=== PATIENT | male | born 1960 | race African-American/Black ===

== ENCOUNTER 2021-07-24 21:11 | Emergency (ER) | payer OTHER, SELFPAY ==
--- NOTE | ~2021-07-24 | XR_ITS ---
EXAMINATION: XR CHEST CLINICAL INFORMATION: Shortness of breath COMPARISON: None TECHNIQUE: Frontal portable view of the chest was obtained. 2247 hours FINDINGS: No significant abnormality is noted involving the heart, lungs, mediastinum, bony thorax or soft tissues. XR/XR chest 1V IMPRESSION: Unremarkable examination.
[2021-07-24 21:15] VITALS: BP 143/86; PULSE 102; RESP 16; TEMP 36.6; O2SAT 97; BMI 29.7
--- NOTE | 2021-07-24 21:41 | ECG_ITS ---
Test Reason : DYSPNEA Blood Pressure : / mmHG Vent. Rate : 084 BPM Atrial Rate : 084 BPM P-R Int : 156 ms QRS Dur : 094 ms QT Int : 386 ms P-R-T Axes : 053 -27 011 degrees QTc Int : 456 ms Normal sinus rhythm Normal ECG No previous ECGs available Referred By: Viri Paredes Electronically Signed By:CHIQUI LAI MD
--- NOTE | 2021-07-24 21:51 | ED.SOB ---
HPI - SOB/Dyspnea General Chief Complaint: Upper Respiratory Symptoms Stated Complaint: sob Time Seen by Provider: 07/24/21 21:31 Source: patient Mode of arrival: ambulatory History of Present Illness HPI Narrative: This is a 61-year-old male visiting from [place] with presentation for increasing shortness of breath and chest tightness since Friday evening without associated new cough, swelling in bilateral lower extremities, or orthopnea. Although patient states his chest is tight he denies that there is any chest pressure but does endorse feeling as though his heart is racing. He denies any dizziness but has had a mild headache and has had both COVID-19 vaccines. Patient is a current everyday smoker but denies history of COPD but endorses history of asthma and states that his last exacerbation was approximately 2 months ago. Related Data Previous Rx's Medication Instructions Recorded prednisone 20 mg tablet 40 mg PO DAILY 4 Days #8 tab 07/24/21 Allergies Allergy/AdvReac Type Severity Reaction Status Date / Time No Known Allergies Allergy Verified 07/24/21 21:42 Review of Systems Review of Systems: Pertinent positives and negatives as stated in HPI 10 point review of systems is otherwise negative. [facility] Past Medical History Source: nursing notes reviewed Social History Social History Advance Directives: No Advance Directives Information Provided: No Physical Exam Vital Signs: Vital Signs: Last Vital Signs Temp 97.8 F 07/24/21 21:15 Pulse 80 07/24/21 23:29 Resp 14 07/24/21 23:00 BP 145/82 H 07/24/21 23:00 Pulse Ox 99 07/24/21 23:00 Body Mass Index 29.7 VITAL SIGNS: Reviewed. GENERAL: Well developed, well nourished, mild distress. HEAD: Normocephalic/atraumatic EYES: PERRLA, EOMI OROPHARYNX: no oral lesions noted, posterior pharynx clear NECK: Supple, no adenopathy LUNGS: Good inspiratory effort but noted expiratory wheezing bilaterally with some decrease in breath sounds. SpO2<97> CARDIOVASCULAR: Regular rate and rhythm without noted murmurs, no JVD or lower extremity edema. ABDOMEN: Soft, non-tender, non-distended with bowel sounds. MUSCULOSKELETAL: No tenderness, deformities, or effusions noted on gross inspection. EXTREMITIES: No cyanosis, clubbing or edema. SKIN: Inspection of the skin reveals no rashes NEUROLOGIC: Alert and oriented x 4. Course Course Course Narrative: 61-year-old male with history and clinical presentation suggestive of asthma exacerbation, but will rule out competing cardiopulmonary etiologies. Review of all investigations consistent with acute asthma exacerbation. All results and findings discussed with patient at bedside and he was otherwise discharged home in stable condition. Reevaluation(s) Reevaluation #1: On re-evaluation patient reports feeling much better and on evaluation lungs there are no longer any noted expiratory wheezes. Time: 22:56 MDM - SOB/Dyspnea Lab Data Result diagrams: 07/24/21 21:46 07/24/21 21:46 Labs: Lab Results 07/24/21 07/24/21 07/24/21 Range/Units 21:46 21:46 21:46 WBC 5.7 (4.8-10.8) X10*3/uL RBC 4.48 L (4.60-5.80) X10*6/uL Hgb 14.0 (14.0-18.0) g/dl Hct 42.0 (42.0-52.0) % MCV 93.8 (80.0-98.0) fL MCH 31.3 (27.0-33.0) pg MCHC 33.3 (31.0-36.0) g/dl RDW 13.2 (11.0-16.0) % Plt Count 200 (160-400) X10*3/uL MPV 10.6 (9.4-12.4) fL Immature Gran % (Auto) 0.5 H (0.0-0.4) % Neut % (Auto) 56.0 (45-73) % Lymph % (Auto) 29.1 (20-40) % Greene % (Auto) 10.8 (2-11) % Eos % (Auto) 3.2 (0-4) % Baso % (Auto) 0.4 (0-2) % Lymph # (Auto) 1.7 (1.2-4.9) X10*3/uL Greene # (Auto) 0.6 (0.1-1.2) X10*3/uL Eos # (Auto) 0.2 (0.0-0.4) X10*3/uL Baso # (Auto) 0.0 (0.0-0.2) X10*3/uL Abs Immat Gran (auto) 0.03 (0.00-0.03) X10*3/uL Absolute Neuts (auto) 3.18 (2.0-8.3) x10*3/uL Absolute Nucleated RBC 0.000 (0.0-0.012) X10*3/uL Nucleated RBC % (auto) 0.0 (0.0-0.2) /100WBC PT (9.9-13.0) SEC INR (0.9-1.1) VBG pH (7.32-7.43) VBG pCO2 mmHg VBG pO2 mmHg VBG HCO3 (22-26) mmol/L VBG O2 Saturation % VBG Base Excess mmol/L Sodium 140 (135-145) mmol/L Potassium 4.3 (3.3-5.1) mmol/L Chloride 100 (96-108) mmol/L Carbon Dioxide 31 H (22-29) mmol/L Anion Gap 13 (12-20) BUN 13 (9-16) mg/dL Creatinine 1.28 (0.5-1.4) mg/dL Estim Creat Clear Calc 64.3 Estimated GFR 57 Random Glucose 261 H (60-115) mg/dL Lactic Acid (0.5-2.0) mmol/L Calcium 9.7 (8.4-10.2) mg/dL Magnesium 2.0 (1.6-2.6) mg/dL Total Bilirubin 0.4 (0.0-1.0) mg/dL AST 20 (5-37) U/L ALT 17 (0-40) U/L Alkaline Phosphatase 75 (39-117) U/L Troponin I High Sens < 3.5 (<3.5-35.0) ng/L Total Protein 6.8 (6.5-8.0) g/dL Albumin 4.2 (3.5-5.0) g/dL Influenza Type A (PCR) (Negative) Influenza Type B (PCR) (Negative) RSV RNA Qual (PCR) (Negative) SARS-CoV-2 RNA (RT-PCR) (Negative) 07/24/21 07/24/21 07/24/21 Range/Units 21:46 21:46 22:22 WBC (4.8-10.8) X10*3/uL RBC (4.60-5.80) X10*6/uL Hgb (14.0-18.0) g/dl Hct (42.0-52.0) % MCV (80.0-98.0) fL MCH (27.0-33.0) pg MCHC (31.0-36.0) g/dl RDW (11.0-16.0) % Plt Count (160-400) X10*3/uL MPV (9.4-12.4) fL Immature Gran % (Auto) (0.0-0.4) % Neut % (Auto) (45-73) % Lymph % (Auto) (20-40) % Greene % (Auto) (2-11) % Eos % (Auto) (0-4) % Baso % (Auto) (0-2) % Lymph # (Auto) (1.2-4.9) X10*3/uL Greene # (Auto) (0.1-1.2) X10*3/uL Eos # (Auto) (0.0-0.4) X10*3/uL Baso # (Auto) (0.0-0.2) X10*3/uL Abs Immat Gran (auto) (0.00-0.03) X10*3/uL Absolute Neuts (auto) (2.0-8.3) x10*3/uL Absolute Nucleated RBC (0.0-0.012) X10*3/uL Nucleated RBC % (auto) (0.0-0.2) /100WBC PT 11.1 (9.9-13.0) SEC INR 1.0 (0.9-1.1) VBG pH (7.32-7.43) VBG pCO2 mmHg VBG pO2 mmHg VBG HCO3 (22-26) mmol/L VBG O2 Saturation % VBG Base Excess mmol/L Sodium (135-145) mmol/L Potassium (3.3-5.1) mmol/L Chloride (96-108) mmol/L Carbon Dioxide (22-29) mmol/L Anion Gap (12-20) BUN (9-16) mg/dL Creatinine (0.5-1.4) mg/dL Estim Creat Clear Calc Estimated GFR Random Glucose (60-115) mg/dL Lactic Acid 1.7 (0.5-2.0) mmol/L Calcium (8.4-10.2) mg/dL Magnesium (1.6-2.6) mg/dL Total Bilirubin (0.0-1.0) mg/dL AST (5-37) U/L ALT (0-40) U/L Alkaline Phosphatase (39-117) U/L Troponin I High Sens (<3.5-35.0) ng/L Total Protein (6.5-8.0) g/dL Albumin (3.5-5.0) g/dL Influenza Type A (PCR) NEGATIVE (Negative) Influenza Type B (PCR) NEGATIVE (Negative) RSV RNA Qual (PCR) NEGATIVE (Negative) SARS-CoV-2 RNA (RT-PCR) NEGATIVE (Negative) 07/24/21 Range/Units 22:27 WBC (4.8-10.8) X10*3/uL RBC (4.60-5.80) X10*6/uL Hgb (14.0-18.0) g/dl Hct (42.0-52.0) % MCV (80.0-98.0) fL MCH (27.0-33.0) pg MCHC (31.0-36.0) g/dl RDW (11.0-16.0) % Plt Count (160-400) X10*3/uL MPV (9.4-12.4) fL Immature Gran % (Auto) (0.0-0.4) % Neut % (Auto) (45-73) % Lymph % (Auto) (20-40) % Greene % (Auto) (2-11) % Eos % (Auto) (0-4) % Baso % (Auto) (0-2) % Lymph # (Auto) (1.2-4.9) X10*3/uL Greene # (Auto) (0.1-1.2) X10*3/uL Eos # (Auto) (0.0-0.4) X10*3/uL Baso # (Auto) (0.0-0.2) X10*3/uL Abs Immat Gran (auto) (0.00-0.03) X10*3/uL Absolute Neuts (auto) (2.0-8.3) x10*3/uL Absolute Nucleated RBC (0.0-0.012) X10*3/uL Nucleated RBC % (auto) (0.0-0.2) /100WBC PT (9.9-13.0) SEC INR (0.9-1.1) VBG pH 7.41 (7.32-7.43) VBG pCO2 49 mmHg VBG pO2 51 mmHg VBG HCO3 32 H (22-26) mmol/L VBG O2 Saturation 79.0 % VBG Base Excess 6.1 mmol/L Sodium (135-145) mmol/L Potassium (3.3-5.1) mmol/L Chloride (96-108) mmol/L Carbon Dioxide (22-29) mmol/L Anion Gap (12-20) BUN (9-16) mg/dL Creatinine (0.5-1.4) mg/dL Estim Creat Clear Calc Estimated GFR Random Glucose (60-115) mg/dL Lactic Acid (0.5-2.0) mmol/L Calcium (8.4-10.2) mg/dL Magnesium (1.6-2.6) mg/dL Total Bilirubin (0.0-1.0) mg/dL AST (5-37) U/L ALT (0-40) U/L Alkaline Phosphatase (39-117) U/L Troponin I High Sens (<3.5-35.0) ng/L Total Protein (6.5-8.0) g/dL Albumin (3.5-5.0) g/dL Influenza Type A (PCR) (Negative) Influenza Type B (PCR) (Negative) RSV RNA Qual (PCR) (Negative) SARS-CoV-2 RNA (RT-PCR) (Negative) ECG Data Attestation: I personally reviewed and interpreted this ECG as follows: Prior ECG tracings: not available for review Interpretation: Normal sinus rhythm, HR-84, no STEMI, HI/QRS/QTC are within normal limits. Discharge Plan Discharge Clinical Impression: Asthma exacerbation Patient Disposition: Home, Self-Care Instructions: Asthma (ED), How to Stop Smoking (ED) Additional Instructions: 1. Recommend consistently using your albuterol inhaler for the next 24 hours, every 4-6 hours. 2. Follow-up with your primary care provider in the next 2-3 days for re-evaluation. Return to the ER for worsening of symptoms. Prescriptions: New prednisone 20 mg tablet 40 mg PO DAILY 4 Days Qty: 8 RF: 0
[2021-07-24] MEDS: Albuterol Sulfate (0.083%) 2.5 MG/3 ML VIAL.NEB 10 MG INHALE (21:56)
[2021-07-24 22:03] LABS: Basophils Percent Auto 0.4 % (0-2); Eosinophils Absolute Auto 0.2 X10*3/uL (0.0-0.4); Eosinophils Percent Auto 3.2 % (0-4); Imm Gran Abs Auto 0.03 X10*3/uL (0.00-0.03); Imm Gran Pct Auto 0.5 % (0.0-0.4); Lymphocytes Absolute Auto 1.7 X10*3/uL (1.2-4.9); Lymphocytes Percent Auto 29.1 % (20-40); MANUAL DIFF FLAG NO; Mean Corpuscular HGB Conc 33.3 g/dl (31.0-36.0); Mean Corpuscular Hemoglobin 31.3 pg (27.0-33.0); Mean Corpuscular Volume 93.8 fL (80.0-98.0); Mean Platelet Volume 10.6 fL (9.4-12.4); Monocytes Absolute Auto 0.6 X10*3/uL (0.1-1.2); Monocytes Percent Auto 10.8 % (2-11); Neutrophils Absolute Auto 3.18 x10*3/uL (2.0-8.3); Platelet Count 200 X10*3/uL (160-400); Red Blood Count 4.48 X10*6/uL (4.60-5.80); Red Cell Distribution Width 13.2 % (11.0-16.0); White Blood Count 5.7 X10*3/uL (4.8-10.8)
[2021-07-24 22:08] LABS: Prothrombin Time 11.1 SEC (9.9-13.0)
[2021-07-24 22:11] VITALS: PULSE 86; O2SAT 96
[2021-07-24 22:29] LABS: Troponin-I High Sensitivity < 3.5 ng/L (<3.5-35.0)
[2021-07-24 22:32] LABS: VBG Base Excess 6.1 mmol/L; VBG HCO3 32 mmol/L (22-26); VBG pCO2 49 mmHg; VBG pH 7.41 (7.32-7.43); VBG pO2 51 mmHg
[2021-07-24 22:34] LABS: Venous Blood Gas Refer to POC result
[2021-07-24 22:36] LABS: Lactic Acid 1.7 mmol/L (0.5-2.0)
[2021-07-24 22:40] LABS: Alanine Aminotransferase 17 U/L (0-40); Albumin Level 4.2 g/dL (3.5-5.0); Alkaline Phosphatase 75 U/L (39-117); Anion Gap 13 (12-20); Aspartate Amino Transferase 20 U/L (5-37); Bilirubin Total 0.4 mg/dL (0.0-1.0); Blood Urea Nitrogen 13 mg/dL (9-16); Calcium 9.7 mg/dL (8.4-10.2); Carbon Dioxide 31 mmol/L (22-29); Chloride 100 mmol/L (96-108); Creatinine Clr Calc Pharmacy 64.3; Estimated Glomerular Filt Rate 57; Glucose Random 261 mg/dL (60-115); Influenza A PCR NEGATIVE (Negative); Influenza B PCR NEGATIVE (Negative); Potassium 4.3 mmol/L (3.3-5.1); Resp Syncy Virus RNA Qual PCR NEGATIVE (Negative); SARS COV2 PCR INHOUSE NEGATIVE (Negative); Sodium 140 mmol/L (135-145); Total Protein 6.8 g/dL (6.5-8.0)
[2021-07-24] MEDS: methylPREDNISolone Sod Succ 125 MG/2 ML VIAL IVPUSH (22:55)
[2021-07-24 23:00] VITALS: BP 145/82; PULSE 88; RESP 14; O2SAT 99
--- NOTE | 2021-07-24 23:08 | PC.NURSE ---
This nurse called RT to administer med.
[2021-07-24 23:29] VITALS: PULSE 80; O2SAT 97
[2021-07-24] MEDS: Albuterol Sulfate (0.083%) 2.5 MG/3 ML VIAL.NEB 5 MG INHALE (23:29)
[2021-07-25] MEDS: Albuterol Sulfate 90 MCG 8 GM INHALER 4 PUFF INHALE (00:32)
== END 2021-07-25 00:35 | disposition home or self-care (01) ==
LOC: HO.ED 23:34
PROVIDERS: Emergency Provider Student in an Organized Health Care Education/Training Program
DX: J45.901 Unspecified asthma with (acute) exacerbation (principal); R06.02 Shortness of breath; F17.210 Nicotine dependence, cigarettes, uncomplicated; Z71.6 Tobacco abuse counseling; Z20.822 Contact with and (suspected) exposure to COVID-19; Z79.899 Other long term (current) drug therapy
CPT/HCPCS: 0241U; 36415; 71045; 80053; 82803; 83605; 83735; 84484; 85025; 85610; 87040; 93005; 94640; 94644; 96374; 99284; 99285; J2930

== ENCOUNTER 2021-09-07 09:31 | Emergency (ER) | payer OTHER, SELFPAY ==
--- NOTE | ~2021-09-07 | XR_ITS ---
EXAMINATION: XR CHEST CLINICAL INFORMATION: Shortness of breath COMPARISON: Previous chest x-ray most recent 07/24/2021 TECHNIQUE: Frontal view of the chest was obtained. FINDINGS: The cardiac and mediastinal contours are normal. The lungs are clear. There is no pleural effusion or pneumothorax. There are surgical clips in the lower neck. Bony structures are unremarkable. XR/XR chest 1V IMPRESSION: No evidence for acute disease in the chest.
--- NOTE | 2021-09-07 09:37 | ECG_ITS ---
Test Reason : CP Blood Pressure : / mmHG Vent. Rate : 071 BPM Atrial Rate : 071 BPM P-R Int : 148 ms QRS Dur : 086 ms QT Int : 376 ms P-R-T Axes : 043 -27 005 degrees QTc Int : 408 ms Normal sinus rhythm Normal ECG When compared with ECG of 24-JUL-2021 21:51, T wave amplitude has increased in Anterior leads Referred By: Generic ED Physician Electronically Signed By:GARRICK THOMAS MD
[2021-09-07 10:08] VITALS: BP 143/84; PULSE 72; RESP 18; TEMP 36.5; O2SAT 100; BMI 29.0
[2021-09-07 10:49] LABS: COVID-19 Test Negative (Negative); IDNOW Serial# 9DD0AD1C
[2021-09-07] MEDS: predniSONE 20 MG TABLET 40 MG PO (11:35)
[2021-09-07 11:53] VITALS: PULSE 79; O2SAT 98
[2021-09-07] MEDS: Albuterol/Iprat 2.5/0.5MG 3 ML AMPUL.NEB INHALE (11:53)
--- NOTE | 2021-09-07 12:22 | ED.SOB ---
HPI - SOB/Dyspnea General Chief Complaint: Dyspnea Stated Complaint: Chest pressure/ear ache/SOB Time Seen by Provider: 09/07/21 11:23 Source: patient Mode of arrival: ambulatory History of Present Illness HPI Narrative: 61-year-old male with a past medical history of asthma, cigarette smoker presenting to the ED complaining of worsening SOB, dry cough, and wheezing x2 weeks. Reports tested negative for COVID-19 last week. It is fully vaccinated for COVID-19. Denies chest pain, fever, chills, pedal edema, recent travel, sick contacts. Admits use neb treatment this morning with mild relief MD elicited complaint: shortness of breath, cough and asthma attack Pertinent past history: asthma Related Data Previous Rx's Medication Instructions Recorded prednisone 20 mg tablet 40 mg PO DAILY 4 Days #8 tab 07/24/21 albuterol sulfate 2.5 mg/0.5 mL 5 mg INHALATION Q4H PRN #30 ea 09/07/21 solution for nebulization albuterol sulfate 90 mcg/actuation 2 puff INHALATION Q4-6H PRN #6.7 g 09/07/21 aerosol inhaler prednisone 20 mg tablet 40 mg PO DAILY 5 Days #10 tab 09/07/21 Allergies Allergy/AdvReac Type Severity Reaction Status Date / Time No Known Allergies Allergy Verified 09/07/21 10:08 Review of Systems Review of Systems: Constitutional: No Fever, No Chills ENT/Mouth: No Ear Pain, No Nasal Congestion, No Sinus Pain, No Hoarseness, No sore throat, No Rhinorrhea, No Swallowing Difficulty Cardiovascular: No Chest Pain, + SOB Respiratory: + Cough, No Sputum, + Wheezing Gastrointestinal: No Nausea, No Vomiting, No Diarrhea, No Constipation, No Abdominal pain Genitourinary:, No Dysuria, No Hematuria, No Urinary Incontinence Musculoskeletal: No joint pain, No Myalgias, No Joint Swelling Skin: No Skin Lesions, No rash Neuro: No Weakness, No Numbness, No Paresthesias Yes all other systems are reviewed and are negative [facility] Past Medical History Attestation statement: The following information was validated with the patient. Social History Social History Advance Directives: No Advance Directives Information Provided: No Physical Exam Vital Signs: Vital Signs: Last Vital Signs Temp 97.7 F 09/07/21 10:08 Pulse 79 09/07/21 11:53 Resp 18 09/07/21 10:08 BP 143/84 H 09/07/21 10:08 Pulse Ox 100 09/07/21 10:08 BMI result Body Mass Index 29.0 Const: General: cooperative, healthy appearing and no acute distress Orientation/consciousness: patient oriented x3 Limitations: no limitations HENMT: Head: Yes normal to inspection Ears: hearing grossly normal bilaterally General nose exam: Normal external nose present Face and sinus: Yes normal facial exam Eyes: General: appearance normal, both eyes and all related structures EOM: EOMs intact bilaterally Neck: Neck: Yes normal visual inspection and Yes no meningeal signs Resp: Effort & Inspection: normal respiratory effort and not tachypneic Auscultation: wheezes expiratory wheezes and upper bilaterally Cardio: Rate: regular rate Heart sounds: S1 normal heart sound present and S2 normal heart sound present Skin: Rashes: no rashes Wounds: no wounds Neuro: General: patient oriented x3 and no meningeal signs Gait exam (Neuro): Normal gait present Extrem: General: Yes normal to inspection, Yes no pedal edema and Yes no calf tenderness Course Course Course Narrative: -COVID negative XR chest 1V IMPRESSION: No evidence for acute disease in the chest. -1232--on re-evaluation after DuoNeb lungs CTA. Discussed worrisome signs and symptoms and strict return precautions and need follow-up with PCP. Patient verbalized understanding for safer discharge home this time MDM - SOB/Dyspnea MDM Narrative Medical decision making narrative: 61-year-old male with a past medical history of asthma, cigarette smoker presenting to the ED complaining of worsening SOB, dry cough, and wheezing x2 weeks. On exam vital signs stable, NAD/nontoxic, extra adamaris wheeze noted in upper lung garcia, no pedal edema, nontoxic, no respiratory distress. Concern for asthma exacerbation versus viral syndrome. Rule out pneumonia. Low concern for ACS/PE Plan: COVID-19 testing, CXR, DuoNeb, p.o. prednisone, re-evaluate Differential Diagnosis Differential diagnosis: Likely acute exacerbation of chronic obstructive airways disease, congestive heart failure, pneumonia and asthma with exacerbation Medical Records Attestation: I reviewed the patient's medical records. Lab Data Attestation: I reviewed the patient's lab results. Labs: Lab Results 09/07/21 Range/Units 10:28 COVID-19 (EDUARDO) Negative (Negative) COVID-19 Clin Com See Note Discharge Plan Discharge Clinical Impression: Asthma with exacerbation Qualifiers: Asthma severity: mild Asthma persistence: unspecified Qualified Code(s): J45.901 - Unspecified asthma with (acute) exacerbation Patient Disposition: Home, Self-Care Instructions: Asthma (ED) Additional Instructions: You tested negative for COVID-19. Her x-ray was unremarkable Make sure you are using your nebulizer machine and inhaler at home In addition take prednisone as prescribed Please follow-up with her doctor If symptoms persist or worsen, if constant worsening shortness of breath, developed chest pain, or fever please return to the ED Prescriptions: New prednisone 20 mg tablet 40 mg PO DAILY 5 Days Qty: 10 RF: 0 albuterol sulfate 90 mcg/actuation HFA aerosol inhaler 2 puff inhalation Q4-6H PRN (Reason: shortness of breath or wheezing) Qty: 6.7 RF: 0 albuterol sulfate 2.5 mg/0.5 mL solution for nebulization 5 mg inhalation Q4H PRN (Reason: shortness of breath or wheezing) Qty: 30 RF: 0 No Action prednisone 20 mg tablet 40 mg PO DAILY 4 Days Qty: 8 RF: 0 Referrals: Physician,None [Primary Care Provider] - 5 days
== END 2021-09-07 13:07 | disposition home or self-care (01) ==
PROVIDERS: Emergency Provider Emergency Medicine
DX: J45.901 Unspecified asthma with (acute) exacerbation (principal); R06.02 Shortness of breath; H92.03 Otalgia, bilateral; R05.9 Cough, unspecified; Z20.822 Contact with and (suspected) exposure to COVID-19; Z79.899 Other long term (current) drug therapy
CPT/HCPCS: 36415; 71045; 87635; 93005; 94640; 99283; 99284

== ENCOUNTER 2022-02-06 09:28 | Emergency (ER) | payer OTHER, SELFPAY ==
--- NOTE | ~2022-02-06 | XR_ITS ---
EXAMINATION: XR CHEST CLINICAL INFORMATION: Cough COMPARISON: 09/07/2021 TECHNIQUE: Frontal view of the chest was obtained. FINDINGS: Lungs are well-inflated and clear. No pleural effusion. Cardiac silhouette is normal in size. The hilar contours are normal. Pulmonary vascular pattern is normal. Surgical clips within the lower neck. The visualized bones are intact. XR/XR chest 1V IMPRESSION: No evidence of pneumonia. No acute cardiopulmonary findings compared to 09/07/2021.
[2022-02-06 09:38] VITALS: BP 133/76; PULSE 110; RESP 18; TEMP 36.8; O2SAT 96; BMI 29.0
[2022-02-06 10:06] LABS: COVID-19 Test Negative (Negative); IDNOW Serial# 16C4AD1C; Influenza A Positive (Negative); Influenza B2 Negative (Negative)
[2022-02-06 11:11] VITALS: BP 140/84; PULSE 102; RESP 18; O2SAT 96
--- NOTE | 2022-02-06 12:20 | ED.URI ---
HPI - URI/Sore Throat General Chief Complaint: Upper Respiratory Symptoms Stated Complaint: difficult breath, lung, chest pain Time Seen by Provider: 02/06/22 12:20 Source: patient Mode of arrival: ambulatory Limitations: no limitations History of Present Illness HPI Narrative: shortness of breath since this morning, coughing, myalgias and chill. MD elicited complaint: fever and cough Onset (ago): hour(s) Consistency: constant Severity: mild Exacerbating factors: exertion Associated symptoms: fever, chills, cough and shortness of breath Related Data Previous Rx's Medication Instructions Recorded prednisone 20 mg tablet 40 mg PO DAILY 4 Days #8 tab 07/24/21 albuterol sulfate 2.5 mg/0.5 mL 5 mg INHALATION Q4H PRN #30 ea 09/07/21 solution for nebulization albuterol sulfate 90 mcg/actuation 2 puff INHALATION Q4-6H PRN #6.7 g 09/07/21 aerosol inhaler prednisone 20 mg tablet 40 mg PO DAILY 5 Days #10 tab 09/07/21 albuterol sulfate 90 mcg/actuation 2 puff INHALATION QID PRN #8.5 g 02/06/22 aerosol inhaler [id number] 5 10 ml PO Q4H #120 ml 02/06/22 mg-10 mg-100 mg/5 mL oral liquid prednisone 20 mg tablet 60 mg PO DAILY #12 tab 02/06/22 Allergies Allergy/AdvReac Type Severity Reaction Status Date / Time No Known Allergies Allergy Verified 09/07/21 10:08 Review of Systems Constitutional: Constitutional: Reports no additional constitutional complaints Eyes: Eyes: Reports no additional eye complaints ENT: Denies dizziness Cardiovascular: Cardiovascular: Reports no additional cardiovascular complaints Respiratory: Respiratory: Reports as per HPI Gastrointestinal: Gastrointestinal: Reports no additional gastrointestinal complaints Musculoskeletal: Musculoskeletal: Reports no additional musculoskeletal complaints Integumentary/Breasts: Skin/Breast: Denies rash Neurologic: Reports system reviewed and no additional complaints, except as documented, Denies dizziness and Denies Sensory deficit (Neuro) Psychiatric: Psychiatric: Denies anxiety PMFSH Social History Social History Advance Directives: No Advance Directives Information Provided: No Physical Exam Vital Signs: Vital Signs: Last Vital Signs Temp 98.3 F 02/06/22 09:38 Pulse 102 H 02/06/22 12:48 Resp 18 02/06/22 12:48 BP 140/84 H 02/06/22 11:11 Pulse Ox 96 02/06/22 11:11 BMI result Body Mass Index 29.0 Neuro: Sensory Exam: No Sensory deficit (Neuro) Course Reevaluation(s) Reevaluation #1: Breathing better, no wheezing. Still coughing, will dc on robitussin, prednisone and albuterol Time: 13:30 MDM - URI/Sore Throat Lab Data Labs: Lab Results 02/06/22 02/06/22 Range/Units 09:42 09:42 COVID-19 (EDUARDO) Negative (Negative) COVID-19 Clin Com See Note Influenza Type A (LYNN) Positive A (Negative) Influenza Type B (LYNN) Negative (Negative) Influenza A & B Note See Note Imaging Data Chest x-ray: Radiologist's impression: IMPRESSION: No evidence of pneumonia. No acute cardiopulmonary findings compared to 09/07/2021. Discharge Plan Discharge Clinical Impression: Influenza A, Asthma Patient Disposition: Home, Self-Care Instructions: Asthma (ED), Influenza (ED) Prescriptions: New albuterol sulfate 90 mcg/actuation HFA aerosol inhaler 2 puff inhalation QID PRN (Reason: shortness of breath or wheezing) Qty: 8.5 0RF prednisone 20 mg tablet 60 mg PO DAILY Qty: 12 0RF [id number] 5-10-100 mg/5 mL liquid 10 ml PO Q4H Qty: 120 0RF No Action prednisone 20 mg tablet 40 mg PO DAILY 4 Days Qty: 8 0RF prednisone 20 mg tablet 40 mg PO DAILY 5 Days Qty: 10 0RF albuterol sulfate 90 mcg/actuation HFA aerosol inhaler 2 puff inhalation Q4-6H PRN (Reason: shortness of breath or wheezing) Qty: 6.7 0RF albuterol sulfate 2.5 mg/0.5 mL solution for nebulization 5 mg inhalation Q4H PRN (Reason: shortness of breath or wheezing) Qty: 30 0RF Referrals: Physician,Nonstaff [Primary Care Provider] - 1 week Stand Alone Forms: Work/School Release
[2022-02-06] MEDS: guaiFENesin 200 MG/10 ML 10 ML LIQUID PO (12:35)
[2022-02-06] MEDS: predniSONE 20 MG TABLET 60 MG PO (12:35)
[2022-02-06] MEDS: Albuterol Sulfate 90 MCG 8 GM INHALER 4 PUFF INHALE (12:41)
[2022-02-06 12:48] VITALS: PULSE 102; RESP 18; O2SAT 96
== END 2022-02-06 13:30 | disposition home or self-care (01) ==
PROVIDERS: Emergency Provider Emergency Medicine
DX: J11.1 Influenza due to unidentified influenza virus with other respiratory manifestations (principal); J45.909 Unspecified asthma, uncomplicated; Z20.822 Contact with and (suspected) exposure to COVID-19; E11.9 Type 2 diabetes mellitus without complications; F17.200 Nicotine dependence, unspecified, uncomplicated
CPT/HCPCS: 71045; 87502; 87635; 94640; 99283; 99284

== ENCOUNTER 2022-02-13 07:52 | Inpatient (IN) | payer OTHER, SELFPAY ==
[2022-02-13] VITALS (11 sets, daily range): BP systolic 111–146; BP diastolic 75–96; PULSE 72–108; RESP 14–23; TEMP 36.4–37.1; O2SAT 92–94; BMI 29.0
--- NOTE | ~2022-02-13 | XR_ITS ---
EXAMINATION: XR CHEST CLINICAL INFORMATION: Pneumonia follow-up COMPARISON: Prior chest radiograph 02/13/2022 TECHNIQUE: Frontal view of the chest was obtained. FINDINGS: The lungs are grossly clear. Heart and pulmonary vessels are normal. No congestive change. XR/XR chest 1V IMPRESSION: No active disease.
--- NOTE | ~2022-02-13 | XR_ITS ---
EXAMINATION: XR CHEST CLINICAL INFORMATION: Influenza a positive. Evaluate for pneumonia. COMPARISON: 02/19/2022 TECHNIQUE: 2 views of the chest were obtained. FINDINGS: The lungs are well expanded. There is no focal consolidation, edema, or effusion. No pneumothorax. The cardiomediastinal silhouette is within normal limits. No acute osseous abnormality. XR/XR chest 2V IMPRESSION: Clear lungs.
--- NOTE | ~2022-02-13 | XR_ITS ---
EXAMINATION: XR CHEST CLINICAL INFORMATION: Cough and difficulty breathing. COMPARISON: Chest radiograph dated from 02/06/2022. TECHNIQUE: AP view of the chest was obtained. FINDINGS: Normal appearance of the cardiomediastinal silhouette. Interstitial markings are increased when compared to 02/06/2022 with also some questionable more focal opacities in the right lower lobe. No pleural effusion or pneumothorax. No acute osseous abnormalities. The visualized upper abdomen is within normal limits. XR/XR chest 1V IMPRESSION: Increased interstitial markings and questionable more focal infiltrates in the right lower lobe. Findings raise the possibility of an atypical infectious or inflammatory process involving the small airways.
--- NOTE | 2022-02-13 08:05 | ECG_ITS ---
Test Reason : diff breathing Blood Pressure : / mmHG Vent. Rate : 104 BPM Atrial Rate : 104 BPM P-R Int : 136 ms QRS Dur : 084 ms QT Int : 344 ms P-R-T Axes : 060 020 003 degrees QTc Int : 452 ms Sinus tachycardia Nonspecific T wave abnormality Abnormal ECG When compared with ECG of 07-SEP-2021 09:57, Nonspecific T wave abnormality now evident in Lateral leads Referred By: Generic ED Physician Electronically Signed By:Mani Cole
[2022-02-13 08:35] LABS: Lactic Acid 0.9 mmol/L (0.5-2.0)
[2022-02-13 08:43] LABS: B Type Natriuretic Peptide < 10 pg/mL (<100); Troponin-I High Sensitivity < 3.5 ng/L (<3.5-35.0)
[2022-02-13 08:45] LABS: Anion Gap 17 (12-20); Blood Urea Nitrogen 9 mg/dL (9-16); Calcium 10.1 mg/dL (8.4-10.2); Carbon Dioxide 22 mmol/L (22-29); Chloride 101 mmol/L (96-108); Creatinine Clr Calc Pharmacy 72.6; Estimated Glomerular Filt Rate > 60; Glucose Random 341 mg/dL (60-115); Potassium 4.6 mmol/L (3.3-5.1); Sodium 135 mmol/L (135-145)
--- NOTE | 2022-02-13 08:53 | ED_ITS ---
HPI - SOB/Dyspnea General Chief Complaint: Dyspnea Stated Complaint: diff breathing Time Seen by Provider: 02/13/22 08:37 Source: patient Mode of arrival: ambulatory Limitations: no limitations History of Present Illness HPI Narrative: Patient presents emergency department for evaluation of shortness of breath. He reports he was having difficulty breathing in 10 days ago was diagnosed with influenza. Was given a prescription for albuterol inhaler and prednisone but noticed minimal improvement. He states that he continues to have a difficult time breathing, productive cough with green phlegm, and wheezing. He feels fever rash, has not checked a temperature. Is associated nasal congestion. Anterior chest pain experienced only when coughing. denies shaking chills, neck pain, nausea, vomiting, abdominal pain, dysuria, urinary frequency pedal edema, generalized weakness. MD elicited complaint: shortness of breath and cough Pertinent past history: asthma, diabetes and other ( Influenza) Onset (ago): week(s) Context: recent illness Timing: constant Known history of: asthma and diabetes Related Data Home Medications Medication Instructions Recorded Confirmed amlodipine 5 mg tablet 1 tab PO DAILY 02/13/22 02/13/22 levalbuterol tartrate 45 2 puff INHALATION QID PRN 02/13/22 02/13/22 mcg/actuation aerosol inhaler (Xopenex HFA) levothyroxine 150 mcg tablet 1 tab PO DAILY 02/13/22 02/13/22 (Euthyrox) lovastatin 20 mg tablet 1 tab PO DAILY 02/13/22 02/13/22 montelukast 10 mg tablet 1 tab PO DAILY 02/13/22 02/13/22 Previous Rx's Medication Instructions Recorded albuterol sulfate 2.5 mg/0.5 mL 5 mg INHALATION Q4H PRN #30 ea 09/07/21 solution for nebulization Allergies Allergy/AdvReac Type Severity Reaction Status Date / Time No Known Allergies Allergy Verified 09/07/21 10:08 Review of Systems Review of Systems: Constitutional : No Fever, No Chills ENT/Mouth : No sore throat, No Rhinorrhea, No Swallowing Difficulty Eyes: No Eye Pain, No Swelling, No Redness Cardiovascular : No Chest Pain, positive SOB, No Orthopnea, positive Edema Respiratory : No Cough, No Sputum, No Wheezing, positive dyspnea Gastrointestinal : No Nausea, No Vomiting, No Diarrhea, No abdominal Pain, No Hematochezia, No Melena Genitourinary : No Dysuria, No Urinary Frequency, No Hematuria Musculoskeletal : No joint pain, No Myalgias Skin : No Skin Lesions, No rash Neuro : No Weakness, No Numbness, No Dizziness, No Headache Psych : No Anxiety/Panic, No Depression Heme/Lymph: No Bruising, No Lymphadenopathy Endocrine : No Polyuria, No Polydipsia Yes all other systems are reviewed and are negative [facility] Past Medical History Attestation statement: The following information was validated with the patient. Source: old records reviewed Medical History Asthma Social History Social History Advance Directives: No Advance Directives Information Provided: Yes Physical Exam Vital Signs: Vital Signs: Last Vital Signs Temp 98.3 F 02/13/22 15:06 Pulse 88 02/13/22 15:55 Resp 16 02/13/22 15:55 BP 138/75 02/13/22 15:06 Pulse Ox 93 02/13/22 15:06 BMI result Body Mass Index 29.0 Vital signs have been reviewed as normal and appeared to be correct. Blood pressure normal.? Heart rate normal.? Respiration rate normal. Temperature normal.? Oxygen saturation normal. Appearance: Alert.?Oriented to person, place and time. No acute distress .?Normal affect. Eyes: Pupils equal, round and reactive to light.? ENT: Pharynx normal.?? Neck: Normal inspection.? Neck supple.?? CVS: Heart sounds normal. Normal heart rate and rhythm.? Pulses normal.?? Respiratory: No respiratory distress.? Lung sounds with expiratory wheezing throughout? Abdomen: Soft and non-tender. Normoactive bowel sounds. ? Skin: Skin warm and dry.? Normal skin color.? Extremities: No lower extremity edema.? No calf ttp? Neuro: Moves all extremities spontaneously. Sensation intact bilaterally. CN II- XII intact. No focal neuro deficits. Ambulates with normal steady gait. Course Course Course Narrative: patient is a 61-year-old male with a past medical history of asthma and recent influenza a infection. Presents to emergency department for evaluation of worsening shortness of breath and productive cough. Will obtain CBC, CMP, troponin, EKG, BNP, COVID- 19 testing, and chest x-ray. patient to receive of uteri old total 10 mg and ipratropium nebulizer, Solu-Medrol 125 mg IV Reevaluation(s) Reevaluation #1: EKG reveals sinus tachycardia nonspecific team wave abnormalities, troponin <3.5. BNP is normal. Lactic acid 0.9. blood cultures were sent. She does not meet sirs criteria, and lactic acid is normal, therefore would defer sepsis fluid bolus at this time. Chest x-ray concerning for focal infiltrate of the right lower lobe, this may be atypical/viral pneumonia given recent influenza testing however given his comorbidities will cover for superimposed bacterial pneumonia with ceftriaxone IV and doxycycline IV. At this time spoke with patient updated on review results. Noted room air O2 saturation to be 90-92%. Will obtain ambulation O2 trial to see how patient's tolerance is and disposition Time: 11:30 Reevaluation #2: Attempted ambulation to trial patient minimally tolerant, significant dyspnea with exertion, O2 saturation 88% to 90% while on room air. spoke with hospitalist team Dr. Lombardo, who accepts patient for admission to medicine service for pneumonia, Asthma exacerbation, and hypoxia. patient updated on plan of care and is agreeable. Time: 13:30 MDM - SOB/Dyspnea Medical Records Attestation: I reviewed the patient's medical records. Lab Data Attestation: I reviewed the patient's lab results. Result diagrams: 02/13/22 08:52 02/13/22 08:16 Labs: Lab Results 02/13/22 02/13/22 02/13/22 Range/Units 08:16 08:16 08:16 WBC (4.8-10.8) X10*3/uL RBC (4.60-5.80) X10*6/uL Hgb (14.0-18.0) g/dl Hct (42.0-52.0) % MCV (80.0-98.0) fL MCH (27.0-33.0) pg MCHC (31.0-36.0) g/dl RDW (11.0-16.0) % Plt Count (160-400) X10*3/uL MPV (9.4-12.4) fL Immature Gran % (Auto) (0.0-0.4) % Neut % (Auto) (45-73) % Lymph % (Auto) (20-40) % [place] % (Auto) (2-11) % Eos % (Auto) (0-4) % Baso % (Auto) (0-2) % Lymph # (Auto) (1.2-4.9) X10*3/uL [place] # (Auto) (0.1-1.2) X10*3/uL Eos # (Auto) (0.0-0.4) X10*3/uL Baso # (Auto) (0.0-0.2) X10*3/uL Abs Immat Gran (auto) (0.00-0.03) X10*3/uL Absolute Neuts (auto) (2.0-8.3) x10*3/uL Absolute Nucleated RBC (0.0-0.012) X10*3/uL Nucleated RBC % (auto) (0.0-0.2) /100WBC Sodium 135 (135-145) mmol/L Potassium 4.6 (3.3-5.1) mmol/L Chloride 101 (96-108) mmol/L Carbon Dioxide 22 (22-29) mmol/L Anion Gap 17 (12-20) BUN 9 (9-16) mg/dL Creatinine 1.12 (0.5-1.4) mg/dL Estim Creat Clear Calc 72.6 Estimated GFR > 60 Random Glucose 341 H (60-115) mg/dL Lactic Acid 0.9 (0.5-2.0) mmol/L Calcium 10.1 (8.4-10.2) mg/dL Troponin I High Sens < 3.5 (<3.5-35.0) ng/L B-Natriuretic Peptide < 10 (<100) pg/mL Influenza Type A (PCR) (Negative) Influenza Type B (PCR) (Negative) RSV RNA Qual (PCR) (Negative) SARS-CoV-2 RNA (RT-PCR) (Negative) 02/13/22 02/13/22 Range/Units 08:16 08:52 WBC 8.2 (4.8-10.8) X10*3/uL RBC 5.01 (4.60-5.80) X10*6/uL Hgb 15.5 (14.0-18.0) g/dl Hct 45.1 (42.0-52.0) % MCV 90.0 (80.0-98.0) fL MCH 30.9 (27.0-33.0) pg MCHC 34.4 (31.0-36.0) g/dl RDW 12.0 (11.0-16.0) % Plt Count 190 (160-400) X10*3/uL MPV 10.9 (9.4-12.4) fL Immature Gran % (Auto) 1.1 H (0.0-0.4) % Neut % (Auto) 70.9 (45-73) % Lymph % (Auto) 14.5 L (20-40) % [place] % (Auto) 12.7 H (2-11) % Eos % (Auto) 0.6 (0-4) % Baso % (Auto) 0.2 (0-2) % Lymph # (Auto) 1.2 (1.2-4.9) X10*3/uL [place] # (Auto) 1.0 (0.1-1.2) X10*3/uL Eos # (Auto) 0.1 (0.0-0.4) X10*3/uL Baso # (Auto) 0.0 (0.0-0.2) X10*3/uL Abs Immat Gran (auto) 0.09 H (0.00-0.03) X10*3/uL Absolute Neuts (auto) 5.8 (2.0-8.3) x10*3/uL Absolute Nucleated RBC 0.000 (0.0-0.012) X10*3/uL Nucleated RBC % (auto) 0.0 (0.0-0.2) /100WBC Sodium (135-145) mmol/L Potassium (3.3-5.1) mmol/L Chloride (96-108) mmol/L Carbon Dioxide (22-29) mmol/L Anion Gap (12-20) BUN (9-16) mg/dL Creatinine (0.5-1.4) mg/dL Estim Creat Clear Calc Estimated GFR Random Glucose (60-115) mg/dL Lactic Acid (0.5-2.0) mmol/L Calcium (8.4-10.2) mg/dL Troponin I High Sens (<3.5-35.0) ng/L B-Natriuretic Peptide (<100) pg/mL Influenza Type A (PCR) POSITIVE A (Negative) Influenza Type B (PCR) NEGATIVE (Negative) RSV RNA Qual (PCR) NEGATIVE (Negative) SARS-CoV-2 RNA (RT-PCR) NEGATIVE (Negative) Imaging Data Chest x-ray: Radiologist's impression: XR/XR chest 1V IMPRESSION: Increased interstitial markings and questionable more focal infiltrates in the right lower lobe. Findings raise the possibility of an atypical infectious or inflammatory process involving the small airways. ECG Data Attestation: I personally reviewed and interpreted this ECG as follows: ECG interpretation date: 02/13/22 Prior ECG tracings: available for review Interpretation: Rate: 104 Rhythm:? sinus tachycardia [place]:? normal Normal P waves.? Normal [place].?? Normal QRS complex.?? ST T wave :?? nonspecific T-wave changes, no ST elevation, no ST depression qTC: 452 prior studies:? August 2021 The study has been interpreted contemporaneously by me. Discharge Plan Discharge Clinical Impression: Community acquired pneumonia Patient Disposition: Admitted As Inpatient
[2022-02-13 09:00] LABS: MANUAL DIFF FLAG NO
[2022-02-13 09:04] LABS: Basophils Percent Auto 0.2 % (0-2); Eosinophils Absolute Auto 0.1 X10*3/uL (0.0-0.4); Eosinophils Percent Auto 0.6 % (0-4); Hematocrit 45.1 % (42.0-52.0); Hemoglobin 15.5 g/dl (14.0-18.0); Imm Gran Abs Auto 0.09 X10*3/uL (0.00-0.03); Imm Gran Pct Auto 1.1 % (0.0-0.4); Lymphocytes Absolute Auto 1.2 X10*3/uL (1.2-4.9); Lymphocytes Percent Auto 14.5 % (20-40); Mean Corpuscular HGB Conc 34.4 g/dl (31.0-36.0); Mean Corpuscular Hemoglobin 30.9 pg (27.0-33.0); Mean Platelet Volume 10.9 fL (9.4-12.4); Monocytes Percent Auto 12.7 % (2-11); Neutrophils Absolute Auto 5.8 x10*3/uL (2.0-8.3); Neutrophils Percent Auto 70.9 % (45-73); Platelet Count 190 X10*3/uL (160-400); Red Blood Count 5.01 X10*6/uL (4.60-5.80); White Blood Count 8.2 X10*3/uL (4.8-10.8)
[2022-02-13 09:11] LABS: Influenza A PCR POSITIVE (Negative); Influenza B PCR NEGATIVE (Negative); Resp Syncy Virus RNA Qual PCR NEGATIVE (Negative); SARS COV2 PCR INHOUSE NEGATIVE (Negative)
[2022-02-13] MEDS: Albuterol/Iprat 2.5/0.5MG 3 ML AMPUL.NEB INHALE ×3 (09:19→19:23)
[2022-02-13] MEDS: Albuterol Sulfate (0.083%) 2.5 MG/3 ML VIAL.NEB 7.5 MG INHALE (09:19)
[2022-02-13] MEDS: Doxycycline Hyclate 100 MG in 0.9 % Sodium Chloride 250 ML 166.67 MG IV ×2 (09:33→22:40)
[2022-02-13] MEDS: methylPREDNISolone Sod Succ 125 MG/2 ML VIAL IVPUSH (09:33)
--- NOTE | 2022-02-13 14:25 | PHA.MEDREC ---
Pharmacy Consult ? Medication Reconciliation Pharmacy has completed the medication reconciliation.
--- NOTE | 2022-02-13 15:15 | PM.IMHP ---
History of Present Illness Date of Service: 02/13/22 Chief Complaint: Shortness of breath, coughing a 61 years old male with PMH of HTN, asthma who presents to the hospital with worsening shortness of breath, cough. The patient reported being diagnosed with influenza A last week. Received treatment of steroids but no Tamiflu. Reports worsening wheezing, shortness of breath and coughing over the last 3 days with no reported fever, chills. Presenting to the emergency today he was found to be tachypneic. Noted to drop his oxygen saturation upon ambulation to 88%. Requiring oxygen supplement to keep his sats above 90. X-ray showed concerns over infiltrates. Will be admitted for further treatment and evaluation. Review of Systems Review of Systems: No fever, chills But reporting generalizedr weakness No chest pain, palpitation shortness of breath, coughing with increased wheezes No abdominal pain, nausea or vomiting No urinary symptoms No any rash or wounds PMFSH Medical History Asthma Social History Advance Directives: No Advance Directives Information Provided: Yes Meds Allergies Allergy/AdvReac Type Severity Reaction Status Date / Time No Known Allergies Allergy Verified 09/07/21 10:08 Active Medications: Current Medications Acetaminophen (Acetaminophen 325 Mg Tablet) 650 mg PO Q6H PRN PRN Reason: Pain, Mild (Pain Scale 1-3) Albuterol Sulfate (Albuterol Sulfate (0.083%) 2.5 Mg/3 Ml Vial.Neb) 5 mg INHALE Q4H PRN PRN Reason: shortness of breath or wheezing Albuterol/Ipratropium (Albuterol/Iprat 2.5/0.5mg 3 Ml Ampul.Neb) 3 ml INHALE RQ4H WHILE AWAKE CARLOS Amlodipine Besylate (Amlodipine Besylate 5 Mg Tablet) 5 mg PO DAILY CARLOS; Protocol Enoxaparin Sodium (Enoxaparin Sodium 40 Mg/0.4 Ml Syringe) 40 mg SUBCUT Q24H [facility] Ceftriaxone Sodium 1 gm/ (Sodium Chloride) 50 mls @ 100 mls/hr IV ONCE ONE Stop: 02/13/22 16:29 Doxycycline Hyclate 100 mg/ (Sodium Chloride) 250 mls @ 166.67 mls/hr IV Q12H [facility] Ceftriaxone Sodium 1 gm/ (Sodium Chloride) 50 mls @ 100 mls/hr IV Q24H [facility] Levothyroxine Sodium (Levothyroxine Sodium 150 Mcg Tablet) 150 mcg PO DAILY [facility] Methylprednisolone Sodium Succinate (Methylprednisolone Sod Succ 40 Mg/Ml Vial) 40 mg IVPUSH Q12H [facility] Montelukast Sodium (Montelukast Sodium 10 Mg Tablet) 10 mg PO DAILY [facility] Nicotine (Nicotine 14 Mg Patch.Td24) 14 mg TRANSDERMA DAILY [facility] Ondansetron HCl (Ondansetron Hcl 4 Mg/2 Ml Vial) 4 mg IVPUSH Q8H PRN PRN Reason: Nausea and Vomiting Pharmacy Consult (Consult Rx Perform Med Rec) 1 each MISCELLANE ONCE PRN PRN Reason: Consult order Sodium Chloride (0.9 % Sodium Chloride Flush 3 Ml Syringe) 3 ml IVFLUSH QSHIFT [facility] Home Medications Medication Instructions Recorded Confirmed Last Taken Type amlodipine 5 mg tablet 1 tab PO DAILY 02/13/22 02/13/22 02/12/22 History levalbuterol tartrate 45 2 puff INHALATION QID PRN 02/13/22 02/13/22 Unknown History mcg/actuation aerosol inhaler (Xopenex HFA) levothyroxine 150 mcg tablet 1 tab PO DAILY 02/13/22 02/13/22 02/12/22 History (Euthyrox) lovastatin 20 mg tablet 1 tab PO DAILY 02/13/22 02/13/22 Unknown History montelukast 10 mg tablet 1 tab PO DAILY 02/13/22 02/13/22 Unknown History Physical Exam Vital Signs and Narrative: Vital Signs: Last Vital Signs Temp 98.3 F 02/13/22 15:06 Pulse 98 02/13/22 15:06 Resp 23 H 02/13/22 15:06 BP 138/75 02/13/22 15:06 Pulse Ox 93 02/13/22 15:06 BMI result Body Mass Index 29.0 Const: Other: Constitutional : Alert, oriented, not in distress Neck : Normal inspection, Supple Cardiovascular : RRR, no JVP, no lower extremity edema Respiratory : fairly decreased bilateral air entry, right lower lobe fine crackles, bilateral scattered wheezes Gastrointestinal: soft, lax, Normal bowel sounds, Non tender Skin : Warm, Dry Neurological : Alert & oriented x3, No focal deficit , CN 2-12 within normal Results Labs CBC and Chem 7: 02/13/22 08:52 02/13/22 08:16 Labs: Laboratory Results - last 24 hr 02/13/22 02/13/22 02/13/22 08:16 08:16 08:16 MCV MCH MCHC RDW Plt Count MPV Immature Gran % (Auto) Neut % (Auto) Lymph % (Auto) [place] % (Auto) Eos % (Auto) Baso % (Auto) Lymph # (Auto) [place] # (Auto) Eos # (Auto) Baso # (Auto) Abs Immat Gran (auto) Absolute Neuts (auto) Absolute Nucleated RBC Nucleated RBC % (auto) Anion Gap 17 Estim Creat Clear Calc 72.6 Estimated GFR > 60 Random Glucose 341 H Lactic Acid 0.9 Calcium 10.1 Troponin I High Sens < 3.5 B-Natriuretic Peptide < 10 Influenza Type A (PCR) Influenza Type B (PCR) RSV RNA Qual (PCR) SARS-CoV-2 RNA (RT-PCR) 02/13/22 02/13/22 08:16 08:52 MCV 90.0 MCH 30.9 MCHC 34.4 RDW 12.0 Plt Count 190 MPV 10.9 Immature Gran % (Auto) 1.1 H Neut % (Auto) 70.9 Lymph % (Auto) 14.5 L [place] % (Auto) 12.7 H Eos % (Auto) 0.6 Baso % (Auto) 0.2 Lymph # (Auto) 1.2 [place] # (Auto) 1.0 Eos # (Auto) 0.1 Baso # (Auto) 0.0 Abs Immat Gran (auto) 0.09 H Absolute Neuts (auto) 5.8 Absolute Nucleated RBC 0.000 Nucleated RBC % (auto) 0.0 Anion Gap Estim Creat Clear Calc Estimated GFR Random Glucose Lactic Acid Calcium Troponin I High Sens B-Natriuretic Peptide Influenza Type A (PCR) POSITIVE A Influenza Type B (PCR) NEGATIVE RSV RNA Qual (PCR) NEGATIVE SARS-CoV-2 RNA (RT-PCR) NEGATIVE Imaging Radiologist's Impressions: Impressions Chest X-Ray 02/13/22 08:25 IMPRESSION: Increased interstitial markings and questionable more focal infiltrates in the right lower lobe. Findings raise the possibility of an atypical infectious or inflammatory process involving the small airways. Assessment and Plan (1) Influenza A: Status: Acute (2) Asthma exacerbation: Status: Acute (3) Community acquired pneumonia: Status: Acute Plan a 61 years old male with PMH of HTN, asthma who presents to the hospital with worsening shortness of breath, cough. Acute hypoxic respiratory failure 2\2 Asthma exacerbation, pneumonia As below community-acquired pneumonia Post viral pneumonia Could be related to influenza a infection, not a candidate for Tamiflu after 10 days of symptoms Not septic blood cultures Sent Continue doxycycline and ceftriaxone Asthma exacerbation start IV steroids Duo nebs around the clock Albuterol as needed continue Singulair Wean oxygen as tolerated Hypertension continue amlodipine Hypothyroidism continue levothyroxine DVT PPX Lovenox The patient will need 2 overnight hospital stay for treatment of hypoxic respiratory failure pending final blood cultures to prevent decompensation in to sepsis. Quality Stroke Does the patient have a stroke diagnosis?: No VTE Prior VTE?: No VTE Risk Level:: Medical - moderate - high VTE Device Contraindication: Treatment Not Indicated VTE Drug Contraindication: N/A - Med Ordered
[2022-02-13] MEDS: 0.9 % Sodium Chloride Flush 3 ML SYRINGE IVFLUSH (16:05)
[2022-02-13] MEDS: cefTRIAXone sodium 1 GM in 0.9 % Sodium Chloride 50 ML IV (16:05)
[2022-02-13] MEDS: Enoxaparin Sodium 40 MG/0.4 ML SYRINGE SUBCUT (16:07)
[2022-02-13] MEDS: Benzonatate 100 MG CAPSULE PO (22:44)
[2022-02-14] VITALS (8 sets, daily range): BP systolic 112–146; BP diastolic 71–90; PULSE 61–79; RESP 16–20; TEMP 36.3–36.7; O2SAT 92–97
[2022-02-14] MEDS: 0.9 % Sodium Chloride Flush 3 ML SYRINGE IVFLUSH (02:22)
[2022-02-14] MEDS: diphenhydrAMINE HCL 25 MG TABLET PO (02:22)
--- NOTE | 2022-02-14 02:22 | PC.NURSE ---
pt requesting medication to sleep, provider notified, medicated per provider order.
[2022-02-14 07:21] LABS: Hematocrit 41.7 % (42.0-52.0); Hemoglobin 14.2 g/dl (14.0-18.0); Mean Corpuscular HGB Conc 34.1 g/dl (31.0-36.0); Mean Corpuscular Hemoglobin 31.2 pg (27.0-33.0); Mean Corpuscular Volume 91.6 fL (80.0-98.0); Mean Platelet Volume 10.9 fL (9.4-12.4); Platelet Count 213 X10*3/uL (160-400); Red Blood Count 4.55 X10*6/uL (4.60-5.80); White Blood Count 7.4 X10*3/uL (4.8-10.8)
[2022-02-14 07:36] LABS: Anion Gap 13 (12-20); Blood Urea Nitrogen 20 mg/dL (9-16); Calcium 9.7 mg/dL (8.4-10.2); Carbon Dioxide 28 mmol/L (22-29); Chloride 102 mmol/L (96-108); Creatinine Clr Calc Pharmacy 66.6; Estimated Glomerular Filt Rate > 60; Glucose Random 359 mg/dL (60-115); Potassium 5.6 mmol/L (3.3-5.1); Sodium 137 mmol/L (135-145)
[2022-02-14] MEDS: Albuterol/Iprat 2.5/0.5MG 3 ML AMPUL.NEB INHALE ×4 (08:15→20:58)
--- NOTE | 2022-02-14 08:37 | MHC.CM.PN ---
Met with patient in regards to discharge planning. Patient is primarily Albanian speaking but is able to speak and understand Y[place]ut. Patient recently moved from [place] to [place] with his nephew. Ambulates independently and had no services prior to coming to the hospital. Patient currently doesn't have a PCP. He has a new patient appointment scheduled for May but doesn't know the provider's name. Patient denies having a HCP. Information provided. Patient declining to complete one at this time. Patient received 3 Moderna vaccines. No services anticipated to be necessary because patient is not home bound. Anticipate patient's nephew will transport him home when medically stable. Continue to monitor for d/c needs.
[2022-02-14 08:48] LABS: Estimated Average Glucose 295 mg/dL; Hemoglobin A1c % 11.9 %
[2022-02-14] MEDS: Levothyroxine Sodium 150 MCG TABLET PO (08:48)
[2022-02-14] MEDS: Acetaminophen 325 MG TABLET 650 MG PO (08:49)
[2022-02-14] MEDS: Nicotine 14 MG PATCH.TD24 TRANSDERMA (09:36)
[2022-02-14] MEDS: Benzonatate 100 MG CAPSULE PO ×3 (09:36→20:19)
[2022-02-14] MEDS: amLODIPine Besylate 5 MG TABLET PO (09:37)
[2022-02-14] MEDS: Doxycycline Hyclate 100 MG in 0.9 % Sodium Chloride 250 ML 166.7 MG IV (09:37)
[2022-02-14] MEDS: methylPREDNISolone Sod Succ 40 MG/ML VIAL IVPUSH ×2 (09:38→20:19)
[2022-02-14] MEDS: Montelukast Sodium 10 MG TABLET PO (09:38)
[2022-02-14] MEDS: Sodium Zirconium Cyclosilicate 10 GM POWD.PACK PO (12:06)
[2022-02-14] MEDS: Insulin Lispro 100 UNIT/ML 3 ML VIAL SUBCUT ×4 (12:07→20:20)
[2022-02-14 12:14] LABS: Glucose, Whole Blood 356 mg/dL (60-115)
--- NOTE | 2022-02-14 14:18 | P.PNIM_ITS ---
Subjective Subjective Date of Service: 02/14/22 Interval History: seen and examined this morning follow up for PNA, flu A not feeling well, reporting chills, cough productive of dark phlegm Review of Systems Review of Systems: Yes all other systems are reviewed and are negative Constitutional Constitutional: Denies chills and Denies fever(s) Cardiovascular Cardiovascular: Denies chest pain, Denies palpitations and Denies dyspnea Respiratory Respiratory: Denies cough and Denies dyspnea Gastrointestinal Gastrointestinal: Denies abdominal pain, Denies nausea and Denies vomiting Endocrine Endocrine: Denies palpitations Physical Exam Vital Signs: Vital Signs: Last Vital Signs Temp 98.0 F 02/14/22 06:00 Pulse 61 02/14/22 11:40 Resp 20 02/14/22 11:40 BP 145/90 H 02/14/22 06:00 Pulse Ox 96 02/14/22 06:00 BMI result Body Mass Index 29.0 Const: General: cooperative, comfortable, alert and awake Nutritional Appearance: average body habitus Orientation/consciousness: patient oriented x3 Eyes: Pupils: Equal, round and reactive pupils present EOM: EOMs intact bi laterally Resp: Other: b/l expiratory wheezing Effort & Inspection: normal respiratory effort and able to speak in complete sentences Cardio: Rate: regular rate Heart sounds: S1 normal heart sound present and S2 normal heart sound present GI: Inspection: No distended Palpation (GI): Soft to palpation and nontender Neuro: General: patient oriented x3 Cranial nerves: Yes Equal, round and reactive pupils present Extrem: Other: Able to move all 4 extremities spontaneously General: Yes no pedal edema Objective Data Active Medications Acetaminophen (Acetaminophen 325 Mg Tablet) 650 mg PO Q6H PRN PRN Reason: Pain, Mild (Pain Scale 1-3) Last Admin: 02/14/22 08:49 Dose: 650 mg Documented by: MILLER Albuterol Sulfate (Albuterol Sulfate (0.083%) 2.5 Mg/3 Ml Vial.Neb) 5 mg INHALE Q4H PRN PRN Reason: shortness of breath or wheezing Albuterol/Ipratropium (Albuterol/Iprat 2.5/0.5mg 3 Ml Ampul.Neb) 3 ml INHALE RQ4H WHILE AWAKE [facility] Last Admin: 02/14/22 11:37 Dose: 3 ml Documented by: HORTENCIA Amlodipine Besylate (Amlodipine Besylate 5 Mg Tablet) [address] [facility]; Protocol Last Admin: 02/14/22 09:37 Dose: 5 mg Documented by: MILLER Benzonatate (Benzonatate 100 Mg Capsule) [address] [facility] Last Admin: 02/14/22 09:36 Dose: 100 mg Documented by: MILLER Dextrose (Dextrose 50 % 25 Gm/50 Ml Syringe) 25 gm IVPUSH Q15M PRN; Protocol PRN Reason: per Hypoglycemia Standing Ord. Enoxaparin Sodium (Enoxaparin Sodium 40 Mg/0.4 Ml Syringe) [address] [facility] Last Admin: 02/13/22 16:07 Dose: 40 mg Documented by: LUISA Glucose (Glucose Gel 15 Gm Gel..Gram.) 15 gm PO Q15M PRN; Protocol PRN Reason: per Hypoglycemia Standing Ord. Ceftriaxone Sodium 1 gm/ (Sodium Chloride) 50 mls @ 100 mls/hr IV Q24H [facility] Doxycycline Hyclate 100 mg/ (Sodium Chloride) 250 mls @ 166.67 mls/hr IV Q12H [facility] Insulin Human Lispro (Insulin Lispro 100 Unit/Ml 3 Ml Vial) [address] [facility]; Protocol Last Admin: 02/14/22 12:07 Dose: 10 unit Documented by: SEYMOUR-TOÑO Levothyroxine Sodium (Levothyroxine Sodium 150 Mcg Tablet) 150 mcg PO LUCRETIA LY@0600 [facility] Last Admin: 02/14/22 08:48 Dose: 150 mcg Documented by: MILLER Methylprednisolone Sodium Succinate (Methylprednisolone Sod Succ 40 Mg/Ml Vial) [address] [facility] Last Admin: 02/14/22 09:38 Dose: 40 mg Documented by: MILLER Montelukast Sodium (Montelukast Sodium 10 Mg Tablet) [address] [facility] Last Admin: 02/14/22 09:38 Dose: 10 mg Documented by: MILLER Nicotine (Nicotine 14 Mg Patch.Td24) [address] [facility] Last Admin: 02/14/22 09:36 Dose: 14 mg Documented by: MILLER Ondansetron HCl (Ondansetron Hcl 4 Mg/2 Ml Vial) 4 mg IVPUSH Q8H PRN PRN Reason: Nausea and Vomiting Pharmacy Consult (Consult Rx Perform Med Rec) 1 each MISCELLANE ONCE PRN PRN Reason: Consult order Sodium Chloride (0.9 % Sodium Chloride Flush 3 Ml Syringe) [address] [facility] Last Admin: 02/14/22 09:10 Dose: Not Given Documented by: MILLER Non-Admin Reason: iv restarted Labs CBC & Chem 7: 02/14/22 07:10 02/14/22 07:10 Labs: Laboratory Results - last 24 hr 02/14/22 02/14/22 02/14/22 07:10 07:10 07:10 MCV 91.6 MCH 31.2 MCHC 34.1 RDW 12.0 Plt Count 213 MPV 10.9 Absolute Nucleated RBC 0.000 Nucleated RBC % (auto) 0.0 Anion Gap 13 Estim Creat Clear Calc 66.6 Estimated GFR > 60 POC Glucose Random Glucose 359 H* Estimat Average Glucose 295 Hemoglobin A1c % 11.9 Calcium 9.7 02/14/22 12:00 MCV MCH MCHC RDW Plt Count MPV Absolute Nucleated RBC Nucleated RBC % (auto) Anion Gap Estim Creat Clear Calc Estimated GFR POC Glucose 356 H* Random Glucose Estimat Average Glucose Hemoglobin A1c % Calcium Microbiology Microbiology Results: Microbiology 02/13/22 08:52 Blood Culture - Preliminary Blood - Venous No growth after 24 hours. 02/13/22 08:16 Blood Culture - Preliminary Blood - Venous No growth after 24 hours. Assessment and Plan (1) Influenza A: Status: Acute (2) Asthma exacerbation: Status: Acute (3) Community acquired pneumonia: Status: Acute Plan a 61 years old male with PMH of HTN, asthma who presents to the hospital with worsening shortness of breath, cough. Acute hypoxic respiratory failure 2\2 Asthma exacerbation, pneumonia wean oxygen as tolerated community-acquired pneumonia Post viral pneumonia Could be related to influenza a infection, not a candidate for Tamiflu after 10 days of symptoms Not evidence of sepsis Blood cultures negative to date Continue doxycycline and ceftriaxone day #2 Asthma exacerbation Continue IV steroids, breathing treatments Albuterol as needed continue Singulair Wean oxygen as tolerated hyperkalemia k 5.6 lokelma x 1 follow bmp DM with hyperglycemia pt reports diet-controlled diabetes will check Hba1c Blood sugars uncontrolled, likely secondary to steroid use as well as being on regular diet Will change to diabetic diet will add POC and sliding scale coverage Hypertension continue amlodipine Hypothyroidism continue levothyroxine Tobacco dependence Smoking cessation advised NRT DVT PPX -Lovenox attending - dr. meyer The patient will need 2 overnight hospital stay for treatment of hypoxic respiratory failure pending final blood cultures to prevent decompensation in to sepsis. Quality Stroke Does the patient have a stroke diagnosis?: No VTE Prior VTE?: No VTE Risk Level:: Medical - moderate - high VTE Device Contraindication: Treatment Not Indicated VTE Drug Contraindication: N/A - Med Ordered
[2022-02-14] MEDS: cefTRIAXone sodium 1 GM in 0.9 % Sodium Chloride 50 ML IV (14:23)
[2022-02-14] MEDS: Enoxaparin Sodium 40 MG/0.4 ML SYRINGE SUBCUT (14:23)
[2022-02-14 15:26] LABS: Glucose, Whole Blood 413 mg/dL (60-115)
[2022-02-14] MEDS: 0.9 % Sodium Chloride 500 ML IV (15:38)
[2022-02-14 20:35] LABS: Glucose, Whole Blood 279 mg/dL (60-115)
[2022-02-14] MEDS: Doxycycline Hyclate 100 MG in 0.9 % Sodium Chloride 250 ML 166.67 MG IV (23:05)
[2022-02-15] VITALS (9 sets, daily range): BP systolic 123–144; BP diastolic 69–83; PULSE 64–90; RESP 16–20; TEMP 36.2–36.7; O2SAT 92–98
[2022-02-15] MEDS: diphenhydrAMINE HCL 50 MG/ML VIAL 25 MG IVPUSH (02:09)
[2022-02-15] MEDS: Levothyroxine Sodium 150 MCG TABLET PO (05:39)
[2022-02-15 07:18] LABS: Anion Gap 12 (12-20); Blood Urea Nitrogen 20 mg/dL (9-16); Calcium 8.9 mg/dL (8.4-10.2); Carbon Dioxide 24 mmol/L (22-29); Chloride 101 mmol/L (96-108); Creatinine Clr Calc Pharmacy 85.6; Estimated Glomerular Filt Rate > 60; Glucose Random 339 mg/dL (60-115); Potassium 4.3 mmol/L (3.3-5.1); Sodium 133 mmol/L (135-145)
[2022-02-15] MEDS: Insulin Lispro 100 UNIT/ML 3 ML VIAL SUBCUT ×4 (07:35→20:28)
[2022-02-15 07:43] LABS: Glucose, Whole Blood 319 mg/dL (60-115)
[2022-02-15] MEDS: Albuterol/Iprat 2.5/0.5MG 3 ML AMPUL.NEB INHALE ×4 (08:28→19:16)
[2022-02-15] MEDS: Nicotine 14 MG PATCH.TD24 TRANSDERMA (10:41)
[2022-02-15] MEDS: Benzonatate 100 MG CAPSULE PO ×3 (10:41→20:27)
[2022-02-15] MEDS: amLODIPine Besylate 5 MG TABLET PO (10:41)
[2022-02-15] MEDS: methylPREDNISolone Sod Succ 40 MG/ML VIAL IVPUSH (10:41)
[2022-02-15] MEDS: Montelukast Sodium 10 MG TABLET PO (10:41)
[2022-02-15] MEDS: Doxycycline Hyclate 100 MG in 0.9 % Sodium Chloride 250 ML 166.67 MG IV ×2 (10:41→22:01)
[2022-02-15] MEDS: 0.9 % Sodium Chloride Flush 3 ML SYRINGE IVFLUSH ×3 (10:47→20:30)
[2022-02-15 12:31] LABS: Glucose, Whole Blood 250 mg/dL (60-115)
--- NOTE | 2022-02-15 14:00 | P.PNIM_ITS ---
Subjective Subjective Date of Service: 02/15/22 Interval History: seen and examined this morning follow up for PNA, asthma still feeling very short of breath with exertion, significant coughing no fever, chills Review of Systems Review of Systems: Yes all other systems are reviewed and are negative Constitutional Constitutional: Denies chills and Denies fever(s) Cardiovascular Cardiovascular: Denies chest pain and Reports dyspnea on exertion Respiratory Respiratory: Reports cough and Reports dyspnea on exertion Gastrointestinal Gastrointestinal: Denies abdominal pain, Denies nausea and Denies vomiting Physical Exam Vital Signs: Vital Signs: Last Vital Signs Temp 97.6 F 02/15/22 12:19 Pulse 79 02/15/22 12:19 Resp 17 02/15/22 12:19 BP 135/81 02/15/22 12:19 Pulse Ox 93 02/15/22 12:19 BMI result Body Mass Index 29.0 Const: General: cooperative, comfortable, alert and awake Nutritional Appearance: average body habitus Orientation/consciousness: patient oriented x3 Eyes: Pupils: Equal, round and reactive pupils present EOM: EOMs intact bilaterally Resp: Other: b/l expiratory wheezing Effort & Inspection: normal respiratory effort and able to speak in complete sentences Cardio: Rate: regular rate Heart sounds: S1 normal heart sound present and S2 normal heart sound present GI: Inspection: No distended Palpation (GI): Soft to palpation and nontender Neuro: General: patient oriented x3 Cranial nerves: Yes Equal, round and reactive pupils present Extrem: Other: Able to move all 4 extremities spontaneously General: Yes no pedal edema Objective Data Active Medications Acetaminophen (Acetaminophen 325 Mg Tablet) 650 mg PO Q6H PRN PRN Reason: Pain, Mild (Pain Scale 1-3) Last Admin: 02/14/22 08:49 Dose: 650 mg Documented by: MILLER Albuterol Sulfate (Albuterol Sulfate (0.083%) 2.5 Mg/3 Ml Vial.Neb) 5 mg INHALE Q4H PRN PRN Reason: shortness of breath or wheezing Albuterol/Ipratropium (Albuterol/Iprat 2.5/0.5mg 3 Ml Ampul.Neb) 3 ml INHALE RQ4H WHILE AWAKE [facility] Last Admin: 02/15/22 11:32 Dose: 3 ml Documented by: HORTENCIA Amlodipine Besylate (Amlodipine Besylate 5 Mg Tablet) 5 mg PO DAILY [facility]; Protocol Last Admin: 02/15/22 10:41 Dose: 5 mg Documented by: AUTUMN Benzonatate (Benzonatate 100 Mg Capsule) 100 mg PO TID [facility] Last Admin: 02/15/22 10:41 Dose: 100 mg Documented by: AUTUMN Dextrose (Dextrose 50 % 25 Gm/50 Ml Syringe) 25 gm IVPUSH Q15M PRN; Protocol PRN Reason: per Hypoglycemia Standing Ord. Enoxaparin Sodium (Enoxaparin Sodium 40 Mg/0.4 Ml Syringe) 40 mg SUBCUT Q24H [facility] Last Admin: 02/14/22 14:23 Dose: 40 mg Documented by: BELINDA Glucose (Glucose Gel 15 Gm Gel..Gram.) 15 gm PO Q15M PRN; Protocol PRN Reason: per Hypoglycemia Standing Ord. Ceftriaxone Sodium 1 gm/ (Sodium Chloride) 50 mls @ 100 mls/hr IV Q24H [facility] Last Infusion: 02/14/22 15:32 Dose: 0 mls/hr Documented by: BELINDA Doxycycline Hyclate 100 mg/ (Sodium Chloride) 250 mls @ 166.67 mls/hr IV Q12H [facility] Last Infusion: 02/15/22 13:25 Dose: 0 mls/hr Documented by: DAISY Insulin Human Lispro (Insulin Lispro 100 Unit/Ml 3 Ml Vial) 0 unit SUBCUT QIDACHS [facility]; Protocol Last Admin: 02/15/22 13:17 Dose: 4 unit Documented by: DAISY Levothyroxine Sodium (Levothyroxine Sodium 150 Mcg Tablet) 150 mcg PO DAILY@0600 [facility] Last Admin: 02/15/22 05:39 Dose: 150 mcg Documented by: GHASSAN Methylprednisolone Sodium Succinate (Methylprednisolone Sod Succ 40 Mg/Ml Vial) 60 mg IVPUSH Q8H [facility] Montelukast Sodium (Montelukast Sodium 10 Mg Tablet) 10 mg PO DAILY [facility] Last Admin: 02/15/22 10:41 Dose: 10 mg Documented by: AUTUMN Nicotine (Nicotine 14 Mg Patch.Td24) 14 mg TRANSDERMA DAILY [facility] Last Admin: 02/15/22 10:41 Dose: 14 mg Documented by: AUTUMN Ondansetron HCl (Ondansetron Hcl 4 Mg/2 Ml Vial) 4 mg IVPUSH Q8H PRN PRN Reason: Nausea and Vomiting Pharmacy Consult (Consult Rx Perform Med Rec) 1 each MISCELLANE ONCE PRN PRN Reason: Consult order Sodium Chloride (0.9 % Sodium Chloride Flush 3 Ml Syringe) 3 ml IVFLUSH QSHIFT [facility] Last Admin: 02/15/22 10:47 Dose: 3 ml Documented by: AUTUMN Labs CBC & Chem 7: 02/14/22 07:10 02/15/22 06:22 Labs: Laboratory Results - last 24 hr 02/14/22 02/14/22 02/15/22 15:22 20:15 06:22 Anion Gap 12 Estim Creat Clear Calc 85.6 Estimated GFR > 60 POC Glucose 413 H* 279 H Random Glucose 339 H Calcium 8.9 D 02/15/22 02/15/22 07:27 12:27 Anion Gap Estim Creat Clear Calc Estimated GFR POC Glucose 319 H 250 H Random Glucose Calcium Microbiology Microbiology Results: Microbiology 02/13/22 08:52 Blood Culture - Preliminary Blood - Venous No growth after 48 hours. 02/13/22 08:16 Blood Culture - Preliminary Blood - Venous No growth after 48 hours. Assessment and Plan (1) Community acquired pneumonia: Status: Acute (2) Asthma exacerbation: Status: Acute (3) Influenza A: Status: Acute Plan a 61 years old male with PMH of HTN, asthma who presents to the hospital with worsening shortness of breath, cough. Acute hypoxic respiratory failure 2\2 Asthma exacerbation, pneumonia no hypoxia at rest, but still with hypoxia/dyspnea with exertion wean oxygen as tolerated community-acquired pneumonia Post viral pneumonia Could be related to influenza a infection, not a candidate for Tamiflu after 10 days of symptoms No evidence of sepsis Blood cultures negative to date Continue doxycycline and ceftriaxone day #3 Asthma exacerbation. Likely some component of COPD given active smoking, but denies formal diagnosis still with wheezing will increase IV steroids continue breathing treatments continue Singulair Wean oxygen as tolerated hyperkalemia resolved with lokelma follow bmp DM with hyperglycemia pt reports diet-controlled diabetes; Hba1c was 11.9 continue diabetic diet continue POC and sliding scale coverage will start metformin, will need to be uptitrated to bid and eventually dose uptitrated will discuss with patient about starting lantus Hypertension bp controlled continue amlodipine Hypothyroidism continue levothyroxine Tobacco dependence Smoking cessation advised NRT DVT PPX -Lovenox attending - dr. meyer Requires ongoing inpatient hospitalization for treatment of hypoxic respiratory failure, IV steroids Quality Stroke Does the patient have a stroke diagnosis?: No VTE Prior VTE?: No VTE Risk Level:: Medical - moderate - high VTE Device Contraindication: Treatment Not Indicated VTE Drug Contraindication: N/A - Med Ordered
--- NOTE | 2022-02-15 15:36 | MHC.CM.PN ---
AMAR[facility] IMPORT COORDINATOR NOTE PER HOSPITALSIT NOTIFICATION PATIENT REPORTED DIET CONTROLLED DIABETES HE CAME IN WITH DIABETETIS WITH HYPERGLYCEMIA HA1C WAS 11.9 HE WILL CONTINUE DIABETIC DIET POD AND START SLIDING SCALE INSULIN COVERAGE AND START METHADONE AND WILL NEED FURTHER MONITORING AND FOLLOW UP. PATIENT HAS NO PCP , HOSPITALSIT TO WIRTE SCRIPT FOR SLIDING SCALE INSULIN [facility]ES AND THE [facility] PHQRMQCIST CAN TEACH PATIENT THIS DISCHARGE PLAN HOME NO PCP HOSPITLIST TO WRITE SLIDING SCALE SCRIP WITH RANGES AND DOSE FOR THE PHARMACIST TO TEACH PATIENT (NEEDS THIS SPECIFIC SCRIPT. PATIENT WILL NEED TO PICK PCP SOON POSSIBLE ALSO HOSPITLAIT TO REFER TO [facility]
[2022-02-15] MEDS: Enoxaparin Sodium 40 MG/0.4 ML SYRINGE SUBCUT (15:42)
[2022-02-15 15:56] LABS: Glucose, Whole Blood 335 mg/dL (60-115)
[2022-02-15] MEDS: cefTRIAXone sodium 1 GM in 0.9 % Sodium Chloride 50 ML IV (16:18)
[2022-02-15] MEDS: metFORMIN HCl ER 500 MG TAB.ER.24H PO (17:03)
[2022-02-15] MEDS: methylPREDNISolone Sod Succ 40 MG/ML VIAL 60 MG IVPUSH (17:03)
[2022-02-15 19:30] LABS: Glucose, Whole Blood 375 mg/dL (60-115)
[2022-02-15] MEDS: Insulin Glargine,Hum.rec.anlog 100 UNIT/ML 10 ML VIAL 10 UNIT SUBCUT (20:27)
[2022-02-15] MEDS: diphenhydrAMINE HCL 25 MG TABLET PO (21:59)
[2022-02-16] VITALS (9 sets, daily range): BP systolic 125–147; BP diastolic 74–86; PULSE 58–85; RESP 16–20; TEMP 36.1–36.8; O2SAT 92–98
[2022-02-16] MEDS: methylPREDNISolone Sod Succ 40 MG/ML VIAL 60 MG IVPUSH ×3 (01:42→18:34)
[2022-02-16] MEDS: Levothyroxine Sodium 150 MCG TABLET PO (05:32)
[2022-02-16 06:27] LABS: Anion Gap 12 (12-20); Blood Urea Nitrogen 19 mg/dL (9-16); Calcium 9.5 mg/dL (8.4-10.2); Carbon Dioxide 25 mmol/L (22-29); Chloride 104 mmol/L (96-108); Creatinine Clr Calc Pharmacy 81.3; Estimated Glomerular Filt Rate > 60; Glucose Random 340 mg/dL (60-115); Potassium 4.9 mmol/L (3.3-5.1); Sodium 136 mmol/L (135-145)
[2022-02-16 07:46] LABS: Glucose, Whole Blood 283 mg/dL (60-115)
[2022-02-16] MEDS: Insulin Lispro 100 UNIT/ML 3 ML VIAL SUBCUT ×4 (07:49→20:50)
[2022-02-16] MEDS: Montelukast Sodium 10 MG TABLET PO (07:49)
[2022-02-16] MEDS: Benzonatate 100 MG CAPSULE PO ×3 (07:49→20:51)
[2022-02-16] MEDS: amLODIPine Besylate 5 MG TABLET PO (07:49)
[2022-02-16] MEDS: 0.9 % Sodium Chloride Flush 3 ML SYRINGE IVFLUSH ×2 (07:50→16:16)
[2022-02-16] MEDS: Nicotine 14 MG PATCH.TD24 TRANSDERMA (07:52)
[2022-02-16] MEDS: Albuterol/Iprat 2.5/0.5MG 3 ML AMPUL.NEB INHALE ×4 (08:25→19:52)
[2022-02-16 11:18] LABS: Glucose, Whole Blood 399 mg/dL (60-115)
[2022-02-16] MEDS: Doxycycline Hyclate 100 MG in 0.9 % Sodium Chloride 250 ML 166.67 MG IV ×2 (11:46→23:31)
--- NOTE | 2022-02-16 16:00 | HO.PM.IMPN ---
Subjective Subjective Date of Service: 02/16/22 Review of Systems follow up for PNA, asthma still feeling very short of breath with exertion, significant coughing no fever, chills Physical Exam Vital Signs: Vital Signs: Last Vital Signs Temp 97 F 02/16/22 15:07 Pulse 80 02/16/22 15:07 Resp 18 02/16/22 15:26 BP 129/78 02/16/22 15:07 Pulse Ox 96 02/16/22 15:07 BMI result Body Mass Index 29.0 Appearing in no acute distress lung sounds exp wheezing heart regular rate rhythm, clear S1, S2 positive bowel sounds, abdomen is soft, nontender neuro patient is alert x3, no focal deficits Objective Data Active Medications Acetaminophen (Acetaminophen 325 Mg Tablet) 650 mg PO Q6H PRN PRN Reason: Pain, Mild (Pain Scale 1-3) Last Admin: 02/14/22 08:49 Dose: 650 mg Documented by: MILLER Albuterol Sulfate (Albuterol Sulfate (0.083%) 2.5 Mg/3 Ml Vial.Neb) 5 mg INHALE Q4H PRN PRN Reason: shortness of breath or wheezing Albuterol/Ipratropium (Albuterol/Iprat 2.5/0.5mg 3 Ml Ampul.Neb) 3 ml INHALE RQ4H WHILE AWAKE [facility] Last Admin: 02/16/22 15:26 Dose: 3 ml Documented by: PUSHPA Amlodipine Besylate (Amlodipine Besylate 5 Mg Tablet) 5 mg PO DAILY [facility]; Protocol Last Admin: 02/16/22 07:49 Dose: 5 mg Documented by: ANTONI Benzonatate (Benzonatate 100 Mg Capsule) 100 mg PO TID [facility] Last Admin: 02/16/22 07:49 Dose: 100 mg Documented by: ANTONI Dextrose (Dextrose 50 % 25 Gm/50 Ml Syringe) 25 gm IVPUSH Q15M PRN; Protocol PRN Reason: per Hypoglycemia Standing Ord. Diphenhydramine HCl (Diphenhydramine Hcl 25 Mg Tablet) 25 mg PO BEDTIME PRN PRN Reason: slepp Last Admin: 02/15/22 21:59 Dose: 25 mg Documented by: MORRINL Enoxaparin Sodium (Enoxaparin Sodium 40 Mg/0.4 Ml Syringe) 40 mg SUBCUT Q24H [facility] Last Admin: 02/15/22 15:42 Dose: 40 mg Documented by: DAISY Glucose (Glucose Gel 15 Gm Gel..Gram.) 15 gm PO Q15M PRN; Protocol PRN Reason: per Hypoglycemia Standing Ord. Ceftriaxone Sodium 1 gm/ (Sodium Chloride) 50 mls @ 100 mls/hr IV Q24H [facility] Last Infusion: 02/15/22 17:08 Dose: 0 mls/hr Documented by: DAISY Doxycycline Hyclate 100 mg/ (Sodium Chloride) 250 mls @ 166.67 mls/hr IV Q12H [facility] Last Infusion: 02/16/22 14:04 Dose: 0 mls/hr Documented by: ANTONI Insulin Glargine (Insulin Glargine,Hum.Rec.Anlog 100 Unit/Ml 10 Ml Vial) 10 unit SUBCUT BEDTIME [facility] Last Admin: 02/15/22 20:27 Dose: 10 unit Documented by: CURT Insulin Human Lispro (Insulin Lispro 100 Unit/Ml 3 Ml Vial) 0 unit SUBCUT QIDACHS [facility]; Protocol Last Admin: 02/16/22 11:45 Dose: 10 unit Documented by: ANTONI Levothyroxine Sodium (Levothyroxine Sodium 150 Mcg Tablet) 150 mcg PO DAILY@0600 [facility] Last Admin: 02/16/22 05:32 Dose: 150 mcg Documented by: CURT Metformin HCl (Metformin Hcl Er 500 Mg Tab.Er.24h) 500 mg PO DAILY@1700 [facility] Last Admin: 02/15/22 17:03 Dose: 500 mg Documented by: DAISY Methylprednisolone Sodium Succinate (Methylprednisolone Sod Succ 40 Mg/Ml Vial) 60 mg IVPUSH Q8H [facility] Last Admin: 02/16/22 08:00 Dose: 60 mg Documented by: ANTONI Montelukast Sodium (Montelukast Sodium 10 Mg Tablet) 10 mg PO DAILY [facility] Last Admin: 02/16/22 07:49 Dose: 10 mg Documented by: ANTONI Nicotine (Nicotine 14 Mg Patch.Td24) 14 mg TRANSDERMA DAILY [facility] Last Admin: 02/16/22 07:52 Dose: 14 mg Documented by: ANTONI Ondansetron HCl (Ondansetron Hcl 4 Mg/2 Ml Vial) 4 mg IVPUSH Q8H PRN PRN Reason: Nausea and Vomiting Pharmacy Consult (Consult Rx Perform Med Rec) 1 each MISCELLANE ONCE PRN PRN Reason: Consult order Sodium Chloride (0.9 % Sodium Chloride Flush 3 Ml Syringe) 3 ml IVFLUSH QSHIFT [facility] Last Admin: 02/16/22 07:50 Dose: 3 ml Documented by: ANTONI Labs CBC & Chem 7: 02/14/22 07:10 02/16/22 05:38 Labs: Laboratory Results - last 24 hr 02/15/22 02/16/22 02/16/22 19:25 05:38 07:40 Anion Gap 12 Estim Creat Clear Calc 81.3 Estimated GFR > 60 POC Glucose 375 H* 283 H Random Glucose 340 H Calcium 9.5 D 02/16/22 11:13 Anion Gap Estim Creat Clear Calc Estimated GFR POC Glucose 399 H* Random Glucose Calcium Assessment and Plan (1) Community acquired pneumonia: Status: Acute (2) Asthma exacerbation: Status: Acute (3) Influenza A: Status: Acute Plan a 61 years old male with PMH of HTN, asthma who presents to the hospital with worsening shortness of breath, cough. Acute hypoxic respiratory failure secondary to Asthma/COPD exacerbation, CAP and influenza A no hypoxia at rest, but still with hypoxia/dyspnea with exertion Post viral pneumonia not a candidate for Tamiflu after 10 days of symptoms Continue doxycycline and ceftriaxone day #3 will increase IV steroids continue breathing treatments continue Singulair Wean oxygen as tolerated hyperkalemia resolved with lokelma follow bmp DM with hyperglycemia pt reports diet-controlled diabetes; Hba1c was 11.9 continue diabetic diet continue POC and sliding scale coverage Hypertension bp controlled continue amlodipine Hypothyroidism continue levothyroxine Tobacco dependence Smoking cessation advised NRT DVT PPX -Lovenox attending - dr. meyer Requires ongoing inpatient hospitalization for treatment of hypoxic respiratory failure, IV steroids Quality Stroke Does the patient have a stroke diagnosis?: No VTE Prior VTE?: No VTE Risk Level:: Medical - moderate - high VTE Device Contraindication: Treatment Not Indicated VTE Drug Contraindication: N/A - Med Ordered
[2022-02-16 16:02] LABS: Glucose, Whole Blood 356 mg/dL (60-115)
[2022-02-16] MEDS: Enoxaparin Sodium 40 MG/0.4 ML SYRINGE SUBCUT (16:14)
[2022-02-16] MEDS: cefTRIAXone sodium 1 GM in 0.9 % Sodium Chloride 50 ML IV (16:15)
[2022-02-16] MEDS: metFORMIN HCl ER 500 MG TAB.ER.24H PO (16:15)
[2022-02-16 20:31] LABS: Glucose, Whole Blood 361 mg/dL (60-115)
[2022-02-16] MEDS: Insulin Glargine,Hum.rec.anlog 100 UNIT/ML 10 ML VIAL 10 UNIT SUBCUT (20:51)
[2022-02-16] MEDS: diphenhydrAMINE HCL 25 MG TABLET PO (20:55)
[2022-02-17] VITALS (11 sets, daily range): BP systolic 127–163; BP diastolic 63–80; PULSE 61–97; RESP 17–20; TEMP 36.1–36.9; O2SAT 95–96
[2022-02-17] MEDS: 0.9 % Sodium Chloride Flush 3 ML SYRINGE IVFLUSH ×4 (01:07→20:39)
[2022-02-17] MEDS: methylPREDNISolone Sod Succ 40 MG/ML VIAL 60 MG IVPUSH ×3 (01:54→17:10)
[2022-02-17] MEDS: Levothyroxine Sodium 150 MCG TABLET PO (05:39)
[2022-02-17 06:58] LABS: Anion Gap 12 (12-20); Blood Urea Nitrogen 17 mg/dL (9-16); Calcium 9.2 mg/dL (8.4-10.2); Carbon Dioxide 25 mmol/L (22-29); Chloride 101 mmol/L (96-108); Creatinine Clr Calc Pharmacy 91.4; Estimated Glomerular Filt Rate > 60; Glucose Random 318 mg/dL (60-115); Potassium 4.6 mmol/L (3.3-5.1); Sodium 133 mmol/L (135-145)
[2022-02-17] MEDS: Albuterol/Iprat 2.5/0.5MG 3 ML AMPUL.NEB INHALE ×4 (07:50→20:02)
[2022-02-17 07:58] LABS: Glucose, Whole Blood 257 mg/dL (60-115)
--- NOTE | 2022-02-17 08:38 | P.PNIM_ITS ---
Subjective Subjective Date of Service: 02/17/22 Review of Systems follow up for PNA, asthma Feeling better, still with cough no fever, chills Physical Exam Vital Signs: Vital Signs: Last Vital Signs Temp 96.9 F 02/17/22 07:55 Pulse 61 02/17/22 07:55 Resp 17 02/17/22 07:55 BP 135/80 02/17/22 07:55 Pulse Ox 96 02/17/22 07:55 BMI result Body Mass Index 29.0 Appearing in no acute distress lung sounds exp wheezing heart regular rate rhythm, clear S1, S2 positive bowel sounds, abdomen is soft, nontender neuro patient is alert x3, no focal deficits Objective Data Active Medications Acetaminophen (Acetaminophen 325 Mg Tablet) 650 mg PO Q6H PRN PRN Reason: Pain, Mild (Pain Scale 1-3) Last Admin: 02/14/22 08:49 Dose: 650 mg Documented by: MILLER Albuterol Sulfate (Albuterol Sulfate (0.083%) 2.5 Mg/3 Ml Vial.Neb) 5 mg INHALE Q4H PRN PRN Reason: shortness of breath or wheezing Albuterol/Ipratropium (Albuterol/Iprat 2.5/0.5mg 3 Ml Ampul.Neb) 3 ml INHALE RQ4H WHILE AWAKE [facility] Last Admin: 02/17/22 07:50 Dose: 3 ml Documented by: PUSHPA Amlodipine Besylate (Amlodipine Besylate 5 Mg Tablet) 5 mg PO DAILY [facility]; Protocol Last Admin: 02/16/22 07:49 Dose: 5 mg Documented by: ANTONI Benzonatate (Benzonatate 100 Mg Capsule) 100 mg PO TID [facility] Last Admin: 02/16/22 20:51 Dose: 100 mg Documented by: CURT Dextrose (Dextrose 50 % 25 Gm/50 Ml Syringe) 25 gm IVPUSH Q15M PRN; Protocol PRN Reason: per Hypoglycemia Standing Ord. Diphenhydramine HCl (Diphenhydramine Hcl 25 Mg Tablet) 25 mg PO BEDTIME PRN PRN Reason: slepp Last Admin: 02/16/22 20:55 Dose: 25 mg Documented by: CURT Enoxaparin Sodium (Enoxaparin Sodium 40 Mg/0.4 Ml Syringe) 40 mg SUBCUT Q24H [facility] Last Admin: 02/16/22 16:14 Dose: 40 mg Documented by: ANTONI Glucose (Glucose Gel 15 Gm Gel..Gram.) 15 gm PO Q15M PRN; Protocol PRN Reason: per Hypoglycemia Standing Ord. Ceftriaxone Sodium 1 gm/ (Sodium Chloride) 50 mls @ 100 mls/hr IV Q24H [facility] Last Infusion: 02/16/22 17:48 Dose: 0 mls/hr Documented by: ANTONI Doxycycline Hyclate 100 mg/ (Sodium Chloride) 250 mls @ 166.67 mls/hr IV Q12H [facility] Last Infusion: 02/17/22 01:08 Dose: 0 mls/hr Documented by: CURT Insulin Glargine (Insulin Glargine,Hum.Rec.Anlog 100 Unit/Ml 10 Ml Vial) 10 unit SUBCUT BEDTIME [facility] Last Admin: 02/16/22 20:51 Dose: 10 unit Documented by: CURT Insulin Human Lispro (Insulin Lispro 100 Unit/Ml 3 Ml Vial) 0 unit SUBCUT QIDACHS [facility]; Protocol Last Admin: 02/16/22 20:50 Dose: 10 unit Documented by: CURT Levothyroxine Sodium (Levothyroxine Sodium 150 Mcg Tablet) 150 mcg PO DAILY@06 00 [facility] Last Admin: 02/17/22 05:39 Dose: 150 mcg Documented by: CURT Metformin HCl (Metformin Hcl Er 500 Mg Tab.Er.24h) 500 mg PO DAILY@1700 [facility] Last Admin: 02/16/22 16:15 Dose: 500 mg Documented by: ANTONI Methylprednisolone Sodium Succinate (Methylprednisolone Sod Succ 40 Mg/Ml Vial) 60 mg IVPUSH Q8H [facility] Last Admin: 02/17/22 01:54 Dose: 60 mg Documented by: CURT Montelukast Sodium (Montelukast Sodium 10 Mg Tablet) 10 mg PO DAILY [facility] Last Admin: 02/16/22 07:49 Dose: 10 mg Documented by: ANTONI Nicotine (Nicotine 14 Mg Patch.Td24) 14 mg TRANSDERMA DAILY [facility] Last Admin: 02/16/22 07:52 Dose: 14 mg Documented by: ANTONI Ondansetron HCl (Ondansetron Hcl 4 Mg/2 Ml Vial) 4 mg IVPUSH Q8H PRN PRN Reason: Nausea and Vomiting Pharmacy Consult (Consult Rx Perform Med Rec) 1 each MISCELLANE ONCE PRN PRN Reason: Consult order Sodium Chloride (0.9 % Sodium Chloride Flush 3 Ml Syringe) 3 ml IVFLUSH QSHIFT [facility] Last Admin: 02/17/22 01:07 Dose: 3 ml Documented by: CURT Labs CBC & Chem 7: 02/14/22 07:10 02/17/22 05:43 Labs: Laboratory Results - last 24 hr 02/16/22 02/16/22 02/16/22 11:13 15:09 19:28 Anion Gap Estim Creat Clear Calc Estimated GFR POC Glucose 399 H* 356 H* 361 H* Random Glucose Calcium 02/17/22 02/17/22 05:43 07:18 Anion Gap 12 Estim Creat Clear Calc 91.4 Estimated GFR > 60 POC Glucose 257 H Random Glucose 318 H Calcium 9.2 Assessment and Plan (1) Community acquired pneumonia: Status: Acute (2) Asthma exacerbation: Status: Acute (3) Influenza A: Status: Acute Plan a 61 years old male with PMH of HTN, asthma who presents to the hospital with worsening shortness of breath, cough. Acute hypoxic respiratory failure secondary to Asthma/COPD exacerbation, CAP and influenza A no hypoxia at rest, but still with hypoxia/dyspnea with exertion Post viral pneumonia not a candidate for Tamiflu after 10 days of symptoms Continue doxycycline and ceftriaxone IV steroids, sched duonebs Wean oxygen as tolerated hyperkalemia resolved with lokelma follow bmp DM with hyperglycemia pt reports diet-controlled diabetes; Hba1c was 11.9 continue diabetic diet SS, increase lantus, mealtime insulin added Hypertension bp controlled continue amlodipine Hypothyroidism continue levothyroxine Tobacco dependence Smoking cessation advised NRT DVT PPX -Lovenox attending Dr. Alvarenga Requires ongoing inpatient hospitalization for treatment of hypoxic respiratory failure, IV steroids Quality Stroke Does the patient have a stroke diagnosis?: No VTE Prior VTE?: No VTE Risk Level:: Medical - moderate - high VTE Device Contraindication: Treatment Not Indicated VTE Drug Contraindication: N/A - Med Ordered
[2022-02-17] MEDS: Insulin Lispro 100 UNIT/ML 3 ML VIAL SUBCUT ×7 (08:54→20:38)
[2022-02-17] MEDS: Nicotine 14 MG PATCH.TD24 TRANSDERMA (08:54)
[2022-02-17] MEDS: amLODIPine Besylate 5 MG TABLET PO (08:55)
[2022-02-17] MEDS: Montelukast Sodium 10 MG TABLET PO (08:55)
[2022-02-17] MEDS: Benzonatate 100 MG CAPSULE PO ×3 (08:55→20:39)
[2022-02-17] MEDS: guaiFENesin LA 600 MG TAB.ER.12H PO ×2 (10:47→20:39)
[2022-02-17] MEDS: Doxycycline Hyclate 100 MG in 0.9 % Sodium Chloride 250 ML 166.67 MG IV (10:47)
[2022-02-17 11:26] LABS: Glucose, Whole Blood 489 mg/dL (60-115)
[2022-02-17] MEDS: cefTRIAXone sodium 1 GM in 0.9 % Sodium Chloride 50 ML IV (15:32)
[2022-02-17] MEDS: Enoxaparin Sodium 40 MG/0.4 ML SYRINGE SUBCUT (15:33)
[2022-02-17 16:31] LABS: Glucose, Whole Blood 276 mg/dL (60-115)
[2022-02-17] MEDS: metFORMIN HCl ER 500 MG TAB.ER.24H PO (17:10)
[2022-02-17 20:22] LABS: Glucose, Whole Blood 230 mg/dL (60-115)
[2022-02-17] MEDS: Insulin Glargine,Hum.rec.anlog 100 UNIT/ML 10 ML VIAL 15 UNIT SUBCUT (20:39)
[2022-02-17] MEDS: diphenhydrAMINE HCL 25 MG TABLET PO (23:02)
[2022-02-17] MEDS: Doxycycline Hyclate 100 MG in 0.9 % Sodium Chloride 250 ML 166.6 MG IV (23:02)
[2022-02-17] MEDS: Acetaminophen 325 MG TABLET 650 MG PO (23:29)
[2022-02-18] VITALS (10 sets, daily range): BP systolic 122–135; BP diastolic 71–80; PULSE 55–99; RESP 17–20; TEMP 36.1–36.4; O2SAT 95–97
[2022-02-18] MEDS: methylPREDNISolone Sod Succ 40 MG/ML VIAL 60 MG IVPUSH ×3 (01:57→17:48)
[2022-02-18] MEDS: Levothyroxine Sodium 150 MCG TABLET PO (06:10)
[2022-02-18 07:08] LABS: Glucose, Whole Blood 320 mg/dL (60-115)
[2022-02-18] MEDS: Insulin Lispro 100 UNIT/ML 3 ML VIAL SUBCUT ×8 (07:25→21:27)
[2022-02-18] MEDS: Montelukast Sodium 10 MG TABLET PO (08:04)
[2022-02-18] MEDS: Benzonatate 100 MG CAPSULE PO ×3 (08:04→21:26)
[2022-02-18] MEDS: guaiFENesin LA 600 MG TAB.ER.12H PO ×2 (08:04→21:26)
[2022-02-18] MEDS: amLODIPine Besylate 5 MG TABLET PO (08:05)
[2022-02-18] MEDS: Nicotine 14 MG PATCH.TD24 TRANSDERMA (08:05)
[2022-02-18] MEDS: 0.9 % Sodium Chloride Flush 3 ML SYRINGE IVFLUSH ×3 (08:07→21:27)
--- NOTE | 2022-02-18 09:18 | P.PNIM_ITS ---
Subjective Subjective Date of Service: 02/18/22 Review of Systems Follow up CAP and asthma Still sob and wheezing Physical Exam Vital Signs: Vital Signs: Last Vital Signs Temp 97.6 F 02/18/22 06:52 Pulse 60 02/18/22 06:52 Resp 18 02/18/22 06:52 BP 123/72 02/18/22 06:52 Pulse Ox 96 02/18/22 06:52 BMI result Body Mass Index 29.0 Appearing in no acute distress lung sounds exp wheezing heart regular rate rhythm, clear S1, S2 positive bowel sounds, abdomen is soft, nontender neuro patient is alert x3, no focal deficits Objective Data Active Medications Acetaminophen (Acetaminophen 325 Mg Tablet) 650 mg PO Q6H PRN PRN Reason: Pain, Mild (Pain Scale 1-3) Last Admin: 02/17/22 23:29 Dose: 650 mg Documented by: VALENTINE Albuterol Sulfate (Albuterol Sulfate (0.083%) 2.5 Mg/3 Ml Vial.Neb) 5 mg INHALE Q4H PRN PRN Reason: shortness of breath or wheezing Albuterol/Ipratropium (Albuterol/Iprat 2.5/0.5mg 3 Ml Ampul.Neb) 3 ml INHALE RQ4H WHILE AWAKE [facility] Last Admin: 02/18/22 07:35 Dose: Not Given Documented by: KALYN Non-Admin Reason: pt unavail Amlodipine Besylate (Amlodipine Besylate 5 Mg Tablet) 5 mg PO DAILY [facility]; Protocol Last Admin: 02/18/22 08:05 Dose: 5 mg Documented by: MANSOOR Benzonatate (Benzonatate 100 Mg Capsule) 100 mg PO TID [facility] Last Admin: 02/18/22 08:04 Dose: 100 mg Documented by: MANSOOR Dextrose (Dextrose 50 % 25 Gm/50 Ml Syringe) 25 gm IVPUSH Q15M PRN; Protocol PRN Reason: per Hypoglycemia Standing Ord. Diphenhydramine HCl (Diphenhydramine Hcl 25 Mg Tablet) 25 mg PO BEDTIME PRN PRN Reason: slepp Last Admin: 02/17/22 23:02 Dose: 25 mg Documented by: VALENTINE Enoxaparin Sodium (Enoxaparin Sodium 40 Mg/0.4 Ml Syringe) 40 mg SUBCUT Q24H [facility] Last Admin: 02/17/22 15:33 Dose: 40 mg Documented by: JADE Glucose (Glucose Gel 15 Gm Gel..Gram.) 15 gm PO Q15M PRN; Protocol PRN Reason: per Hypoglycemia Standing Ord. Guaifenesin (Guaifenesin La 600 Mg Tab.Er.12h) 600 mg PO BID [facility] Last Admin: 02/18/22 08:04 Dose: 600 mg Documented by: MANSOOR Ceftriaxone Sodium 1 gm/ (Sodium Chloride) 50 mls @ 100 mls/hr IV Q24H [facility] Last Infusion: 02/17/22 16:02 Dose: 0 mls/hr Documented by: JADE Doxycycline Hyclate 100 mg/ (Sodium Chloride) 250 mls @ 166.67 mls/hr IV Q12H [facility] Last Infusion: 02/18/22 00:41 Dose: 0 mls/hr Documented by: OLIVIER Insulin Glargine (Insulin Glargine,Hum.Rec.Anlog 100 Unit/Ml 10 Ml Vial) 15 unit SUBCUT BEDTIME [facility] Last Admin: 02/17/22 20:39 Dose: 15 unit Documented by: VALENTINE Insulin Human Lispro (Insulin Lispro 100 Unit/Ml 3 Ml Vial) 0 unit SUBCUT QIDACHS [facility]; Protocol Last Admin: 02/18/22 07:25 Dose: 8 unit Documented by: KATHARINA Insulin Human Lispro (Insulin Lispro 100 Unit/Ml 3 Ml Vial) 5 unit SUBCUT QIDACHS [facility] Last Admin: 02/18/22 07:27 Dose: 5 unit Documented by: KATHARINA Levothyroxine Sodium (Levothyroxine Sodium 150 Mcg Tablet) 150 mcg PO DAILY@0600 [facility] Last Admin: 02/18/22 06:10 Dose: 150 mcg Documented by: VALENTINE Metformin HCl (Metformin Hcl Er 500 Mg Tab.Er.24h) 500 mg PO DAILY@1700 [facility] Last Admin: 02/17/22 17:10 Dose: 500 mg Documented by: JADE Methylprednisolone Sodium Succinate (Methylprednisolone Sod Succ 40 Mg/Ml Vial) 60 mg IVPUSH Q8H [facility] Last Admin: 02/18/22 01:57 Dose: 60 mg Documented by: VALENTINE Montelukast Sodium (Montelukast Sodium 10 Mg Tablet) 10 mg PO DAILY [facility] Last Admin: 02/18/22 08:04 Dose: 10 mg Documented by: MANSOOR Nicotine (Nicotine 14 Mg Patch.Td24) 14 mg TRANSDERMA DAILY [facility] Last Admin: 02/18/22 08:05 Dose: 14 mg Documented by: MANSOOR Ondansetron HCl (Ondansetron Hcl 4 Mg/2 Ml Vial) 4 mg IVPUSH Q8H PRN PRN Reason: Nausea and Vomiting Pharmacy Consult (Consult Rx Perform Med Rec) 1 each MISCELLANE ONCE PRN PRN Reason: Consult order Sodium Chloride (0.9 % Sodium Chloride Flush 3 Ml Syringe) 3 ml IVFLUSH QSHIFT [facility] Last Admin: 02/18/22 08:07 Dose: 3 ml Documented by: MANSOOR Labs CBC & Chem 7: 02/14/22 07:10 02/17/22 05:43 Labs: Laboratory Results - last 24 hr 02/17/22 02/17/22 02/17/22 11:06 15:33 19:38 POC Glucose 489 H* 276 H 230 H 02/18/22 06:56 POC Glucose 320 H Assessment and Plan (1) Community acquired pneumonia: Status: Acute (2) Asthma exacerbation: Status: Acute (3) Influenza A: Status: Acute Plan a 61 years old male with PMH of HTN, asthma who presents to the hospital with worsening shortness of breath, cough. Acute hypoxic respiratory failure secondary to Asthma/COPD exacerbation, CAP and influenza A no hypoxia at rest, but still with hypoxia/dyspnea with exertion Post viral pneumonia not a candidate for Tamiflu after 10 days of symptoms Continue doxycycline and ceftriaxone IV steroids, sched duonebs Wean oxygen as tolerated hyperkalemia resolved with lokelma follow bmp DM with hyperglycemia pt reports diet-controlled diabetes; Hba1c was 11.9 continue diabetic diet SS, increase lantus, mealtime insulin added Hypertension bp controlled continue amlodipine Hypothyroidism continue levothyroxine Tobacco dependence Smoking cessation advised NRT DVT PPX -Lovenox attending Dr. Briones Requires ongoing inpatient hospitalization for treatment of hypoxic respiratory failure, IV steroids Quality Stroke Does the patient have a stroke diagnosis?: No VTE Prior VTE?: No VTE Risk Level:: Medical - moderate - high VTE Device Contraindication: Treatment Not Indicated VTE Drug Contraindication: N/A - Med Ordered
[2022-02-18] MEDS: Doxycycline Hyclate 100 MG in 0.9 % Sodium Chloride 250 ML 166.67 MG IV ×2 (10:02→22:48)
[2022-02-18] MEDS: Albuterol/Iprat 2.5/0.5MG 3 ML AMPUL.NEB INHALE ×3 (11:24→20:36)
[2022-02-18 11:27] LABS: Glucose, Whole Blood 347 mg/dL (60-115)
[2022-02-18] MEDS: cefTRIAXone sodium 1 GM in 0.9 % Sodium Chloride 50 ML IV (14:22)
[2022-02-18 15:53] LABS: Glucose, Whole Blood 251 mg/dL (60-115)
[2022-02-18] MEDS: metFORMIN HCl ER 500 MG TAB.ER.24H PO (16:43)
[2022-02-18] MEDS: Enoxaparin Sodium 40 MG/0.4 ML SYRINGE SUBCUT (16:43)
[2022-02-18 19:48] LABS: Glucose, Whole Blood 324 mg/dL (60-115)
[2022-02-18] MEDS: Insulin Glargine,Hum.rec.anlog 100 UNIT/ML 10 ML VIAL 15 UNIT SUBCUT (21:26)
[2022-02-18] MEDS: Acetaminophen 325 MG TABLET 650 MG PO (21:36)
[2022-02-18] MEDS: diphenhydrAMINE HCL 25 MG TABLET PO (22:49)
[2022-02-19] VITALS (10 sets, daily range): BP systolic 130–162; BP diastolic 70–88; PULSE 62–90; RESP 18–20; TEMP 36.1–37.1; O2SAT 93–97
[2022-02-19] MEDS: methylPREDNISolone Sod Succ 40 MG/ML VIAL 60 MG IVPUSH ×3 (02:13→17:40)
[2022-02-19] MEDS: Levothyroxine Sodium 150 MCG TABLET PO (05:26)
[2022-02-19] MEDS: Albuterol Sulfate (0.083%) 2.5 MG/3 ML VIAL.NEB 5 MG INHALE (05:38)
[2022-02-19 07:28] LABS: Glucose, Whole Blood 316 mg/dL (60-115)
--- NOTE | 2022-02-19 08:35 | P.PNIM_ITS ---
Subjective Subjective Date of Service: 02/19/22 Review of Systems Follow up CAP and asthma Still sob and wheezing Physical Exam Vital Signs: Vital Signs: Last Vital Signs Temp 98.3 F 02/19/22 07:02 Pulse 75 02/19/22 07:02 Resp 20 02/19/22 07:02 BP 132/78 02/19/22 07:02 Pulse Ox 97 02/19/22 07:02 BMI result Body Mass Index 29.0 Appearing in no acute distress lung sounds exp wheezing heart regular rate rhythm, clear S1, S2 positive bowel sounds, abdomen is soft, nontender neuro patient is alert x3, no focal deficits Objective Data Active Medications Acetaminophen (Acetaminophen 325 Mg Tablet) 650 mg PO Q6H PRN PRN Reason: Pain, Mild (Pain Scale 1-3) Last Admin: 02/18/22 21:36 Dose: 650 mg Documented by: REGLA Albuterol Sulfate (Albuterol Sulfate (0.083%) 2.5 Mg/3 Ml Vial.Neb) 5 mg INHALE Q4H PRN PRN Reason: shortness of breath or wheezing Last Admin: 02/19/22 05:38 Dose: 5 mg Documented by: GRETEL Albuterol/Ipratropium (Albuterol/Iprat 2.5/0.5mg 3 Ml Ampul.Neb) 3 ml INHALE RQ4H WHILE AWAKE [facility] Last Admin: 02/19/22 07:47 Dose: Not Given Documented by: KALYN Non-Admin Reason: pt had neb at 0535 Amlodipine Besylate (Amlodipine Besylate 5 Mg Tablet) 5 mg PO DAILY [facility]; Protoc ol Last Admin: 02/18/22 08:05 Dose: 5 mg Documented by: MANSOOR Benzonatate (Benzonatate 100 Mg Capsule) 100 mg PO TID [facility] Last Admin: 02/18/22 21:26 Dose: 100 mg Documented by: REGLA Dextrose (Dextrose 50 % 25 Gm/50 Ml Syringe) 25 gm IVPUSH Q15M PRN; Protocol PRN Reason: per Hypoglycemia Standing Ord. Diphenhydramine HCl (Diphenhydramine Hcl 25 Mg Tablet) 25 mg PO BEDTIME PRN PRN Reason: slepp Last Admin: 02/18/22 22:49 Dose: 25 mg Documented by: REGLA Enoxaparin Sodium (Enoxaparin Sodium 40 Mg/0.4 Ml Syringe) 40 mg SUBCUT Q24H [facility] Last Admin: 02/18/22 16:43 Dose: 40 mg Documented by: MANSOOR Glucose (Glucose Gel 15 Gm Gel..Gram.) 15 gm PO Q15M PRN; Protocol PRN Reason: per Hypoglycemia Standing Ord. Guaifenesin (Guaifenesin La 600 Mg Tab.Er.12h) 600 mg PO BID [facility] Last Admin: 02/18/22 21:26 Dose: 600 mg Documented by: REGLA Ceftriaxone Sodium 1 gm/ (Sodium Chloride) 50 mls @ 100 mls/hr IV Q24H [facility] Last Infusion: 02/18/22 14:55 Dose: 0 mls/hr Documented by: MANSOOR Doxycycline Hyclate 100 mg/ (Sodium Chloride) 250 mls @ 166.67 mls/hr IV Q12H [facility] Last Infusion: 02/19/22 00:44 Dose: 0 mls/hr Documented by: REGLA Insulin Glargine (Insulin Glargine,Hum.Rec.Anlog 100 Unit/Ml 10 Ml Vial) 15 unit SUBCUT BEDTIME [facility] Last Admin: 02/18/22 21:26 Dose: 15 unit Documented by: REGLA Insulin Human Lispro (Insulin Lispro 100 Unit/Ml 3 Ml Vial) 0 unit SUBCUT QIDACHS [facility]; Protocol Last Admin: 02/18/22 21:27 Dose: 8 unit Documented by: REGLA Insulin Human Lispro (Insulin Lispro 100 Unit/Ml 3 Ml Vial) 5 unit SUBCUT QIDACHS [facility] Last Admin: 02/18/22 21:27 Dose: 5 unit Documented by: REGLA Levothyroxine Sodium (Levothyroxine Sodium 150 Mcg Tablet) 150 mcg PO DAILY@0600 [facility] Last Admin: 02/19/22 05:26 Dose: 150 mcg Documented by: REGLA Metformin HCl (Metformin Hcl Er 500 Mg Tab.Er.24h) 500 mg PO DAILY@1700 [facility] Last Admin: 02/18/22 16:43 Dose: 500 mg Documented by: MANSOOR Methylprednisolone Sodium Succinate (Methylprednisolone Sod Succ 40 Mg/Ml Vial) 60 mg IVPUSH Q8H [facility] Last Admin: 02/19/22 02:13 Dose: 60 mg Documented by: REGLA Montelukast Sodium (Montelukast Sodium 10 Mg Tablet) 10 mg PO DAILY [facility] Last Admin: 02/18/22 08:04 Dose: 10 mg Documented by: MANSOOR Nicotine (Nicotine 14 Mg Patch.Td24) 14 mg TRANSDERMA DAILY [facility] Last Admin: 02/18/22 08:05 Dose: 14 mg Documented by: MANSOOR Ondansetron HCl (Ondansetron Hcl 4 Mg/2 Ml Vial) 4 mg IVPUSH Q8H PRN PRN Reason: Nausea and Vomiting Pharmacy Consult (Consult Rx Perform Med Rec) 1 each MISCELLANE ONCE PRN PRN Reason: Consult order Sodium Chloride (0.9 % Sodium Chloride Flush 3 Ml Syringe) 3 ml IVFLUSH QSHIFT [facility] Last Admin: 02/18/22 21:27 Dose: 3 ml Documented by: REGLA Labs CBC & Chem 7: 02/14/22 07:10 02/17/22 05:43 Labs: Laboratory Results - last 24 hr 02/18/22 02/18/22 02/18/22 11:05 15:36 19:42 POC Glucose 347 H 251 H 324 H 02/19/22 07:04 POC Glucose 316 H Microbiology Microbiology Results: Microbiology 02/13/22 08:52 Blood Culture - Final Blood - Venous No growth after 5 days. 02/13/22 08:16 Blood Culture - Final Blood - Venous No growth after 5 days. Assessment and Plan (1) Community acquired pneumonia: Status: Acute (2) Asthma exacerbation: Status: Acute (3) Influenza A: Status: Acute Plan 61 years old male with PMH of HTN, asthma who presents to the hospital with worsening shortness of breath, cough. Acute hypoxic respiratory failure secondary to Asthma/COPD exacerbation, CAP and influenza A no hypoxia at rest, but still with dyspnea with exertion Post viral pneumonia Continue doxycycline and ceftriaxone IV steroids, sched duonebs Wean oxygen as tolerated Pulm consult repeat CXR hyperkalemia resolved with lokelma follow bmp DM with hyperglycemia pt reports diet-controlled diabetes; Hba1c was 11.9 continue diabetic diet SS, increase lantus, mealtime insulin added Hypertension bp controlled continue amlodipine Hypothyroidism continue levothyroxine Tobacco dependence Smoking cessation advised NRT DVT PPX -Lovenox attending Dr. Griffith Requires ongoing inpatient hospitalization for treatment of hypoxic respiratory failure, IV steroids Quality Stroke Does the patient have a stroke diagnosis?: No VTE Prior VTE?: No VTE Risk Level:: Medical - moderate - high VTE Device Contraindication: Treatment Not Indicated VTE Drug Contraindication: N/A - Med Ordered
[2022-02-19] MEDS: amLODIPine Besylate 5 MG TABLET PO (08:48)
[2022-02-19] MEDS: Insulin Lispro 100 UNIT/ML 3 ML VIAL SUBCUT ×8 (08:48→21:12)
[2022-02-19] MEDS: Benzonatate 100 MG CAPSULE PO ×3 (08:48→21:12)
[2022-02-19] MEDS: guaiFENesin LA 600 MG TAB.ER.12H PO ×2 (08:48→21:12)
[2022-02-19] MEDS: 0.9 % Sodium Chloride Flush 3 ML SYRINGE IVFLUSH ×3 (08:49→21:12)
[2022-02-19] MEDS: Nicotine 14 MG PATCH.TD24 TRANSDERMA (08:49)
[2022-02-19] MEDS: Montelukast Sodium 10 MG TABLET PO (08:50)
[2022-02-19] MEDS: Albuterol/Iprat 2.5/0.5MG 3 ML AMPUL.NEB INHALE ×3 (10:43→20:19)
[2022-02-19 11:42] LABS: Glucose, Whole Blood 333 mg/dL (60-115)
[2022-02-19] MEDS: Doxycycline Hyclate 100 MG in 0.9 % Sodium Chloride 250 ML 166.67 MG IV ×2 (12:45→22:40)
[2022-02-19] MEDS: Enoxaparin Sodium 40 MG/0.4 ML SYRINGE SUBCUT (14:32)
[2022-02-19] MEDS: cefTRIAXone sodium 1 GM in 0.9 % Sodium Chloride 50 ML IV (14:33)
[2022-02-19 16:17] LABS: Glucose, Whole Blood 294 mg/dL (60-115)
[2022-02-19] MEDS: metFORMIN HCl ER 500 MG TAB.ER.24H PO (17:39)
[2022-02-19] MEDS: Acetaminophen 325 MG TABLET 650 MG PO (18:13)
[2022-02-19 20:06] LABS: Glucose, Whole Blood 184 mg/dL (60-115)
[2022-02-19] MEDS: Insulin Glargine,Hum.rec.anlog 100 UNIT/ML 10 ML VIAL 15 UNIT SUBCUT (21:12)
[2022-02-19] MEDS: diphenhydrAMINE HCL 25 MG TABLET PO (22:41)
[2022-02-20] VITALS (10 sets, daily range): BP systolic 126–176; BP diastolic 67–90; PULSE 69–88; RESP 18–22; TEMP 36.3–36.8; O2SAT 94–98
[2022-02-20] MEDS: methylPREDNISolone Sod Succ 40 MG/ML VIAL 60 MG IVPUSH (02:12)
[2022-02-20] MEDS: Levothyroxine Sodium 150 MCG TABLET PO (05:36)
[2022-02-20 07:46] LABS: Glucose, Whole Blood 296 mg/dL (60-115)
[2022-02-20] MEDS: Albuterol/Iprat 2.5/0.5MG 3 ML AMPUL.NEB INHALE ×4 (08:05→20:33)
[2022-02-20] MEDS: predniSONE 20 MG TABLET 40 MG PO (08:13)
[2022-02-20] MEDS: Benzonatate 100 MG CAPSULE PO ×3 (08:13→21:52)
[2022-02-20] MEDS: amLODIPine Besylate 5 MG TABLET PO (08:13)
[2022-02-20] MEDS: Montelukast Sodium 10 MG TABLET PO (08:13)
[2022-02-20] MEDS: guaiFENesin LA 600 MG TAB.ER.12H PO ×2 (08:13→21:52)
[2022-02-20] MEDS: Nicotine 14 MG PATCH.TD24 TRANSDERMA (08:14)
[2022-02-20] MEDS: 0.9 % Sodium Chloride Flush 3 ML SYRINGE IVFLUSH ×2 (08:14→18:01)
[2022-02-20] MEDS: Insulin Lispro 100 UNIT/ML 3 ML VIAL SUBCUT ×8 (08:16→21:54)
--- NOTE | 2022-02-20 09:59 | PM.CNPUL ---
History of Present Illness History of Present Illness Consult date: 02/20/22 Requesting physician: Aimee Lombardo Reason for consult: dyspnea, cough and hypoxemia Chief complaint: Dyspnea,weakness Narrative: I was us to see this patient for pulmonary consultation. 61 years old gentleman was initially seen in the emergency room on 02/06, with flu like symptoms and increased shortness of breath. He tested positive for influenza A, was treated with a short course of prednisone, and albuterol inhaler, symptomatic agents for cough. Came back to the emergency room on 02/13 because due to worsening of his shortness of breath cough and general weakness. Chest x-ray showed increased interstitial markings with a questionable infiltrate right lower lobe. Patient has been treated with the IV Solu-Medrol, Monica zayas, on IV ceftriaxone and doxycycline . He has been requiring O2 supplementation, and still continues to be somewhat short of breath and anxious. Past medical history is that of a chronic bronchial asthma, with frequent exacerbations, usually treated with steroids pulse therapy, and albuterol. Patient is not being followed by a a primary care physician over here, because he used to live in [place] from where he moved a few months ago. Has history of smoking about 1 pack of cigarettes a day and now trying to quit. Review of Systems Review of Systems: Yes all other systems are reviewed and are negative PMFSH Past Medical History Medical History (Updated 02/20/22 @ 10:06 by Olga Gilbert MD) Asthma Bronchitis Social History Social History Household Members: Family Housing: House Do you presently have visiting nurse or other home services: No Patient Tobacco Use Status: Current everyday Tobacco user service: No Current occupational status: unemployed Meds Allergies Allergy/AdvReac Type Severity Reaction Status Date / Time No Known Allergies Allergy Verified 09/07/21 10:08 Active Medications: Current Medications Acetaminophen (Acetaminophen 325 Mg Tablet) 650 mg PO Q6H PRN PRN Reason: Pain, Mild (Pain Scale 1-3) Last Admin: 02/19/22 18:13 Dose: 650 mg Documented by: Albuterol Sulfate (Albuterol Sulfate (0.083%) 2.5 Mg/3 Ml Vial.Neb) 5 mg INHALE Q4H PRN PRN Reason: shortness of breath or wheezing Last Admin: 02/19/22 05:38 Dose: 5 mg Documented by: Albuterol/Ipratropium (Albuterol/Iprat 2.5/0.5mg 3 Ml Ampul.Neb) 3 ml INHALE RQ4H WHILE AWAKE [facility] Last Admin: 02/20/22 08:05 Dose: 3 ml Documented by: Amlodipine Besylate (Amlodipine Besylate 5 Mg Tablet) 5 mg PO DAILY CARLOS; Protocol Last Admin: 02/20/22 08:13 Dose: 5 mg Documented by: Benzonatate (Benzonatate 100 Mg Capsule) 100 mg PO TID [facility] Last Admin: 02/20/22 08:13 Dose: 100 mg Documented by: Dextrose (Dextrose 50 % 25 Gm/50 Ml Syringe) 25 gm IVPUSH Q15M PRN; Protocol PRN Reason: per Hypoglycemia Standing Ord. Diphenhydramine HCl (Diphenhydramine Hcl 25 Mg Tablet) 25 mg PO BEDTIME PRN PRN Reason: slepp Last Admin: 02/19/22 22:41 Dose: 25 mg Documented by: Enoxaparin Sodium (Enoxaparin Sodium 40 Mg/0.4 Ml Syringe) 40 mg SUBCUT Q24H [facility] Last Admin: 02/19/22 14:32 Dose: 40 mg Documented by: Glucose (Glucose Gel 15 Gm Gel..Gram.) 15 gm PO Q15M PRN; Protocol PRN Reason: per Hypoglycemia Standing Ord. Guaifenesin (Guaifenesin La 600 Mg Tab.Er.12h) 600 mg PO BID [facility] Last Admin: 02/20/22 08:13 Dose: 600 mg Documented by: Ceftriaxone Sodium 1 gm/ (Sodium Chloride) 50 mls @ 100 mls/hr IV Q24H [facility] Last Infusion: 02/19/22 15:07 Dose: Infused Documented by: Doxycycline Hyclate 100 mg/ (Sodium Chloride) 250 mls @ 166.67 mls/hr IV Q12H [facility] Last Infusion: 02/20/22 00:41 Dose: Infused Documented by: Insulin Glargine (Insulin Glargine,Hum.Rec.Anlog 100 Unit/Ml 10 Ml Vial) 15 unit SUBCUT BEDTIME [facility] Last Admin: 02/19/22 21:12 Dose: 15 unit Documented by: Insulin Human Lispro (Insulin Lispro 100 Unit/Ml 3 Ml Vial) 0 unit SUBCUT QIDACHS [facility]; Protocol Last Admin: 02/20/22 08:16 Dose: 6 unit Documented by: Insulin Human Lispro (Insulin Lispro 100 Unit/Ml 3 M[facility]) [facility] Last Admin: 02/20/22 08:16 Dose: 5 unit Documented by: Levothyroxine Sodium (Levothyroxine Sodium 150 Mcg Tablet) 150 mcg PO DAILY@0600 [facility] Last Admin: 02/20/22 05:36 Dose: 150 mcg Documented by: Metformin HCl (Metformin Hcl Er 500 Mg Tab.Er.24h) 500 mg PO DAILY@1700 [facility] Last Admin: 02/19/22 17:39 Dose: 500 mg Documented by: Montelukast Sodium (Montelukast Sodium 10 Mg Tablet) 10 mg PO DAILY [facility] Last Admin: 02/20/22 08:13 Dose: 10 mg Documented by: Nicotine (Nicotine 14 Mg Patch.Td24) 14 mg TRANSDERMA DAILY [facility] Last Admin: 02/20/22 08:14 Dose: 14 mg Documented by: Ondansetron HCl (Ondansetron Hcl 4 Mg/2 Ml Vial) 4 mg IVPUSH Q8H PRN PRN Reason: Nausea and Vomiting Pharmacy Consult (Consult Rx Perform Med Rec) 1 each MISCELLANE ONCE PRN PRN Reason: Consult order Prednisone (Prednisone 20 Mg Tablet) 40 mg PO DAILY [facility] Last Admin: 02/20/22 08:13 Dose: 40 mg Documented by: Sodium Chloride (0.9 % Sodium Chloride Flush 3 Ml Syringe) 3 ml IVFLUSH QSHIFT [facility] Last Admin: 02/20/22 08:14 Dose: 3 ml Documented by: Home Medications Medication Instructions Recorded Confirmed Last Taken Type amlodipine 5 mg tablet 1 tab PO DAILY 02/13/22 02/13/22 02/12/22 History levalbuterol tartrate 45 2 puff INHALATION QID PRN 02/13/22 02/13/22 Unknown History mcg/actuation aerosol inhaler (Xopenex HFA) levothyroxine 150 mcg tablet 1 tab PO DAILY 02/13/22 02/13/22 02/12/22 History (Euthyrox) lovastatin 20 mg tablet 1 tab PO DAILY 02/13/22 02/13/22 Unknown History montelukast 10 mg tablet 1 tab PO DAILY 02/13/22 02/13/22 Unknown History Physical Exam Vital Signs: Vital Signs: Last Vital Signs Temp 98.2 F 02/20/22 07:32 Pulse 88 02/20/22 08:07 Resp 20 02/20/22 08:07 BP 129/83 02/20/22 07:32 Pulse Ox 94 02/20/22 07:32 BMI result Body Mass Index 29.0 Const: General: comfortable (But somewhat anxious), no acute distress, alert and awake Orientation/consciousness: patient oriented x3 HEENT: Head: Yes normal to inspection General nose exam: No nasal polyps present and No nasal discharge present Face and sinus: Yes sinuses nontender Mouth: oropharynx normal Throat: Yes posterior oropharynx normal Eyes: General: appearance normal, both eyes and all related structures Neck: Neck: Yes normal visual inspection, Yes no lymphadenopathy, Yes trachea midline and Yes no JVD Thyroid: Thyroid normal Chest: Chest palpation & inspection: normal inspection of the chest, normal palpation of entire chest wall and no tenderness Resp: Other: Percussion note resonant, has equal breath sounds on both sides, He has diffuse bilateral inspiratory wheezes and rhonchi. Cardio: Palpation: normal PMI Rate: regular rate Rhythm: regular rhythm Heart sounds: no gallops and no murmurs Peripheral pulses: Peripheral pulses 2+ throughout GI: Palpation (GI): Soft to palpation, nontender, No hepatosplenomegaly present and no masses Auscultation: normal bowel sounds Back/Spine/Pelvis: Thoracic/Lumbar Spine: thoracic and lumbar spine normal to inspection Skin: General skin exam: no rashes or lesions noted Neuro: General: patient oriented x3 and no focal motor deficits Cranial nerves: Yes CN's II-XII intact bilaterally Extrem: General: Yes normal to inspection, Yes no clubbing, cyanosis or edema and Yes no calf tenderness Psych: Speech and movement: Normal speech and movement present Results Laboratory Findings CBC and BMP: 02/14/22 07:10 02/17/22 05:43 Abnormal lab findings: Abnormal Labs 02/13/22 02/13/22 02/13/22 08:16 08:16 08:52 RBC Hct Immature Gran % (Auto) 1.1 H Lymph % (Auto) 14.5 L [place] % (Auto) 12.7 H Abs Immat Gran (auto) 0.09 H Sodium Potassium BUN POC Glucose Random Glucose 341 H Influenza Type A (PCR) POSITIVE A 02/14/22 02/14/22 02/14/22 07:10 07:10 12:00 RBC 4.55 L Hct 41.7 L Immature Gran % (Auto) Lymph % (Auto) [place] % (Auto) Abs Immat Gran (auto) Sodium Potassium 5.6 H D BUN 20 H D POC Glucose 356 H* Random Glucose 359 H* Influenza Type A (PCR) 02/14/22 02/14/22 02/15/22 15:22 20:15 06:22 RBC Hct Immature Gran % (Auto) Lymph % (Auto) [place] % (Auto) Abs Immat Gran (auto) Sodium 133 L Potassium BUN 20 H POC Glucose 413 H* 279 H Random Glucose 339 H Influenza Type A (PCR) 02/15/22 02/15/22 02/15/22 07:27 12:27 15:18 RBC Hct Immature Gran % (Auto) Lymph % (Auto) [place] % (Auto) Abs Immat Gran (auto) Sodium Potassium BUN POC Glucose 319 H 250 H 335 H Random Glucose Influenza Type A (PCR) 02/15/22 02/16/22 02/16/22 19:25 05:38 07:40 RBC Hct Immature Gran % (Auto) Lymph % (Auto) [place] % (Auto) Abs Immat Gran (auto) Sodium Potassium BUN 19 H POC Glucose 375 H* 283 H Random Glucose 340 H Influenza Type A (PCR) 02/16/22 02/16/22 02/16/22 11:13 15:09 19:28 RBC Hct Immature Gran % (Auto) Lymph % (Auto) [place] % (Auto) Abs Immat Gran (auto) Sodium Potassium BUN POC Glucose 399 H* 356 H* 361 H* Random Glucose Influenza Type A (PCR) 02/17/22 02/17/22 02/17/22 05:43 07:18 11:06 RBC Hct Immature Gran % (Auto) Lymph % (Auto) [place] % (Auto) Abs Immat Gran (auto) Sodium 133 L Potassium BUN 17 H POC Glucose 257 H 489 H* Random Glucose 318 H Influenza Type A (PCR) 02/17/22 02/17/22 02/18/22 15:33 19:38 06:56 RBC Hct Immature Gran % (Auto) Lymph % (Auto) [place] % (Auto) Abs Immat Gran (auto) Sodium Potassium BUN POC Glucose 276 H 230 H 320 H Random Glucose Influenza Type A (PCR) 02/18/22 02/18/22 02/18/22 11:05 15:36 19:42 RBC Hct Immature Gran % (Auto) Lymph % (Auto) [place] % (Auto) Abs Immat Gran (auto) Sodium Potassium BUN POC Glucose 347 H 251 H 324 H Random Glucose Influenza Type A (PCR) 02/19/22 02/19/22 02/19/22 07:04 11:12 14:56 RBC Hct Immature Gran % (Auto) Lymph % (Auto) [place] % (Auto) Abs Immat Gran (auto) Sodium Potassium BUN POC Glucose 316 H 333 H 294 H Random Glucose Influenza Type A (PCR) 02/19/22 02/20/22 19:28 07:38 RBC Hct Immature Gran % (Auto) Lymph % (Auto) [place] % (Auto) Abs Immat Gran (auto) Sodium Potassium BUN POC Glucose 184 H 296 H Random Glucose Influenza Type A (PCR) Microbiology: Microbiology 02/13/22 08:52 Blood - Venous Blood Culture - Final No growth after 5 days. 02/13/22 08:16 Blood - Venous Blood Culture - Final No growth after 5 days. Diagnostic Findings Chest x-ray: report reviewed and image reviewed Assessment and Plan (1) Influenza A: Status: Acute (2) Asthma exacerbation: Status: Acute (3) Community acquired pneumonia: Status: Acute (4) Bronchitis: Status: Acute Plan This 61 years old gentleman with longstanding history of bronchial asthma and also smoking, Has acute exacerbation brought on by type a influenza infection. He did have minimal right lower lobe pneumonia (CAP ) which has been treated in the repeat chest x-ray on 02/19 is clear. He does have evidence of diffuse bronchitis, and still requiring oxygen supplementation. I think when his symptoms settled down ,he would need a thorough pulmonary evaluation especially with pulmonary function test. In addition to bronchial asthma I think he has definitely developed chronic obstructive pulmonary disease. Recc. Oral prednisone 40 mg daily, and wean slowly over the next 2 weeks. Antibiotics may be changed to oral for another 5 days. Smoking cessation to be enforced, patient is tolerating nicotine patch. As outpatient he should be on long-acting bronchodilators, and inhaled steroids , along with albuterol p.r.n.. Wean off oxygen if possible before his discharge. He would need close follow-up as outpatient. Procedures Date of Service Date of Service: 02/20/22
[2022-02-20 11:37] LABS: Glucose, Whole Blood 312 mg/dL (60-115)
[2022-02-20] MEDS: methylPREDNISolone Sod Succ 40 MG/ML VIAL IVPUSH ×2 (12:14→21:52)
[2022-02-20] MEDS: Doxycycline Hyclate 100 MG in 0.9 % Sodium Chloride 250 ML 166 MG IV ×2 (12:15→22:08)
--- NOTE | 2022-02-20 13:53 | HO.PM.IMPN ---
Subjective Subjective Date of Service: 02/20/22 Interval History: Still complaining of significant shortness of breath and dyspnea on exertion Denies any fever or chills No reported other overnight events Review of Systems No fever, chills But reporting generalizedr weakness No chest pain, palpitation shortness of breath, coughing with increased wheezes No abdominal pain, nausea or vomiting No urinary symptoms No any rash or wounds Physical Exam Vital Signs: Vital Signs: Last Vital Signs Temp 98.3 F 02/20/22 11:13 Pulse 69 02/20/22 11:56 Resp 18 02/20/22 11:56 BP 139/88 02/20/22 11:13 Pulse Ox 94 02/20/22 11:13 BMI result Body Mass Index 29.0 Const: Other: Constitutional : Alert, oriented, not in distress Neck : Normal inspection, Supple Cardiovascular : RRR, no JVP, no lower extremity edema Respiratory : significantly decreased bilateral air entry, right lower lobe fine crackles, bilateral scattered wheezes Gastrointestinal: soft, lax, Normal bowel sounds, Non tender Skin : Warm, Dry Neurological : Alert & oriented x3, No focal deficit , CN 2-12 within normal Objective Data Active Medications Acetaminophen (Acetaminophen 325 Mg Tablet) 650 mg PO Q6H PRN PRN Reason: Pain, Mild (Pain Scale 1-3) Last Admin: 02/19/22 18:13 Dose: 650 mg Documented by: KO Albuterol Sulfate (Albuterol Sulfate (0.083%) 2.5 Mg/3 Ml Vial.Neb) 5 mg INHALE Q4H PRN PRN Reason: shortness of breath or wheezing Last Admin: 02/19/22 05:38 Dose: 5 mg Documented by: GRETEL Albuterol/Ipratropium (Albuterol/Iprat 2.5/0.5mg 3 Ml Ampul.Neb) 3 ml INHALE RQ4H WHILE AWAKE [facility] Last Admin: 02/20/22 11:56 Dose: 3 ml Documented by: URIEL Amlodipine Besylate (Amlodipine Besylate 5 Mg Tablet) 5 mg PO DAILY [facility]; Protocol Last Admin: 02/20/22 08:13 Dose: 5 mg Documented by: LM Benzonatate (Benzonatate 100 Mg Capsule) 100 mg PO TID [facility] Last Admin: 02/20/22 08:13 Dose: 100 mg Documented by: LM Dextrose (Dextrose 50 % 25 Gm/50 Ml Syringe) 25 gm IVPUSH Q15M PRN; Protocol PRN Reason: per Hypoglycemia Standing Ord. Diphenhydramine HCl (Diphenhydramine Hcl 25 Mg Tablet) 25 mg PO BEDTIME PRN PRN Reason: slepp Last Admin: 02/19/22 22:41 Dose: 25 mg Documented by: REGLA Enoxaparin Sodium (Enoxaparin Sodium 40 Mg/0.4 Ml Syringe) 40 mg SUBCUT Q24H [facility] Last Admin: 02/19/22 14:32 Dose: 40 mg Documented by: JADE Glucose (Glucose Gel 15 Gm Gel..Gram.) 15 gm PO Q15M PRN; Protocol PRN Reason: per Hypoglycemia Standing Ord. Guaifenesin (Guaifenesin La 600 Mg Tab.Er.12h) 600 mg PO BID [facility] Last Admin: 02/20/22 08:13 Dose: 600 mg Documented by: LM Ceftriaxone Sodium 1 gm/ (Sodium Chloride) 50 mls @ 100 mls/hr IV Q24H [facility] Last Infusion: 02/19/22 15:07 Dose: 0 mls/hr Documented by: JADE Doxycycline Hyclate 100 mg/ (Sodium Chloride) 250 mls @ 166.67 mls/hr IV Q12H [facility] Last Admin: 02/20/22 12:15 Dose: 166 mls/hr Documented by: LM Insulin Glargine (Insulin Glargine,Hum.Rec.Anlog 100 Unit/Ml 10 Ml Vial) 15 unit SUBCUT BEDTIME [facility] Last Admin: 02/19/22 21:12 Dose: 15 unit Documented by: REGLA Insulin Human Lispro (Insulin Lispro 100 Unit/Ml 3 Ml Vial) 0 unit SUBCUT QIDACHS [facility]; Protocol Last Admin: 02/20/22 12:13 Dose: 8 unit Documented by: LM Insulin Human Lispro (Insulin Lispro 100 Unit/Ml 3 Ml Vial) 5 unit SUBCUT QIDACHS [facility] Last Admin: 02/20/22 12:14 Dose: 5 unit Documented by: LM Levothyroxine Sodium (Levothyroxine Sodium 150 Mcg Tablet) 150 mcg PO DAILY@0600 [facility] Last Admin: 02/20/22 05:36 Dose: 150 mcg Documented by: REGLA Metformin HCl (Metformin Hcl Er 500 Mg Tab.Er.24h) 500 mg PO DAILY@1700 [facility] Last Admin: 02/19/22 17:39 Dose: 500 mg Documented by: KO Methylprednisolone Sodium Succinate (Methylprednisolone Sod Succ 40 Mg/Ml Vial) 40 mg IVPUSH Q8H [facility] Last Admin: 02/20/22 12:14 Dose: 40 mg Documented by: LM Montelukast Sodium (Montelukast Sodium 10 Mg Tablet) 10 mg PO DAILY [facility] Last Admin: 02/20/22 08:13 Dose: 10 mg Documented by: LM Nicotine (Nicotine 14 Mg Patch.Td24) 14 mg TRANSDERMA DAILY [facility] Last Admin: 02/20/22 08:14 Dose: 14 mg Documented by: LM Ondansetron HCl (Ondansetron Hcl 4 Mg/2 Ml Vial) 4 mg IVPUSH Q8H PRN PRN Reason: Nausea and Vomiting Pharmacy Consult (Consult Rx Perform Med Rec) 1 each MISCELLANE ONCE PRN PRN Reason: Consult order Sodium Chloride (0.9 % Sodium Chloride Flush 3 Ml Syringe) 3 ml IVFLUSH QSHIFT [facility] Last Admin: 02/20/22 08:14 Dose: 3 ml Documented by: LM Labs CBC & Chem 7: 02/14/22 07:10 02/17/22 05:43 Labs: Laboratory Results - last 24 hr 02/19/22 02/19/22 02/20/22 14:56 19:28 07:38 POC Glucose 294 H 184 H 296 H 02/20/22 11:19 POC Glucose 312 H Assessment and Plan (1) Bronchitis: Status: Acute (2) Influenza A: Status: Acute (3) Asthma exacerbation: Status: Acute (4) Acute respiratory failure with hypoxia: Status: Acute Plan 61 years old male with PMH of HTN, asthma who presents to the hospital with worsening shortness of breath, cough. Acute hypoxic respiratory failure secondary to Asthma/COPD exacerbation, CAP and influenza A no hypoxia at rest, but still with dyspnea with exertion Post viral pneumonia Continue doxycycline and ceftriaxone IV steroids, sched duonebs Wean oxygen as tolerated Pulm input appreciated, continue IV steroids and nebulizers, to follow-up for pulmonary function test should be on long-acting bronchodilators, and inhaled steroids , along with albuterol .r.n.. repeat CXR hyperkalemia resolved with lokelma follow bmp DM with hyperglycemia pt reports diet-controlled diabetes; Hba1c was 11.9 continue diabetic diet SS, increase lantus, mealtime insulin added Hypertension bp controlled continue amlodipine Hypothyroidism continue levothyroxine Tobacco dependence Smoking cessation advised NRT DVT PPX -Lovenox attending Dr. Griffith Requires ongoing inpatient hospitalization for treatment of hypoxic respiratory failure, IV steroids Quality Stroke Does the patient have a stroke diagnosis?: No VTE Prior VTE?: No VTE Risk Level:: Medical - moderate - high VTE Device Contraindication: Treatment Not Indicated VTE Drug Contraindication: N/A - Med Ordered
[2022-02-20] MEDS: cefTRIAXone sodium 1 GM in 0.9 % Sodium Chloride 50 ML IV (14:41)
[2022-02-20 15:50] LABS: Glucose, Whole Blood 360 mg/dL (60-115)
[2022-02-20] MEDS: metFORMIN HCl ER 500 MG TAB.ER.24H PO (17:59)
[2022-02-20] MEDS: Enoxaparin Sodium 40 MG/0.4 ML SYRINGE SUBCUT (17:59)
[2022-02-20 19:59] LABS: Glucose, Whole Blood 281 mg/dL (60-115)
[2022-02-20] MEDS: Insulin Glargine,Hum.rec.anlog 100 UNIT/ML 10 ML VIAL 20 UNIT SUBCUT (21:55)
[2022-02-20] MEDS: Acetaminophen 325 MG TABLET 650 MG PO (23:31)
[2022-02-20] MEDS: diphenhydrAMINE HCL 25 MG TABLET PO (23:56)
[2022-02-21] VITALS (11 sets, daily range): BP systolic 131–164; BP diastolic 81–90; PULSE 56–103; RESP 17–20; TEMP 36.4–37.1; O2SAT 94–97
[2022-02-21] MEDS: methylPREDNISolone Sod Succ 40 MG/ML VIAL IVPUSH ×3 (03:58→19:39)
[2022-02-21] MEDS: Levothyroxine Sodium 150 MCG TABLET PO (06:04)
[2022-02-21] MEDS: Albuterol/Iprat 2.5/0.5MG 3 ML AMPUL.NEB INHALE ×4 (06:36→20:08)
[2022-02-21 07:08] LABS: Anion Gap 11 (12-20); Blood Urea Nitrogen 19 mg/dL (9-16); Calcium 9.2 mg/dL (8.4-10.2); Carbon Dioxide 26 mmol/L (22-29); Chloride 99 mmol/L (96-108); Creatinine Clr Calc Pharmacy 104.3; Estimated Glomerular Filt Rate > 60; Glucose Random 191 mg/dL (60-115); Potassium 4.1 mmol/L (3.3-5.1); Sodium 132 mmol/L (135-145)
[2022-02-21 07:43] LABS: Glucose, Whole Blood 181 mg/dL (60-115)
[2022-02-21] MEDS: Benzonatate 100 MG CAPSULE PO ×3 (08:32→22:08)
[2022-02-21] MEDS: guaiFENesin LA 600 MG TAB.ER.12H PO ×2 (08:32→22:08)
[2022-02-21] MEDS: Insulin Lispro 100 UNIT/ML 3 ML VIAL SUBCUT ×8 (08:33→22:15)
[2022-02-21] MEDS: amLODIPine Besylate 5 MG TABLET PO (08:33)
[2022-02-21] MEDS: Montelukast Sodium 10 MG TABLET PO (08:33)
[2022-02-21] MEDS: Nicotine 14 MG PATCH.TD24 TRANSDERMA (08:34)
[2022-02-21] MEDS: 0.9 % Sodium Chloride Flush 3 ML SYRINGE IVFLUSH ×3 (08:34→22:16)
[2022-02-21] MEDS: Doxycycline Hyclate 100 MG in 0.9 % Sodium Chloride 250 ML 166.67 MG IV (08:36)
[2022-02-21 10:55] LABS: Glucose, Whole Blood 315 mg/dL (60-115)
--- NOTE | 2022-02-21 11:31 | HO.PM.IMPN ---
Subjective Subjective Date of Service: 02/21/22 Interval History: Still complaining of significant shortness of breath and dyspnea on exertion Denies any fever or chills No reported other overnight events Review of Systems No fever, chills But reporting generalizedr weakness No chest pain, palpitation shortness of breath, coughing with increased wheezes No abdominal pain, nausea or vomiting No urinary symptoms No any rash or wounds Physical Exam Vital Signs: Vital Signs: Last Vital Signs Temp 97.8 F 02/21/22 10:37 Pulse 63 02/21/22 11:19 Resp 18 02/21/22 11:19 BP 131/87 02/21/22 10:37 Pulse Ox 95 02/21/22 10:37 BMI result Body Mass Index 29.0 Const: Other: Constitutional : Alert, oriented, not in distress Neck : Normal inspection, Supple Cardiovascular : RRR, no JVP, no lower extremity edema Respiratory : significantly decreased bilateral air entry, right lower lobe fine crackles, bilateral scattered wheezes Gastrointestinal: soft, lax, Normal bowel sounds, Non tender Skin : Warm, Dry Neurological : Alert & oriented x3, No focal deficit , CN 2-12 within normal Objective Data Active Medications Acetaminophen (Acetaminophen 325 Mg Tablet) 650 mg PO Q6H PRN PRN Reason: Pain, Mild (Pain Scale 1-3) Last Admin: 02/20/22 23:31 Dose: 650 mg Documented by: EVERARDO Albuterol Sulfate (Albuterol Sulfate (0.083%) 2.5 Mg/3 Ml Vial.Neb) 5 mg INHALE Q4H PRN PRN Reason: shortness of breath or wheezing Last Admin: 02/19/22 05:38 Dose: 5 mg Documented by: GRETEL Albuterol/Ipratropium (Albuterol/Iprat 2.5/0.5mg 3 Ml Ampul.Neb) 3 ml INHALE RQ4H WHILE AWAKE [facility] Last Admin: 02/21/22 11:24 Dose: 3 ml Documented by: BIJAN Amlodipine Besylate (Amlodipine Besylate 5 Mg Tablet) 5 mg PO DAILY [facility]; Protocol Last Admin: 02/21/22 08:33 Dose: 5 mg Documented by: LYSBettye Benzonatate (Benzonatate 100 Mg Capsule) 100 mg PO TID [facility] Last Admin: 02/21/22 08:32 Dose: 100 mg Documented by: JADE Cefuroxime Axetil (Cefuroxime Axetil 500 Mg Tablet) 500 mg PO Q12H [facility] Last Admin: 02/21/22 08:34 Dose: 500 mg Documented by: JADE Dextrose (Dextrose 50 % 25 Gm/50 Ml Syringe) 25 gm IVPUSH Q15M PRN; Protocol PRN Reason: per Hypoglycemia Standing Ord. Diphenhydramine HCl (Diphenhydramine Hcl 25 Mg Tablet) 25 mg PO BEDTIME PRN PRN Reason: slepp Last Admin: 02/20/22 23:56 Dose: 25 mg Documented by: EVERARDO Enoxaparin Sodium (Enoxaparin Sodium 40 Mg/0.4 Ml Syringe) 40 mg SUBCUT Q24H [facility] Last Admin: 02/20/22 17:59 Dose: 40 mg Documented by: EVERARDO Glucose (Glucose Gel 15 Gm Gel..Gram.) 15 gm PO Q15M PRN; Protocol PRN Reason: per Hypoglycemia Standing Ord. Guaifenesin (Guaifenesin La 600 Mg Tab.Er.12h) 600 mg PO BID [facility] Last Admin: 02/21/22 08:32 Dose: 600 mg Documented by: JADE Doxycycline Hyclate 100 mg/ (Sodium Chloride) 250 mls @ 166.67 mls/hr IV Q12H [facility] Last Infusion: 02/21/22 10:12 Dose: 0 mls/hr Documented by: JADE Insulin Glargine (Insulin Glargine,Hum.Rec.Anlog 100 Unit/Ml 10 Ml Vial) 20 unit SUBCUT BEDTIME [facility] Last Admin: 02/20/22 21:55 Dose: 20 unit Documented by: EVERARDO Insulin Human Lispro (Insulin Lispro 100 Unit/Ml 3 Ml Vial) 0 unit SUBCUT QIDACHS [facility]; Protocol Last Admin: 02/21/22 08:33 Dose: 2 unit Documented by: JADE Insulin Human Lispro (Insulin Lispro 100 Unit/Ml 3 Ml Vial) 5 unit SUBCUT QIDACHS [facility] Last Admin: 02/21/22 08:33 Dose: 5 unit Documented by: JADE Levothyroxine Sodium (Levothyroxine Sodium 150 Mcg Tablet) 150 mcg PO DAILY@0600 [facility] Last Admin: 02/21/22 06:04 Dose: 150 mcg Documented by: EVERARDO Metformin HCl (Metformin Hcl Er 500 Mg Tab.Er.24h) 500 mg PO DAILY@1700 [facility] Last Admin: 02/20/22 17:59 Dose: 500 mg Documented by: EVERARDO Methylprednisolone Sodium Succinate (Methylprednisolone Sod Succ 40 Mg/Ml Vial) 40 mg IVPUSH Q8H [facility] Last Admin: 02/21/22 03:58 Dose: 40 mg Documented by: EVERARDO Montelukast Sodium (Montelukast Sodium 10 Mg Tablet) 10 mg PO DAILY [facility] Last Admin: 02/21/22 08:33 Dose: 10 mg Documented by: JADE Nicotine (Nicotine 14 Mg Patch.Td24) 14 mg TRANSDERMA DAILY [facility] Last Admin: 02/21/22 08:34 Dose: 14 mg Documented by: JADE Ondansetron HCl (Ondansetron Hcl 4 Mg/2 Ml Vial) 4 mg IVPUSH Q8H PRN PRN Reason: Nausea and Vomiting Pharmacy Consult (Consult Rx Perform Med Rec) 1 each MISCELLANE ONCE PRN PRN Reason: Consult order Sodium Chloride (0.9 % Sodium Chloride Flush 3 Ml Syringe) 3 ml IVFLUSH QSHIFT [facility] Last Admin: 02/21/22 08:34 Dose: 3 ml Documented by: JADE Labs CBC & Chem 7: 02/14/22 07:10 02/21/22 06:34 Labs: Laboratory Results - last 24 hr 02/20/22 02/20/22 02/20/22 11:19 15:00 19:46 Anion Gap Estim Creat Clear Calc Estimated GFR POC Glucose 312 H 360 H* 281 H Random Glucose Calcium 02/21/22 02/21/22 02/21/22 06:34 07:25 10:35 Anion Gap 11 L Estim Creat Clear Calc 104.3 Estimated GFR > 60 POC Glucose 181 H 315 H Random Glucose 191 H D Calcium 9.2 Assessment and Plan (1) Acute respiratory failure with hypoxia: Status: Acute (2) Influenza A: Status: Acute (3) Asthma exacerbation: Status: Acute (4) Community acquired pneumonia: Status: Acute Plan 61 years old male with PMH of HTN, asthma who presents to the hospital with worsening shortness of breath, cough. Acute hypoxic respiratory failure secondary to Asthma/COPD exacerbation, CAP and influenza A on oxygen supplement,still with dyspnea with exertion Post viral pneumonia Change antibiotics to oral doxycycline and Ceftin IV steroids, sched duonebs Wean oxygen as tolerated Pulm input appreciated, continue antibiotics,steroids and nebulizers, to follow-up for pulmonary function test should be on long-acting bronchodilators, and inhaled steroids , along with albuterol .r.n.. repeat CXR to do home oxygen evaluation hyperkalemia resolved with lokelma follow bmp DM with hyperglycemia pt reports diet-controlled diabetes; Hba1c was 11.9 continue diabetic diet SS, increase lantus, mealtime insulin added Hypertension bp controlled continue amlodipine Hypothyroidism continue levothyroxine Tobacco dependence Smoking cessation advised NRT DVT PPX -Lovenox attending Dr. Griffith Requires ongoing inpatient hospitalization for treatment of hypoxic respiratory failure, IV steroids and antibiotic to prevent further decompensation into hypoxic respiratory failure Quality Stroke Does the patient have a stroke diagnosis?: No VTE Prior VTE?: No VTE Risk Level:: Medical - moderate - high VTE Device Contraindication: Treatment Not Indicated VTE Drug Contraindication: N/A - Med Ordered
[2022-02-21 15:56] LABS: Glucose, Whole Blood 235 mg/dL (60-115)
[2022-02-21] MEDS: metFORMIN HCl ER 500 MG TAB.ER.24H PO (16:37)
[2022-02-21] MEDS: Enoxaparin Sodium 40 MG/0.4 ML SYRINGE SUBCUT (16:38)
[2022-02-21 20:50] LABS: Glucose, Whole Blood 323 mg/dL (60-115)
[2022-02-21] MEDS: diphenhydrAMINE HCL 25 MG TABLET PO (22:08)
[2022-02-21] MEDS: Doxycycline Hyclate 100 MG in 0.9 % Sodium Chloride 250 ML 166 MG IV (22:09)
[2022-02-21] MEDS: Magnesium Hydrox/Alum Hydrox 30 ML ORAL.SUSP 15 ML PO (22:09)
[2022-02-21] MEDS: Insulin Glargine,Hum.rec.anlog 100 UNIT/ML 10 ML VIAL 20 UNIT SUBCUT (22:10)
[2022-02-21] MEDS: Acetaminophen 325 MG TABLET 650 MG PO (22:17)
[2022-02-22] VITALS (11 sets, daily range): BP systolic 123–166; BP diastolic 78–89; PULSE 67–93; RESP 14–20; TEMP 36.6–36.9; O2SAT 92–98
[2022-02-22] MEDS: Albuterol Sulfate (0.083%) 2.5 MG/3 ML VIAL.NEB 5 MG INHALE (04:40)
[2022-02-22] MEDS: methylPREDNISolone Sod Succ 40 MG/ML VIAL IVPUSH (04:55)
[2022-02-22] MEDS: Levothyroxine Sodium 150 MCG TABLET PO (04:56)
[2022-02-22 06:48] LABS: Anion Gap 16 (12-20); Blood Urea Nitrogen 20 mg/dL (9-16); Calcium 9.4 mg/dL (8.4-10.2); Carbon Dioxide 25 mmol/L (22-29); Chloride 98 mmol/L (96-108); Creatinine Clr Calc Pharmacy 96.8; Estimated Glomerular Filt Rate > 60; Glucose Random 277 mg/dL (60-115); Potassium 4.5 mmol/L (3.3-5.1); Sodium 134 mmol/L (135-145)
[2022-02-22 07:23] LABS: Glucose, Whole Blood 284 mg/dL (60-115)
[2022-02-22] MEDS: Albuterol/Iprat 2.5/0.5MG 3 ML AMPUL.NEB INHALE ×4 (07:44→20:36)
[2022-02-22] MEDS: Insulin Lispro 100 UNIT/ML 3 ML VIAL SUBCUT ×8 (07:44→20:32)
[2022-02-22] MEDS: Montelukast Sodium 10 MG TABLET PO (07:45)
[2022-02-22] MEDS: Benzonatate 100 MG CAPSULE PO ×3 (07:45→20:31)
[2022-02-22] MEDS: Nicotine 14 MG PATCH.TD24 TRANSDERMA (07:46)
[2022-02-22] MEDS: amLODIPine Besylate 5 MG TABLET PO (07:46)
[2022-02-22] MEDS: 0.9 % Sodium Chloride Flush 3 ML SYRINGE IVFLUSH ×3 (07:47→20:32)
[2022-02-22] MEDS: guaiFENesin LA 600 MG TAB.ER.12H PO ×2 (07:48→20:31)
[2022-02-22] MEDS: Doxycycline Hyclate 100 MG in 0.9 % Sodium Chloride 250 ML 166.6 MG IV (09:24)
[2022-02-22 10:57] LABS: Glucose, Whole Blood 335 mg/dL (60-115)
--- NOTE | 2022-02-22 11:38 | P.PNIM_ITS ---
Subjective Subjective Date of Service: 02/22/22 Interval History: seen and examined this AM before I even began speaking with him, he tells me he is not ready for discharge states that its his body and he knows it best, to which i agreed patient's goals are to feel 100% normal before discharge Physical Exam Vital Signs: Vital Signs: Last Vital Signs Temp 98.5 F 02/22/22 10:33 Pulse 76 02/22/22 10:52 Resp 18 02/22/22 10:52 BP 166/89 H 02/22/22 10:33 Pulse Ox 92 02/22/22 10:33 BMI result Body Mass Index 29.0 Const: Other: General - no acute distress, appears comfortable Cardiovascular - regular rate and rhythm, S1-S2 Lungs - forced expiratory wheezing Abdomen - soft, nontender, no rebound or guarding Extremities - no edema bilaterally Neuro - awake and alert, no focal deficits Objective Data Active Medications Acetaminophen (Acetaminophen 325 Mg Tablet) 650 mg PO Q6H PRN PRN Reason: Pain, Mild (Pain Scale 1-3) Last Admin: 02/21/22 22:17 Dose: 650 mg Documented by: EVERARDO Al Hydroxide/Mg Hydroxide (Magnesium Hydrox/Alum Hydrox 30 Ml Oral.Susp) 15 ml PO Q6H PRN PRN Reason: heartburn Last Admin: 02/21/22 22:09 Dose: 15 ml Documented by: EVERARDO Albuterol Sulfate (Albuterol Sulfate (0.083%) 2.5 Mg/3 Ml Vial.Neb) 5 mg INHALE Q4H PRN PRN Reason: shortness of breath or wheezing Last Admin: 02/22/22 04:40 Dose: 5 mg Documented by: GIUSEPPE Albuterol/Ipratropium (Albuterol/Iprat 2.5/0.5mg 3 Ml Ampul.Neb) 3 ml INHALE RQ4H WHILE AWAKE [facility] Last Admin: 02/22/22 10:51 Dose: 3 ml Documented by: KALYN Amlodipine Besylate (Amlodipine Besylate 5 Mg Tablet) 5 mg PO DAILY [facility]; Protocol Last Admin: 02/22/22 07:46 Dose: 5 mg Documented by: MALI Benzonatate (Benzonatate 100 Mg Capsule) 100 mg PO TID [facility] Last Admin: 02/22/22 07:45 Dose: 100 mg Documented by: MALI Cefuroxime Axetil (Cefuroxime Axetil 500 Mg Tablet) 500 mg PO Q12H [facility] Last Admin: 02/22/22 07:45 Dose: 500 mg Documented by: MALI Dextrose (Dextrose 50 % 25 Gm/50 Ml Syringe) 25 gm IVPUSH Q15M PRN; Protocol PRN Reason: per Hypoglycemia Standing Ord. Diphenhydramine HCl (Diphenhydramine Hcl 25 Mg Tablet) 25 mg PO BEDTIME PRN PRN Reason: slepp Last Admin: 02/21/22 22:08 Dose: 25 mg Documented by: EVERARDO Enoxaparin Sodium (Enoxaparin Sodium 40 Mg/0.4 Ml Syringe) 40 mg SUBCUT Q24H [facility] Last Admin: 02/21/22 16:38 Dose: 40 mg Documented by: JADE Glucose (Glucose Gel 15 Gm Gel..Gram.) 15 gm PO Q15M PRN; Protocol PRN Reason: per Hypoglycemia Standing Ord. Guaifenesin (Guaifenesin La 600 Mg Tab.Er.12h) 600 mg PO BID [facility] Last Admin: 02/22/22 07:48 Dose: 600 mg Documented by: MALI Doxycycline Hyclate 100 mg/ (Sodium Chloride) 250 mls @ 166.67 mls/hr IV Q12H [facility] Last Infusion: 02/22/22 10:07 Dose: 166.6 mls/hr Documented by: MALI Insulin Glargine (Insulin Glargine,Hum.Rec.Anlog 100 Unit/Ml 10 Ml Vial) 20 unit SUBCUT BEDTIME [facility] Last Admin: 02/21/22 22:10 Dose: 20 unit Documented by: EVERARDO Insulin Human Lispro (Insulin Lispro 100 Unit/Ml 3 Ml Vial) 0 unit SUBCUT QIDACHS [facility]; Protocol Last Admin: 02/22/22 07:44 Dose: 6 unit Documented by: MALI Insulin Human Lispro (Insulin Lispro 100 Unit/Ml 3 Ml Vial) 5 unit SUBCUT QIDACHS [facility] Last Admin: 02/22/22 07:45 Dose: 5 unit Documented by: MALI Levothyroxine Sodium (Levothyroxine Sodium 150 Mcg Tablet) 150 mcg PO DAILY@0600 [facility] Last Admin: 02/22/22 04:56 Dose: 150 mcg Documented by: EVERARDO Metformin HCl (Metformin Hcl Er 500 Mg Tab.Er.24h) 500 mg PO DAILY@1700 [facility] Last Admin: 02/21/22 16:37 Dose: 500 mg Documented by: JADE Methylprednisolone Sodium Succinate (Methylprednisolone Sod Succ 40 Mg/Ml Vial) 40 mg IVPUSH Q8H [facility] Last Admin: 02/22/22 04:55 Dose: 40 mg Documented by: EVERARDO Montelukast Sodium (Montelukast Sodium 10 Mg Tablet) 10 mg PO DAILY [facility] Last Admin: 02/22/22 07:45 Dose: 10 mg Documented by: MALI Nicotine (Nicotine 14 Mg Patch.Td24) 14 mg TRANSDERMA DAILY [facility] Last Admin: 02/22/22 07:46 Dose: 14 mg Documented by: MALI Ondansetron HCl (Ondansetron Hcl 4 Mg/2 Ml Vial) 4 mg IVPUSH Q8H PRN PRN Reason: Nausea and Vomiting Pharmacy Consult (Consult Rx Perform Med Rec) 1 each MISCELLANE ONCE PRN PRN Reason: Consult order Sodium Chloride (0.9 % Sodium Chloride Flush 3 Ml Syringe) 3 ml IVFLUSH QSHIFT [facility] Last Admin: 02/22/22 07:47 Dose: 3 ml Documented by: MALI Labs CBC & Chem 7: 02/14/22 07:10 02/22/22 05:16 Labs: Laboratory Results - last 24 hr 02/21/22 02/21/22 02/22/22 15:05 19:34 05:16 Anion Gap 16 Estim Creat Clear Calc 96.8 Estimated GFR > 60 POC Glucose 235 H 323 H Random Glucose 277 H D Calcium 9.4 02/22/22 02/22/22 07:08 10:36 Anion Gap Estim Creat Clear Calc Estimated GFR POC Glucose 284 H 335 H Random Glucose Calcium Assessment and Plan (1) Acute respiratory failure with hypoxia: Status: Acute (2) Influenza A: Status: Acute (3) Asthma exacerbation: Status: Acute (4) Community acquired pneumonia: Status: Acute Plan 61 years old male with PMH of HTN, asthma who presents to the hospital with worsening shortness of breath, cough. Acute hypoxic respiratory failure secondary to Asthma/COPD exacerbation and influenza + possible post viral pneumonia patients oxygen saturation is wnl; per RN reports, he was ambulated and did not desaturate on IV steroids and scheduled updrafts; will change management analyst to prednisone on doxy + ceftin repeat CXR now hyperkalemia resolved with lokelma follow bmp DM with hyperglycemia pt reports diet-controlled diabetes; Hba1c was 11.9 continue diabetic diet continue sliding scale + lantus + metformin Hypertension bp controlled continue amlodipine Hypothyroidism continue levothyroxine Tobacco dependence Smoking cessation advised NRT DVT PPX -Lovenox Full Code Patient continues to endorse respiratory distress at rest and especially with exertion. Will check CXR and if stable, plan for d/c today v tomorrow Quality Stroke Does the patient have a stroke diagnosis?: No VTE Prior VTE?: No VTE Risk Level:: Medical - moderate - high VTE Device Contraindication: Treatment Not Indicated VTE Drug Contraindication: N/A - Med Ordered
--- NOTE | 2022-02-22 13:38 | MHC.CM.PN ---
ELECTRONIC MEDICAL RECORD REVIEWED ALONG WITH CASE DISCUSSED WITH STAFF NURSE AND HOSPITALIST MET WITH PATIENT HE NOW HAS [facility] AND WILL HAVE PCP APPT IN , HE HAS BEEN SEEN BY PULMONARY PHYSICIAN AND WAS INSTRUCTD TO CALL FOR APPOINTMENT POST DISCHARGE HERE AT [facility]/ PAYIRNT HAS BEEN WEANED OFF OXYGEN AND WILL BE CONVERTED FROM IV STEROIDS TO ORAL STEROIDS DISCHARGE PLAN HOME WITH NO SERVICES PATIENT REPORTED HE WILL BE STAYING WITH HIS NEPHEW PATIENT REPORTED HE HAS A PHYSICIAN AND HAS APPT IN [facility] FOLLOW UP PATIENT HAS CONTACT NAME AND NUMBER TO CALL FOR APPOINTMENT TRANSPORTATION FAMILY
[2022-02-22] MEDS: Enoxaparin Sodium 40 MG/0.4 ML SYRINGE SUBCUT (16:07)
[2022-02-22 16:17] LABS: Glucose, Whole Blood 255 mg/dL (60-115)
[2022-02-22] MEDS: metFORMIN HCl ER 500 MG TAB.ER.24H PO (16:53)
[2022-02-22 19:50] LABS: Glucose, Whole Blood 224 mg/dL (60-115)
[2022-02-22] MEDS: Doxycycline Hyclate 100 MG in 0.9 % Sodium Chloride 250 ML 166.67 MG IV (20:31)
[2022-02-22] MEDS: Insulin Glargine,Hum.rec.anlog 100 UNIT/ML 10 ML VIAL 20 UNIT SUBCUT (20:31)
[2022-02-22] MEDS: Acetaminophen 325 MG TABLET 650 MG PO (23:25)
[2022-02-22] MEDS: diphenhydrAMINE HCL 25 MG TABLET PO (23:26)
[2022-02-23] VITALS (7 sets, daily range): BP systolic 124–148; BP diastolic 76–95; PULSE 69–87; RESP 16–20; TEMP 36.8–37.2; O2SAT 93–97
[2022-02-23] MEDS: Albuterol/Iprat 2.5/0.5MG 3 ML AMPUL.NEB INHALE ×4 (03:51→15:11)
[2022-02-23] MEDS: Levothyroxine Sodium 150 MCG TABLET PO (05:51)
[2022-02-23 07:39] LABS: Glucose, Whole Blood 148 mg/dL (60-115)
[2022-02-23] MEDS: predniSONE 20 MG TABLET 40 MG PO (07:54)
[2022-02-23] MEDS: amLODIPine Besylate 5 MG TABLET PO (07:55)
[2022-02-23] MEDS: Benzonatate 100 MG CAPSULE PO ×2 (07:55→16:08)
[2022-02-23] MEDS: guaiFENesin LA 600 MG TAB.ER.12H PO (07:55)
[2022-02-23] MEDS: Insulin Lispro 100 UNIT/ML 3 ML VIAL SUBCUT ×3 (07:55→12:11)
[2022-02-23] MEDS: Montelukast Sodium 10 MG TABLET PO (07:55)
[2022-02-23] MEDS: 0.9 % Sodium Chloride Flush 3 ML SYRINGE IVFLUSH (07:56)
[2022-02-23] MEDS: Nicotine 14 MG PATCH.TD24 TRANSDERMA (07:56)
[2022-02-23] MEDS: Doxycycline Hyclate 100 MG in 0.9 % Sodium Chloride 250 ML 166.67 MG IV (10:02)
--- NOTE | 2022-02-23 11:22 | PM.DS ---
DS: Providers Provider Date of Service: 02/23/22 Date of admission: 02/13/22 15:08 Primary care physician: None Physician Consults: 02/19/22 17:23 Consult to Pulmonology Routine Consulting Provider: Olga Gilbert Reason for consultation: wheezing Has provider been notified: No DS: Diagnosis Discharge Diagnosis (1) Acute respiratory failure with hypoxia: Status: Acute (2) Influenza A: Status: Acute (3) Asthma exacerbation: Status: Acute (4) Community acquired pneumonia: Status: Acute (5) Hyperglycemia due to type 2 diabetes mellitus: Status: Acute (6) New onset type 2 diabetes mellitus: Status: Acute DS: Summary Hospital Course Hospital Course: Admission note HPI ?a 61 years old male with PMH of HTN, asthma who presents to the hospital with worsening shortness of breath, cough.? The patient reported being diagnosed with influenza A last week.? Received treatment of steroids but no Tamiflu.? Reports worsening wheezing, shortness of breath and coughing over the last 3 days with no reported fever, chills. ? Presenting to the emergency today he was found to be tachypneic.? Noted to drop his oxygen saturation upon ambulation to 88%.? Requiring oxygen supplement to keep his sats above 90.? X-ray showed concerns over infiltrates.? Will be admitted for further treatment and evaluation. Hospital course The patient was admitted to the hospital for evaluation of acute hypoxic respiratory failure secondary to COPD/asthma exacerbation secondary to influenza a infection and post viral pneumonia. Treated with IV antibiotics of doxycycline and ceftriaxone for total of 10 days, IV steroids and bronchodilator nebulizers as he was evaluated by die machine operator during the hospital stay. Was able to wean him down oxygen requirement to room air as he became more ambulatory with no evidence of hypoxia. Was noted to have significant hyperglycemia. HbA1c of 11.9. The patient reported that he was on diet control diabetes. He will be discharged home on metformin and insulin of both Lantus and lispro. He is supposed to be followed by visiting nurses at and to see his primary care within the next 2 weeks. He is a smoker. Advised cessation. NRT prescribed. Continue prednisone tapering dose as prescribed Start metformin twice Daily Start insulin Lantus, long-acting, once daily Start insulin lispro, short-acting, 4 times a day with meals and bedtime To follow-up with primary care physician as soon as possible for close follow-up and medications adjustment. Time Spent with Patient Time attestation: Total time spent providing and/or coordinating discharge services: Discharge coordination time: Greater than 30 minutes Quality: Safe Use of Opioids Does Pt have an Active Cancer Diagnosis on the Problem List?: No Quality: Stroke Does the patient have a stroke diagnosis?: No Physical Exam Vital Signs: Vital Signs: Last Vital Signs Temp 98.3 F 02/23/22 07:03 Pulse 84 02/23/22 10:59 Resp 18 02/23/22 10:59 BP 124/76 02/23/22 07:03 Pulse Ox 94 02/23/22 07:03 BMI result Body Mass Index 29.0 Const: Other: Constitutional : Alert, oriented, not in distress Neck : Normal inspection, Supple Cardiovascular : RRR, no JVP, no lower extremity edema Respiratory : Improved bilateral air entry, no more crackles, fine scattered wheezes Gastrointestinal: soft, lax, Normal bowel sounds, Non tender Skin : Warm, Dry Neurological : Alert & oriented x3, No focal deficit , CN 2-12 within normal DS: Data Data Completed and Pending Labs on day of discharge: Laboratory Results - last 24 hr 02/22/22 02/22/22 02/23/22 16:13 19:42 07:06 POC Glucose 255 H 224 H 148 H Discharge Plan Discharge Patient Disposition: Home Health Service Discharge Diagnosis: asthma exacerbation Influenza A Pneumonia Referrals: Nathan Manley MD [Physician] - 1 Week Physician,None [Primary Care Provider] - 1 Week Discharge Medications: New (DME) nebulizers Misc See Rx Instructions .Route Qty: 1 0RF Rx Instructions: As directed ipratropium-albuterol 0.5 mg-3 mg(2.5 mg base)/3 mL Solution For Nebulization 3 ml inhalation Q6H 30 Days 0RF nicotine 14 mg/24 hr Patch 24 Hour 14 mg transdermal DAILY 30 Days 0RF guaifenesin [Mucinex] 600 mg Tablet Extended Release 12hr 600 mg PO BID Qty: 14 0RF prednisone 10 mg tablet See Taper mg PO DAILY Qty: 30 0RF Taper: Prednisone 40 mg daily for 3 Days and 0 Hour 30 mg daily for 3 Days and 0 Hour 20 mg daily for 3 Days and 0 Hour 10 mg daily for 3 Days and 0 Hour (DME) blood-glucose meter [FreeStyle Lite Meter] Kit See Rx Instructions .ROUTE .MEDSUPPLY Qty: 1 0RF Rx Instructions: As directed alcohol swabs Pads, Medicated 1 pad topical QID Qty: 200 2RF (DME) FreeStyle Lite Strips Strip See Rx Instructions .ROUTE .MEDSUPPLY Qty: 100 2RF Rx Instructions: QID (DME) lancets Misc See Rx Instructions .ROUTE .MEDSUPPLY Qty: 200 2RF Rx Instructions: 4 times daily insulin glargine 100 unit/mL (3 mL) insulin pen 10 unit subcut QPM Qty: 3 3RF insulin lispro 100 unit/mL insulin pen 1 sliding scale dose subcut QIDACHS Qty: 15 2RF Rx Instructions: = 70 but <150 Hold insulin 151 to 200 - 2 units 201 to 250 - 4 units 251 to 300 - 6 units 301 to 350 - 8 units 351 to 399 - 10 units = 400 Contact your doctor metformin 850 mg tablet 850 mg PO BIDWMEAL Qty: 60 2RF Continued amlodipine 5 mg tablet 1 tab PO DAILY 0RF levothyroxine [Euthyrox] 150 mcg tablet 1 tab PO DAILY 0RF levalbuterol tartrate [Xopenex HFA] 45 mcg/actuation HFA aerosol inhaler 2 puff inhalation QID PRN (Reason: Shortness Of Breath) 0RF montelukast 10 mg tablet 1 tab PO DAILY 0RF lovastatin 20 mg tablet 1 tab PO DAILY 0RF albuterol sulfate 2.5 mg/0.5 mL solution for nebulization 5 mg inhalation Q4H PRN (Reason: shortness of breath or wheezing) Qty: 30 0RF Discharge Orders: Discharge Order (Routine); Ordered 02/23/22 Ordered By: Aimee Lombardo Diet: diabetic diet Activity on Discharge: As tolerated Stand Alone Forms: Patient Portal Discharge page Care Plan Goals: Read below Health Concerns: Read below Plan of Treatment: Read below Assessment: you were admitted to the hospital for evaluation of difficulty breathing. Found to have influenza a infection with asthma exacerbation and and evidence of pneumonia. You were treated with IV antibiotics, IV steroids and nebulizer with good response over the course of hospital stay as you were weaned off the oxygen and became able to ambulate on room air. You were also noted to have new onset diabetes type 2 with elevated blood sugar levels. Controlled with insulin and metformin. Continue prednisone tapering dose as prescribed Start metformin twice Daily Start insulin Lantus, long-acting, once daily Start insulin lispro, short-acting, 4 times a day with meals and bedtime To follow-up with primary care physician as soon as possible for close follow-up and medications adjustment.
[2022-02-23 11:59] LABS: Glucose, Whole Blood 217 mg/dL (60-115)
--- NOTE | 2022-02-23 15:35 | MHC.CM.PN ---
PT MEDICALLY CLEARED FOR D/C HOME, PT UNABLE TO HAVE [facility] FOR DIABETIC TEACHING D/T NOT HAVING AN INITIAL PCP APPT UNTIL , PT INITIALLY CLAIMING HIS RIDE COULDN'T BE HERE UNTIL 6:30PM AND THEN REPORTING TOMORROW MORNING, REGAN CONTACTED PT'S NEPHEW SHANT AT NUMBER ON FILE AND HE REPORTED BETWEEN HE IS HIS [facility] CAN YOUTH ADVOCATE PT'S MEDS AND PT TO TRANSPORT HIM HOME AND GET HIM SETTLED, [facility] WILL BE HERE BY 4:15PM TO TRANSPORT AND SHANT REPORTS SHE HAS PT'S PCP NAME SO REGAN CAN TRY TO GET A QUICKER APPT FOR PT.
[2022-02-23 15:58] LABS: Glucose, Whole Blood 238 mg/dL (60-115)
== END 2022-02-23 16:15 | disposition home health service (06) | DRG 139 ==
LOC: HO.ED 13:39 → HO.EDOVER 15:24 → HO.S3 02-15 09:02
PROVIDERS: Emergency Medicine; Family Medicine; Nurse Practitioner Acute Care; Physician Assistant Medical; Admitting Provider Student in an Organized Health Care Education/Training Program; Emergency Provider Emergency Medicine Emergency Medical Services; Visit Provider Student in an Organized Health Care Education/Training Program
DX: J10.00 Influenza due to other identified influenza virus with unspecified type of pneumonia (principal); J96.01 Acute respiratory failure with hypoxia; J44.0 Chronic obstructive pulmonary disease with (acute) lower respiratory infection; J44.1 Chronic obstructive pulmonary disease with (acute) exacerbation; J45.901 Unspecified asthma with (acute) exacerbation; J18.9 Pneumonia, unspecified organism; I10 Essential (primary) hypertension; E03.9 Hypothyroidism, unspecified; E11.65 Type 2 diabetes mellitus with hyperglycemia; F17.210 Nicotine dependence, cigarettes, uncomplicated; Z71.6 Tobacco abuse counseling; Z20.822 Contact with and (suspected) exposure to COVID-19; Z79.51 Long term (current) use of inhaled steroids; Z79.52 Long term (current) use of systemic steroids; Z79.890 Hormone replacement therapy; Z79.899 Other long term (current) drug therapy
CPT/HCPCS: 0241U; 36415; 71045; 71046; 80048; 82947; 83036; 83605; 83880; 84484; 85025; 85027; 87040; 93005; 94640; 94644; 96365; 96375; 99284; 99285; J0696; J1200; J1650; J2920; J2930; Q0163

== ENCOUNTER 2022-03-06 10:23 | Inpatient (IN) | payer OTHER, SELFPAY ==
[2022-03-06] VITALS (13 sets, daily range): BP systolic 106–140; BP diastolic 65–84; PULSE 60–82; RESP 12–20; TEMP 36.6; O2SAT 98–100; BMI 26.6
--- NOTE | ~2022-03-06 | XR_ITS ---
EXAMINATION: XR CHEST CLINICAL INFORMATION: Shortness of breath. COMPARISON: 03/06/2022 chest radiographs. TECHNIQUE: Frontal view of the chest was obtained. FINDINGS: No significant abnormality is noted involving the heart, lungs, mediastinum, bony thorax or soft tissues. XR/XR chest 1V IMPRESSION: No acute cardiopulmonary process.
--- NOTE | ~2022-03-06 | MR_ITS ---
EXAMINATION: MR CERVICAL SPINE WITHOUT AND WITH CONTRAST CLINICAL INFORMATION: Vertigo. COMPARISON: CTA of the head and neck 03/06/2022. MRI scan of the brain 03/07/2022. TECHNIQUE: MRI of the cervical spine was obtained using routine sequences with and without contrast. Intravenous contrast: Gadavist 8 mL. FINDINGS: VERTEBRAL BODIES AND PARASPINAL SOFT TISSUES: There is a mild degenerative anterolisthesis of C3 on C4. There is narrowing of intervertebral disc height posteriorly at C6-C7. Vertebral body heights are maintained and no fractures are demonstrated. Marrow signal is homogenous. There is no abnormal osseous enhancement. The visualized regional soft tissues and upper lung garcia are unremarkable. CERVICOMEDULLARY JUNCTION AND VISUALIZED POSTERIOR FOSSA: The craniocervical and posterior fossa structures are normal. Accounting for artifact, spinal cord signal appears normal. There is no abnormal enhancement of the spinal cord or leptomeninges. SPINAL LEVELS: C2-C3: There is mild bilateral facet arthropathy. There is a small posterior disc protrusion. There is no cord compression or central stenosis and the neural foramina are patent bilaterally. C3-C4: There is mild left facet arthropathy. There is a shallow posterior disc protrusion but there is no cord compression or central stenosis. The neural foramina are patent bilaterally. C4-C5: There is mild left facet arthropathy. Disc contour is normal. There is no cord compression or central stenosis. There are small uncovertebral osteophytes on the right and there is mild right foraminal narrowing. C5-C6: The facet joints appear normal. There is a broad-based posterior disc protrusion with mild effacement of CSF ventral to the spinal cord, but there is no spinal cord compression or central stenosis. The neural foramina are patent bilaterally. C6-C7: The facet joints appear normal. There is a posterior disc protrusion extending into the neural foramina bilaterally with severe bilateral foraminal narrowing. There is no cord compression or central stenosis. C7-T1: The facet joints appear normal bilaterally. Posterior disc contour is normal. There is no spinal cord compression or central stenosis. The neural foramina are patent bilaterally. MR/MR cervical spine wo/w con IMPRESSION: 1. At C6-C7 there is a posterior disc protrusion extending into the neural foramina bilaterally with severe bilateral foraminal narrowing. There is no cord compression or central stenosis. 2. At C4-C5 there are small uncovertebral osteophytes on the right and there is mild right foraminal narrowing. There is no central stenosis or cord compression. 3. Spinal cord signal appears normal and there is no abnormal enhancement of the cord. There is no abnormal osseous enhancement.
--- NOTE | ~2022-03-06 | FL_ITS ---
PROCEDURE: XR FL-GUIDED LUMBAR PUNCTURE CLINICAL INFORMATION: Weakness and dizziness. Vertigo. COMPARISON: Brain 03/07/[address] angiogram 03/06/2022. TECHNIQUE/PROCEDURE: Following explaining fluoroscopy-guided lumbar spine puncture procedure, benefits and risk, a written consent was obtained. The patient was placed prone on fluoroscopy table and low back area was cleaned and draped in usual sterile manner. 1% lidocaine was injected at puncture site overlying the L4-L5 disc level. A 22-gauge spinal needle was then advanced from the left paramidline approach intrathecally at the L4-L5 disc level. The stylet was removed and after observing CSF return, patient was placed in left lateral decubitus view and CSF collected in 4 test tubes. Post procedure the stylet was reintroduced and needle withdrawn. Complete hemostasis achieved at puncture site. Patient tolerated the procedure very well. FINDINGS: On the visualized images, the lumbar vertebral heights, alignment and disc heights are normal. The SI joints are symmetrical. Approximately 7 mL of non-traumatic blood-tinged pinkish fluid was collected in 4 test tubes. FLUOROSCOPY TIME: 0.6 minutes. DOSE AREA PRODUCT: 7.33 uGy-m2 (microgray-meter squared). FL/FL guided lumbar puncture LP IMPRESSION: 1. Successful fluoroscopy-guided L4-L5 lumbar puncture performed. 2. The CSF fluid was pinkish and is suspicious for hemorrhage. It is a non-traumatic lumbar puncture. Further evaluation is recommended.
--- NOTE | ~2022-03-06 | CT_ITS ---
EXAMINATION: CT HEAD WITHOUT CONTRAST CLINICAL INFORMATION: Posterior headache. Dizziness. COMPARISON: None TECHNIQUE: Contiguous axial imaging was performed from the skull base to vertex without intravenous administration of contrast. Coronal and sagittal reformatted images are performed at the CT scanner This CT examination was performed using dose optimization techniques as appropriate, variously including the following: *Automated exposure control *Adjustment of mA and/or kV according to patient size (this includes techniques or standardized protocols for targeted exams where dose is matched to indication/reason for exam; i.e. extremities or head) *Use of iterative reconstruction technique DLP: 663 mGy-cm FINDINGS: There is no evidence of acute intracranial hemorrhage or territorial infarction. No abnormal mass effect or midline shift is seen. Alva to white matter differentiation is well preserved. No extra-axial fluid collections are identified. The ventricles are normal in size. There is no abnormal attenuation within the brain parenchyma. The osseous structures and soft tissues are normal. Small lobular mucosal thickening at the inferior left maxillary sinus and right maxillary sinus. Mastoid air cells and middle ear cavities are normally aerated CT/CT head/brain wo con IMPRESSION: No acute intracranial pathology.
--- NOTE | ~2022-03-06 | CT_ITS ---
EXAMINATION: CT ANGIOGRAM HEAD CT ANGIOGRAM NECK CLINICAL INFORMATION: Severe headache. Dizziness. COMPARISON: CT head from 03/06/2022. TECHNIQUE: Initial noncontrast sales systems engineer imaging of the head and neck was performed. Comparison is made with noncontrast head CT from earlier today. Test bolus sequences followed by intravenous administration 70 mL of Omnipaque 350. Helical imaging was performed in the axial plane from the aortic arch to the skull vertex. Delayed postcontrast imaging of the head was also performed. The data was processed at the phlebotomy technologist's workstation for generation of MIP sequences. Angled MIPs and volume rendered reformatted images were also generated at an offline 3D workstation. Stenoses are assessed in accordance with NASCET criteria unless otherwise indicated. This CT examination was performed using dose optimization techniques as appropriate, variously including the following: *Automated exposure control. *Adjustment of mA and/or kV according to patient size (this includes techniques or standardized protocols for targeted exams where dose is matched to indication/reason for exam; i.e. extremities or head). *Use of iterative reconstruction technique. DLP: 1453 mGy-cm FINDINGS: CT Head: There is no evidence of acute intracranial hemorrhage or edematous territorial infarction. A few foci of hypoattenuation in the periventricular and deep white matter are consistent with mild microangiopathy. Alva-white matter differentiation is preserved. The ventricles are normal in size and configuration. No evidence for obstructive hydrocephalus. No abnormal mass effect or midline shift. No extra-axial fluid collections. No pathologic intra-axial enhancement or regional oligemia. No acute soft tissue or osseous abnormalities. Moderate mucosal thickening of the paranasal sinuses. Moderate leftward nasal septal deviation. The mastoid air cells and middle ear cavities are clear. Multifocal odontogenic enamel erosions and periapical lucencies. Bilateral lens extractions. CT Neck: The thyroid gland and remaining cervical soft tissues are within normal limits. Mild to moderate multilevel degenerative spondyloarthropathy of the cervical spine. CT Upper Chest: Mild centrilobular and paraseptal emphysema. The visualized lung apices and upper mediastinum are within normal limits. Neck CTA: Aortic Arch: Normal contour and caliber. Classic 3 vessel branching pattern of the aortic arch. Great Vessel Origins: No significant stenosis of the branch origins. Right Common Carotid Artery: No focal stenosis or occlusion. Cervical Right Internal Carotid Artery: Normal opacification without focal stenosis or occlusion. Left Common Carotid Artery: No focal stenosis or occlusion. Cervical Left Internal Carotid Artery: Normal opacification without focal stenosis or occlusion. Cervical Right Vertebral Artery: No focal stenosis or occlusion. Cervical Left Vertebral Artery: Dominant. No focal stenosis or occlusion. Brain CTA: Intracranial Internal Carotid Arteries: Mild calcific atherosclerotic disease of the intracranial internal carotid arteries without occlusion or flow-limiting stenosis. Right Anterior Cerebral Artery: Normal A1 segment. Normal opacification of the distal MARLON segments. Left Anterior Cerebral Artery: Normal A1 segment. Normal opacification of the distal MARLON segments. Anterior Communicating Artery: Normal. Right Middle Cerebral Artery: Normal M1 segment of the MCA without focal stenosis or occlusion. Normal arborization of the distal segments. Left Middle Cerebral Artery: Normal M1 segment of the MCA without focal stenosis or occlusion. Normal arborization of the distal segments. Right Vertebral Artery: Normal V4 segment. Normal opacification of the proximal segments of the posterior inferior cerebellar artery. Left Vertebral Artery: Normal V4 segment. Normal opacification of the proximal segments of the posterior inferior cerebellar artery. Basilar Artery: Normal without focal stenosis or occlusion. Normal appearance of the proximal superior cerebellar arteries. Right Posterior Cerebral Artery: The P1 segment is diminutive. origin of the BENCH MOLDER with robust opacification of the posterior communicating artery. Normal opacification of the distal BENCH MOLDER segments. Left Posterior Cerebral Artery: Normal P1 segment. Normal opacification of the distal BENCH MOLDER segments. Normal opacification of the superior sagittal, straight, transverse, and sigmoid sinuses. CT/CT angio head neck IMPRESSION: 1. No evidence of acute intracranial hemorrhage or edematous territorial infarction. Mild underlying microangiopathy. 2. CTA of the head and neck without proximal occlusion or flow-limiting stenosis. 3. Moderate multifocal odontogenic disease.
--- NOTE | ~2022-03-06 | XR_ITS ---
EXAMINATION: XR CHEST CLINICAL INFORMATION: Shortness of breath COMPARISON: Previous chest x-ray most recent 02/22/2022 TECHNIQUE: 2 views of the chest were obtained. FINDINGS: No significant abnormality is noted involving the heart, lungs, mediastinum, bony thorax or soft tissues. XR/XR chest 2V IMPRESSION: Unremarkable examination.
--- NOTE | ~2022-03-06 | MR_ITS ---
MRI OF THE BRAIN WITHOUT IV CONTRAST INDICATION: Nausea. Headache. Rule out CVA. COMPARISON: Head CT and CTA head and neck 03/06/2022. TECHNIQUE: Multiplanar multisequence MR imaging of the brain was obtained without IV contrast. FINDINGS: There is no hydrocephalus, extra-axial surface collection, or herniation. Mild chronic microangiopathy. The major flow voids at the skull base are preserved. There is no acute infarct on diffusion-weighted imaging. There is no intracranial hemorrhage on the gradient recalled echo acquisition. The midline structures are normal. The cerebellar tonsils are normally positioned. The cerebellum and brainstem are normal. The craniocervical junction is normal. Osseous marrow signal intensity is homogenous. The visualized soft tissues are unremarkable. Small retention cyst along the floors of the maxillary sinuses bilaterally and mild mucosal thickening throughout the ethmoid air cells bilaterally. MR/MR head/brain wo con IMPRESSION: - No acute intracranial findings. No acute infarcts. - Mild chronic microangiopathy.
--- NOTE | 2022-03-06 10:25 | ECG_ITS ---
Test Reason : headache/shortness of breath/cp Blood Pressure : / mmHG Vent. Rate : 073 BPM Atrial Rate : 073 BPM P-R Int : 148 ms QRS Dur : 082 ms QT Int : 386 ms P-R-T Axes : 053 -05 038 degrees QTc Int : 425 ms Normal sinus rhythm Normal ECG When compared with ECG of 13-FEB-2022 08:03, Nonspecific T wave abnormality no longer evident in Inferior leads Referred By: Generic ED Physician Electronically Signed By:GARRICK THOMAS MD
--- NOTE | 2022-03-06 10:44 | ED_ITS ---
HPI - Chest Pain General Chief Complaint: Chest Pain <PANCHITO Son - Last Filed: 03/06/22 17:18> Stated Complaint: chest pain <PANCHITO Son - Last Filed: 03/06/22 17:18> Time Seen by Provider: 03/06/22 10:44 <PANCHITO Son Last Filed: 03/06/22 17:18> Source: patient <PANCHITO Son - Last Filed: 03/06/22 17:18> Mode of arrival: ambulatory <PANCHITO Son - Last Filed: 03/06/22 17:18> Limitations: no limitations <PANCHITO Son Last Filed: 03/06/22 17:18> History of Present Illness HPI narrative: 61 yo male with history of HTN, asthma, smoker, diabetes, Influenza A in January 2022, and recent admission here from 02/12/22 - 02/23/22 for acute hypoxia with post-viral PNA (treated with IV abx, nebs, IV steroids) who presents back to the ER with 3 days of nausea, vomiting, chest pain, headaches, dizziness and SOB. He states the chest pain has been constant in the middle of his chest. He is also SOB and coughing but not bringing up phlegm. He has had subjective fevers and chills as well. He states he has not been able to tolerate any PO, that he has vomited several times, last was this morning. No blood in his vomit. He also reports dizziness and generally not feeling well. No abdominal pain or diarrhea. No known sick contacts. He is vaccinated for COVID. He states since his recent admission he has never gotten back to his baseline and he feels he was discharged too soon. <PANCHITO Son - Last Filed: 03/06/22 17:18> MD complaint: chest pain <PANCHITO Son - Last Filed: 03/06/22 17:18> Pertinent past history: asthma <PANCHITO Son - Last Filed: 03/06/22 17:18> Timing of current episode: constant <PANCHITO Son Last Filed: 03/06/22 17:18> Prior episodes: Yes <PANCHITO Son - Last Filed: 03/06/22 17:18> Onset: awoke with symptoms <PANCHITO Son - Last Filed: 03/06/22 17:18> Pain location: substernal <PANCHITO Son - Last Filed: 03/06/22 17:18> Pain radiation: none <PANCHITO Son - Last Filed: 03/06/22 17:18> Severity: moderate <PANCHITO Son - Last Filed: 03/06/22 17:18> Quality: aching <PANCHITO Son - Last Filed: 03/06/22 17:18> Relieving factors: nothing <PANCHITO Son - Last Filed: 03/06/22 17:18> Exacerbating factors: nothing <PANCHITO Son - Last Filed: 03/06/22 17:18> Context: recent illness <PANCHITO Son - Last Filed: 03/06/22 17:18> Associated symptoms: nausea, vomiting, fever and cough <PANCHITO Son - Last Filed: 03/06/22 17:18> Treatment prior to arrival: none <PANCHITO Son - Last Filed: 03/06/22 17:18> Risk Factors Coronary artery disease risk factors: diabetes, smoking history, hyperlipidemia and hypertension <PANCHITO Son - Last Filed: 03/06/22 17:18> Thoracic aortic dissection risk factors: none <PANCHITO Son - Last Filed: 03/06/22 17:18> Related Data Home Medications: Home Medications Medication Instructions Recorded Confirmed amlodipine 5 mg tablet 1 tab PO DAILY 02/13/22 02/13/22 levalbuterol tartrate 45 2 puff inhalation QID PRN 02/13/22 02/13/22 mcg/actuation aerosol inhaler Shortness Of Breath (Xopenex HFA) levothyroxine 150 mcg tablet 1 tab PO DAILY 02/13/22 02/13/22 (Euthyrox) lovastatin 20 mg tablet 1 tab PO DAILY 02/13/22 02/13/22 montelukast 10 mg tablet 1 tab PO DAILY 02/13/22 02/13/22 Previous Rx's Medication Instructions Recorded albuterol sulfate 2.5 mg/0.5 mL 5 mg inhalation Q4H PRN shortness 09/07/21 solution for nebulization of breath or wheezing #30 ea ipratropium 0.5 mg-albuterol 3 mg 3 ml inhalation Q6H 30 days 02/21/22 (2.5 mg base)/3 mL nebulization soln nebulizers #1 ea 02/21/22 alcohol swabs 1 pad topical QID #200 ea 02/23/22 blood sugar diagnostic (FreeStyle #100 ea 02/23/22 Lite Strips) blood-glucose meter (FreeStyle #1 ea 02/23/22 Lite Meter) guaifenesin 600 mg tablet, 600 mg PO BID #14 tabs 02/23/22 extended release 12 hr (Mucinex) insulin glargine 100 unit/mL (3 10 unit (0.1 mL) subcut QPM #3 mL 02/23/22 mL) subcutaneous pen insulin lispro 100 unit/mL 1 sliding scale dose subcut 02/23/22 subcutaneous pen QIDACHS #15 mL lancets #200 ea 02/23/22 metformin 850 mg tablet 850 mg PO BIDWMEAL #60 tabs 02/23/22 nicotine 14 mg/24 hr daily 14 mg transdermal DAILY 30 days 02/23/22 transdermal patch prednisone 10 mg tablet See Taper PO DAILY #30 tabs 02/23/22 <PANCHITO Son - Last Filed: 03/06/22 17:18> Allergies/Adverse Reactions: Allergies Allergy/AdvReac Type Severity Reaction Status Date / Time No Known Allergies Allergy Verified 09/07/21 10:08 <PANCHITO Son - Last Filed: 03/06/22 17:18> Review of Systems Review of Systems: Constitutional: + Fever, + Chills ENT/Mouth: No sore throat, No Rhinorrhea, No Swallowing Difficulty Eyes: No Eye Pain, No Swelling, No Redness Cardiovascular: + Chest Pain, + SOB, No Orthopnea, No Edema Respiratory: + Cough, No Sputum, + Wheezing, No dyspnea Gastrointestinal: + Nausea, +Vomiting, No Diarrhea, No abdominal Pain, No Hematochezia, No Melena Genitourinary: No Dysuria, No Urinary Frequency, No Hematuria Musculoskeletal: No joint pain, No Myalgias Skin: No Skin Lesions, No rash Neuro: + Weakness, No Numbness, + Dizziness, + Headache Psych: No Anxiety/Panic, No Depression Heme/Lymph: No Bruising, No Lymphadenopathy Endocrine: No Polyuria, No Polydipsia <PANCHITO Son - Last Filed: 03/06/22 17:18> [facility] Past Medical History Attestation statement: The following information was validated with the patient. <PANCHITO Son - Last Filed: 03/06/22 17:18> Medical History: Medical History Asthma Bronchitis <PANCHITO Son - Last Filed: 03/06/22 17:18> Social History Social History: Social History Household Members: Family Housing: House Do you presently have visiting nurse or other home services: No Alcohol intake: former Patient Tobacco Use Status: Former Tobacco user Use of substances other than those prescribed or required for medical reasons: No Advance Directives: No Advance Directives Information Provided: No service: No Current occupational status: unemployed <PANCHITO Son - Last Filed: 03/06/22 17:18> Physical Exam Vital Signs: Vital Signs: Last Vital Signs Temp 98 F 03/06/22 10:27 Pulse 81 03/06/22 20:15 Resp 16 03/06/22 20:00 BP 122/81 03/06/22 20:15 Pulse Ox 98 03/06/22 20:00 O2 Del Method 03/06/22 20:00 O2 Flow Rate 6 03/06/22 12:16 BMI result Body Mass Index 26.6 <PANCHITO Son - Last Filed: 03/06/22 17:18> Vital Signs: Last Vital Signs Temp 98 F 03/06/22 10:27 Pulse 81 03/06/22 20:15 Resp 16 03/06/22 20:00 BP 122/81 03/06/22 20:15 Pulse Ox 98 03/06/22 20:00 O2 Del Method 03/06/22 20:00 O2 Flow Rate 6 03/06/22 12:16 BMI result Body Mass Index 26.6 <PANCHITO Mendieta - Last Filed: 03/06/22 20:26> Appearance: Alert. Oriented X3. No acute distress. Eyes: Pupils equal, round and reactive to light. EOMI, no nystagmus ENT: Pharynx normal. Neck: Normal inspection. Neck supple. CVS: Normal heart rate and rhythm. Pulses normal. Respiratory: No respiratory distress. Breath sounds with end expiratory wheeze in the LLL only. Speaks in complete sentences. Abdomen: Soft and nontender. +BS x4 Skin: Skin warm and dry. Normal skin color. Normal skin turgor. No rashes. Extremities: No lower extremity edema. Neuro: Oriented X 3. No motor deficit. No sensory deficit. Normal speech. CN II-XII intact. Normal finger to nose and normal heel to [place] bilaterally <PANCHITO Son Last Filed: 03/06/22 17:18> Course Course Course Narrative: 61 yo male presenting with several complaints for the last 3 days including subjective fever, chills, N/V, cough, SOB, chest pain, headache and dizziness. Unable to tolerate PO per his report. He feels dehydrated. LLL wheeze on exam with recent treatment for PNA. Hemodynamically stable, afebrile with SpO2 97%. Will repeat CXR, get EKG, lab workup. IVF and zofran ordered in addition to a albuterol neb treatment. Will reassess. <PANCHITO Son - Last Filed: 03/06/22 17:18> Reevaluation(s) Reevaluation #1: LFTs lipase are normal. No leukocytosis. Given Zofran and 1L IVF. Wheeze in LLL improved after neb. He still feels nauseated and dizzy wtih a posterior headache. He still complains of chest pains, troponin is negative. His CXR is clear. Will repeat fluids and antiemetics, suspect gastroenteritis / viral illness given his multiple symptoms. <PANCHITO Son - Last Filed: 03/06/22 17:18> Reevaluation #2: Given PO trial and he vomited his tom chon and crackers after being given Reglan. Continues to complain of posterior headache, dizziness and nausea. He does not feel like he can go home. His neuro exam is nonfocal. Will get CT head, give 3rd anti-emetic. Will get orthostatic VS as well. Patient may require admission. Signed out to Sally HIRSCH who will assume care. <PANCHITO Son Last Filed: 03/06/22 17:18> Reevaluation #3: Patient feeling much better was able to drink tom chon, crackers and Jell-O. He reports he is still having a little bit of a headache however improved. At this time he denies vomiting, nausea, dizziness. Tells me it has completely subsided. <PANCHITO Mendieta - Last Filed: 03/06/22 20:26> Time: 18:00 <PANCHITO Mendieta Last Filed: 03/06/22 20:26> Additional Reevaluation(s): Orthostatics were done and patient complained of dizziness the entire time, nursing tried to ambulate patient and they were not successful due to dizziness, patient had to hold onto the level as he felt like he was falling over. Patient's neuro exam remains nonfocal. Will admit for intractable dizziness. He is also complaining of a 10/10 headache. Will speak to the hospitalist team for admission. Patient continues to have intractable nausea, dizziness, inability to ambulate. At this time there is concern for posterior stroke an MRI of the head/brain will be obtained at this time to rule when out. Plan for hospital admission. Discussed this case with hospitalist who will admit patient. <PANCHITO Mendieta - Last Filed: 03/06/22 20:26> MDM - Chest Pain Medical Records Data Attestation: I reviewed the patient's medical records. <PANCHITO Son Last Filed: 03/06/22 17:18> Lab Data Attestation: I reviewed the patient's lab results. <PANCHITO Son Last Filed: 03/06/22 17:18> Result diagrams: : 03/06/22 10:59 03/06/22 10:59 <PANCHITO Son Last Filed: 03/06/22 17:18> Labs: Lab Results 03/06/22 03/06/22 03/06/22 Range/Units 10:59 10:59 10:59 WBC 10.8 (4.8-10.8) X10*3/uL RBC 4.73 (4.60-5.80) X10*6/uL Hgb 14.7 (14.0-18.0) g/dl Hct 43.3 (42.0-52.0) % MCV 91.5 (80.0-98.0) fL MCH 31.1 (27.0-33.0) pg MCHC 33.9 (31.0-36.0) g/dl RDW 13.0 (11.0-16.0) % Plt Count 149 L D (160-400) X10*3/uL MPV 10.0 (9.4-12.4) fL Immature Gran % (Auto) 0.7 H (0.0-0.4) % Neut % (Auto) 76.1 H (45-73) % Lymph % (Auto) 14.3 L (20-40) % [place] % (Auto) 6.4 (2-11) % Eos % (Auto) 2.3 (0-4) % Baso % (Auto) 0.2 (0-2) % Lymph # (Auto) 1.5 (1.2-4.9) X10*3/uL [place] # (Auto) 0.7 (0.1-1.2) X10*3/uL Eos # (Auto) 0.3 (0.0-0.4) X10*3/uL Baso # (Auto) 0.0 (0.0-0.2) X10*3/uL Abs Immat Gran (auto) 0.08 H (0.00-0.03) X10*3/uL Absolute Neuts (auto) 8.2 (2.0-8.3) x10*3/uL Absolute Nucleated RBC 0.000 (0.0-0.012) X10*3/uL Nucleated RBC % (auto) 0.0 (0.0-0.2) /100WBC Sodium 136 (135-145) mmol/L Potassium 3.9 (3.3-5.1) mmol/L Chloride 98 (96-108) mmol/L Carbon Dioxide 29 (22-29) mmol/L Anion Gap 13 (12-20) BUN 12 (9-16) mg/dL Creatinine 0.83 (0.5-1.4) mg/dL Estim Creat Clear Calc 88.4 Estimated GFR > 60 Random Glucose 149 H D (60-115) mg/dL Calcium 9.7 (8.4-10.2) mg/dL Total Bilirubin 1.4 H (0.0-1.0) mg/dL Direct Bilirubin 0.5 (0.0-0.5) mg/dL AST 14 (5-37) U/L ALT 20 (0-40) U/L Alkaline Phosphatase 56 D (39-117) U/L Troponin I High Sens < 3.5 (<3.5-35.0) ng/L B-Natriuretic Peptide < 10 (<100) pg/mL Total Protein 6.6 (6.5-8.0) g/dL Albumin 4.2 (3.5-5.0) g/dL Lipase 20 (8-78) U/L COVID-19 ([facility]UARDO) (Negative) COVID-19 Clin Com Influenza Type A (LYNN) (Negative) Influenza Type B (LYNN) (Negative) Influenza A & B Note 03/06/22 03/06/22 Range/Units 10:59 10:59 WBC (4.8-10.8) X10*3/uL RBC (4.60-5.80) X10*6/uL Hgb (14.0-18.0) g/dl Hct (42.0-52.0) % MCV (80.0-98.0) fL MCH (27.0-33.0) pg MCHC (31.0-36.0) g/dl RDW (11.0-16.0) % Plt Count (160-400) X10*3/uL MPV (9.4-12.4) fL Immature Gran % (Auto) (0.0-0.4) % Neut % (Auto) (45-73) % Lymph % (Auto) (20-40) % [place] % (Auto) (2-11) % Eos % (Auto) (0-4) % Baso % (Auto) (0-2) % Lymph # (Auto) (1.2-4.9) X10*3/uL [place] # (Auto) (0.1-1.2) X10*3/uL Eos # (Auto) (0.0-0.4) X10*3/uL Baso # (Auto) (0.0-0.2) X10*3/uL Abs Immat Gran (auto) (0.00-0.03) X10*3/uL Absolute Neuts (auto) (2.0-8.3) x10*3/uL Absolute Nucleated RBC (0.0-0.012) X10*3/uL Nucleated RBC % (auto) (0.0-0.2) /100WBC Sodium (135-145) mmol/L Potassium (3.3-5.1) mmol/L Chloride (96-108) mmol/L Carbon Dioxide (22-29) mmol/L Anion Gap (12-20) BUN (9-16) mg/dL Creatinine (0.5-1.4) mg/dL Estim Creat Clear Calc Estimated GFR Random Glucose (60-115) mg/dL Calcium (8.4-10.2) mg/dL Total Bilirubin (0.0-1.0) mg/dL Direct Bilirubin (0.0-0.5) mg/dL AST (5-37) U/L ALT (0-40) U/L Alkaline Phosphatase (39-117) U/L Troponin I High Sens (<3.5-35.0) ng/L B-Natriuretic Peptide (<100) pg/mL Total Protein (6.5-8.0) g/dL Albumin (3.5-5.0) g/dL Lipase (8-78) U/L COVID-19 (EDUARDO) Negative (Negative) COVID-19 Clin Com See Note Influenza Type A (LYNN) Negative (Negative) Influenza Type B (LYNN) Negative (Negative) Influenza A & B Note See Note <PANCHITO Son - Last Filed: 03/06/22 17:18> Lab Results 03/06/22 03/06/22 03/06/22 Range/Units 10:59 10:59 10:59 WBC 10.8 (4.8-10.8) X10*3/uL RBC 4.73 (4.60-5.80) X10*6/uL Hgb 14.7 (14.0-18.0) g/dl Hct 43.3 (42.0-52.0) % MCV 91.5 (80.0-98.0) fL MCH 31.1 (27.0-33.0) pg MCHC 33.9 (31.0-36.0) g/dl RDW 13.0 (11.0-16.0) % Plt Count 149 L D (160-400) X10*3/uL MPV 10.0 (9.4-12.4) fL Immature Gran % (Auto) 0.7 H (0.0-0.4) % Neut % (Auto) 76.1 H (45-73) % Lymph % (Auto) 14.3 L (20-40) % [place] % (Auto) 6.4 (2-11) % Eos % (Auto) 2.3 (0-4) % Baso % (Auto) 0.2 (0-2) % Lymph # (Auto) 1.5 (1.2-4.9) X10*3/uL [place] # (Auto) 0.7 (0.1-1.2) X10*3/uL Eos # (Auto) 0.3 (0.0-0.4) X10*3/uL Baso # (Auto) 0.0 (0.0-0.2) X10*3/uL Abs Immat Gran (auto) 0.08 H (0.00-0.03) X10*3/uL Absolute Neuts (auto) 8.2 (2.0-8.3) x10*3/uL Absolute Nucleated RBC 0.000 (0.0-0.012) X10*3/uL Nucleated RBC % (auto) 0.0 (0.0-0.2) /100WBC Sodium 136 (135-145) mmol/L Potassium 3.9 (3.3-5.1) mmol/L Chloride 98 (96-108) mmol/L Carbon Dioxide 29 (22-29) mmol/L Anion Gap 13 (12-20) BUN 12 (9-16) mg/dL Creatinine 0.83 (0.5-1.4) mg/dL Estim Creat Clear Calc 88.4 Estimated GFR > 60 Random Glucose 149 H D (60-115) mg/dL Calcium 9.7 (8.4-10.2) mg/dL Total Bilirubin 1.4 H (0.0-1.0) mg/dL Direct Bilirubin 0.5 (0.0-0.5) mg/dL AST 14 (5-37) U/L ALT 20 (0-40) U/L Alkaline Phosphatase 56 D (39-117) U/L Troponin I High Sens < 3.5 (<3.5-35.0) ng/L B-Natriuretic Peptide < 10 (<100) pg/mL Total Protein 6.6 (6.5-8.0) g/dL Albumin 4.2 (3.5-5.0) g/dL Lipase 20 (8-78) U/L COVID-19 ([facility]UARDO) (Negative) COVID-19 Clin Com Influenza Type A (LYNN) (Negative) Influenza Type B (LYNN) (Negative) Influenza A & B Note 03/06/22 03/06/22 Range/Units 10:59 10:59 WBC (4.8-10.8) X10*3/uL RBC (4.60-5.80) X10*6/uL Hgb (14.0-18.0) g/dl Hct (42.0-52.0) % MCV (80.0-98.0) fL MCH (27.0-33.0) pg MCHC (31.0-36.0) g/dl RDW (11.0-16.0) % Plt Count (160-400) X10*3/uL MPV (9.4-12.4) fL Immature Gran % (Auto) (0.0-0.4) % Neut % (Auto) (45-73) % Lymph % (Auto) (20-40) % [place] % (Auto) (2-11) % Eos % (Auto) (0-4) % Baso % (Auto) (0-2) % Lymph # (Auto) (1.2-4.9) X10*3/uL [place] # (Auto) (0.1-1.2) X10*3/uL Eos # (Auto) (0.0-0.4) X10*3/uL Baso # (Auto) (0.0-0.2) X10*3/uL Abs Immat Gran (auto) (0.00-0.03) X10*3/uL Absolute Neuts (auto) (2.0-8.3) x10*3/uL Absolute Nucleated RBC (0.0-0.012) X10*3/uL Nucleated RBC % (auto) (0.0-0.2) /100WBC Sodium (135-145) mmol/L Potassium (3.3-5.1) mmol/L Chloride (96-108) mmol/L Carbon Dioxide (22-29) mmol/L Anion Gap (12-20) BUN (9-16) mg/dL Creatinine (0.5-1.4) mg/dL Estim Creat Clear Calc Estimated GFR Random Glucose (60-115) mg/dL Calcium (8.4-10.2) mg/dL Total Bilirubin (0.0-1.0) mg/dL Direct Bilirubin (0.0-0.5) mg/dL AST (5-37) U/L ALT (0-40) U/L Alkaline Phosphatase (39-117) U/L Troponin I High Sens (<3.5-35.0) ng/L B-Natriuretic Peptide (<100) pg/mL Total Protein (6.5-8.0) g/dL Albumin (3.5-5.0) g/dL Lipase (8-78) U/L COVID-19 (EDUARDO) Negative (Negative) COVID-19 Clin Com See Note Influenza Type A (LYNN) Negative (Negative) Influenza Type B (LYNN) Negative (Negative) Influenza A & B Note See Note <PANCHITO Mendieta - Last Filed: 03/06/22 20:26> ECG Data ECG #1: Attestation: I personally reviewed and interpreted this ECG as follows: <PANCHITO Son - Last Filed: 03/06/22 17:18> ECG interpretation date: 03/06/22 <PANCHITO Son - Last Filed: 03/06/22 17:18> ECG interpretation time: 12:53 <PANCHITO Son - Last Filed: 03/06/22 17:18> Prior ECG tracings: available for review <PANCHITO Son - Last Filed: 03/06/22 17:18> Interpretation: normal sinus rhythm, HR 73 bpm, normal IN interval, no ST segment elevations or depressions <PANCHITO Son - Last Filed: 03/06/22 17:18> Critical Care Time Critical Care Time Critical Care Time: Yes <PANCHITO Son - Last Filed: 03/06/22 17:18> Total Critical Care Time: 35 <PANCHITO Son - Last Filed: 03/06/22 17:18> Attestation: I have personally provided critical care time exclusive of time spent on separately billable procedures. Time includes review of lab data, radiology results, frequent bedside reassessments, and monitoring for potential decompensation. Intervention performed as documented. <PANCHITO Son Last Filed: 03/06/22 17:18> Discharge Plan Discharge Clinical Impression: Nausea & vomiting, Headache, Dizziness, Asthma <PANCHITO Son Last Filed: 03/06/22 17:18> Patient Disposition: Admitted As Inpatient <PANCHITO Son Last Filed: 03/06/22 17:18> Prescriptions: No Action amlodipine 5 mg tablet 1 tab PO DAILY levothyroxine [Euthyrox] 150 mcg tablet 1 tab PO DAILY levalbuterol tartrate [Xopenex HFA] 45 mcg/actuation HFA aerosol inhaler 2 puff inhalation QID PRN (Reason: Shortness Of Breath) montelukast 10 mg tablet 1 tab PO DAILY lovastatin 20 mg tablet 1 tab PO DAILY (DME) nebulizers Mis See Rx Instructions .Route Qty: 1 0RF Rx Instructions: As directed ipratropium-albuterol 0.5 mg-3 mg(2.5 mg base)/3 mL Solution For Nebulization 3 ml inhalation Q6H 30 Days 0RF nicotine 14 mg/24 hr Patch 24 Hour 14 mg transdermal DAILY 30 Days 0RF guaifenesin [Mucinex] 600 mg Tablet Extended Release 12hr 600 mg PO BID Qty: 14 0RF prednisone 10 mg tablet See Taper PO DAILY Qty: 30 0RF Taper: Prednisone 40 mg daily for 3 Days and 0 Hour 30 mg daily for 3 Days and 0 Hour 20 mg daily for 3 Days and 0 Hour 10 mg daily for 3 Days and 0 Hour (DME) blood-glucose meter [FreeStyle Lite Meter] Kit See Rx Instructions .ROUTE .MEDSUPPLY Qty: 1 0RF Rx Instructions: As directed alcohol swabs Pads, Medicated 1 pad topical QID Qty: 200 2RF (DME) FreeStyle Lite Strips Strip See Rx Instructions .ROUTE .MEDSUPPLY Qty: 100 2RF Rx Instructions: QID (DME) lancets Misc See Rx Instructions .ROUTE .MEDSUPPLY Qty: 200 2RF Rx Instructions: 4 times daily insulin glargine 100 unit/mL (3 mL) insulin pen 10 unit subcut QPM Qty: 3 3RF insulin lispro 100 unit/mL insulin pen 1 sliding scale dose subcut QIDACHS Qty: 15 2RF Rx Instructions: = 70 but <150 Hold insulin 151 to 200 - 2 units 201 to 250 - 4 units 251 to 300 - 6 units 301 to 350 - 8 units 351 to 399 - 10 units = 400 Contact your doctor metformin 850 mg tablet 850 mg PO BIDWMEAL Qty: 60 2RF albuterol sulfate 2.5 mg/0.5 mL solution for nebulization 5 mg inhalation Q4H PRN (Reason: shortness of breath or wheezing) Qty: 30 0RF <PANCHITO Son - Last Filed: 03/06/22 17:18>
[2022-03-06] MEDS: 0.9 % Sodium Chloride 1,000 ML 999 ML IVCONT ×2 (11:06→15:28)
[2022-03-06] MEDS: ondansetron HCL 4 MG/2 ML VIAL IVPUSH (11:06)
[2022-03-06 11:10] LABS: Basophils Percent Auto 0.2 % (0-2); Eosinophils Absolute Auto 0.3 X10*3/uL (0.0-0.4); Eosinophils Percent Auto 2.3 % (0-4); Hematocrit 43.3 % (42.0-52.0); Hemoglobin 14.7 g/dl (14.0-18.0); Imm Gran Abs Auto 0.08 X10*3/uL (0.00-0.03); Imm Gran Pct Auto 0.7 % (0.0-0.4); Lymphocytes Absolute Auto 1.5 X10*3/uL (1.2-4.9); Lymphocytes Percent Auto 14.3 % (20-40); MANUAL DIFF FLAG NO; Mean Corpuscular HGB Conc 33.9 g/dl (31.0-36.0); Mean Corpuscular Hemoglobin 31.1 pg (27.0-33.0); Mean Corpuscular Volume 91.5 fL (80.0-98.0); Monocytes Absolute Auto 0.7 X10*3/uL (0.1-1.2); Monocytes Percent Auto 6.4 % (2-11); Neutrophils Absolute Auto 8.2 x10*3/uL (2.0-8.3); Neutrophils Percent Auto 76.1 % (45-73); Platelet Count 149 X10*3/uL (160-400); Red Blood Count 4.73 X10*6/uL (4.60-5.80); White Blood Count 10.8 X10*3/uL (4.8-10.8)
[2022-03-06 11:25] LABS: Alanine Aminotransferase 20 U/L (0-40); Albumin Level 4.2 g/dL (3.5-5.0); Alkaline Phosphatase 56 U/L (39-117); Anion Gap 13 (12-20); Aspartate Amino Transferase 14 U/L (5-37); Bilirubin Direct 0.5 mg/dL (0.0-0.5); Bilirubin Total 1.4 mg/dL (0.0-1.0); Blood Urea Nitrogen 12 mg/dL (9-16); Calcium 9.7 mg/dL (8.4-10.2); Carbon Dioxide 29 mmol/L (22-29); Chloride 98 mmol/L (96-108); Creatinine Clr Calc Pharmacy 88.4; Estimated Glomerular Filt Rate > 60; Glucose Random 149 mg/dL (60-115); Lipase 20 U/L (8-78); Potassium 3.9 mmol/L (3.3-5.1); Sodium 136 mmol/L (135-145); Total Protein 6.6 g/dL (6.5-8.0)
[2022-03-06] MEDS: Albuterol Sulfate (0.083%) 2.5 MG/3 ML VIAL.NEB 5 MG INHALE (11:26)
[2022-03-06 11:31] LABS: B Type Natriuretic Peptide < 10 pg/mL (<100); Troponin-I High Sensitivity < 3.5 ng/L (<3.5-35.0)
[2022-03-06 11:39] LABS: COVID-19 Test Negative (Negative); IDNOW Serial# 16C4AD1C; Influenza A Negative (Negative); Influenza B2 Negative (Negative)
[2022-03-06] MEDS: Metoclopramide HCl 10 MG/2 ML VIAL IVPUSH (14:41)
[2022-03-06] MEDS: Ketorolac Tromethamine 30 MG/ML VIAL IVPUSH (15:28)
--- NOTE | 2022-03-06 15:30 | PC.NURSE ---
patient vomited crackers and gingerale given for PO challenge.
--- NOTE | 2022-03-06 20:18 | PC.NURSE ---
pt a&oX3, vss, pt reports that nausea/vomiting has resolved. tolerated tom chon/pudding/crackers, c/o dizziness, unsteady standing, 10/10 pain at the back of his head since Mon, orthostatic vitals complete, provider notified. no new orders at this time.
--- NOTE | 2022-03-06 21:06 | PHA.MEDREC ---
Pharmacy Consult ? Medication Reconciliation Pharmacy has completed the medication reconciliation.
--- NOTE | 2022-03-06 21:09 | PC.NURSE ---
MRI paperwork completed and faxed.
[2022-03-06] MEDS: Morphine Sulfate 2 MG/ML CARTRIDGE IM (21:31)
--- NOTE | 2022-03-06 21:33 | PC.NURSE ---
medicated per provider order.
--- NOTE | 2022-03-06 22:16 | PM.IMHP ---
History of Present Illness Date of Service: 03/06/22 Chief Complaint: headache This is a 7-year-old male with past medical history of diabetes, asthma, hypothyroidism, hypertension who presents to the hospital with complaints of severe occipital headache. Patient reports that his headache started 2 days ago, headache is constant, associated with nausea, several episodes of vomiting, intractable, not relieved with [id number] analgesics. He reports no change in vision, he reports significant dizziness vertigo. And difficulty ambulating due to this vertigo. He denies any fever or chills, no shortness of breath, no cough, no abdominal pain, no diarrhea constipation, no urinary symptoms and no lower extremity edema. on Arrival to the ED patient hemodynamically stable no significant abnormal vitals Labs are significant for WBC count of 10.8, hemoglobin of 14.7, labs otherwise unremarkable head CT was negative, has CTA negative for any acute intracranial pathology given the intractable headache, nausea vomiting, patient will be admitted for further evaluation Review of Systems Review of Systems: Yes all other systems are reviewed and are negative [facility] Medical History (Updated 03/07/22 @ 06:10 by Lilly Neil MD) Asthma Bronchitis Hypertension Hypothyroidism New onset type 2 diabetes mellitus Family History (Updated 03/07/22 @ 06:09 by Lilly Neil MD) Other No family history of coronary artery disease Surgical History (Updated 03/07/22 @ 06:09 by Lilly Neil MD) No pertinent past surgical history Social History Household Members: Family Housing: House Do you presently have visiting nurse or other home services: No Alcohol intake: former Patient Tobacco Use Status: Former Tobacco user Use of substances other than those prescribed or required for medical reasons: No Advance Directives: No Advance Directives Information Provided: No service: No Current occupational status: unemployed Meds Allergies Allergy/AdvReac Type Severity Reaction Status Date / Time No Known Allergies Allergy Verified 09/07/21 10:08 Home Medications Medication Instructions Recorded Confirmed Last Taken Type amlodipine 5 mg tablet 1 tab PO DAILY 02/13/22 03/06/22 03/06/22 History levalbuterol tartrate 45 2 puff inhalation QID PRN 02/13/22 03/06/22 Unknown History mcg/actuation aerosol inhaler Shortness Of Breath (Xopenex HFA) levothyroxine 150 mcg tablet 1 tab PO DAILY@0600 02/13/22 03/06/22 03/06/22 History (Euthyrox) lovastatin 20 mg tablet 1 tab PO DAILY 02/13/22 03/06/22 03/06/22 History montelukast 10 mg tablet 1 tab PO DAILY 02/13/22 03/06/22 03/06/22 History budesonide-formoterol HFA 80 2 puff inhalation BID 03/06/22 03/06/22 03/06/22 History mcg-4.5 mcg/actuation aerosol inhaler (Symbicort) cetirizine 10 mg tablet 1 tab PO DAILY 03/06/22 03/06/22 03/06/22 History fluticasone propionate 50 2 spray intranasal DAILY 03/06/22 03/06/22 03/06/22 History mcg/actuation nasal spray,suspension guaifenesin 600 mg tablet, 600 mg PO BID PRN Congestion 03/06/22 03/06/22 Unknown History extended release 12 hr (Mucinex) lisinopril 20 mg tablet 1 tab PO DAILY 03/06/22 03/06/22 03/06/22 History multivitamin 1 tab PO DAILY 03/06/22 03/06/22 03/06/22 History prednisone 10 mg tablet 10 mg PO DAILY 03/06/22 03/06/22 03/06/22 History Physical Exam Vital Signs and Narrative: Vital Signs: Last Vital Signs Temp 98 F 03/06/22 10:27 Pulse 81 03/06/22 20:15 Resp 12 03/06/22 21:31 BP 122/81 03/06/22 20:15 Pulse Ox 98 03/06/22 20:00 O2 Del Method 03/06/22 20:00 O2 Flow Rate 6 03/06/22 12:16 BMI result Body Mass Index 26.6 Const: Other: Patient appears comfortable, does not appear in any acute stroke distress General: cooperative and no acute distress Orientation/consciousness: patient oriented x3 Eyes: General: appearance normal, both eyes and all related structures Resp: Effort & Inspection: normal respiratory effort Auscultation: clear to auscultation bilaterally Cardio: Rate: regular rate Rhythm: regular rhythm GI: Other: no rebound no guarding no tenderness Palpation (GI): Soft to palpation Auscultation: normal bowel sounds Skin: General skin exam: no rashes or lesions noted Neuro: Other: patient has no neurological deficits, cranial nerves 2-12 intact, strength 5/5 and equal all extremities. General: patient oriented x3 Cognition (Neuro): normal cognition Extrem: General: Yes normal to inspection and Yes no pedal edema Results Labs CBC and Chem 7: 03/06/22 10:59 03/06/22 10:59 Labs: Laboratory Results - last 24 hr 03/06/22 03/06/22 03/06/22 10:59 10:59 10:59 MCV 91.5 MCH 31.1 MCHC 33.9 RDW 13.0 Plt Count 149 L D MPV 10.0 Immature Gran % (Auto) 0.7 H Neut % (Auto) 76.1 H Lymph % (Auto) 14.3 L [place] % (Auto) 6.4 Eos % (Auto) 2.3 Baso % (Auto) 0.2 Lymph # (Auto) 1.5 [place] # (Auto) 0.7 Eos # (Auto) 0.3 Baso # (Auto) 0.0 Abs Immat Gran (auto) 0.08 H Absolute Neuts (auto) 8.2 Absolute Nucleated RBC 0.000 Nucleated RBC % (auto) 0.0 Anion Gap 13 Estim Creat Clear Calc 88.4 Estimated GFR > 60 Random Glucose 149 H D Calcium 9.7 Total Bilirubin 1.4 H Direct Bilirubin 0.5 AST 14 ALT 20 Alkaline Phosphatase 56 D Troponin I High Sens < 3.5 B-Natriuretic Peptide < 10 Total Protein 6.6 Albumin 4.2 Lipase 20 COVID-19 (EDUARDO) COVID-19 Clin Com Influenza Type A (LYNN) Influenza Type B (LYNN) Influenza A & B Note 03/06/22 03/06/22 10:59 10:59 MCV MCH MCHC RDW Plt Count MPV Immature Gran % (Auto) Neut % (Auto) Lymph % (Auto) [place] % (Auto) Eos % (Auto) Baso % (Auto) Lymph # (Auto) [place] # (Auto) Eos # (Auto) Baso # (Auto) Abs Immat Gran (auto) Absolute Neuts (auto) Absolute Nucleated RBC Nucleated RBC % (auto) Anion Gap Estim Creat Clear Calc Estimated GFR Random Glucose Calcium Total Bilirubin Direct Bilirubin AST ALT Alkaline Phosphatase Troponin I High Sens B-Natriuretic Peptide Total Protein Albumin Lipase COVID-19 (EDUARDO) Negative COVID-19 Clin Com See Note Influenza Type A (LYNN) Negative Influenza Type B (LYNN) Negative Influenza A & B Note See Note Imaging Radiologist's Impressions: Impressions Chest X-Ray 03/06/22 12:50 IMPRESSION: Unremarkable examination. Head CT 03/06/22 17:18 IMPRESSION: No acute intracranial pathology. Assessment and Plan (1) Intractable nausea and vomiting: Status: Acute (2) Headache: Status: Acute (3) Dizziness: Status: Acute Plan 61-year-old male with past medical history of diabetes, hypertension, hypothyroidism as well as asthma presents to the hospital with complaints of headache nausea vomiting # intractable nausea vomiting - possibly secondary to viral gastroenteritis - abdominal pain, abdominal exam benign - antiemetic ordered - supportive measures # intractable headache - possibly secondary to dehydration - CT head negative, CT angiogram negative for any acute stroke - Tylenol p.r.n. - if continues to have headache, consider MRI # dizziness - orthostatics negative - likely secondary to dehydration in the setting of intractable vomiting - telemetry - IV fluids # hypertension - stable - continue antihypertensive # asthma - not in exacerbation - continue inhalers # diabetes - continue home insulin - low-dose sliding scale insulin added - diabetic diet DVT prophylaxis: Early ambulation Quality Stroke Does the patient have a stroke diagnosis?: No VTE Prior VTE?: No VTE Risk Level:: Medical - moderate - high VTE Device Contraindication: Treatment Not Indicated VTE Drug Contraindication: Treatment Not Indicated
[2022-03-06] MEDS: iohexoL 350 MG/ML 100 ML INFUS..BTL 70 ML IV (23:48)
[2022-03-07] VITALS (7 sets, daily range): BP systolic 114–142; BP diastolic 72–88; PULSE 59–86; RESP 12–20; TEMP 35.8–36.7; O2SAT 95–99
[2022-03-07] MEDS: 0.9 % Sodium Chloride Flush 3 ML SYRINGE IVFLUSH (05:14)
--- NOTE | 2022-03-07 05:14 | PC.NURSE ---
pt has no c/o pain or sob. pt c/o mild dizziness. pt resting in bed at this time
[2022-03-07] MEDS: Lactated Ringers 1,000 ML 100 ML IVCONT ×2 (06:22→15:25)
[2022-03-07 07:16] LABS: Glucose, Whole Blood 97 mg/dL (60-115)
[2022-03-07 07:45] LABS: MANUAL DIFF FLAG NO
[2022-03-07 07:51] LABS: Basophils Percent Auto 0.3 % (0-2); Eosinophils Absolute Auto 0.3 X10*3/uL (0.0-0.4); Eosinophils Percent Auto 4.8 % (0-4); Hematocrit 40.6 % (42.0-52.0); Hemoglobin 13.5 g/dl (14.0-18.0); Imm Gran Abs Auto 0.04 X10*3/uL (0.00-0.03); Imm Gran Pct Auto 0.6 % (0.0-0.4); Lymphocytes Absolute Auto 1.6 X10*3/uL (1.2-4.9); Lymphocytes Percent Auto 24.9 % (20-40); Mean Corpuscular HGB Conc 33.3 g/dl (31.0-36.0); Mean Corpuscular Hemoglobin 30.6 pg (27.0-33.0); Mean Corpuscular Volume 92.1 fL (80.0-98.0); Monocytes Absolute Auto 0.6 X10*3/uL (0.1-1.2); Monocytes Percent Auto 9.1 % (2-11); Neutrophils Absolute Auto 3.9 x10*3/uL (2.0-8.3); Neutrophils Percent Auto 60.3 % (45-73); Platelet Count 134 X10*3/uL (160-400); Red Blood Count 4.41 X10*6/uL (4.60-5.80); White Blood Count 6.5 X10*3/uL (4.8-10.8)
[2022-03-07 08:06] LABS: Anion Gap 11 (12-20); Blood Urea Nitrogen 8 mg/dL (9-16); Carbon Dioxide 26 mmol/L (22-29); Chloride 105 mmol/L (96-108); Creatinine Clr Calc Pharmacy 103.4; Estimated Glomerular Filt Rate > 60; Glucose Random 104 mg/dL (60-115); Sodium 138 mmol/L (135-145)
[2022-03-07] MEDS: Loratadine 10 MG TABLET PO (08:06)
[2022-03-07] MEDS: lisinopriL 20 MG TABLET PO (08:06)
[2022-03-07] MEDS: Multivitamin TABLET 1 TAB PO (08:06)
[2022-03-07] MEDS: amLODIPine Besylate 5 MG TABLET PO (08:06)
[2022-03-07] MEDS: Morphine Sulfate 4 MG/ML CARTRIDGE IVPUSH ×2 (08:16→20:47)
[2022-03-07] MEDS: Acetaminophen 325 MG TABLET 650 MG PO (08:16)
[2022-03-07 08:20] LABS: Calcium 8.6 mg/dL (8.4-10.2)
[2022-03-07] MEDS: Fluticasone Propionate Nasal 16 GM SPRAY 2 SPRAY NOSTRIL-B (08:38)
--- NOTE | 2022-03-07 10:06 | HO.PM.IMPN ---
Subjective Subjective Date of Service: 03/07/22 Interval History: cc: posterior headache, dizzy, n/v interval history:minimal improvement Cardiovascular Cardiovascular: Reports no additional cardiovascular complaints Respiratory Respiratory: Reports no additional respiratory complaints Physical Exam Vital Signs: Vital Signs: Last Vital Signs Temp 97.2 F 03/07/22 07:52 Pulse 74 03/07/22 07:52 Resp 15 03/07/22 07:52 BP 131/83 03/07/22 07:52 Pulse Ox 98 03/07/22 07:52 O2 Del Method 03/07/22 07:52 O2 Flow Rate 6 03/06/22 12:16 BMI result Body Mass Index 26.6 General: AO X 3, no acute distress Resp: CTA bilateral, no accessory muscles used CVS: S1,S2,RRR GI: soft, non tender, non distended Neuro: motor grossly intact, alert Psych: appropriate affect, appropriate insight Objective Data Active Medications Acetaminophen (Acetaminophen 325 Mg Tablet) 650 mg PO Q6H PRN PRN Reason: Pain, Mild (Pain Scale 1-3) Last Admin: 03/07/22 08:16 Dose: 650 mg Documented By: VANDA Albuterol Sulfate (Albuterol Sulfate (0.083%) 2.5 Mg/3 Ml Vial.Neb) 5 mg INHALE Q4H PRN PRN Reason: shortness of breath or wheezing Albuterol Sulfate (Albuterol Sulfate 90 Mcg 18 Gm Inhaler) 2 puff INHALE QID PRN PRN Reason: Shortness Of Breath Last Admin: 03/07/22 09:00 Dose: 2 puff Documented By: VANDA Albuterol/Ipratropium (Albuterol/Iprat 2.5/0.5mg 3 Ml Ampul.Neb) 3 ml INHALE RQ6H [facility] Amlodipine Besylate (Amlodipine Besylate 5 Mg Tablet) 5 mg PO DAILY [facility]; Protocol Last Admin: 03/07/22 08:06 Dose: 5 mg Documented By: VANDA Dextrose (Dextrose 50 % 25 Gm/50 Ml Syringe) 25 gm IVPUSH Q15M PRN; Protocol PRN Reason: per Hypoglycemia Standing Ord. Fluticasone Propionate (Fluticasone Propionate Nasal 16 Gm [place]) 2 spray NOSTRIL-B DAILY [facility] Last Admin: 06/16/22 08:38 Dose: 2 spray Documented By: VANDA Fluticasone/Vilanterol (Fluticasone/Vilanterol 100/25 Blst.W.Dev) 1 puff INHALE RDAILY [facility] Last Admin: 03/07/22 07:28 Dose: Not Given Documented By: HORTENCIA Non-Admin Reason: Med Not Available Glucose (Glucose Gel 15 Gm Gel..Gram.) 15 gm PO Q15M PRN; Protocol PRN Reason: per Hypoglycemia Standing Ord. Guaifenesin (Guaifenesin La 600 Mg Tab.Er.12h) 600 mg PO BID PRN PRN Reason: Congestion Lactated Ringer's (Lr) 1,000 mls @ 100 mls/hr IVCONT .Q10H [facility] Last Admin: 03/07/22 06:22 Dose: 100 mls/hr Documented By: CLAUDIA Insulin Glargine (Insulin Glargine,Hum.Rec.Anlog 100 Unit/Ml 10 Ml Vial) 10 unit SUBCUT BEDTIME [facility] Insulin Human Lispro (Insulin Lispro 100 Unit/Ml 3 Ml Vial) 0 unit SUBCUT QIDACHS [facility]; Protocol Last Admin: 03/07/22 07:22 Dose: Not Given Documented By: VANDA Non-Admin Reason: No Insulin Coverage Levothyroxine Sodium (Levothyroxine Sodium 150 Mcg Tablet) 150 mcg PO DAILY@0600 [facility] Lisinopril (Lisinopril 20 Mg Tablet) 20 mg PO DAILY [facility]; Protocol Last Admin: 03/07/22 08:06 Dose: 20 mg Documented By: VANDA Loratadine (Loratadine 10 Mg Tablet) 10 mg PO DAILY [facility] Last Admin: 03/07/22 08:06 Dose: 10 mg Documented By: VANDA Montelukast Sodium (Montelukast Sodium 10 Mg Tablet) 10 mg PO BEDTIME [facility] Morphine Sulfate (Morphine Sulfate 4 Mg/Ml Cartridge) 4 mg IVPUSH Q4H PRN; Protocol PRN Reason: Pain, Severe (Pain Scale 7-10) Last Admin: 03/07/22 08:16 Dose: 4 mg Documented By: VANDA Multivitamins/Vitamin C (Multivitamin Tablet) 1 tab PO DAILY [facility] Last Admin: 03/07/22 08:06 Dose: 1 tab Documented By: VANDA Ondansetron HCl (Ondansetron Hcl 4 Mg/2 Ml Vial) 4 mg IVPUSH Q8H PRN PRN Reason: Nausea and Vomiting Pravastatin Sodium (Pravastatin Sodium 20 Mg Tablet) 20 mg PO BEDTIME [facility] Sodium Chloride (0.9 % Sodium Chloride Flush 3 Ml Syringe) 3 ml IVFLUSH QSHIFT [facility] Last Admin: 03/07/22 08:25 Dose: Not Given Documented By: VANDA Non-Admin Reason: IV Running Labs CBC & Chem 7: 03/07/22 07:24 03/07/22 07:24 Labs: Laboratory Results - last 24 hr 03/06/22 03/06/22 03/06/22 10:59 10:59 10:59 MCV 91.5 MCH 31.1 MCHC 33.9 RDW 13.0 Plt Count 149 L D MPV 10.0 Immature Gran % (Auto) 0.7 H Neut % (Auto) 76.1 H Lymph % (Auto) 14.3 L [place] % (Auto) 6.4 Eos % (Auto) 2.3 Baso % (Auto) 0.2 Lymph # (Auto) 1.5 [place] # (Auto) 0.7 Eos # (Auto) 0.3 Baso # (Auto) 0.0 Abs Immat Gran (auto) 0.08 H Absolute Neuts (auto) 8.2 Absolute Nucleated RBC 0.000 Nucleated RBC % (auto) 0.0 Anion Gap 13 Estim Creat Clear Calc 88.4 Estimated GFR > 60 POC Glucose Random Glucose 149 H D Calcium 9.7 Total Bilirubin 1.4 H Direct Bilirubin 0.5 AST 14 ALT 20 Alkaline Phosphatase 56 D Troponin I High Sens < 3.5 B-Natriuretic Peptide < 10 Total Protein 6.6 Albumin 4.2 Lipase 20 COVID-19 (EDUARDO) COVID-19 Clin Com Influenza Type A (LYNN) Influenza Type B (LYNN) Influenza A & B Note 03/06/22 03/06/22 03/07/22 10:59 10:59 07:09 MCV MCH MCHC RDW Plt Count MPV Immature Gran % (Auto) Neut % (Auto) Lymph % (Auto) [place] % (Auto) Eos % (Auto) Baso % (Auto) Lymph # (Auto) [place] # (Auto) Eos # (Auto) Baso # (Auto) Abs Immat Gran (auto) Absolute Neuts (auto) Absolute Nucleated RBC Nucleated RBC % (auto) Anion Gap Estim Creat Clear Calc Estimated GFR POC Glucose 97 Random Glucose Calcium Total Bilirubin Direct Bilirubin AST ALT Alkaline Phosphatase Troponin I High Sens B-Natriuretic Peptide Total Protein Albumin Lipase COVID-19 (EDUARDO) Negative COVID-19 Clin Com See Note Influenza Type A (LYNN) Negative Influenza Type B (LYNN) Negative Influenza A & B Note See Note 03/07/22 03/07/22 07:24 07:24 MCV 92.1 MCH 30.6 MCHC 33.3 RDW 13.0 Plt Count 134 L MPV 10.0 Immature Gran % (Auto) 0.6 H Neut % (Auto) 60.3 Lymph % (Auto) 24.9 [place] % (Auto) 9.1 Eos % (Auto) 4.8 H Baso % (Auto) 0.3 Lymph # (Auto) 1.6 [place] # (Auto) 0.6 Eos # (Auto) 0.3 Baso # (Auto) 0.0 Abs Immat Gran (auto) 0.04 H Absolute Neuts (auto) 3.9 Absolute Nucleated RBC 0.000 Nucleated RBC % (auto) 0.0 Anion Gap 11 L Estim Creat Clear Calc 103.4 Estimated GFR > 60 POC Glucose Random Glucose 104 Calcium 8.6 D Total Bilirubin Direct Bilirubin AST ALT Alkaline Phosphatase Troponin I High Sens B-Natriuretic Peptide Total Protein Albumin Lipase COVID-19 (EDUARDO) COVID-19 Clin Com Influenza Type A (LYNN) Influenza Type B (LYNN) Influenza A & B Note Assessment and Plan (1) Intractable nausea and vomiting: Status: Acute Plan 61M presented with posterior headache and nausea and vomitting posteroid headache with nausea and vomitting differential includes migraine, posterior cva less likely but will check MRI brain continue tele monitor DM in[place] htn lisinopril, amlodipine moderate persistent asthma symbicort nebs prn dvt prophylaxis - lovenox full code reason for continued hospitalization: not tolerating po Quality Stroke Does the patient have a stroke diagnosis?: No VTE Prior VTE?: No VTE Risk Level:: Medical - moderate - high VTE Device Contraindication: Treatment Not Indicated VTE Drug Contraindication: Treatment Not Indicated
--- NOTE | 2022-03-07 10:53 | PC.NURSE ---
per dr Briones pt ok to go to MRI without tele monitor
[2022-03-07] MEDS: Enoxaparin Sodium 40 MG/0.4 ML SYRINGE SUBCUT (11:24)
[2022-03-07 11:51] LABS: Glucose, Whole Blood 139 mg/dL (60-115)
[2022-03-07] MEDS: Albuterol/Iprat 2.5/0.5MG 3 ML AMPUL.NEB INHALE ×2 (11:55→16:52)
--- NOTE | 2022-03-07 13:52 | PC.NURSE ---
RN assumed care at 11am. Pt alert and oriented x4, calm and cooperative. Pt denies pain. Pt OOB with stand-by assist and ambulating well with steady gait. Pt eating lunch and tolerating well, denies N/V. Vitals stable. IV intat, infusing fluids now. Pt in hospital bed eating, will monitor.
--- NOTE | 2022-03-07 16:57 | PC.NURSE ---
Pt alert and oriented x4, calm and cooperative. Denies pain now. Ate lunch and tolerated well. Denies N/V. Pt aware of being admitted to room 487 and agrees to plan of care. Report given to FEROZ Ocasio.
[2022-03-07 17:34] LABS: Glucose, Whole Blood 176 mg/dL (60-115)
[2022-03-07] MEDS: Insulin Lispro 100 UNIT/ML 3 ML VIAL SUBCUT (17:34)
[2022-03-07 19:50] LABS: Glucose, Whole Blood 150 mg/dL (60-115)
[2022-03-07] MEDS: Montelukast Sodium 10 MG TABLET PO (20:43)
[2022-03-07] MEDS: Pravastatin Sodium 20 MG TABLET PO (20:43)
[2022-03-07] MEDS: Insulin Glargine,Hum.rec.anlog 100 UNIT/ML 10 ML VIAL 10 UNIT SUBCUT (20:49)
[2022-03-07] MEDS: diphenhydrAMINE HCL 25 MG TABLET 50 MG PO (23:02)
[2022-03-08] VITALS (10 sets, daily range): BP systolic 113–126; BP diastolic 72–84; PULSE 71–89; RESP 16–18; TEMP 36.3–36.7; O2SAT 95–97
[2022-03-08] MEDS: Lactated Ringers 1,000 ML 100 ML IVCONT ×3 (03:46→23:10)
[2022-03-08] MEDS: Albuterol/Iprat 2.5/0.5MG 3 ML AMPUL.NEB INHALE ×3 (06:03→15:35)
[2022-03-08] MEDS: Fluticasone/Vilanterol 100/25 BLST.W.DEV 1 PUFF INHALE (06:03)
[2022-03-08] MEDS: Levothyroxine Sodium 150 MCG TABLET PO (06:09)
[2022-03-08 06:34] LABS: Hematocrit 39.8 % (42.0-52.0); Hemoglobin 13.2 g/dl (14.0-18.0); Mean Corpuscular HGB Conc 33.2 g/dl (31.0-36.0); Mean Corpuscular Hemoglobin 30.6 pg (27.0-33.0); Mean Corpuscular Volume 92.3 fL (80.0-98.0); Mean Platelet Volume 10.1 fL (9.4-12.4); Platelet Count 126 X10*3/uL (160-400); Red Blood Count 4.31 X10*6/uL (4.60-5.80); Red Cell Distribution Width 12.7 % (11.0-16.0)
[2022-03-08 06:58] LABS: Alanine Aminotransferase 16 U/L (0-40); Albumin Level 3.6 g/dL (3.5-5.0); Alkaline Phosphatase 54 U/L (39-117); Anion Gap 11 (12-20); Aspartate Amino Transferase 10 U/L (5-37); Bilirubin Direct 0.2 mg/dL (0.0-0.5); Bilirubin Total 0.4 mg/dL (0.0-1.0); Blood Urea Nitrogen 10 mg/dL (9-16); Calcium 8.4 mg/dL (8.4-10.2); Carbon Dioxide 23 mmol/L (22-29); Chloride 104 mmol/L (96-108); Creatinine Clr Calc Pharmacy 95.3; Estimated Glomerular Filt Rate > 60; Glucose Fasting 176 mg/dL (60-99); Potassium 3.7 mmol/L (3.3-5.1); Sodium 134 mmol/L (135-145); Total Protein 5.7 g/dL (6.5-8.0)
[2022-03-08 07:34] LABS: Glucose, Whole Blood 139 mg/dL (60-115)
[2022-03-08] MEDS: Loratadine 10 MG TABLET PO (09:05)
[2022-03-08] MEDS: amLODIPine Besylate 5 MG TABLET PO (09:05)
[2022-03-08] MEDS: Multivitamin TABLET 1 TAB PO (09:05)
[2022-03-08] MEDS: lisinopriL 20 MG TABLET PO (09:06)
[2022-03-08] MEDS: Fluticasone Propionate Nasal 16 GM SPRAY 2 SPRAY NOSTRIL-B (09:06)
[2022-03-08] MEDS: Meclizine HCl 25 MG TABLET PO ×2 (10:13→19:27)
[2022-03-08] MEDS: Butalb/Acetamin/Caff 50/325/40 TABLET 1 TAB PO ×2 (10:13→17:38)
[2022-03-08 11:46] LABS: Glucose, Whole Blood 180 mg/dL (60-115)
[2022-03-08] MEDS: Enoxaparin Sodium 40 MG/0.4 ML SYRINGE SUBCUT (11:51)
[2022-03-08] MEDS: Insulin Lispro 100 UNIT/ML 3 ML VIAL SUBCUT ×2 (11:51→20:56)
--- NOTE | 2022-03-08 12:40 | P.PNIM_ITS ---
Subjective Subjective Date of Service: 03/08/22 Interval History: possible vertigo, persistent posterior headache Review of Systems still having headache and feels unsteady with walking denies any chest pain or shortness of breath or abdominal pain Physical Exam Vital Signs: Vital Signs: Last Vital Signs Temp 97.9 F 03/08/22 12:00 Pulse 79 03/08/22 12:00 Resp 16 03/08/22 12:00 BP 126/76 03/08/22 12:00 Pulse Ox 97 03/08/22 12:00 O2 Del Method 03/08/22 12:00 O2 Flow Rate 6 03/06/22 12:16 BMI result Body Mass Index 26.6 General: AO X 3, no acute distress Resp: CTA bilateral, no accessory muscles used CVS: S1,S2,RRR GI: soft, non tender, non distended Neuro: motor grossly intact, alert Psych: appropriate affect, appropriate insight Objective Data Active Medications Acetaminophen (Acetaminophen 325 Mg Tablet) 650 mg PO Q6H PRN PRN Reason: Pain, Mild (Pain Scale 1-3) Last Admin: 03/07/22 08:16 Dose: 650 mg Documented By: VANDA Acetaminophen/Butalbital/Caffeine (Butalb/Acetamin/Caff 50/325/40 Tablet) 1 tab PO Q4H PRN PRN Reason: Headache Albuterol Sulfate (Albuterol Sulfate (0.083%) 2.5 Mg/3 Ml Vial.Neb) 5 mg INHALE Q4H PRN PRN Reason: shortness of breath or wheezing Albuterol Sulfate (Albuterol Sulfate 90 Mcg 18 Gm Inhaler) 2 puff INHALE QID PRN PRN Reason: Shortness Of Breath Last Admin: 03/07/22 09:00 Dose: 2 puff Documented By: VANDA Albuterol/Ipratropium (Albuterol/Iprat 2.5/0.5mg 3 Ml Ampul.Neb) 3 ml INHALE RQ6H [facility] Last Admin: 03/08/22 10:44 Dose: 3 ml Documented By: AKLYN Amlodipine Besylate (Amlodipine Besylate 5 Mg Tablet) 5 mg PO DAILY [facility]; Protocol Last Admin: 03/08/22 09:05 Dose: 5 mg Documented By: MALI Dextrose (Dextrose 50 % 25 Gm/50 Ml Syringe) 25 gm IVPUSH Q15M PRN; Protocol PRN Reason: per Hypoglycemia Standing Ord. Enoxaparin Sodium (Enoxaparin Sodium 40 Mg/0.4 Ml Syringe) 40 mg SUBCUT Q24H [facility] Last Admin: 03/08/22 11:51 Dose: 40 mg Documented By: MALI Fluticasone Propionate (Fluticasone Propionate Nasal 16 Gm [place]) 2 spray NOSTRIL-B DAILY [facility] Last Admin: 03/08/22 09:06 Dose: 2 spray Documented By: MALI Fluticasone/Vilanterol (Fluticasone/Vilanterol 100/25 Blst.W.Dev) 1 puff INHALE RDAILY [facility] Last Admin: 03/08/22 06:03 Dose: 1 puff Documented By: GRETEL Glucose (Glucose Gel 15 Gm Gel..Gram.) 15 gm PO Q15M PRN; Protocol PRN Reason: per Hypoglycemia Standing Ord. Guaifenesin (Guaifenesin La 600 Mg Tab.Er.12h) 600 mg PO BID PRN PRN Reason: Congestion Lactated Ringer's (Lr) 1,000 mls @ 100 mls/hr IVCONT .Q10H [facility] Last Admin: 03/08/22 11:52 Dose: 100 mls/hr Documented By: MALI Insulin Glargine (Insulin Glargine,Hum.Rec.Anlog 100 Unit/Ml 10 Ml Vial) 10 unit SUBCUT BEDTIME [facility] Last Admin: 03/07/22 20:49 Dose: 10 unit Documented By: TARA Insulin Human Lispro (Insulin Lispro 100 Unit/Ml 3 Ml Vial) 0 unit SUBCUT QIDACHS [facility]; Protocol Last Admin: 03/08/22 11:51 Dose: 2 unit Documented By: MALI Levothyroxine Sodium (Levothyroxine Sodium 150 Mcg Tablet) 150 mcg PO ADEOLA Y@0600 [facility] Last Admin: 03/08/22 06:09 Dose: 150 mcg Documented By: ALFIE Lisinopril (Lisinopril 20 Mg Tablet) 20 mg PO DAILY [facility]; Protocol Last Admin: 03/08/22 09:06 Dose: 20 mg Documented By: MALI Loratadine (Loratadine 10 Mg Tablet) 10 mg PO DAILY [facility] Last Admin: 03/08/22 09:05 Dose: 10 mg Documented By: MALI Meclizine HCl (Meclizine Hcl 25 Mg Tablet) 25 mg PO Q6H PRN PRN Reason: dizziness Montelukast Sodium (Montelukast Sodium 10 Mg Tablet) 10 mg PO BEDTIME [facility] Last Admin: 03/07/22 20:43 Dose: 10 mg Documented By: TARA Morphine Sulfate (Morphine Sulfate 4 Mg/Ml Cartridge) 4 mg IVPUSH Q4H PRN; Pr otocol PRN Reason: Pain, Severe (Pain Scale 7-10) Last Admin: 03/07/22 20:47 Dose: 4 mg Documented By: TARA Multivitamins/Vitamin C (Multivitamin Tablet) 1 tab PO DAILY [facility] Last Admin: 03/08/22 09:05 Dose: 1 tab Documented By: MALI Ondansetron HCl (Ondansetron Hcl 4 Mg/2 Ml Vial) 4 mg IVPUSH Q8H PRN PRN Reason: Nausea and Vomiting Pravastatin Sodium (Pravastatin Sodium 20 Mg Tablet) 20 mg PO BEDTIME [facility] Last Admin: 03/07/22 20:43 Dose: 20 mg Documented By: TARA Sodium Chloride (0.9 % Sodium Chloride Flush 3 Ml Syringe) 3 ml IVFLUSH QSIDFT [facility] Last Admin: 03/08/22 09:05 Dose: Not Given Documented By: MALI Non-Admin Reason: IV Running Labs CBC & Chem 7: 03/08/22 05:59 03/08/22 06:00 Labs: Laboratory Results - last 24 hr 03/07/22 03/07/22 03/08/22 17:29 19:46 05:59 MCV 92.3 MCH 30.6 MCHC 33.2 RDW 12.7 Plt Count 126 L MPV 10.1 Absolute Nucleated RBC 0.000 Nucleated RBC % (auto) 0.0 Anion Gap Estim Creat Clear Calc Estimated GFR POC Glucose 176 H 150 H Fasting Glucose Calcium Total Bilirubin Direct Bilirubin AST ALT Alkaline Phosphatase Total Protein Albumin 03/08/22 03/08/22 03/08/22 06:00 07:29 11:41 MCV MCH MCHC RDW Plt Count MPV Absolute Nucleated RBC Nucleated RBC % (auto) Anion Gap 11 L Estim Creat Clear Calc 95.3 Estimated GFR > 60 POC Glucose 139 H 180 H Fasting Glucose 176 H Calcium 8.4 Total Bilirubin 0.4 Direct Bilirubin 0.2 AST 10 ALT 16 Alkaline Phosphatase 54 Total Protein 5.7 L Albumin 3.6 Assessment and Plan (1) Intractable nausea and vomiting: Status: Acute (2) Headache: Status: Acute Plan 61M presented with posterior headache and nausea and vomitting posteroid headache with nausea and vomitting differential includes migraine, posterior cva less likely but will check MRI brain-seems fine added neuro eval DM in[place] htn lisinopril, amlodipine moderate persistent asthma symbicort nebs prn dvt prophylaxis - lovenox full code reason for continued hospitalization: persistent headaches , vertigo Quality Stroke Does the patient have a stroke diagnosis?: No VTE Prior VTE?: No VTE Risk Level:: Medical - moderate - high VTE Device Contraindication: Treatment Not Indicated VTE Drug Contraindication: Treatment Not Indicated
--- NOTE | 2022-03-08 12:58 | MHC.CM.PN ---
PATIENT STILL DIZZY. NEURO CONSULT PENDING OF MORNING PHYSICIAN ROUNDS.
[2022-03-08] MEDS: ondansetron HCL 4 MG/2 ML VIAL IVPUSH (14:42)
[2022-03-08 17:05] LABS: Glucose, Whole Blood 133 mg/dL (60-115)
[2022-03-08] MEDS: Montelukast Sodium 10 MG TABLET PO (19:20)
[2022-03-08] MEDS: Pravastatin Sodium 20 MG TABLET PO (19:21)
--- NOTE | 2022-03-08 20:11 | PM.EVENT ---
Event Note Date of Service: 03/08/22 Event Note: pt complaning of blurry vision and idzzines, reports improved with meclizine, pt neurological exam non-focal, has mild horizontal nystagmus to the right otherwise neuro exam intact MRI of head reviewed negative. pending neurology evaluation.
[2022-03-08 20:22] LABS: Glucose, Whole Blood 172 mg/dL (60-115)
[2022-03-08] MEDS: Insulin Glargine,Hum.rec.anlog 100 UNIT/ML 10 ML VIAL 10 UNIT SUBCUT (20:56)
[2022-03-08] MEDS: diphenhydrAMINE HCL 25 MG TABLET 50 MG PO (23:10)
[2022-03-09] VITALS (8 sets, daily range): BP systolic 99–120; BP diastolic 65–76; PULSE 76–92; RESP 18–20; TEMP 36.3–37.5; O2SAT 93–96
[2022-03-09] MEDS: Levothyroxine Sodium 150 MCG TABLET PO (05:58)
[2022-03-09] MEDS: Albuterol/Iprat 2.5/0.5MG 3 ML AMPUL.NEB INHALE ×3 (06:04→16:10)
[2022-03-09] MEDS: Fluticasone/Vilanterol 100/25 BLST.W.DEV 1 PUFF INHALE (06:05)
[2022-03-09 07:16] LABS: Glucose, Whole Blood 163 mg/dL (60-115)
[2022-03-09] MEDS: Insulin Lispro 100 UNIT/ML 3 ML VIAL SUBCUT ×3 (07:27→20:31)
[2022-03-09] MEDS: Morphine Sulfate 4 MG/ML CARTRIDGE IVPUSH (07:37)
[2022-03-09] MEDS: amLODIPine Besylate 5 MG TABLET PO (07:37)
[2022-03-09] MEDS: lisinopriL 20 MG TABLET PO (07:37)
[2022-03-09] MEDS: Loratadine 10 MG TABLET PO (07:37)
[2022-03-09] MEDS: Fluticasone Propionate Nasal 16 GM SPRAY 2 SPRAY NOSTRIL-B (07:38)
[2022-03-09] MEDS: Multivitamin TABLET 1 TAB PO (07:38)
[2022-03-09] MEDS: Meclizine HCl 25 MG TABLET PO ×3 (09:54→20:31)
[2022-03-09] MEDS: Enoxaparin Sodium 40 MG/0.4 ML SYRINGE SUBCUT (09:54)
--- NOTE | 2022-03-09 10:06 | PM.NEUROCN ---
History of Present Illness Data of Consult Service Date: 03/09/22 Primary Care Provider: Unknown Physician HPI Reason for consult: Headache and dizziness 61 years old man with underlying history of diabetes who denied any significant headaches in the past or this type of headache came to hospital with 2 day onset of left occipital headache with dizziness. Dizziness was a sense of motion like everything was spinning. There was no associated numbness or weakness or speech or language difficulty. There was no history of trauma. Review of Systems Review of Systems: No recent cold or flu-like illness PMFSH Past Medical History Medical History (Updated 03/09/22 @ 10:10 by Kurtis Han MD) Asthma Bronchitis Hypertension Hypothyroidism New onset type 2 diabetes mellitus Family History Family History (Updated 03/07/22 @ 06:09 by Lilly Neil MD) Other No family history of coronary artery disease Surgical History Surgical History (Updated 03/07/22 @ 06:09 by Lilly Neil MD) No pertinent past surgical history Social History Social History Household Members: Other Household Members Other:: nephew Housing: House Do you presently have visiting nurse or other home services: No Alcohol intake: former Patient Tobacco Use Status: Former Tobacco user service: No Current occupational status: unemployed Meds Allergies Allergy/AdvReac Type Severity Reaction Status Date / Time No Known Allergies Allergy Verified 09/07/21 10:08 Active Medications: Current Medications Acetaminophen (Acetaminophen 325 Mg Tablet) 650 mg PO Q6H PRN PRN Reason: Pain, Mild (Pain Scale 1-3) Last Admin: 03/07/22 08:16 Dose: 650 mg Acetaminophen/Butalbital/Caffeine (Butalb/Acetamin/Caff 50/325/40 Tablet) 1 tab PO Q4H PRN PRN Reason: Headache Last Admin: 03/08/22 17:38 Dose: 1 tab Albuterol Sulfate (Albuterol Sulfate (0.083%) 2.5 Mg/3 Ml Vial.Neb) 5 mg INHALE Q4H PRN PRN Reason: shortness of breath or wheezing Albuterol Sulfate (Albuterol Sulfate 90 Mcg 18 Gm Inhaler) 2 puff INHALE QID PRN PRN Reason: Shortness Of Breath Last Admin: 03/07/22 09:00 Dose: 2 puff Albuterol/Ipratropium (Albuterol/Iprat 2.5/0.5mg 3 Ml Ampul.Neb) 3 ml INHALE RQ6H [facility] Last Admin: 03/09/22 06:04 Dose: 3 ml Amlodipine Besylate (Amlodipine Besylate 5 Mg Tablet) 5 mg PO DAILY [facility]; Protocol Last Admin: 03/09/22 07:37 Dose: 5 mg Dextrose (Dextrose 50 % 25 Gm/50 Ml Syringe) 25 gm IVPUSH Q15M PRN; Protocol PRN Reason: per Hypoglycemia Standing Ord. Enoxaparin Sodium (Enoxaparin Sodium 40 Mg/0.4 Ml Syringe) 40 mg SUBCUT Q24H [facility] Last Admin: 03/09/22 09:54 Dose: 40 mg Fluticasone Propionate (Fluticasone Propionate Nasal 16 Gm [place]) 2 spray NOSTRIL-B DAILY [facility] Last Admin: 03/09/22 07:38 Dose: 2 spray Fluticasone/Vilanterol (Fluticasone/Vilanterol 100/25 Blst.W.Dev) 1 puff INHALE RDAILY [facility] Last Admin: 03/09/22 06:05 Dose: 1 puff Glucose (Glucose Gel 15 Gm Gel..Gram.) 15 gm PO Q15M PRN; Protocol PRN Reason: per Hypoglycemia Standing Ord. Guaifenesin (Guaifenesin [place] 600 Mg Tab.Er.12h) 600 mg PO BID PRN PRN Reason: Congestion Insulin Glargine (Insulin Glargine,Hum.Rec.Anlog 100 Unit/Ml 10 Ml Vial) 10 unit SUBCUT BEDTIME [facility] Last Admin: 03/08/22 20:56 Dose: 10 unit Insulin Human Lispro (Insulin Lispro 100 Unit/Ml 3 Ml Vial) 0 unit SUBCUT QIDACHS [facility]; Protocol Last Admin: 03/09/22 07:27 Dose: 2 unit Levothyroxine Sodium (Levothyroxine Sodium 150 Mcg Tablet) 150 mcg PO DAILY@0600 [facility] Last Admin: 03/09/22 05:58 Dose: 150 mcg Lisinopril (Lisinopril 20 Mg Tablet) 20 mg PO DAILY [facility]; Protocol Last Admin: 03/09/22 07:37 Dose: 20 mg Loratadine (Loratadine 10 Mg Tablet) 10 mg PO DAILY [facility] Last Admin: 03/09/22 07:37 Dose: 10 mg Meclizine HCl (Meclizine Hcl 25 Mg Tablet) 25 mg PO Q6H [facility] Last Admin: 03/09/22 09:54 Dose: 25 mg Montelukast Sodium (Montelukast Sodium 10 Mg Tablet) 10 mg PO BEDTIME [facility] Last Admin: 03/08/22 19:20 Dose: 10 mg Morphine Sulfate (Morphine Sulfate 4 Mg/Ml Cartridge) 4 mg IVPUSH Q4H PRN; Protocol PRN Reason: Pain, Severe (Pain Scale 7-10) Last Admin: 03/09/22 07:37 Dose: 4 mg Multivitamins/Vitamin C (Multivitamin Tablet) 1 tab PO DAILY [facility] Last Admin: 03/09/22 07:38 Dose: 1 tab Ondansetron HCl (Ondansetron Hcl 4 Mg/2 Ml Vial) 4 mg IVPUSH Q8H PRN PRN Reason: Nausea and Vomiting Last Admin: 03/08/22 14:42 Dose: 4 mg Pravastatin Sodium (Pravastatin Sodium 20 Mg Tablet) 20 mg PO BEDTIME [facility] Last Admin: 03/08/22 19:21 Dose: 20 mg Sodium Chloride (0.9 % Sodium Chloride Flush 3 Ml Syringe) 3 ml IVFLUSH QSAZFT [facility] Last Admin: 03/09/22 07:27 Dose: Not Given Home Medications Medication Instructions Recorded Confirmed Last Taken Type amlodipine 5 mg tablet 1 tab PO DAILY 02/13/22 03/06/22 03/06/22 History levalbuterol tartrate 45 2 puff inhalation QID PRN 02/13/22 03/06/22 Unknown History mcg/actuation aerosol inhaler Shortness Of Breath (Xopenex HFA) levothyroxine 150 mcg tablet 1 tab PO DAILY@0600 02/13/22 03/06/22 03/06/22 History (Euthyrox) lovastatin 20 mg tablet 1 tab PO DAILY 02/13/22 03/06/22 03/06/22 History montelukast 10 mg tablet 1 tab PO DAILY 02/13/22 03/06/22 03/06/22 History budesonide-formoterol HFA 80 2 puff inhalation BID 03/06/22 03/06/22 03/06/22 History mcg-4.5 mcg/actuation aerosol inhaler (Symbicort) cetirizine 10 mg tablet 1 tab PO DAILY 03/06/22 03/06/22 03/06/22 History fluticasone propionate 50 2 spray intranasal DAILY 03/06/22 03/06/22 03/06/22 History mcg/actuation nasal spray,suspension guaifenesin 600 mg tablet, 600 mg PO BID PRN Congestion 03/06/22 03/06/22 Unknown History extended release 12 hr (Mucinex) lisinopril 20 mg tablet 1 tab PO DAILY 03/06/22 03/06/22 03/06/22 History multivitamin 1 tab PO DAILY 03/06/22 03/06/22 03/06/22 History prednisone 10 mg tablet 10 mg PO DAILY 03/06/22 03/06/22 03/06/22 History Physical Exam Vital Signs: Vital Signs: Last Vital Signs Temp 98.7 F 03/09/22 07:44 Pulse 92 03/09/22 07:44 Resp 18 03/09/22 07:44 BP 118/74 03/09/22 07:44 Pulse Ox 95 03/09/22 07:44 O2 Del Method 03/09/22 07:44 O2 Flow Rate 6 03/06/22 12:16 BMI result Body Mass Index 26.6 Neuro: Other: He was alert and awake with normal spontaneity of speech fluency comprehension and affect. Face was symmetrical. On visual field examination he did not perceive stimuli on right side. Face was symmetrical. There was no pronator drift. [id number] testing revealed bilateral past pointing. [id number] testing was okay. Deep tendon reflexes were good 2+ with flexor plantars. Speech was normal. Results Labs CBC & Chem 7: 03/08/22 05:59 03/08/22 06:00 Labs: His noncontrast head CT did not reveal any significant abnormality other than mild cerebellar atrophy per MRI of brain without contrast did not reveal any acute abnormality. Minimal microvascular ischemic changes were noted. CTA of brain and neck did not reveal any vascular stenosis. Assessment and Plan (1) Status migrainosus: Status: Acute 61 years old man who probably was suffering from brainstem or basilar migraine resulting in headache and vertigo. His examination also revealed some abnormalities that could be explained based upon migraine as there was no structural lesion noted on MRI of brain. There was mild cerebellar atrophy that could explain mild ataxia of [id number] testing. Differential diagnosis would also include viral meningoencephalitis but his overall clinical picture was not suggestive of that. There was no fever. I recommend treating him conservatively with Fioricet type of medicine as needed and avoiding stronger or more habit-forming medicines. Other than that, depending how frequent this type of headache could be, a migraine preventive medicine can also be added. (2) Basilar migraine: Status: Acute Procedures Date of Service Date of Service: 03/09/22
--- NOTE | 2022-03-09 10:41 | P.PNIM_ITS ---
Subjective Subjective Date of Service: 03/09/22 Interval History: still dizziness /headaches Review of Systems feels liile better with meclizine but then start feeling dizziness and unsteady again ''Feels the room is spinning'' but did able to walk few steps. Physical Exam Vital Signs: Vital Signs: Last Vital Signs Temp 98.7 F 03/09/22 07:44 Pulse 79 03/09/22 10:31 Resp 18 03/09/22 10:31 BP 118/74 03/09/22 07:44 Pulse Ox 95 03/09/22 07:44 O2 Del Method 03/09/22 07:44 O2 Flow Rate 6 03/06/22 12:16 BMI result Body Mass Index 26.6 General: AO X 3, no acute distress Resp:? CTA bilateral, no accessory muscles used CVS: S1,S2,RRR GI: soft, non tender, non distended Neuro:? motor grossly intact, alert Psych: appropriate affect, appropriate insight? Objective Data Active Medications Acetaminophen (Acetaminophen 325 Mg Tablet) 650 mg PO Q6H PRN PRN Reason: Pain, Mild (Pain Scale 1-3) Last Admin: 03/07/22 08:16 Dose: 650 mg Documented By: VANDA Acetaminophen/Butalbital/Caffeine (Butalb/Acetamin/Caff 50/325/40 Tablet) 1 tab PO Q4H PRN PRN Reason: Headache Last Admin: 03/08/22 17:38 Dose: 1 tab Documented By: MALI Albuterol Sulfate (Albuterol Sulfate (0.083%) 2.5 Mg/3 Ml Vial.Neb) 5 mg INHALE Q4H PRN PRN Reason: shortness of breath or wheezing Albuterol Sulfate (Albuterol Sulfate 90 Mcg 18 Gm Inhaler) 2 puff INHALE QID PRN PRN Reason: Shortness Of Breath Last Admin: 03/07/22 09:00 Dose: 2 puff Documented By: VANDA Albuterol/Ipratropium (Albuterol/Iprat 2.5/0.5mg 3 Ml Ampul.Neb) 3 ml INHALE RQ6H [facility] Last Admin: 03/09/22 10:30 Dose: 3 ml Documented By: KALYN Amlodipine Besylate (Amlodipine Besylate 5 Mg Tablet) 5 mg PO DAILY [facility]; Protocol Last Admin: 03/09/22 07:37 Dose: 5 mg Documented By: MANSOOR Dextrose (Dextrose 50 % 25 Gm/50 Ml Syringe) 25 gm IVPUSH Q15M PRN; Protocol PRN Reason: per Hypoglycemia Standing Ord. Enoxaparin Sodium (Enoxaparin Sodium 40 Mg/0.4 Ml Syringe) 40 mg SUBCUT Q24H [facility] Last Admin: 03/09/22 09:54 Dose: 40 mg Documented By: MANSOOR Fluticasone Propionate (Fluticasone Propionate Nasal 16 Gm [place]) 2 spray NOSTRIL-B DAILY [facility] Last Admin: 03/09/22 07:38 Dose: 2 spray Documented By: MANSOOR Fluticasone/Vilanterol (Fluticasone/Vilanterol 100/25 Blst.W.Dev) 1 puff INHALE RDAILY [facility] Last Admin: 03/09/22 06:05 Dose: 1 puff Documented By: ERIBERTO Glucose (Glucose Gel 15 Gm Gel..Gram.) 15 gm PO Q15M PRN; Protocol PRN Reason: per Hypoglycemia Standing Ord. Guaifenesin (Guaifenesin La 600 Mg Tab.Er.12h) 600 mg PO BID PRN PRN Reason: Congestion Insulin Glargine (Insulin Glargine,Hum.Rec.Anlog 100 Unit/Ml 10 Ml Vial) 10 unit SUBCUT BEDTIME [facility] Last Admin: 03/08/22 20:56 Dose: 10 unit Documented By: CHAPARRO Insulin Human Lispro (Insulin Lispro 100 Unit/Ml 3 Ml Vial) 0 unit SUBCUT QIDACHS [facility]; Protocol Last Admin: 03/09/22 07:27 Dose: 2 unit Documented By: MANSOOR Levothyroxine Sodium (Levothyroxine Sodium 150 Mcg Tablet) 150 mcg PO DAILY@0600 [facility] Last Admin: 03/09/22 05:58 Dose: 150 mcg Documented By: CHAPARRO Lisinopril (Lisinopril 20 Mg Tablet) 20 mg PO DAILY [facility]; Protocol Last Admin: 03/09/22 07:37 Dose: 20 mg Documented By: MANSOOR Loratadine (Loratadine 10 Mg Tablet) 10 mg PO DAILY [facility] Last Admin: 03/09/22 07:37 Dose: 10 mg Documented By: MANSOOR Meclizine HCl (Meclizine Hcl 25 Mg Tablet) 25 mg PO Q6H [facility] Last Admin: 03/09/22 09:54 Dose: 25 mg Documented By: MANSOOR Montelukast Sodium (Montelukast Sodium 10 Mg Tablet) 10 mg PO BEDTIME [facility] Last Admin: 03/08/22 19:20 Dose: 10 mg Documented By: CHAPARRO Morphine Sulfate (Morphine Sulfate 4 Mg/Ml Cartridge) 4 mg IVPUSH Q4H PRN; Protocol PRN Reason: Pain, Severe (Pain Scale 7-10) Last Admin: 03/09/22 07:37 Dose: 4 mg Documented By: MANSOOR Multivitamins/Vitamin C (Multivitamin Tablet) 1 tab PO DAILY [facility] Last Admin: 03/09/22 07:38 Dose: 1 tab Documented By: MANSOOR Ondansetron HCl (Ondansetron Hcl 4 Mg/2 Ml Vial) 4 mg IVPUSH Q8H PRN PRN Reason: Nausea and Vomiting Last Admin: 03/08/22 14:42 Dose: 4 mg Documented By: MALI Pravastatin Sodium (Pravastatin Sodium 20 Mg Tablet) 20 mg PO BEDTIME [facility] Last Admin: 03/08/22 19:21 Dose: 20 mg Documented By: CHAPARRO Sodium Chloride (0.9 % Sodium Chloride Flush 3 Ml Syringe) 3 ml IVFLUSH QSHIFT [facility] Last Admin: 03/09/22 07:27 Dose: Not Given Documented By: MANSOOR Non-Admin Reason: IV Running Labs CBC & Chem 7: 03/08/22 05:59 03/08/22 06:00 Labs: Laboratory Results - last 24 hr 03/08/22 03/08/22 03/08/22 11:41 16:56 20:15 POC Glucose 180 H 133 H 172 H 03/09/22 07:10 POC Glucose 163 H Assessment and Plan (1) Basilar migraine: Status: Acute (2) Status migrainosus: Status: Acute Plan 61M presented with posterior headache and nausea and vomitting posteroid headache with nausea and vomitting differential includes migraine, posterior cva less likely but will check MRI brain-seems fine neuro eval-noted symptoms seems likely migrane related : continue fioricet, meclizine prn,moniter DM inuslin htn lisinopril, amlodipine moderate persistent asthma symbicort nebs prn dvt prophylaxis - lovenox full code reason for continued hospitalization: persistent headaches-likley migrane , vertigo Quality Stroke Does the patient have a stroke diagnosis?: No VTE Prior VTE?: No VTE Risk Level:: Medical - moderate - high VTE Device Contraindication: Treatment Not Indicated VTE Drug Contraindication: Treatment Not Indicated
[2022-03-09 10:55] LABS: Glucose, Whole Blood 230 mg/dL (60-115)
--- NOTE | 2022-03-09 12:39 | MHC.CM.PN ---
PT REPORTS HE LIVES WITH HIS NEPHEW AND IS FULLY INDEPENDENT PT DENIES USE OF DME OR HOME SERVICES PT REPORTS HE DOES NOT HAVE A PCP BUT HAS A NEW PT APPT SCHEDULED IN AT [facility] IN [place] PT COMPLETED A HCP TODAY NAMING HIS NEPHEW, CATHLEEN HIS SOLE AGENT OBSERVATION NOTICE DELIVERED ON 03/07/22 CURRENT DC PLAN IS HOME WITH NO SERVICES PT TO ARRANGE TRANSPORT
[2022-03-09] MEDS: Butalb/Acetamin/Caff 50/325/40 TABLET 1 TAB PO ×2 (12:42→20:31)
[2022-03-09] MEDS: 0.9 % Sodium Chloride Flush 3 ML SYRINGE IVFLUSH (15:18)
[2022-03-09 15:57] LABS: Glucose, Whole Blood 111 mg/dL (60-115)
[2022-03-09 20:20] LABS: Glucose, Whole Blood 223 mg/dL (60-115)
[2022-03-09] MEDS: Montelukast Sodium 10 MG TABLET PO (20:31)
[2022-03-09] MEDS: Insulin Glargine,Hum.rec.anlog 100 UNIT/ML 10 ML VIAL 10 UNIT SUBCUT (20:32)
[2022-03-09] MEDS: Pravastatin Sodium 20 MG TABLET PO (20:37)
[2022-03-10] VITALS (10 sets, daily range): BP systolic 103–128; BP diastolic 66–78; PULSE 71–103; RESP 16–22; TEMP 36.6–37.3; O2SAT 93–97
[2022-03-10] MEDS: Butalb/Acetamin/Caff 50/325/40 TABLET 1 TAB PO ×3 (00:47→12:02)
[2022-03-10] MEDS: 0.9 % Sodium Chloride Flush 3 ML SYRINGE IVFLUSH ×4 (00:48→23:58)
[2022-03-10] MEDS: Albuterol/Iprat 2.5/0.5MG 3 ML AMPUL.NEB INHALE ×4 (01:05→18:12)
[2022-03-10] MEDS: diphenhydrAMINE HCL 25 MG TABLET 50 MG PO ×2 (01:14→22:42)
[2022-03-10] MEDS: Fluticasone/Vilanterol 100/25 BLST.W.DEV 1 PUFF INHALE (08:03)
[2022-03-10 08:12] LABS: Glucose, Whole Blood 173 mg/dL (60-115)
[2022-03-10] MEDS: Insulin Lispro 100 UNIT/ML 3 ML VIAL SUBCUT ×4 (08:29→20:39)
[2022-03-10] MEDS: Loratadine 10 MG TABLET PO (08:30)
[2022-03-10] MEDS: lisinopriL 20 MG TABLET PO (08:31)
[2022-03-10] MEDS: Meclizine HCl 25 MG TABLET PO ×3 (08:31→20:38)
[2022-03-10] MEDS: Multivitamin TABLET 1 TAB PO ×2 (08:31→10:23)
[2022-03-10] MEDS: amLODIPine Besylate 5 MG TABLET PO (08:31)
[2022-03-10] MEDS: Levothyroxine Sodium 150 MCG TABLET PO (08:36)
[2022-03-10] MEDS: Fluticasone Propionate Nasal 16 GM SPRAY 2 SPRAY NOSTRIL-B (09:53)
[2022-03-10] MEDS: Folic Acid 1 MG TABLET PO (10:23)
[2022-03-10] MEDS: Thiamine HCL 100 MG TABLET PO (10:23)
[2022-03-10] MEDS: Enoxaparin Sodium 40 MG/0.4 ML SYRINGE SUBCUT (10:23)
--- NOTE | 2022-03-10 11:39 | PM.NEUROCN ---
History of Present Illness Data of Consult Service Date: 03/10/22 Primary Care Provider: Unknown Physician HPI Reason for consult: Dizziness and unsteadiness 61 years old man who continues to complain of dizziness as sense of motion and loss of balance and difficulty walking. He said that at some point he also side double but headache now was resolved. [facility] Past Medical History Medical History (Updated 03/10/22 @ 11:41 by Kurtis Han MD) Asthma Bronchitis Hypertension Hypothyroidism New onset type 2 diabetes mellitus Family History Family History (Updated 03/07/22 @ 06:09 by Lilly Neil MD) Other No family history of coronary artery disease Surgical History Surgical History (Updated 03/07/22 @ 06:09 by Lilly Neil MD) No pertinent past surgical history Social History Social History Household Members: Other Household Members Other:: nephew Housing: House Do you presently have visiting nurse or other home services: No Alcohol intake: former Patient Tobacco Use Status: Former Tobacco user service: No Current occupational status: unemployed Meds Allergies Allergy/AdvReac Type Severity Reaction Status Date / Time No Known Allergies Allergy Verified 09/07/21 10:08 Active Medications: Current Medications Acetaminophen (Acetaminophen 325 Mg Tablet) 650 mg PO Q6H PRN PRN Reason: Pain, Mild (Pain Scale 1-3) Last Admin: 03/07/22 08:16 Dose: 650 mg Acetaminophen/Butalbital/Caffeine (Butalb/Acetamin/Caff 50/325/40 Tablet) 1 tab PO Q4H [facility] Last Admin: 03/10/22 08:31 Dose: 1 tab Albuterol Sulfate (Albuterol Sulfate (0.083%) 2.5 Mg/3 Ml Vial.Neb) 5 mg INHALE Q4H PRN PRN Reason: shortness of breath or wheezing Albuterol Sulfate (Albuterol Sulfate 90 Mcg 18 Gm Inhaler) 2 puff INHALE QID PRN PRN Reason: Shortness Of Breath Last Admin: 03/07/22 09:00 Dose: 2 puff Albuterol/Ipratropium (Albuterol/Iprat 2.5/0.5mg 3 Ml Ampul.Neb) 3 ml INHALE RQ6H [facility] Last Admin: 03/10/22 11:22 Dose: 3 ml Amlodipine Besylate (Amlodipine Besylate 5 Mg Tablet) 5 mg PO DAILY [facility]; Protocol Last Admin: 03/10/22 08:31 Dose: 5 mg Dextrose (Dextrose 50 % 25 Gm/50 Ml Syringe) 25 gm IVPUSH Q15M PRN; Protocol PRN Reason: per Hypoglycemia Standing Ord. Enoxaparin Sodium (Enoxaparin Sodium 40 Mg/0.4 Ml Syringe) 40 mg SUBCUT Q24H [facility] Last Admin: 03/10/22 10:23 Dose: 40 mg Fluticasone Propionate (Fluticasone Propionate Nasal 16 Gm [place]) 2 spray NOSTRIL-B DAILY [facility] Last Admin: 03/10/22 09:53 Dose: 2 spray Fluticasone/Vilanterol (Fluticasone/Vilanterol 100/25 Blst.W.Dev) 1 puff INHALE RDAILY [facility] Last Admin: 03/10/22 08:03 Dose: 1 puff Folic Acid (Folic Acid 1 Mg Tablet) 1 mg PO DAILY [facility] Last Admin: 03/10/22 10:23 Dose: 1 mg Glucose (Glucose Gel 15 Gm Gel..Gram.) 15 gm PO Q15M PRN; Protocol PRN Reason: per Hypoglycemia Standing Ord. Guaifenesin (Guaifenesin La 600 Mg Tab.Er.12h) 600 mg PO BID PRN PRN Reason: Congestion Insulin Glargine (Insulin Glargine,Hum.Rec.Anlog 100 Unit/Ml 10 Ml Vial) 10 unit SUBCUT BEDTIME [facility] Last Admin: 03/09/22 20:32 Dose: 10 unit Insulin Human Lispro (Insulin Lispro 100 Unit/Ml 3 Ml Vial) 0 unit SUBCUT QIDACHS [facility]; Protocol Last Admin: 03/10/22 08:29 Dose: 2 unit Levothyroxine Sodium (Levothyroxine Sodium 150 Mcg Tablet) 150 mcg PO DAILY@0600 [facility] Last Admin: 03/10/22 08:36 Dose: 150 mcg Lisinopril (Lisinopril 20 Mg Tablet) 20 mg PO DAILY [facility]; Protocol Last Admin: 03/10/22 08:31 Dose: 20 mg Loratadine (Loratadine 10 Mg Tablet) 10 mg PO DAILY [facility] Last Admin: 03/10/22 08:30 Dose: 10 mg Meclizine HCl (Meclizine Hcl 25 Mg Tablet) 25 mg PO Q6H [facility] Last Admin: 03/10/22 08:31 Dose: 25 mg Montelukast Sodium (Montelukast Sodium 10 Mg Tablet) 10 mg PO BEDTIME [facility] Last Admin: 03/09/22 20:31 Dose: 10 mg Morphine Sulfate (Morphine Sulfate 4 Mg/Ml Cartridge) 4 mg IVPUSH Q4H PRN; Protocol PRN Reason: Pain, Severe (Pain Scale 7-10) Last Admin: 03/09/22 07:37 Dose: 4 mg Multivitamins/Vitamin C (Multivitamin Tablet) 1 tab PO DAILY [facility] Last Admin: 03/10/22 08:31 Dose: 1 tab Multivitamins/Vitamin C (Multivitamin Tablet) 1 tab PO DAILY [facility] Last Admin: 03/10/22 10:23 Dose: 1 tab Ondansetron HCl (Ondansetron Hcl 4 Mg/2 Ml Vial) 4 mg IVPUSH Q8H PRN PRN Reason: Nausea and Vomiting Last Admin: 03/08/22 14:42 Dose: 4 mg Pravastatin Sodium (Pravastatin Sodium 20 Mg Tablet) 20 mg PO BEDTIME [facility] Last Admin: 03/09/22 20:37 Dose: 20 mg Sodium Chloride (0.9 % Sodium Chloride Flush 3 Ml Syringe) [facility] Last Admin: 03/10/22 08:32 Dose: 3 ml Thiamine HCl (Thiamine Hcl 100 Mg Tablet) 100 mg PO DAILY [facility] Last Admin: 03/10/22 10:23 Dose: 100 mg Home Medications Medication Instructions Recorded Confirmed Last Taken Type amlodipine 5 mg tablet 1 tab PO DAILY 02/13/22 03/06/22 03/06/22 History levalbuterol tartrate 45 2 puff inhalation QID PRN 02/13/22 03/06/22 Unknown History mcg/actuation aerosol inhaler Shortness Of Breath (Xopenex HFA) levothyroxine 150 mcg tablet 1 tab PO DAILY@0600 02/13/22 03/06/22 03/06/22 History (Euthyrox) lovastatin 20 mg tablet 1 tab PO DAILY 02/13/22 03/06/22 03/06/22 History montelukast 10 mg tablet 1 tab PO DAILY 02/13/22 03/06/22 03/06/22 History budesonide-formoterol HFA 80 2 puff inhalation BID 03/06/22 03/06/22 03/06/22 History mcg-4.5 mcg/actuation aerosol inhaler (Symbicort) cetirizine 10 mg tablet 1 tab PO DAILY 03/06/22 03/06/22 03/06/22 History fluticasone propionate 50 2 spray intranasal DAILY 03/06/22 03/06/22 03/06/22 History mcg/actuation nasal spray,suspension guaifenesin 600 mg tablet, 600 mg PO BID PRN Congestion 03/06/22 03/06/22 Unknown History extended release 12 hr (Mucinex) lisinopril 20 mg tablet 1 tab PO DAILY 03/06/22 03/06/22 03/06/22 History multivitamin 1 tab PO DAILY 03/06/22 03/06/22 03/06/22 History prednisone 10 mg tablet 10 mg PO DAILY 03/06/22 03/06/22 03/06/22 History Physical Exam Vital Signs: Vital Signs: Last Vital Signs Temp 98.0 F 03/10/22 07:51 Pulse 90 03/10/22 11:23 Resp 22 H 03/10/22 11:23 BP 119/75 03/10/22 07:51 Pulse Ox 95 03/10/22 07:51 O2 Del Method 03/10/22 07:51 O2 Flow Rate 6 03/06/22 12:16 BMI result Body Mass Index 26.6 Neuro: Other: He was alert and awake with normal spontaneity of speech fluency comprehension and affect. There was no nystagmus. Face was symmetrical. [id number] testing revealed mild past pointing. He was able to get up on his own but was quite unsteady in almost fell forward. Speech was normal. Results Labs CBC & Chem 7: 03/08/22 05:59 03/08/22 06:00 Assessment and Plan (1) Unsteadiness: Status: Acute Though his headache is resolved, he continues to be unsteady in complain of dizziness. I do not see any significant nystagmus and his eyes. Differential diagnosis would include migraine, demyelinating disease or infection. At this time my recommendation is to give him thiamine/folate/B complex vitamin, obtain MRI of cervical spine with and without contrast, and Lyme serology. A lumbar puncture is also recommended to rule out any sign of inflammation including any possibility of multiple sclerosis type of pattern. I would recommend stopping pain medicine specially habit-forming pain medicines including morphine, oxycodone or Fioricet. If needed naproxen type of medicines could be used. Also give him Solu-Medrol 1 g IV q.day for couple of days to see if that would resolve his symptoms. Procedures Date of Service Date of Service: 03/10/22
[2022-03-10 11:51] LABS: Glucose, Whole Blood 238 mg/dL (60-115)
--- NOTE | 2022-03-10 12:14 | P.PNIM_ITS ---
Subjective Subjective Date of Service: 03/10/22 Interval History: vertiago Review of Systems still very unsteady Patient says headaches is are improving slightly with the feel recent, but feeling dizziness similar to yesterday denies any chest pain or shortness of breath or abdominal pain or fever chills Physical Exam Vital Signs: Vital Signs: Last Vital Signs Temp 98.0 F 03/10/22 07:51 Pulse 90 03/10/22 11:23 Resp 22 H 03/10/22 11:23 BP 119/75 03/10/22 07:51 Pulse Ox 95 03/10/22 07:51 O2 Del Method 03/10/22 07:51 O2 Flow Rate 6 03/06/22 12:16 BMI result Body Mass Index 26.6 General: AO X 3, no acute distress Resp:? CTA bilateral, no accessory muscles used CVS: S1,S2,RRR GI: soft, non tender, non distended Neuro:? still unsteady sensation intact motor grossly intact, alert dtr fine, has nystagmus Psych: appropriate affect, appropriate insight? Objective Data Active Medications Acetaminophen (Acetaminophen 325 Mg Tablet) 650 mg PO Q6H PRN PRN Reason: Pain, Mild (Pain Scale 1-3) Last Admin: 03/07/22 08:16 Dose: 650 mg Documented By: VANDA Acetaminophen/Butalbital/Caffeine (Butalb/Acetamin/Caff 50/325/40 Tablet) 1 tab PO Q4H [facility] Last Admin: 03/10/22 12:02 Dose: 1 tab Documented By: LM Albuterol Sulfate (Albuterol Sulfate (0.083%) 2.5 Mg/3 Ml Vial.Neb) 5 mg INHALE Q4H PRN PRN Reason: shortness of breath or wheezing Albuterol Sulfate (Albuterol Sulfate 90 Mcg 18 Gm Inhaler) 2 puff INHALE QID PRN PRN Reason: Shortness Of Breath Last Admin: 03/07/22 09:00 Dose: 2 puff Documented By: VANDA Albuterol/Ipratropium (Albuterol/Iprat 2.5/0.5mg 3 Ml Ampul.Neb) 3 ml INHALE RQ6H [facility] Last Admin: 03/10/22 11:22 Dose: 3 ml Documented By: TRISTON Amlodipine Besylate (Amlodipine Besylate 5 Mg Tablet) 5 mg PO DAILY [facility]; Protocol Last Admin: 03/10/22 08:31 Dose: 5 mg Documented By: LM Dextrose (Dextrose 50 % 25 Gm/50 Ml Syringe) 25 gm IVPUSH Q15M PRN; Protocol PRN Reason: per Hypoglycemia Standing Ord. Enoxaparin Sodium (Enoxaparin Sodium 40 Mg/0.4 Ml Syringe) 40 mg SUBCUT Q24H [facility] Last Admin: 03/10/22 10:23 Dose: 40 mg Documented By: LM Fluticasone Propionate (Fluticasone Propionate Nasal 16 Gm [place]) 2 spray NOSTRIL-B DAILY [facility] Last Admin: 03/10/22 09:53 Dose: 2 spray Documented By: LM Fluticasone/Vilanterol (Fluticasone/Vilanterol 100/25 Blst.W.Dev) 1 puff INHALE RDAILY [facility] Last Admin: 03/10/22 08:03 Dose: 1 puff Documented By: TRISTON Folic Acid (Folic Acid 1 Mg Tablet) 1 mg PO DAILY [facility] Last Admin: 03/10/22 10:23 Dose: 1 mg Documented By: LM Glucose (Glucose Gel 15 Gm Gel..Gram.) 15 gm PO Q15M PRN; Protocol PRN Reason: per Hypoglycemia Standing Ord. Guaifenesin (Guaifenesin La 600 Mg Tab.Er.12h) 600 mg PO BID PRN PRN Reason: Congestion Insulin Glargine (Insulin Glargine,Hum.Rec.Anlog 100 Unit/Ml 10 Ml Vial) 10 unit SUBCUT BEDTIME [facility] Last Admin: 03/09/22 20:32 Dose: 10 unit Documented By: CHAPARRO Insulin Human Lispro (Insulin Lispro 100 Unit/Ml 3 Ml Vial) 0 unit SUBCUT QIDACHS [facility]; Protocol Last Admin: 03/10/22 12:03 Dose: 4 unit Documented By: LM Levothyroxine Sodium (Levothyroxine Sodium 150 Mcg Tablet) 150 mcg PO DAILY@0600 [facility] Last Admin: 03/10/22 08:36 Dose: 150 mcg Documented By: LM Lisinopril (Lisinopril 20 Mg Tablet) 20 mg PO DAILY [facility]; Protocol Last Admin: 03/10/22 08:31 Dose: 20 mg Documented By: LM Loratadine (Loratadine 10 Mg Tablet) 10 mg PO DAILY [facility] Last Admin: 03/10/22 08:30 Dose: 10 mg Documented By: LM Meclizine HCl (Meclizine Hcl 25 Mg Tablet) 25 mg PO Q6H [facility] Last Admin: 03/10/22 08:31 Dose: 25 mg Documented By: LM Montelukast Sodium (Montelukast Sodium 10 Mg Tablet) 10 mg PO BEDTIME [facility] Last Admin: 03/09/22 20:31 Dose: 10 mg Documented By: CHAPARRO Morphine Sulfate (Morphine Sulfate 4 Mg/Ml Cartridge) 4 mg IVPUSH Q4H PRN; Protocol PRN Reason: Pain, Severe (Pain Scale 7-10) Last Admin: 03/09/22 07:37 Dose: 4 mg Documented By: MANSOOR Multivitamins/Vitamin C (Multivitamin Tablet) 1 tab PO DAILY [facility] Last Admin: 03/10/22 08:31 Dose: 1 tab Documented By: LM Multivitamins/Vitamin C (Multivitamin Tablet) 1 tab PO DAILY [facility] Last Admin: 03/10/22 10:23 Dose: 1 tab Documented By: LM Ondansetron HCl (Ondansetron Hcl 4 Mg/2 Ml Vial) 4 mg IVPUSH Q8H PRN PRN Reason: Nausea and Vomiting Last Admin: 03/08/22 14:42 Dose: 4 mg Documented By: MALI Pravastatin Sodium (Pravastatin Sodium 20 Mg Tablet) 20 mg PO BEDTIME [facility] Last Admin: 03/09/22 20:37 Dose: 20 mg Documented By: CHAPARRO Sodium Chloride (0.9 % Sodium Chloride Flush 3 Ml Syringe) [facility] Last Admin: 03/10/22 08:32 Dose: 3 ml Documented By: LM Thiamine HCl (Thiamine Hcl 100 Mg Tablet) 100 mg PO DAILY [facility] Last Admin: 03/10/22 10:23 Dose: 100 mg Documented By: LM Labs CBC & Chem 7: 03/08/22 05:59 03/08/22 06:00 Labs: Laboratory Results - last 24 hr 03/09/22 03/09/22 03/10/22 15:31 19:43 08:06 POC Glucose 111 223 H 173 H 03/10/22 11:26 POC Glucose 238 H Assessment and Plan (1) Unsteadiness: Status: Acute Plan 61M presented with posterior headache and nausea and vomitting posterior headache with nausea and vomiting nausea /vomitin improoved headaches improving with Fioricet still dizziness/vertigo-seems similar to yesterday differential includes migraine, posterior cva less likely but will check MRI brain-seems fine ?neuro evaland neuro follow up noted :fioricet chnaged to tylenol , meclinzineprn ? ms symptoms: added mri cspine - There is no cord compression or central stenosis.has c6-c7 disc protusions lyme erology added patient possibly needs Lp in am -for MS vs inflamation DM inuslin htn lisinopril, amlodipine moderate persistent asthma symbicort nebs prn dvt prophylaxis - lovenox full code reason for continued hospitalization:vertiago ? MS -started on high dose iv steriods above is d/w patient and his in detail- they both understand and in agreement with above plan. Quality Stroke Does the patient have a stroke diagnosis?: No VTE Prior VTE?: No VTE Risk Level:: Medical - moderate - high VTE Device Contraindication: Treatment Not Indicated VTE Drug Contraindication: Treatment Not Indicated
[2022-03-10 16:11] LABS: Glucose, Whole Blood 154 mg/dL (60-115)
[2022-03-10] MEDS: Omeprazole 20 MG CAPSULE.DR PO (16:20)
[2022-03-10] MEDS: methylPREDNISolone Sod Succ 1,000 MG in 0.9 % Sodium Chloride 50 ML 66 MG IV (16:20)
[2022-03-10 19:56] LABS: Glucose, Whole Blood 213 mg/dL (60-115)
[2022-03-10] MEDS: Montelukast Sodium 10 MG TABLET PO (20:38)
[2022-03-10] MEDS: Pravastatin Sodium 20 MG TABLET PO (20:38)
[2022-03-10] MEDS: Insulin Glargine,Hum.rec.anlog 100 UNIT/ML 10 ML VIAL 10 UNIT SUBCUT (20:39)
[2022-03-11] VITALS (13 sets, daily range): BP systolic 112–130; BP diastolic 67–80; PULSE 81–105; RESP 16–20; TEMP 36.3–37.4; O2SAT 94–98
[2022-03-11] MEDS: Meclizine HCl 25 MG TABLET PO ×4 (03:42→19:33)
[2022-03-11] MEDS: Albuterol/Iprat 2.5/0.5MG 3 ML AMPUL.NEB INHALE ×4 (05:48→23:36)
[2022-03-11] MEDS: Omeprazole 20 MG CAPSULE.DR PO ×2 (05:53→16:43)
[2022-03-11] MEDS: Levothyroxine Sodium 150 MCG TABLET PO (05:53)
[2022-03-11 07:54] LABS: Glucose, Whole Blood 249 mg/dL (60-115)
--- NOTE | 2022-03-11 08:09 | PC.NURSE ---
Spoke to Dr. Rosenberg. Pt NPO with POC 249. Per Dr. Rosenberg insulin held. will continue to monitor.
[2022-03-11] MEDS: Fluticasone/Vilanterol 100/25 BLST.W.DEV 1 PUFF INHALE (08:24)
[2022-03-11 08:35] LABS: Hematocrit 40.6 % (42.0-52.0); Hemoglobin 13.6 g/dl (14.0-18.0); Mean Corpuscular HGB Conc 33.5 g/dl (31.0-36.0); Mean Corpuscular Hemoglobin 30.5 pg (27.0-33.0); Mean Platelet Volume 10.4 fL (9.4-12.4); Platelet Count 165 X10*3/uL (160-400); Red Blood Count 4.46 X10*6/uL (4.60-5.80); Red Cell Distribution Width 12.4 % (11.0-16.0); White Blood Count 7.8 X10*3/uL (4.8-10.8)
[2022-03-11 08:45] LABS: INTERNATIONAL NORM RATIO 1.1 (0.9-1.1); Prothrombin Time 12.1 SEC (9.9-13.0)
--- NOTE | 2022-03-11 08:48 | P.CDIC_ITS ---
CDI Concurrent Query Documentation Clarification: PHYSICIAN'S DOCUMENTATION REQUEST Date of Query: 03/11/22 0848 Patient Name: Duane Hernandez Admit Date: 03/06/22 Dear Doctor, Please review the following and provide your response in the progress notes. Clinical Indicators: The diagnosis of asthma was documented in the record: Risk Factors/Clinical Indicators/Treatments PN: Moderate persistent Asthma/dyspnea Symbicort, nebs prn Based on the above, please clarify in the Progress Notes further specificity regarding the type and acuity of the asthma: Specifics to the Asthma documented: Type: * Moderate persistent * Severe persistent * Other ? please specify * Unable to determine Acuity: * With acute exacerbation * With status asthmaticus * Uncomplicated * Unable to determine Use of terms such as suspected, likely, concern for, or probable (associated with a specific diagnosis that is being evaluated, monitored, or treated as if it exists) are acceptable and can be coded in the inpatient setting, when documented at the time of discharge. Thank you, Savita Atkinson [facility], [facility]IS Extension: [phone] Please use your independent medical judgment in providing your response. THIS QUERY IS PART OF THE PERMANENT MEDICAL RECORD Provider Response: Other Other Diagnosis: Moderate persistent asthma with acute excerebation.
[2022-03-11 09:00] LABS: Anion Gap 15 (12-20); Blood Urea Nitrogen 14 mg/dL (9-16); Calcium 9.5 mg/dL (8.4-10.2); Carbon Dioxide 22 mmol/L (22-29); Chloride 104 mmol/L (96-108); Creatinine Clr Calc Pharmacy 73.4; Estimated Glomerular Filt Rate > 60; Glucose Random 297 mg/dL (60-115); Potassium 4.8 mmol/L (3.3-5.1); Sodium 136 mmol/L (135-145)
[2022-03-11] MEDS: lisinopriL 20 MG TABLET PO (09:25)
[2022-03-11] MEDS: Multivitamin TABLET 1 TAB PO (09:25)
[2022-03-11] MEDS: Loratadine 10 MG TABLET PO (09:26)
[2022-03-11] MEDS: Folic Acid 1 MG TABLET PO (09:26)
[2022-03-11] MEDS: Thiamine HCL 100 MG TABLET PO (09:26)
[2022-03-11] MEDS: amLODIPine Besylate 5 MG TABLET PO (09:26)
[2022-03-11] MEDS: 0.9 % Sodium Chloride Flush 3 ML SYRINGE IVFLUSH ×2 (09:26→19:33)
[2022-03-11] MEDS: Acetaminophen 325 MG TABLET 975 MG PO (09:28)
[2022-03-11] MEDS: Fluticasone Propionate Nasal 16 GM SPRAY 2 SPRAY NOSTRIL-B (09:48)
[2022-03-11] MEDS: Insulin Lispro 100 UNIT/ML 3 ML VIAL SUBCUT ×4 (09:48→19:44)
[2022-03-11] MEDS: Lactated Ringers 1,000 ML 80 ML IVCONT ×2 (09:50→22:33)
[2022-03-11] MEDS: methylPREDNISolone Sod Succ 1,000 MG in 0.9 % Sodium Chloride 50 ML 66 MG IV (10:12)
--- NOTE | 2022-03-11 10:32 | P.PNIM_ITS ---
Subjective Subjective Date of Service: 03/11/22 Interval History: unsteadiness Review of Systems denies any chest pain or shortness of breath or abdominal pain or fever or chills or cough or phlegm. Still very unsteady even with standing. Physical Exam Vital Signs: Vital Signs: Last Vital Signs Temp 98.9 F 03/11/22 07:24 Pulse 102 H 03/11/22 08:26 Resp 16 03/11/22 08:26 BP 119/78 03/11/22 07:24 Pulse Ox 95 03/11/22 07:24 O2 Del Method 03/11/22 07:24 O2 Flow Rate 6 03/06/22 12:16 BMI result Body Mass Index 26.6 General: AO X 3, no acute distress Resp:? CTA bilateral, no accessory muscles used CVS: S1,S2,RRR GI: soft, non tender, non distended Neuro:? still unsteady sensation intact motor grossly intact, alert dtr fine, has nystagmus Psych: appropriate affect, appropriate insight? Objective Data Active Medications Acetaminophen (Acetaminophen 325 Mg Tablet) 975 mg PO Q6H PRN PRN Reason: Headache Last Admin: 03/11/22 09:28 Dose: 975 mg Documented By: SIDDHARTHA Albuterol Sulfate (Albuterol Sulfate (0.083%) 2.5 Mg/3 Ml Vial.Neb) 5 mg INHALE Q4H PRN PRN Reason: shortness of breath or wheezing Albuterol Sulfate (Albuterol Sulfate 90 Mcg 18 Gm Inhaler) 2 puff INHALE QID PRN PRN Reason: Shortness Of Breath Last Admin: 03/07/22 09:00 Dose: 2 puff Documented By: VANDA Albuterol/Ipratropium (Albuterol/Iprat 2.5/0.5mg 3 Ml Ampul.Neb) 3 ml INHALE RQ6H CARLOS Last Admin: 03/11/22 05:48 Dose: 3 ml Documented By: JOE Amlodipine Besylate (Amlodipine Besylate 5 Mg Tablet) 5 mg PO DAILY CARLOS; Protocol Last Admin: 03/11/22 09:26 Dose: 5 mg Documented By: SIDDHARTHA Dextrose (Dextrose 50 % 25 Gm/50 Ml Syringe) 25 gm IVPUSH Q15M PRN; Protocol PRN Reason: per Hypoglycemia Standing Ord. Enoxaparin Sodium (Enoxaparin Sodium 40 Mg/0.4 Ml Syringe) 40 mg SUBCUT Q24H [facility] Last Admin: 03/10/22 10:23 Dose: 40 mg Documented By: LM Fluticasone Propionate (Fluticasone Propionate Nasal 16 Gm [place]) 2 spray NOSTRIL-B DAILY [facility] Last Admin: 03/11/22 09:48 Dose: 2 spray Documented By: SIDDHARTHA Fluticasone/Vilanterol (Fluticasone/Vilanterol 100/25 Blst.W.Dev) 1 puff INHALE RDAILY [facility] Last Admin: 03/11/22 08:24 Dose: 1 puff Documented By: PUSHPA Folic Acid (Folic Acid 1 Mg Tablet) 1 mg PO DAILY [facility] Last Admin: 03/11/22 09:26 Dose: 1 mg Documented By: SIDDHARTHA Glucose (Glucose Gel 15 Gm Gel..Gram.) 15 gm PO Q15M PRN; Protocol PRN Reason: per Hypoglycemia Standing Ord. Guaifenesin (Guaifenesin La 600 Mg Tab.Er.12h) 600 mg PO BID PRN PRN Reason: Congestion Methylprednisolone Sodium Succinate 1,000 mg/ Sodium Chloride 66 mls @ 66 mls/hr IV DAILY [facility] Stop: 03/12/22 09:59 Last Admin: 03/11/22 10:12 Dose: 66 mls/hr Documented By: SIDDHARTHA Lactated Ringer's (Lr) 1,000 mls @ 80 mls/hr IVCONT .[id number] [facility] Last Admin: 03/11/22 09:50 Dose: 80 mls/hr Documented By: SIDDHARTHA Insulin Glargine (Insulin Glargine,Hum.Rec.Anlog 100 Unit/Ml 10 Ml Vial) 10 unit SUBCUT BEDTIME [facility] Last Admin: 03/10/22 20:39 Dose: 10 unit Documented By: LEONIDES Insulin Human Lispro (Insulin Lispro 100 Unit/Ml 3 Ml Vial) 0 unit SUBCUT QIDACHS [facility]; Protocol Last Admin: 03/11/22 09:48 Dose: 2 unit Documented By: SIDDHARTHA Comments: per Dr. Rosenberg Levothyroxine Sodium (Levothyroxine Sodium 150 Mcg Tablet) 150 mcg PO DAILY@0600 [facility] Last Admin: 03/11/22 05:53 Dose: 150 mcg Documented By: TATYANA Lisinopril (Lisinopril 20 Mg Tablet) 20 mg PO DAILY [facility]; Protocol Last Admin: 03/11/22 09:25 Dose: 20 mg Documented By: SIDDHARTHA Loratadine (Loratadine 10 Mg Tablet) 10 mg PO DAILY [facility] Last Admin: 03/11/22 09:26 Dose: 10 mg Documented By: SIDDHARTHA Meclizine HCl (Meclizine Hcl 25 Mg Tablet) 25 mg PO Q6H [facility] Last Admin: 03/11/22 09:26 Dose: 25 mg Documented By: SIDDHARTHA Montelukast Sodium (Montelukast Sodium 10 Mg Tablet) 10 mg PO BEDTIME [facility] Last Admin: 03/10/22 20:38 Dose: 10 mg Documented By: LEONIDES Morphine Sulfate (Morphine Sulfate 4 Mg/Ml Cartridge) 4 mg IVPUSH Q4H PRN; Protocol PRN Reason: Pain, Severe (Pain Scale 7-10) Last Admin: 03/09/22 07:37 Dose: 4 mg Documented By: MANSOOR Multivitamins/Vitamin C (Multivitamin Tablet) 1 tab PO DAILY [facility] Last Admin: 03/11/22 09:42 Dose: Not Given Documented By: SIDDHARTHA Non-Admin Reason: Duplicate Order Omeprazole (Omeprazole 20 Mg Capsule.Dr) 20 mg PO BID@0630,1630 [facility] Last Admin: 03/11/22 05:53 Dose: 20 mg Documented By: TATYANA Ondansetron HCl (Ondansetron Hcl 4 Mg/2 Ml Vial) 4 mg IVPUSH Q8H PRN PRN Reason: Nausea and Vomiting Last Admin: 03/08/22 14:42 Dose: 4 mg Documented By: MALI Pravastatin Sodium (Pravastatin Sodium 20 Mg Tablet) 20 mg PO BEDTIME [facility] Last Admin: 03/10/22 20:38 Dose: 20 mg Documented By: LEONIDES Sodium Chloride (0.9 % Sodium Chloride Flush 3 Ml Syringe) 3 ml IVFLUSH QSHIFT [facility] Last Admin: 03/11/22 09:26 Dose: 3 ml Documented By: SIDDHARTHA Thiamine HCl (Thiamine Hcl 100 Mg Tablet) 100 mg PO DAILY [facility] Last Admin: 03/11/22 09:26 Dose: 100 mg Documented By: SIDDHARTHA Labs CBC & Chem 7: 03/11/22 08:08 03/11/22 08:08 Labs: Laboratory Results - last 24 hr 03/10/22 03/10/22 03/10/22 11:26 15:28 19:15 MCV MCH MCHC RDW Plt Count MPV Absolute Nucleated RBC Nucleated RBC % (auto) PT INR Anion Gap Estim Creat Clear Calc Estimated GFR POC Glucose 238 H 154 H 213 H Random Glucose Calcium 03/11/22 03/11/22 03/11/22 07:23 08:08 08:08 MCV 91.0 MCH 30.5 MCHC 33.5 RDW 12.4 Plt Count 165 D MPV 10.4 Absolute Nucleated RBC 0.000 Nucleated RBC % (auto) 0.0 PT 12.1 INR 1.1 Anion Gap Estim Creat Clear Calc Estimated GFR POC Glucose 249 H Random Glucose Calcium 03/11/22 08:08 MCV MCH MCHC RDW Plt Count MPV Absolute Nucleated RBC Nucleated RBC % (auto) PT INR Anion Gap 15 Estim Creat Clear Calc 73.4 Estimated GFR > 60 POC Glucose Random Glucose 297 H D Calcium 9.5 D Assessment and Plan (1) Unsteadiness: Status: Acute Plan 61M presented with posterior headache and nausea and vomitting posterior headache with nausea and vomiting nausea /vomitin improoved headaches improving with Fioricet still dizziness/vertigo-seems similar to yesterday differential includes migraine, posterior cva less likely but will check MRI brain-seems fine ?neuro evaland neuro follow up noted :fioricet chnaged to tylenol , meclinzineprn ? ms symptoms: added mri cspine - There is no cord compression or central stenosis.has c6-c7 disc protusions lyme erology added needs Lp today -for MS vs inflamation DM inuslin htn lisinopril, amlodipine moderate persistent asthma symbicort nebs prn dvt prophylaxis - lovenox full code reason for continued hospitalization:vertiago ? MS -started on high dose iv steriods above is d/w patient and his in detail- they both understand and in agreement with above plan. Quality Stroke Does the patient have a stroke diagnosis?: No VTE Prior VTE?: No VTE Risk Level:: Medical - moderate - high VTE Device Contraindication: Treatment Not Indicated VTE Drug Contraindication: Treatment Not Indicated
[2022-03-11 12:07] LABS: Glucose, Whole Blood 230 mg/dL (60-115)
[2022-03-11 12:41] LABS: Glucose CSF 167 mg/dL; Total Protein CSF 158.8 mg/dL (15-45)
[2022-03-11 12:50] LABS: CSF Appearance Bloody; CSF Tube # 1
[2022-03-11 13:47] LABS: Appearance CSF HAZY; CSF Tube # 4; Color CSF PINK
[2022-03-11 13:48] LABS: Lymphocytes CSF 18 %; Neutrophils CSF 50 %; Red Blood Cell CSF 2025 MM*3; White Blood Cell CSF 2 MM*3
[2022-03-11 13:49] LABS: CSF Monos 32 %
[2022-03-11 14:00] LABS: Cryptococcus neoformans/gattii Not Detected (Not Detect.); Enterovirus Not Detected (Not Detect.); Escherichia coli K1 Not Detected (Not Detect.); Haemophilus influenzae Not Detected (Not Detect.); Herpes simplex virus 1 Not Detected (Not Detect.); Herpes simplex virus 2 Not Detected (Not Detect.); Human herpesvirus 6 Not Detected (Not Detect.); Human parechovirus Not Detected (Not Detect.); Listeria monocytogenes Not Detected (Not Detect.); Neisseria meningitidis Not Detected (Not Detect.); Streptococcus agalactiae Not Detected (Not Detect.); Streptococcus pneumoniae Not Detected (Not Detect.); Varicella zoster virus Not Detected (Not Detect.)
[2022-03-11 15:40] LABS: Glucose, Whole Blood 325 mg/dL (60-115)
[2022-03-11] MEDS: Pravastatin Sodium 20 MG TABLET PO (19:33)
[2022-03-11] MEDS: Montelukast Sodium 10 MG TABLET PO (19:33)
[2022-03-11] MEDS: Morphine Sulfate 4 MG/ML CARTRIDGE IVPUSH (19:43)
[2022-03-11] MEDS: Insulin Glargine,Hum.rec.anlog 100 UNIT/ML 10 ML VIAL 10 UNIT SUBCUT (19:44)
[2022-03-11 19:46] LABS: Glucose, Whole Blood 404 mg/dL (60-115)
--- NOTE | 2022-03-11 20:09 | PC.NURSE ---
Addendum entered by Nicki Maxwell RN 03/12/22 02:09: Pt asked for Benadryl for sleep earlier this evening, Dr. Giang was made aware, Benadryl 25 mg 1 tab po given. Revisited pt around 2am and seen pt awake and claimed he needs 2 tabs of Benadryl in order to sleep, Dr. Giang was informed , another Benadryl tab given. Original Note: Pt [id number] Dr. Giang was made aware, Lispro 10 units given.
[2022-03-11] MEDS: diphenhydrAMINE HCL 25 MG TABLET PO (22:38)
[2022-03-12] VITALS (11 sets, daily range): BP systolic 110–127; BP diastolic 61–78; PULSE 75–102; RESP 14–18; TEMP 36.5–37.2; O2SAT 95–99
[2022-03-12] MEDS: diphenhydrAMINE HCL 25 MG TABLET PO (02:12)
[2022-03-12] MEDS: Meclizine HCl 25 MG TABLET PO ×2 (02:16→07:54)
[2022-03-12] MEDS: Albuterol/Iprat 2.5/0.5MG 3 ML AMPUL.NEB INHALE ×3 (05:19→21:20)
[2022-03-12] MEDS: Levothyroxine Sodium 150 MCG TABLET PO (05:30)
[2022-03-12] MEDS: Omeprazole 20 MG CAPSULE.DR PO ×2 (05:30→16:47)
[2022-03-12 05:55] LABS: Hematocrit 35.2 % (42.0-52.0); Hemoglobin 11.6 g/dl (14.0-18.0); Mean Corpuscular Hemoglobin 30.3 pg (27.0-33.0); Mean Corpuscular Volume 91.9 fL (80.0-98.0); Mean Platelet Volume 10.6 fL (9.4-12.4); Platelet Count 173 X10*3/uL (160-400); Red Blood Count 3.83 X10*6/uL (4.60-5.80); Red Cell Distribution Width 12.5 % (11.0-16.0); White Blood Count 8.2 X10*3/uL (4.8-10.8)
[2022-03-12 06:17] LABS: Anion Gap 13 (12-20); Blood Urea Nitrogen 13 mg/dL (9-16); Calcium 8.7 mg/dL (8.4-10.2); Carbon Dioxide 24 mmol/L (22-29); Chloride 106 mmol/L (96-108); Creatinine Clr Calc Pharmacy 83.4; Estimated Glomerular Filt Rate > 60; Glucose Random 325 mg/dL (60-115); Potassium 4.9 mmol/L (3.3-5.1); Sodium 138 mmol/L (135-145)
[2022-03-12 07:35] LABS: Glucose, Whole Blood 252 mg/dL (60-115)
[2022-03-12 07:37] LABS: Oligoclonal Serum Yes
[2022-03-12] MEDS: Fluticasone Propionate Nasal 16 GM SPRAY 2 SPRAY NOSTRIL-B (07:53)
[2022-03-12] MEDS: Thiamine HCL 100 MG TABLET PO (07:54)
[2022-03-12] MEDS: Multivitamin TABLET 1 TAB PO (07:54)
[2022-03-12] MEDS: Folic Acid 1 MG TABLET PO (07:54)
[2022-03-12] MEDS: lisinopriL 20 MG TABLET PO (07:54)
[2022-03-12] MEDS: amLODIPine Besylate 5 MG TABLET PO (07:54)
[2022-03-12] MEDS: Loratadine 10 MG TABLET PO (07:54)
[2022-03-12] MEDS: Insulin Lispro 100 UNIT/ML 3 ML VIAL SUBCUT ×4 (07:55→22:08)
[2022-03-12] MEDS: Lactated Ringers 1,000 ML 80 ML IVCONT ×2 (08:01→20:13)
[2022-03-12 08:37] LABS: Lyme Abs Screen <0.90 index
[2022-03-12] MEDS: Fluticasone/Vilanterol 100/25 BLST.W.DEV 1 PUFF INHALE (08:48)
--- NOTE | 2022-03-12 10:53 | HO.PM.IMPN ---
Subjective Subjective Date of Service: 03/12/22 <Gabriela Galaviz NP - Last Filed: 03/12/22 11:02> 03/22/22 <Braeden Alvarenga MD - Last Filed: 03/22/22 09:33> Review of Systems Follow up dizziness and headache last night had headache, still with some dizziness today <Gabriela Galaviz NP - Last Filed: 03/12/22 11:02> Physical Exam Vital Signs: Vital Signs: Last Vital Signs Temp 99.0 F 03/12/22 07:37 Pulse 92 03/12/22 08:51 Resp 14 03/12/22 08:51 BP 114/73 03/12/22 07:37 Pulse Ox 96 03/12/22 07:37 O2 Del Method 03/12/22 07:37 O2 Flow Rate 6 03/06/22 12:16 BMI result Body Mass Index 26.6 <Garbiela Galaviz NP - Last Filed: 03/12/22 11:02> Appearing in no acute distress lung sounds are clear to auscultation heart regular rate rhythm, clear S1, S2 positive bowel sounds, abdomen is soft, nontender neuro patient is alert x3, no focal deficits neg nystagmus <Gabriela Galaviz NP - Last Filed: 03/12/22 11:02> Objective Data Active Medications Acetaminophen (Acetaminophen 325 Mg Tablet) 975 mg PO Q6H PRN PRN Reason: Headache Last Admin: 03/11/22 09:28 Dose: 975 mg Documented By: SIDDHARTHA Albuterol Sulfate (Albuterol Sulfate (0.083%) 2.5 Mg/3 Ml Vial.Neb) 5 mg INHALE Q4H PRN PRN Reason: shortness of breath or wheezing Albuterol Sulfate (Albuterol Sulfate 90 Mcg 18 Gm Inhaler) 2 puff INHALE QID PRN PRN Reason: Shortness Of Breath Last Admin: 03/07/22 09:00 Dose: 2 puff Documented By: VANDA Albuterol/Ipratropium (Albuterol/Iprat 2.5/0.5mg 3 Ml Ampul.Neb) 3 ml INHALE RQ6H [facility] Last Admin: 03/12/22 05:19 Dose: 3 ml Documented By: JOE Amlodipine Besylate (Amlodipine Besylate 5 Mg Tablet) 5 mg PO DAILY [facility]; Protocol Last Admin: 03/12/22 07:54 Dose: 5 mg Documented By: XIOMY Dextrose (Dextrose 50 % 25 Gm/50 Ml Syringe) 25 gm IVPUSH Q15M PRN; Protocol PRN Reason: per Hypoglycemia Standing Ord. Diphenhydramine HCl (Diphenhydramine Hcl 25 Mg Tablet) 25 mg PO BEDTIME PRN PRN Reason: sleep Last Admin: 03/12/22 02:12 Dose: 25 mg Documented By: REGLA Comments: Dr. Giang agreed to give another tab as per pt's request. Enoxaparin Sodium (Enoxaparin Sodium 40 Mg/0.4 Ml Syringe) 40 mg SUBCUT Q24H [facility] Last Admin: 03/10/22 10:23 Dose: 40 mg Documented By: LM Fluticasone Propionate (Fluticasone Propionate Nasal 16 Gm [place]) 2 spray NOSTRIL-B DAILY [facility] Last Admin: 03/12/22 07:53 Dose: 2 spray Documented By: XIOMY Fluticasone/Vilanterol (Fluticasone/Vilanterol 100/25 Blst.W.Dev) 1 puff INHALE RDAILY [facility] Last Admin: 03/12/22 08:48 Dose: 1 puff Documented By: PUSHPA Folic Acid (Folic Acid 1 Mg Tablet) 1 mg PO DAILY [facility] Last Admin: 03/12/22 07:54 Dose: 1 mg Documented By: XIOMY Glucose (Glucose Gel 15 Gm Gel..Gram.) 15 gm PO Q15M PRN; Protocol PRN Reason: per Hypoglycemia Standing Ord. Guaifenesin (Guaifenesin La 600 Mg Tab.Er.12h) 600 mg PO BID PRN PRN Reason: Congestion Lactated Ringer's (Lr) 1,000 mls @ 80 mls/hr IVCONT .[id number] [facility] Last Admin: 03/12/22 08:01 Dose: 80 mls/hr Documented By: XIOMY Insulin Glargine (Insulin Glargine,Hum.Rec.Anlog 100 Unit/Ml 10 Ml Vial) 10 unit SUBCUT BEDTIME [facility] Last Admin: 03/11/22 19:44 Dose: 10 unit Documented By: REGLA Insulin Human Lispro (Insulin Lispro 100 Unit/Ml 3 Ml Vial) 0 unit SUBCUT QIDACHS [facility]; Protocol Last Admin: 03/12/22 07:55 Dose: 6 unit Documented By: XIOMY Levothyroxine Sodium (Levothyroxine Sodium 150 Mcg Tablet) 150 mcg PO DAILY@0600 [facility] Last Admin: 03/12/22 05:30 Dose: 150 mcg Documented By: REGLA Lisinopril (Lisinopril 20 Mg Tablet) 20 mg PO DAILY [facility]; Protocol Last Admin: 03/12/22 07:54 Dose: 20 mg Documented By: XIOMY Loratadine (Loratadine 10 Mg Tablet) 10 mg PO DAILY [facility] Last Admin: 03/12/22 07:54 Dose: 10 mg Documented By: XIOMY Meclizine HCl (Meclizine Hcl 25 Mg Tablet) 25 mg PO Q6H [facility] Last Admin: 03/12/22 07:54 Dose: 25 mg Documented By: XIOMY Montelukast Sodium (Montelukast Sodium 10 Mg Tablet) 10 mg PO BEDTIME [facility] Last Admin: 03/11/22 19:33 Dose: 10 mg Documented By: REGLA Morphine Sulfate (Morphine Sulfate 4 Mg/Ml Cartridge) 4 mg IVPUSH Q4H PRN; Protocol PRN Reason: Pain, Severe (Pain Scale 7-10) Last Admin: 03/11/22 19:43 Dose: 4 mg Documented By: REGLA Multivitamins/Vitamin C (Multivitamin Tablet) 1 tab PO DAILY [facility] Last Admin: 03/12/22 07:54 Dose: 1 tab Documented By: XIOMY Omeprazole (Omeprazole 20 Mg Capsule.Dr) 20 mg PO BID@0630,1630 [facility] Last Admin: 03/12/22 05:30 Dose: 20 mg Documented By: REGLA Ondansetron HCl (Ondansetron Hcl 4 Mg/2 Ml Vial) 4 mg IVPUSH Q8H PRN PRN Reason: Nausea and Vomiting Last Admin: 03/08/22 14:42 Dose: 4 mg Documented By: MALI Pravastatin Sodium (Pravastatin Sodium 20 Mg Tablet) 20 mg PO BEDTIME [facility] Last Admin: 03/11/22 19:33 Dose: 20 mg Documented By: REGLA Sodium Chloride (0.9 % Sodium Chloride Flush 3 Ml Syringe) 3 ml IVFLUSH QSHIFT [facility] Last Admin: 03/12/22 07:53 Dose: Not Given Documented By: XIOMY Non-Admin Reason: IV Running Thiamine HCl (Thiamine Hcl 100 Mg Tablet) 100 mg PO DAILY [facility] Last Admin: 03/12/22 07:54 Dose: 100 mg Documented By: XIOMY <Gabriela Galaviz, FLOW MANAGER - Last Filed: 03/12/22 11:02> Labs CBC & Chem 7: : 03/15/22 06:06 03/22/22 05:59 <Gabriela Galaviz FLOW MANAGER - Last Filed: 03/12/22 11:02> Labs: Laboratory Results - last 24 hr 03/10/22 03/11/22 03/11/22 13:43 11:15 11:15 MCV MCH MCHC RDW Plt Count MPV Absolute Nucleated RBC Nucleated RBC % (auto) Anion Gap Estim Creat Clear Calc Estimated GFR POC Glucose Random Glucose Calcium CSF Tube Number 1 CSF Volume CSF Appearance CSF Color CSF WBC CSF RBC CSF Neutrophils CSF Lymphocytes CSF Monocytes % CSF Appearance (b) Bloody CSF Glucose 167 CSF Total Protein 158.8 H CSF C.neoform/gat PCR Not Detected CSF CMV DNA (PCR) Not Detected CSF Enterovirus (PCR) Not Detected CSF E. coli K1 (PCR) Not Detected CSF H. influenzae (PCR) Not Detected CSF HSV I (PCR) Not Detected CSF HSV II (PCR) Not Detected CSF L.monocytogenes PCR Not Detected CSF N. meningitidis PCR Not Detected CSF Parechovirus (PCR) Not Detected CSF S. agalactiae (PCR) Not Detected CSF S. pneumoniae (PCR) Not Detected CSF VZV (PCR) Not Detected Lyme Screen IgG & IgM <0.90 HHV-6 (PCR) Not Detected 03/11/22 03/11/22 03/11/22 11:15 11:53 15:36 MCV MCH MCHC RDW Plt Count MPV Absolute Nucleated RBC Nucleated RBC % (auto) Anion Gap Estim Creat Clear Calc Estimated GFR POC Glucose 230 H 325 H Random Glucose Calcium CSF Tube Number 4 CSF Volume 1.0 CSF Appearance HAZY CSF Color PINK CSF WBC 2 CSF RBC 2025 CSF Neutrophils 50 CSF Lymphocytes 18 CSF Monocytes % 32 CSF Appearance (b) CSF Glucose CSF Total Protein CSF C.neoform/gat PCR CSF CMV DNA (PCR) CSF Enterovirus (PCR) CSF E. coli K1 (PCR) CSF H. influenzae (PCR) CSF HSV I (PCR) CSF HSV II (PCR) CSF L.monocytogenes PCR CSF N. meningitidis PCR CSF Parechovirus (PCR) CSF S. agalactiae (PCR) CSF S. pneumoniae (PCR) CSF VZV (PCR) Lyme Screen IgG & IgM HHV-6 (PCR) 03/11/22 03/12/22 03/12/22 19:34 05:23 05:23 MCV 91.9 MCH 30.3 MCHC 33.0 RDW 12.5 Plt Count 173 MPV 10.6 Absolute Nucleated RBC 0.000 Nucleated RBC % (auto) 0.0 Anion Gap 13 Estim Creat Clear Calc 83.4 Estimated GFR > 60 POC Glucose 404 H* Random Glucose 325 H Calcium 8.7 D CSF Tube Number CSF Volume CSF Appearance CSF Color CSF WBC CSF RBC CSF Neutrophils CSF Lymphocytes CSF Monocytes % CSF Appearance (b) CSF Glucose CSF Total Protein CSF C.neoform/gat PCR CSF CMV DNA (PCR) CSF Enterovirus (PCR) CSF E. coli K1 (PCR) CSF H. influenzae (PCR) CSF HSV I (PCR) CSF HSV II (PCR) CSF L.monocytogenes PCR CSF N. meningitidis PCR CSF Parechovirus (PCR) CSF S. agalactiae (PCR) CSF S. pneumoniae (PCR) CSF VZV (PCR) Lyme Screen IgG & IgM HHV-6 (PCR) 03/12/22 07:20 MCV MCH MCHC RDW Plt Count MPV Absolute Nucleated RBC Nucleated RBC % (auto) Anion Gap Estim Creat Clear Calc Estimated GFR POC Glucose 252 H Random Glucose Calcium CSF Tube Number CSF Volume CSF Appearance CSF Color CSF WBC CSF RBC CSF Neutrophils CSF Lymphocytes CSF Monocytes % CSF Appearance (b) CSF Glucose CSF Total Protein CSF C.neoform/gat PCR CSF CMV DNA (PCR) CSF Enterovirus (PCR) CSF E. coli K1 (PCR) CSF H. influenzae (PCR) CSF HSV I (PCR) CSF HSV II (PCR) CSF L.monocytogenes PCR CSF N. meningitidis PCR CSF Parechovirus (PCR) CSF S. agalactiae (PCR) CSF S. pneumoniae (PCR) CSF VZV (PCR) Lyme Screen IgG & IgM HHV-6 (PCR) <Gabriela Galaviz NP - Last Filed: 03/12/22 11:02> Microbiology Microbiology Results: Microbiology 03/11/22 11:15 Gram Stain - Final Cerebrospinal Fluid CSF Examination - Final Fluid Description - Final <Gabriela Galaviz NP - Last Filed: 03/12/22 11:02> Assessment and Plan (1) Unsteadiness: Status: Acute <Gabriela Galaviz NP - Last Filed: 03/12/22 11:02> Assessment and Plan: 61M presented with posterior headache and nausea and vomitting with differential diagnosis including migraine, demyelinating disease versus infection Posterior headache with nausea and vomiting still with dizziness and headache overnight brain and cervical spine MRI neg Lyme pending high protein in CSF ? viral headaches improving with Fioricet dizziness/vertigo, continue meclizine neuro eval, ID consult pending IV steroids stopped (? MS) not much improvement after a few days DM 2 SS, ADA diet htn lisinopril, amlodipine moderate persistent asthma symbicort nebs prn dvt prophylaxis - lovenox Attending Colette De Souza full code Continued hospitalization for treatment of vertigo/ dizziness and severe headaches necessitating IV pain medication and further follow-up for definitive diagnosis <Gabriela Galaviz NP - Last Filed: 03/12/22 11:02> Quality Stroke Does the patient have a stroke diagnosis?: No <Gabriela Galaviz NP - Last Filed: 03/12/22 11:02> VTE Prior VTE?: No <Gabriela Galaviz NP - Last Filed: 03/12/22 11:02> VTE Risk Level:: Medical - moderate - high <Gabriela Galaviz NP - Last Filed: 03/12/22 11:02> VTE Device Contraindication: Treatment Not Indicated <Gabriela Galaviz NP - Last Filed: 03/12/22 11:02> VTE Drug Contraindication: Treatment Not Indicated <Gabriela Galaviz NP - Last Filed: 03/12/22 11:02>
[2022-03-12 10:54] LABS: Glucose, Whole Blood 283 mg/dL (60-115)
--- NOTE | 2022-03-12 14:07 | W.PM.IDCN ---
History of Present Illness Data of Consult Service Date: 03/12/22 Requesting physician: Gabriela Galaviz Primary Care Provider: Saul Orta MD HPI Reason for consult: elevated protein in CSF He presents with headache ,posterior as well as fatigue. He had influenza A and had hypoxia as well and was hospitalized 02/12-02/23. He has nausea as well as 7/10 posterior head pain. Nothing significant on imaging Review of Systems Review of Systems: Yes all other systems are reviewed and are negative PMFSH Past Medical History Medical History Asthma Bronchitis Hypertension Hypothyroidism New onset type 2 diabetes mellitus Family History Family History Other No family history of coronary artery disease Surgical History Surgical History No pertinent past surgical history Social History Social History Household Members: Other Household Members Other:: nephew Housing: House Do you presently have visiting nurse or other home services: No Alcohol intake: former Patient Tobacco Use Status: Former Tobacco user Use of substances other than those prescribed or required for medical reasons: No Currently Displaying Signs/Symptoms of Drug Intoxication Withdrawal: No Have you been hit, kicked, punched, or otherwise hurt by someone within the past year? If so, by whom?: No Do you feel safe in your current relationship?: Yes Is there a partner from a previous relationship who is making you feel unsafe now?: No Are you made to feel afraid or neglected: No Spiritual Healthcare Practices: none Buddhist Healthcare Practices: none Cultural Healthcare Practices: none Advance Directives: No Advance Directives Information Provided: No Do you have thoughts of harming others: None Do you have a plan to hurt others: No Plan Recently lost weight without trying: Yes How much weight loss: 14-23 pounds Eating poorly because of decreased appetite: No Nutrition screen score: 4 Nutrition Risks: No Nutritional Risk Poor oral hygiene: No service: No Current occupational status: unemployed Meds Allergies Allergy/AdvReac Type Severity Reaction Status Date / Time No Known Allergies Allergy Verified 09/07/21 10:08 Active Medications: Current Medications Acetaminophen (Acetaminophen 325 Mg Tablet) 975 mg PO Q6H PRN PRN Reason: Headache Last Admin: 03/11/22 09:28 Dose: 975 mg Albuterol Sulfate (Albuterol Sulfate (0.083%) 2.5 Mg/3 Ml Vial.Neb) 5 mg INHALE Q4H PRN PRN Reason: shortness of breath or wheezing Albuterol Sulfate (Albuterol Sulfate 90 Mcg 18 Gm Inhaler) 2 puff INHALE QID PRN PRN Reason: Shortness Of Breath Last Admin: 03/07/22 09:00 Dose: 2 puff Albuterol/Ipratropium (Albuterol/Iprat 2.5/0.5mg 3 Ml Ampul.Neb) 3 ml INHALE RQ6H [facility] Last Admin: 03/12/22 11:44 Dose: 3 ml Amlodipine Besylate (Amlodipine Besylate 5 Mg Tablet) 5 mg PO DAILY [facility]; Protocol Last Admin: 03/12/22 07:54 Dose: 5 mg Dextrose (Dextrose 50 % 25 Gm/50 Ml Syringe) 25 gm IVPUSH Q15M PRN; Protocol PRN Reason: per Hypoglycemia Standing Ord. Diphenhydramine HCl (Diphenhydramine Hcl 25 Mg Tablet) 25 mg PO BEDTIME PRN PRN Reason: sleep Last Admin: 03/12/22 02:12 Dose: 25 mg Enoxaparin Sodium (Enoxaparin Sodium 40 Mg/0.4 Ml Syringe) 40 mg SUBCUT Q24H [facility] Last Admin: 03/10/22 10:23 Dose: 40 mg Fluticasone Propionate (Fluticasone Propionate Nasal 16 Gm [place]) 2 spray NOSTRIL-B DAILY [facility] Last Admin: 03/12/22 07:53 Dose: 2 spray Fluticasone/Vilanterol (Fluticasone/Vilanterol 100/25 Blst.W.Dev) 1 puff INHALE RDAILY [facility] Last Admin: 03/12/22 08:48 Dose: 1 puff Folic Acid (Folic Acid 1 Mg Tablet) 1 mg PO DAILY [facility] Last Admin: 03/12/22 07:54 Dose: 1 mg Glucose (Glucose Gel 15 Gm Gel..Gram.) 15 gm PO Q15M PRN; Protocol PRN Reason: per Hypoglycemia Standing Ord. Guaifenesin (Guaifenesin La 600 Mg Tab.Er.12h) 600 mg PO BID PRN PRN Reason: Congestion Lactated Ringer's (Lr) 1,000 mls @ 80 mls/hr IVCONT .[id number] [facility] Last Admin: 03/12/22 08:01 Dose: 80 mls/hr Insulin Glargine (Insulin Glargine,Hum.Rec.Anlog 100 Unit/Ml 10 Ml Vial) 10 unit SUBCUT BEDTIME [facility] Last Admin: 03/11/22 19:44 Dose: 10 unit Insulin Human Lispro (Insulin Lispro 100 Unit/Ml 3 Ml Vial) 0 unit SUBCUT QIDACHS [facility]; Protocol Last Admin: 03/12/22 12:41 Dose: 6 unit Levothyroxine Sodium (Levothyroxine Sodium 150 Mcg Tablet) 150 mcg PO DAILY@0600 [facility] Last Admin: 03/12/22 05:30 Dose: 150 mcg Lisinopril (Lisinopril 20 Mg Tablet) 20 mg PO DAILY [facility]; Protocol Last Admin: 03/12/22 07:54 Dose: 20 mg Loratadine (Loratadine 10 Mg Tablet) 10 mg PO DAILY [facility] Last Admin: 03/12/22 07:54 Dose: 10 mg Meclizine HCl (Meclizine Hcl 25 Mg Tablet) 25 mg PO Q6H [facility] Last Admin: 03/12/22 07:54 Dose: 25 mg Montelukast Sodium (Montelukast Sodium 10 Mg Tablet) 10 mg PO BEDTIME [facility] Last Admin: 03/11/22 19:33 Dose: 10 mg Morphine Sulfate (Morphine Sulfate 4 Mg/Ml Cartridge) 4 mg IVPUSH Q4H PRN; Protocol PRN Reason: Pain, Severe (Pain Scale 7-10) Last Admin: 03/11/22 19:43 Dose: 4 mg Multivitamins/Vitamin C (Multivitamin Tablet) 1 tab PO DAILY [facility] Last Admin: 03/12/22 07:54 Dose: 1 tab Omeprazole (Omeprazole 20 Mg Capsule.Dr) 20 mg PO BID@0630,1630 [facility] Last Admin: 03/12/22 05:30 Dose: 20 mg Ondansetron HCl (Ondansetron Hcl 4 Mg/2 Ml Vial) 4 mg IVPUSH Q8H PRN PRN Reason: Nausea and Vomiting Last Admin: 03/08/22 14:42 Dose: 4 mg Pravastatin Sodium (Pravastatin Sodium 20 Mg Tablet) 20 mg PO BEDTIME [facility] Last Admin: 03/11/22 19:33 Dose: 20 mg Sodium Chloride (0.9 % Sodium Chloride Flush 3 Ml Syringe) 3 ml IVFLUSH QSHIFT [facility] Last Admin: 03/12/22 07:53 Dose: Not Given Thiamine HCl (Thiamine Hcl 100 Mg Tablet) 100 mg PO DAILY [facility] Last Admin: 03/12/22 07:54 Dose: 100 mg Home Medications Medication Instructions Recorded Confirmed Last Taken Type amlodipine 5 mg tablet 1 tab PO DAILY 02/13/22 03/06/22 03/06/22 History levalbuterol tartrate 45 2 puff inhalation QID PRN 02/13/22 03/06/22 Unknown History mcg/actuation aerosol inhaler Shortness Of Breath (Xopenex HFA) levothyroxine 150 mcg tablet 1 tab PO DAILY@0600 02/13/22 03/06/22 03/06/22 History (Euthyrox) lovastatin 20 mg tablet 1 tab PO DAILY 02/13/22 03/06/22 03/06/22 History montelukast 10 mg tablet 1 tab PO DAILY 02/13/22 03/06/22 03/06/22 History budesonide-formoterol HFA 80 2 puff inhalation BID 03/06/22 03/06/22 03/06/22 History mcg-4.5 mcg/actuation aerosol inhaler (Symbicort) cetirizine 10 mg tablet 1 tab PO DAILY 03/06/22 03/06/22 03/06/22 History fluticasone propionate 50 2 spray intranasal DAILY 03/06/22 03/06/22 03/06/22 History mcg/actuation nasal spray,suspension guaifenesin 600 mg tablet, 600 mg PO BID PRN Congestion 03/06/22 03/06/22 Unknown History extended release 12 hr (Mucinex) lisinopril 20 mg tablet 1 tab PO DAILY 03/06/22 03/06/22 03/06/22 History multivitamin 1 tab PO DAILY 03/06/22 03/06/22 03/06/22 History prednisone 10 mg tablet 10 mg PO DAILY 03/06/22 03/06/22 03/06/22 History Physical Exam Vital Signs: Vital Signs: Last Vital Signs Temp 98.5 F 03/12/22 11:59 Pulse 86 03/12/22 11:59 Resp 18 03/12/22 11:59 BP 118/76 03/12/22 11:59 Pulse Ox 97 03/12/22 11:59 O2 Del Method 03/12/22 11:59 O2 Flow Rate 6 03/06/22 12:16 BMI result Body Mass Index 26.6 Const: Orientation/consciousness: patient oriented x3 HEENT: Head: Yes normal to inspection Mouth: Normal oral and palatal mucosa present Resp: Effort & Inspection: normal respiratory effort Cardio: Rate: regular rate Rhythm: regular rhythm GI: Palpation (GI): Soft to palpation and nontender Neuro: General: patient oriented x3 Results Labs CBC & Chem 7: 03/12/22 05:23 03/12/22 05:23 Labs: Short CBC 03/12/22 Range/Units 05:23 WBC 8.2 (4.8-10.8) X10*3/uL Hgb 11.6 L (14.0-18.0) g/dl Hct 35.2 L (42.0-52.0) % Plt Count 173 (160-400) X10*3/uL BMP 03/12/22 05:23 Sodium 138 Potassium 4.9 Chloride 106 Carbon Dioxide 24 BUN 13 Creatinine 0.88 Calcium 8.7 D Microbiology Microbiology Results: Microbiology 03/11/22 11:15 Cerebrospinal Fluid Gram Stain - Final 03/11/22 11:15 Cerebrospinal Fluid CSF Examination - Final 03/11/22 11:15 Cerebrospinal Fluid Fluid Description - Final 03/11/22 11:15 Cerebrospinal Fluid CSF Culture - Preliminary No growth after 1 day Assessment and Plan (1) Headache: Status: Acute There doesnt seem to be any infectious cause for headache. He has had flu A ,and doesnt seem to be Guillain [place] or acute disseminated encephalomyelitis (2) Dizziness: Status: Acute Plan Check HIV Neurology evaluaton.
[2022-03-12 16:37] LABS: Glucose, Whole Blood 224 mg/dL (60-115)
[2022-03-12] MEDS: 0.9 % Sodium Chloride Flush 3 ML SYRINGE IVFLUSH (16:47)
[2022-03-12 20:28] LABS: Glucose, Whole Blood 155 mg/dL (60-115)
[2022-03-12] MEDS: Montelukast Sodium 10 MG TABLET PO (21:49)
[2022-03-12] MEDS: Acetaminophen 325 MG TABLET 975 MG PO (21:49)
[2022-03-12] MEDS: Insulin Glargine,Hum.rec.anlog 100 UNIT/ML 10 ML VIAL 10 UNIT SUBCUT (21:49)
[2022-03-12] MEDS: Pravastatin Sodium 20 MG TABLET PO (21:49)
[2022-03-12] MEDS: Morphine Sulfate 4 MG/ML CARTRIDGE IVPUSH (21:56)
[2022-03-13] VITALS (11 sets, daily range): BP systolic 104–128; BP diastolic 59–70; PULSE 78–109; RESP 16–26; TEMP 37–39.2; O2SAT 94–98
[2022-03-13] MEDS: diphenhydrAMINE HCL 25 MG TABLET PO (01:13)
[2022-03-13 04:12] LABS: HIV AB/AG Nonreactive (Nonreactive); HIV Num 1 0.07 S/CO (0.00-0.99)
[2022-03-13] MEDS: Albuterol/Iprat 2.5/0.5MG 3 ML AMPUL.NEB INHALE ×3 (04:26→15:24)
[2022-03-13] MEDS: Omeprazole 20 MG CAPSULE.DR PO ×2 (05:23→17:38)
[2022-03-13] MEDS: Levothyroxine Sodium 150 MCG TABLET PO (05:23)
[2022-03-13] MEDS: Morphine Sulfate 4 MG/ML CARTRIDGE IVPUSH (06:42)
[2022-03-13] MEDS: Lactated Ringers 1,000 ML 80 ML IVCONT (06:42)
[2022-03-13 07:42] LABS: Glucose, Whole Blood 98 mg/dL (60-115)
[2022-03-13] MEDS: ondansetron HCL 4 MG/2 ML VIAL IVPUSH (08:40)
[2022-03-13] MEDS: amLODIPine Besylate 5 MG TABLET PO (08:42)
[2022-03-13] MEDS: Multivitamin TABLET 1 TAB PO (08:42)
[2022-03-13] MEDS: lisinopriL 20 MG TABLET PO (08:42)
[2022-03-13] MEDS: Folic Acid 1 MG TABLET PO (08:42)
[2022-03-13] MEDS: Thiamine HCL 100 MG TABLET PO (08:42)
[2022-03-13] MEDS: Loratadine 10 MG TABLET PO (08:42)
--- NOTE | 2022-03-13 09:45 | P.PNIM_ITS ---
Subjective Subjective Date of Service: 03/13/22 <Gabriela Galaviz NP - Last Filed: 03/13/22 17:09> 03/22/22 <Braeden Alvarenga MD - Last Filed: 03/22/22 09:34> Review of Systems Follow up dizziness and headache still with some dizziness today, feeling worse today <Gabriela Galaviz NP - Last Filed: 03/13/22 17:09> Physical Exam Vital Signs: Vital Signs: Last Vital Signs Temp 100.3 F 03/13/22 07:32 Pulse 91 03/13/22 07:32 Resp 26 H 03/13/22 07:32 BP 128/68 03/13/22 07:32 Pulse Ox 96 03/13/22 07:32 O2 Del Method 03/13/22 07:32 O2 Flow Rate 6 03/06/22 12:16 BMI result Body Mass Index 26.6 <Gabriela Galaviz NP - Last Filed: 03/13/22 17:09> Appearing in no acute distress lung sounds are clear to auscultation heart regular rate rhythm, clear S1, S2 positive bowel sounds, abdomen is soft, nontender neuro patient is alert x3, no focal deficits <Gabriela Galaviz NP - Last Filed: 03/13/22 17:09> Objective Data Active Medications Acetaminophen (Acetaminophen 325 Mg Tablet) 975 mg PO Q6H PRN PRN Reason: Headache Last Admin: 03/12/22 21:49 Dose: 975 mg Documented By: EVERARDO Albuterol Sulfate (Albuterol Sulfate (0.083%) 2.5 Mg/3 Ml Vial.Neb) 5 mg INHALE Q4H PRN PRN Reason: shortness of breath or wheezing Albuterol Sulfate (Albuterol Sulfate 90 Mcg 18 Gm Inhaler) 2 puff INHALE QID PRN PRN Reason: Shortness Of Breath Last Admin: 03/07/22 09:00 Dose: 2 puff Documented By: VANDA Albuterol/Ipratropium (Albuterol/Iprat 2.5/0.5mg 3 Ml Ampul.Neb) 3 ml INHALE RQ6H [facility] Last Admin: 03/13/22 07:45 Dose: Not Given Documented By: KALYN Non-Admin Reason: pt had neb at 0425 Amlodipine Besylate (Amlodipine Besylate 5 Mg Tablet) 5 mg PO DAILY [facility]; Protocol Last Admin: 03/13/22 08:42 Dose: 5 mg Documented By: SHAGUFTA Dextrose (Dextrose 50 % 25 Gm/50 Ml Syringe) 25 gm IVPUSH Q15M PRN; Protocol PRN Reason: per Hypoglycemia Standing Ord. Diphenhydramine HCl (Diphenhydramine Hcl 25 Mg Tablet) 25 mg PO BEDTIME PRN PRN Reason: sleep Last Admin: 03/13/22 01:13 Dose: 25 mg Documented By: CURT Enoxaparin Sodium (Enoxaparin Sodium 40 Mg/0.4 Ml Syringe) 40 mg SUBCUT Q24H [facility] Last Admin: 03/10/22 10:23 Dose: 40 mg Documented By: LM Fluticasone Propionate (Fluticasone Propionate Nasal 16 Gm [place]) 2 spray NOSTRIL-B DAILY [facility] Last Admin: 03/12/22 07:53 Dose: 2 spray Documented By: XIOMY Fluticasone/Vilanterol (Fluticasone/Vilanterol 100/25 Blst.W.Dev) 1 puff INHALE RDAILY [facility] Last Admin: 03/13/22 07:46 Dose: Not Given Documented By: KALYN Non-Admin Reason: given by night rt Folic Acid (Folic Acid 1 Mg Tablet) 1 mg PO DAILY [facility] Last Admin: 03/13/22 08:42 Dose: 1 mg Documented By: SHAGUFTA Glucose (Glucose Gel 15 Gm Gel..Gram.) 15 gm PO Q15M PRN; Protocol PRN Reason: per Hypoglycemia Standing Ord. Guaifenesin (Guaifenesin La 600 Mg Tab.Er.12h) 600 mg PO BID PRN PRN Reason: Congestion Insulin Glargine (Insulin Glargine,Hum.Rec.Anlog 100 Unit/Ml 10 Ml Vial) 10 unit SUBCUT BEDTIME [facility] Last Admin: 03/12/22 21:49 Dose: 10 unit Documented By: EVERARDO Insulin Human Lispro (Insulin Lispro 100 Unit/Ml 3 Ml Vial) 0 unit SUBCUT QIDACHS [facility]; Protocol Last Admin: 03/13/22 07:51 Dose: Not Given Documented By: SHAGUFTA Non-Admin Reason: No Insulin Coverage Levothyroxine Sodium (Levothyroxine Sodium 150 Mcg Tablet) 150 mcg PO DAILY@0600 [facility] Last Admin: 03/13/22 05:23 Dose: 150 mcg Documented By: CURT Lisinopril (Lisinopril 20 Mg Tablet) 20 mg PO DAILY [facility]; Protocol Last Admin: 03/13/22 08:42 Dose: 20 mg Documented By: SHAGUFTA Loratadine (Loratadine 10 Mg Tablet) 10 mg PO DAILY [facility] Last Admin: 03/13/22 08:42 Dose: 10 mg Documented By: SHAGUFTA Montelukast Sodium (Montelukast Sodium 10 Mg Tablet) 10 mg PO BEDTIME [facility] Last Admin: 03/12/22 21:49 Dose: 10 mg Documented By: EVERARDO Morphine Sulfate (Morphine Sulfate 4 Mg/Ml Cartridge) 4 mg IVPUSH Q4H PRN; Protocol PRN Reason: Pain, Severe (Pain Scale 7-10) Last Admin: 03/13/22 06:42 Dose: 4 mg Documented By: EVERARDO Multivitamins/Vitamin C (Multivitamin Tablet) 1 tab PO DAILY [facility] Last Admin: 03/13/22 08:42 Dose: 1 tab Documented By: SHAGUFTA Omeprazole (Omeprazole 20 Mg Capsule.Dr) 20 mg PO BID@0630,1630 [facility] Last Admin: 03/13/22 05:23 Dose: 20 mg Documented By: CURT Ondansetron HCl (Ondansetron Hcl 4 Mg/2 Ml Vial) 4 mg IVPUSH Q8H PRN PRN Reason: Nausea and Vomiting Last Admin: 03/13/22 08:40 Dose: 4 mg Documented By: SHAGUFTA Pravastatin Sodium (Pravastatin Sodium 20 Mg Tablet) 20 mg PO BEDTIME [facility] Last Admin: 03/12/22 21:49 Dose: 20 mg Documented By: EVERARDO Sodium Chloride (0.9 % Sodium Chloride Flush 3 Ml Syringe) 3 ml IVFLUSH QSHIFT [facility] Last Admin: 03/13/22 08:43 Dose: Not Given Documented By: SHAGUFTA Non-Admin Reason: IV Running Thiamine HCl (Thiamine Hcl 100 Mg Tablet) 100 mg PO DAILY [facility] Last Admin: 03/13/22 08:42 Dose: 100 mg Documented By: SHAGUFTA <Gabriela Galaviz NP - Last Filed: 03/13/22 17:09> Labs CBC & Chem 7: : 03/15/22 06:06 03/22/22 05:59 <Gabriela Galaviz NP - Last Filed: 03/13/22 17:09> Labs: Laboratory Results - last 24 hr 03/10/22 03/12/22 03/12/22 13:43 05:23 10:47 POC Glucose 283 H [place] Progressive Test TNP HIV 1&2 Ab/P24 Ag 4thGn Nonreactive 03/12/22 03/12/22 03/13/22 16:30 20:23 07:37 POC Glucose 224 H 155 H 98 [place] Progressive Test HIV 1&2 Ab/P24 Ag 4thGn <Gabriela Galaviz NP - Last Filed: 03/13/22 17:09> Microbiology Microbiology Results: Microbiology 03/11/22 11:15 Gram Stain - Final Cerebrospinal Fluid CSF Examination - Final Fluid Description - Final CSF Culture - Preliminary No growth after 1 day <Gabriela Galaviz NP - Last Filed: 03/13/22 17:09> Assessment and Plan (1) Unsteadiness: Status: Acute <Gabriela Galaviz NP - Last Filed: 03/13/22 17:09> Assessment and Plan: 61M presented with posterior headache and nausea and vomitting with differential diagnosis including migraine, demyelinating disease versus infe ction SIRS Fever, tachycardia No infectious source at this time Negative urinalysis Check CBC, BMP, blood cultures, respiratory pathogen panel, lactic acid, CRP, ESR Posterior headache with nausea and vomiting still with dizziness and headache brain and cervical spine MRI neg Lyme neg, HIV neg headaches improving with Fioricet dizziness/vertigo, meclizine stopped to see if that was culprit, but still dizzy neuro eval ID sugg possibly viral in light of high protein in CSF IV steroids stopped (? MS) not much improvement after a few days Try some more fioricet and ativan DM 2 SS, ADA diet htn lisinopril, amlodipine moderate persistent asthma symbicort nebs prn dvt prophylaxis - lovenox Attending Colette De Souza full code Continued hospitalization for treatment of vertigo/ dizziness and severe headaches necessitating IV pain medication and further follow-up for definitive diagnosis <Gabriela Galaviz NP - Last Filed: 03/13/22 17:09> Quality Stroke Does the patient have a stroke diagnosis?: No <Gabriela Galaviz NP - Last Filed: 03/13/22 17:09> VTE Prior VTE?: No <Gabriela Galaviz NP - Last Filed: 03/13/22 17:09> VTE Risk Level:: Medical - moderate - high <Gabriela Galaviz NP - Last Filed: 03/13/22 17:09> VTE Device Contraindication: Treatment Not Indicated <Gabriela Galaviz NP - Last Filed: 03/13/22 17:09> VTE Drug Contraindication: Treatment Not Indicated <Gabriela Galaviz NP - Last Filed: 03/13/22 17:09>
[2022-03-13] MEDS: LORazepam 2 MG/ML VIAL 1 MG IVPUSH (11:13)
[2022-03-13] MEDS: Fluticasone Propionate Nasal 16 GM SPRAY 2 SPRAY NOSTRIL-B (11:14)
[2022-03-13 11:19] LABS: Glucose, Whole Blood 106 mg/dL (60-115)
[2022-03-13] MEDS: Acetaminophen 325 MG TABLET 975 MG PO ×2 (11:44→19:53)
[2022-03-13 12:32] LABS: Appearance Urine CLEAR; Color Urine YELLOW; Glucose Urine UA NEG (NEG); Leukocyte Esterase Urine NEG (NEG); Nitrite Urine NEG (NEG); PH 7.5 (5.0-8.0); Urine Blood NEG (NEG); Urine Ketones NEG (NEG); Urine Protein NEG (NEG-TRACE)
[2022-03-13 13:24] LABS: Adenovirus PCR Not Detected (Not Detect.); Bordetella parapertussis PCR Not Detected (Not Detect.); Bordetella pertussis PCR Not Detected (Not Detect.); Chlamydia pneumoniae PCR Not Detected (Not Detect.); Coronavirus 229E PCR Not Detected (Not Detect.); Coronavirus HKU1 PCR Not Detected (Not Detect.); Coronavirus NL63 PCR Not Detected (Not Detect.); Coronavirus OC43 PCR Not Detected (Not Detect.); Human metapneumovirus PCR Not Detected (Not Detect.); Influenza A PCR Not Detected (Not Detect.); Influenza B PCR Not Detected (Not Detect.); Mycoplasma pneumoniae PCR Not Detected (Not Detect.); Parainfluenza 1 PCR Not Detected (Not Detect.); Parainfluenza 2 PCR Not Detected (Not Detect.); Parainfluenza 3 PCR Not Detected (Not Detect.); Parainfluenza 4 PCR Not Detected (Not Detect.); RSV PCR Not Detected (Not Detect.); Rhino/Enterovirus PCR Not Detected (Not Detect.); SARS-CoV-2 PCR Not Detected (Not Detect.)
[2022-03-13] MEDS: 0.9 % Sodium Chloride 1,000 ML 100 ML IVCONT ×2 (13:59→21:57)
[2022-03-13 14:18] LABS: Hematocrit 37.1 % (42.0-52.0); Hemoglobin 12.7 g/dl (14.0-18.0); Mean Corpuscular HGB Conc 34.2 g/dl (31.0-36.0); Mean Corpuscular Hemoglobin 31.2 pg (27.0-33.0); Mean Corpuscular Volume 91.2 fL (80.0-98.0); Mean Platelet Volume 10.2 fL (9.4-12.4); Platelet Count 185 X10*3/uL (160-400); Red Blood Count 4.07 X10*6/uL (4.60-5.80); Red Cell Distribution Width 12.8 % (11.0-16.0); White Blood Count 5.5 X10*3/uL (4.8-10.8)
[2022-03-13 14:30] LABS: Anion Gap 11 (12-20); Blood Urea Nitrogen 10 mg/dL (9-16); C Reactive Protein 6.15 mg/dL (< or = 0.50); Calcium 8.6 mg/dL (8.4-10.2); Carbon Dioxide 26 mmol/L (22-29); Chloride 98 mmol/L (96-108); Creatinine Clr Calc Pharmacy 74.1; Estimated Glomerular Filt Rate > 60; Glucose Random 199 mg/dL (60-115); Sodium 131 mmol/L (135-145)
--- NOTE | 2022-03-13 14:54 | MHC.CM.PN ---
Pt complains of headaches and dizziness. No discharge plan yet.
[2022-03-13 15:13] LABS: Erythrocyte Sedimentation Rate 19 MM/HR (0-15)
[2022-03-13 16:12] LABS: Glucose, Whole Blood 183 mg/dL (60-115)
[2022-03-13] MEDS: Insulin Lispro 100 UNIT/ML 3 ML VIAL SUBCUT ×2 (17:36→21:56)
[2022-03-13] MEDS: 0.9 % Sodium Chloride Flush 3 ML SYRINGE IVFLUSH (17:37)
[2022-03-13] MEDS: Meclizine HCl 25 MG TABLET PO (17:38)
[2022-03-13] MEDS: Piperacillin Sodium/Tazobactam 3.375 GM in 0.9 % Sodium Chloride 50 ML IV (17:39)
[2022-03-13] MEDS: vancomycin HCL 1,500 MG in 0.9 % Sodium Chloride 500 ML 333.33 MG IV (19:45)
[2022-03-13 20:03] LABS: Glucose, Whole Blood 290 mg/dL (60-115)
[2022-03-13] MEDS: Insulin Glargine,Hum.rec.anlog 100 UNIT/ML 10 ML VIAL 10 UNIT SUBCUT (21:55)
[2022-03-13] MEDS: Pravastatin Sodium 20 MG TABLET PO (21:56)
[2022-03-13] MEDS: Montelukast Sodium 10 MG TABLET PO (21:56)
[2022-03-14] VITALS (10 sets, daily range): BP systolic 100–138; BP diastolic 64–79; PULSE 71–105; RESP 14–18; TEMP 37.1–38.5; O2SAT 92–97
[2022-03-14] MEDS: Piperacillin Sodium/Tazobactam 3.375 GM in 0.9 % Sodium Chloride 50 ML IV ×5 (01:17→23:38)
[2022-03-14] MEDS: 0.9 % Sodium Chloride Flush 3 ML SYRINGE IVFLUSH ×2 (01:18→23:38)
[2022-03-14] MEDS: Acetaminophen 325 MG TABLET 975 MG PO ×2 (04:05→17:10)
[2022-03-14] MEDS: Levothyroxine Sodium 150 MCG TABLET PO (05:55)
[2022-03-14] MEDS: Omeprazole 20 MG CAPSULE.DR PO ×2 (05:55→17:03)
[2022-03-14 07:33] LABS: Glucose, Whole Blood 123 mg/dL (60-115)
[2022-03-14] MEDS: Fluticasone/Vilanterol 100/25 BLST.W.DEV 1 PUFF INHALE (08:45)
[2022-03-14 08:48] LABS: Creatinine Clr Calc Pharmacy 85.4; Estimated Glomerular Filt Rate > 60
[2022-03-14] MEDS: 0.9 % Sodium Chloride 1,000 ML 100 ML IVCONT (09:01)
[2022-03-14] MEDS: vancomycin HCL 1,000 MG in 0.9 % Sodium Chloride 250 ML 270 MG IV (09:02)
[2022-03-14] MEDS: Meclizine HCl 25 MG TABLET PO ×3 (09:03→20:24)
[2022-03-14] MEDS: Folic Acid 1 MG TABLET PO (09:03)
[2022-03-14] MEDS: lisinopriL 20 MG TABLET PO (09:03)
[2022-03-14] MEDS: Thiamine HCL 100 MG TABLET PO (09:03)
[2022-03-14] MEDS: Loratadine 10 MG TABLET PO (09:03)
[2022-03-14] MEDS: amLODIPine Besylate 5 MG TABLET PO (09:03)
[2022-03-14] MEDS: Multivitamin TABLET 1 TAB PO (09:03)
[2022-03-14] MEDS: Fluticasone Propionate Nasal 16 GM SPRAY 2 SPRAY NOSTRIL-B (09:04)
[2022-03-14 11:27] LABS: Glucose, Whole Blood 314 mg/dL (60-115)
[2022-03-14] MEDS: Insulin Lispro 100 UNIT/ML 3 ML VIAL SUBCUT ×3 (11:39→20:24)
--- NOTE | 2022-03-14 11:51 | MHC.CM.PN ---
PATIENT GROWING GRAM + COCCI IN BLOOD NO PLAN FOR DC TODAY
--- NOTE | 2022-03-14 15:06 | HO.PM.IMPN ---
Subjective Subjective Date of Service: 03/14/22 Interval History: Seen and examined this morning Follow-up for dizziness/headache Patient reports improvement in both dizziness as well as headache Fever improved Now with bacteremia Review of Systems Review of Systems: Yes all other systems are reviewed and are negative Constitutional Constitutional: Denies chills, Denies fever(s) and Reports headache(s) ENT Ears, Nose, Mouth, and Throat: Reports dizziness and Reports headache(s) Cardiovascular Cardiovascular: Denies chest pain, Denies palpitations and Reports dyspnea Respiratory Respiratory: Denies cough and Reports dyspnea Gastrointestinal Gastrointestinal: Denies abdominal pain, Denies nausea and Denies vomiting Neurologic Neurologic: Reports dizziness and Reports headache(s) Endocrine Endocrine: Denies palpitations Physical Exam Vital Signs: Vital Signs: Last Vital Signs Temp 99.0 F 03/14/22 11:43 Pulse 85 03/14/22 11:43 Resp 16 03/14/22 11:43 BP 116/65 03/14/22 11:43 Pulse Ox 96 03/14/22 11:43 O2 Del Method 03/14/22 08:00 O2 Flow Rate 6 03/06/22 12:16 BMI result Body Mass Index 26.6 Const: General: cooperative, comfortable, alert and awake Nutritional Appearance: average body habitus Orientation/consciousness: patient oriented x3 Resp: Effort & Inspection: normal respiratory effort and able to speak in complete sentences Auscultation: clear to auscultation bilaterally Cardio: Rate: regular rate Heart sounds: S1 normal heart sound present and S2 normal heart sound present GI: Inspection: No distended Palpation (GI): Soft to palpation and nontender Neuro: General: patient oriented x3 and CN's II-XI intact bilaterally Extrem: General: Yes no pedal edema Objective Data Active Medications Acetaminophen (Acetaminophen 325 Mg Tablet) 975 mg PO Q6H PRN PRN Reason: Headache Last Admin: 03/14/22 04:05 Dose: 975 mg Documented By: ELTON Albuterol Sulfate (Albuterol Sulfate 90 Mcg 18 Gm Inhaler) 2 puff INHALE QID PRN PRN Reason: Shortness Of Breath Last Admin: 03/07/22 09:00 Dose: 2 puff Documented By: VANDA Amlodipine Besylate (Amlodipine Besylate 5 Mg Tablet) 5 mg PO DAILY CARLOS; Protocol Last Admin: 03/14/22 09:03 Dose: 5 mg Documented By: LM Dextrose (Dextrose 50 % 25 Gm/50 Ml Syringe) 25 gm IVPUSH Q15M PRN; Protocol PRN Reason: per Hypoglycemia Standing Ord. Diphenhydramine HCl (Diphenhydramine Hcl 25 Mg Tablet) 25 mg PO BEDTIME PRN PRN Reason: sleep Last Admin: 03/13/22 01:13 Dose: 25 mg Documented By: MORRINL Enoxaparin Sodium (Enoxaparin Sodium 40 Mg/0.4 Ml Syringe) 40 mg SUBCUT Q24H [facility] Last Admin: 03/10/22 10:23 Dose: 40 mg Documented By: LM Fluticasone Propionate (Fluticasone Propionate Nasal 16 Gm [place]) 2 spray NOSTRIL-B DAILY [facility] Last Admin: 03/14/22 09:04 Dose: 2 spray Documented By: LM Fluticasone/Vilanterol (Fluticasone/Vilanterol 100/25 Blst.W.Dev) 1 puff INHALE RDAILY [facility] Last Admin: 03/14/22 08:45 Dose: 1 puff Documented By: PUSHPA Folic Acid (Folic Acid 1 Mg Tablet) 1 mg PO DAILY [facility] Last Admin: 03/14/22 09:03 Dose: 1 mg Documented By: LM Glucose (Glucose Gel 15 Gm Gel..Gram.) 15 gm PO Q15M PRN; Protocol PRN Reason: per Hypoglycemia Standing Ord. Guaifenesin (Guaifenesin La 600 Mg Tab.Er.12h) 600 mg PO BID PRN PRN Reason: Congestion Sodium Chloride (Ns) 1,000 mls @ 100 mls/hr IVCONT .Q10H [facility] Last Admin: 03/14/22 09:01 Dose: 100 mls/hr Documented By: LM Vancomycin HCl 1,000 mg/ (Sodium Chloride) 270 mls @ 270 mls/hr IV Q12H [facility] Last Infusion: 03/14/22 10:47 Dose: 270 mls/hr Documented By: LM Piperacillin Sod/Tazobactam (Sod 3.375 gm/ Sodium Chloride) 50 mls @ 100 mls/hr IV Q6H [facility] Last Infusion: 03/14/22 13:07 Dose: 100 mls/hr Documented By: LM Insulin Glargine (Insulin Glargine,Hum.Rec.Anlog 100 Unit/Ml 10 Ml Vial) 10 unit SUBCUT BEDTIME [facility] Last Admin: 03/13/22 21:55 Dose: 10 unit Documented By: SHARON Insulin Human Lispro (Insulin Lispro 100 Unit/Ml 3 Ml Vial) 0 unit SUBCUT QIDACHS [facility]; Protocol Last Admin: 03/14/22 11:39 Dose: 8 unit Documented By: LM Levothyroxine Sodium (Levothyroxine Sodium 150 Mcg Tablet) 150 mcg PO DAILY@0600 [facility] Last Admin: 03/14/22 05:55 Dose: 150 mcg Documented By: ELTON Lisinopril (Lisinopril 20 Mg Tablet) 20 mg PO DAILY [facility]; Protocol Last Admin: 03/14/22 09:03 Dose: 20 mg Documented By: LM Loratadine (Loratadine 10 Mg Tablet) 10 mg PO DAILY [facility] Last Admin: 03/14/22 09:03 Dose: 10 mg Documented By: LM Lorazepam (Lorazepam 2 Mg/Ml Vial) 1 mg IVPUSH Q6H PRN PRN Reason: anxiety Meclizine HCl (Meclizine Hcl 25 Mg Tablet) 25 mg PO TID [facility] Last Admin: 03/14/22 14:41 Dose: 25 mg Documented By: LM Montelukast Sodium (Montelukast Sodium 10 Mg Tablet) 10 mg PO BEDTIME [facility] Last Admin: 03/13/22 21:56 Dose: 10 mg Documented By: SHARON Morphine Sulfate (Morphine Sulfate 4 Mg/Ml Cartridge) 4 mg IVPUSH Q4H PRN; Protocol PRN Reason: Pain, Severe (Pain Scale 7-10) Last Admin: 03/13/22 06:42 Dose: 4 mg Documented By: EVERARDO Multivitamins/Vitamin C (Multivitamin Tablet) 1 tab PO DAILY [facility] Last Admin: 03/14/22 09:03 Dose: 1 tab Documented By: LM Omeprazole (Omeprazole 20 Mg Capsule.) 20 mg PO BID@0630,1630 [facility] Last Admin: 03/14/22 05:55 Dose: 20 mg Documented By: ELTON Ondansetron HCl (Ondansetron Hcl 4 Mg/2 Ml Vial) 4 mg IVPUSH Q8H PRN PRN Reason: Nausea and Vomiting Last Admin: 03/13/22 08:40 Dose: 4 mg Documented By: SHAGUFTA Oxycodone HCl (Oxycodone Hcl Immed Release 5 Mg Tablet) 5 mg PO Q4H PRN PRN Reason: Pain, Mild (Pain Scale 1-3) Pharmacy Consult (Consult Rx Vancomycin Dosing) 1 each MISCELLANE DAILY PRN PRN Reason: Consult order Pravastatin Sodium (Pravastatin Sodium 20 Mg Tablet) 20 mg PO BEDTIME [facility] Last Admin: 03/13/22 21:56 Dose: 20 mg Documented By: SHARON Sodium Chloride (0.9 % Sodium Chloride Flush 3 Ml Syringe) 3 ml IVFLUSH QSHIFT [facility] Last Admin: 03/14/22 09:03 Dose: Not Given Documented By: LM Non-Admin Reason: IV Running Thiamine HCl (Thiamine Hcl 100 Mg Tablet) 100 mg PO DAILY [facility] Last Admin: 03/14/22 09:03 Dose: 100 mg Documented By: LM Labs CBC & Chem 7: 03/13/22 14:09 03/14/22 07:41 Labs: Laboratory Results - last 24 hr 03/13/22 03/13/22 03/13/22 14:09 15:42 19:50 ESR 19 H Estim Creat Clear Calc Estimated GFR POC Glucose 183 H 290 H 03/14/22 03/14/22 03/14/22 07:29 07:41 11:22 ESR Estim Creat Clear Calc 85.4 Estimated GFR > 60 POC Glucose 123 H 314 H Microbiology Microbiology Results: Microbiology 03/11/22 11:15 Gram Stain - Final Cerebrospinal Fluid CSF Examination - Final Fluid Description - Final CSF Culture - Final No growth after 3 days. 03/13/22 10:52 Blood Culture - Preliminary Blood - Venous Prelim: GPC Gram Stain only 03/13/22 10:52 Blood Culture - Preliminary Blood - Venous Prelim: GPC Gram Stain only Assessment and Plan (1) Dizziness: Status: Acute Plan 61M presented with posterior headache and nausea and vomitting with differential diagnosis including migraine, demyelinating disease versus infection Gram + Bacteremia 2/2 BCx growing GPC Workup in progress Continue IV vancomycin SIRS Fever, tachycardia RPP negative, UA, CXR negative CRP, ESR elevated Continue broad-spectrum antibiotics for now Posterior headache with nausea and vomiting still with dizziness and headache but improving brain and cervical spine MRI neg Lyme neg, HIV neg headaches improving with Fioricet dizziness/vertigo, meclizine stopped to see if that was culprit, but still dizzy seen by neuro - differential migraine vs demyelinating disease vs infection seen by ID - does not feel infectious cause for headache s/p LP 03/11 -CSF total protein 158.8 Trial with IV steroids, not much improvement after a few days currently receiving meclizine, fioricet DM 2 SS, ADA diet htn BP control lisinopril, amlodipine moderate persistent asthma symbicort nebs prn Hypothyroidism Continue Synthroid hld Continue statin dvt prophylaxis - lovenox Attending Colette De Souza full code Continued hospitalization for treatment of vertigo/ dizziness and severe headaches necessitating IV pain medication and further follow-up for definitive diagnosis Quality Stroke Does the patient have a stroke diagnosis?: No VTE Prior VTE?: No VTE Risk Level:: Medical - moderate - high VTE Device Contraindication: Treatment Not Indicated VTE Drug Contraindication: Treatment Not Indicated
[2022-03-14 16:07] LABS: Glucose, Whole Blood 212 mg/dL (60-115)
[2022-03-14 18:25] LABS: Hematocrit 35.6 % (42.0-52.0); Hemoglobin 11.9 g/dl (14.0-18.0); Mean Corpuscular HGB Conc 33.4 g/dl (31.0-36.0); Mean Corpuscular Hemoglobin 30.4 pg (27.0-33.0); Mean Platelet Volume 10.4 fL (9.4-12.4); Platelet Count 190 X10*3/uL (160-400); Red Blood Count 3.91 X10*6/uL (4.60-5.80); Red Cell Distribution Width 12.8 % (11.0-16.0); White Blood Count 4.2 X10*3/uL (4.8-10.8)
[2022-03-14 18:44] LABS: Vancomycin Random 5.9 mcg/mL (15-20)
--- NOTE | 2022-03-14 18:52 | HE.PHANOTE ---
Vancomycin Dosing Addendum Random level before 3rd dose 5.9. Increasing dose to 1500 mg q12h and will get another after two doses. Patient being treated for bacteremia. Predicted AUC 575. Next Trough 03/15/22 @1700
[2022-03-14 18:58] LABS: Anion Gap 13 (12-20); Blood Urea Nitrogen 9 mg/dL (9-16); Calcium 7.9 mg/dL (8.4-10.2); Carbon Dioxide 21 mmol/L (22-29); Chloride 103 mmol/L (96-108); Creatinine Clr Calc Pharmacy 74.1; Estimated Glomerular Filt Rate > 60; Glucose Random 311 mg/dL (60-115); Potassium 3.7 mmol/L (3.3-5.1); Sodium 133 mmol/L (135-145)
[2022-03-14 20:07] LABS: Glucose, Whole Blood 223 mg/dL (60-115)
[2022-03-14] MEDS: Pravastatin Sodium 20 MG TABLET PO (20:24)
[2022-03-14] MEDS: Montelukast Sodium 10 MG TABLET PO (20:24)
[2022-03-14] MEDS: vancomycin HCL 1,500 MG in 0.9 % Sodium Chloride 500 ML 333.33 MG IV (20:25)
[2022-03-14] MEDS: Insulin Glargine,Hum.rec.anlog 100 UNIT/ML 10 ML VIAL 10 UNIT SUBCUT (20:25)
[2022-03-14] MEDS: diphenhydrAMINE HCL 25 MG TABLET PO (22:07)
[2022-03-15] VITALS (7 sets, daily range): BP systolic 118–133; BP diastolic 67–77; PULSE 71–93; RESP 16–18; TEMP 36.3–37.4; O2SAT 96–98
[2022-03-15] MEDS: Acetaminophen 325 MG TABLET 975 MG PO (03:35)
[2022-03-15] MEDS: Levothyroxine Sodium 150 MCG TABLET PO (05:25)
[2022-03-15] MEDS: Omeprazole 20 MG CAPSULE.DR PO ×2 (05:25→16:36)
[2022-03-15] MEDS: Piperacillin Sodium/Tazobactam 3.375 GM in 0.9 % Sodium Chloride 50 ML IV ×2 (05:26→11:52)
[2022-03-15 06:40] LABS: Hematocrit 35.4 % (42.0-52.0); Hemoglobin 12.1 g/dl (14.0-18.0); Mean Corpuscular HGB Conc 34.2 g/dl (31.0-36.0); Mean Corpuscular Hemoglobin 30.9 pg (27.0-33.0); Mean Corpuscular Volume 90.3 fL (80.0-98.0); Mean Platelet Volume 10.5 fL (9.4-12.4); Platelet Count 203 X10*3/uL (160-400); Red Blood Count 3.92 X10*6/uL (4.60-5.80); Red Cell Distribution Width 12.8 % (11.0-16.0); White Blood Count 5.6 X10*3/uL (4.8-10.8)
[2022-03-15 07:05] LABS: Alanine Aminotransferase 69 U/L (0-40); Albumin Level 3.1 g/dL (3.5-5.0); Alkaline Phosphatase 70 U/L (39-117); Anion Gap 11 (12-20); Aspartate Amino Transferase 44 U/L (5-37); Bilirubin Direct 0.2 mg/dL (0.0-0.5); Bilirubin Total 0.5 mg/dL (0.0-1.0); Blood Urea Nitrogen 6 mg/dL (9-16); Calcium 8.2 mg/dL (8.4-10.2); Carbon Dioxide 26 mmol/L (22-29); Chloride 104 mmol/L (96-108); Creatinine Clr Calc Pharmacy 97.9; Estimated Glomerular Filt Rate > 60; Glucose Random 181 mg/dL (60-115); Potassium 3.8 mmol/L (3.3-5.1); Sodium 137 mmol/L (135-145); Total Protein 5.3 g/dL (6.5-8.0)
[2022-03-15] MEDS: vancomycin HCL 1,500 MG in 0.9 % Sodium Chloride 500 ML 333.33 MG IV ×2 (07:20→19:25)
[2022-03-15] MEDS: oxyCODONE HCl Immed Release 5 MG TABLET PO (07:27)
[2022-03-15 07:43] LABS: Glucose, Whole Blood 169 mg/dL (60-115)
[2022-03-15] MEDS: Folic Acid 1 MG TABLET PO (07:51)
[2022-03-15] MEDS: Thiamine HCL 100 MG TABLET PO (07:51)
[2022-03-15] MEDS: amLODIPine Besylate 5 MG TABLET PO (07:51)
[2022-03-15] MEDS: Meclizine HCl 25 MG TABLET PO (07:51)
[2022-03-15] MEDS: Insulin Lispro 100 UNIT/ML 3 ML VIAL SUBCUT ×4 (07:52→20:46)
[2022-03-15] MEDS: Loratadine 10 MG TABLET PO (07:52)
[2022-03-15] MEDS: 0.9 % Sodium Chloride Flush 3 ML SYRINGE IVFLUSH ×3 (07:52→20:47)
[2022-03-15] MEDS: Multivitamin TABLET 1 TAB PO (07:52)
[2022-03-15] MEDS: lisinopriL 20 MG TABLET PO (07:52)
[2022-03-15] MEDS: Fluticasone Propionate Nasal 16 GM SPRAY 2 SPRAY NOSTRIL-B (07:53)
[2022-03-15] MEDS: Fluticasone/Vilanterol 100/25 BLST.W.DEV 1 PUFF INHALE (08:45)
[2022-03-15 11:30] LABS: Glucose, Whole Blood 233 mg/dL (60-115)
--- NOTE | 2022-03-15 12:18 | P.PNIM_ITS ---
Subjective Subjective Date of Service: 03/15/22 Interval History: Seen and examined this morning Reporting some headache which is improving with oxycodone Still reporting dizziness which is worse with movement, improves at rest no sob at this time Constitutional Constitutional: Denies chills and Reports fever(s) ENT Ears, Nose, Mouth, and Throat: Reports dizziness Cardiovascular Cardiovascular: Denies chest pain, Denies palpitations and Denies dyspnea Respiratory Respiratory: Denies cough and Denies dyspnea Gastrointestinal Gastrointestinal: Denies abdominal pain, Denies diarrhea, Denies nausea and Denies vomiting Neurologic Neurologic: Reports dizziness Endocrine Endocrine: Denies palpitations Physical Exam Vital Signs: Vital Signs: Last Vital Signs Temp 98.6 F 03/15/22 11:22 Pulse 80 03/15/22 11:22 Resp 18 03/15/22 11:22 BP 118/69 03/15/22 11:22 Pulse Ox 97 03/15/22 11:22 O2 Del Method 03/15/22 11:22 O2 Flow Rate 6 03/06/22 12:16 BMI result Body Mass Index 26.6 Const: General: cooperative, comfortable, alert and awake Nutritional Appearance: average body habitus Orientation/consciousness: patient oriented x3 Eyes: EOM: No Nystagmus present Resp: Effort & Inspection: normal respiratory effort and able to speak in complete sentences Auscultation: clear to auscultation bilaterally Cardio: Rate: regular rate Heart sounds: S1 normal heart sound present and S2 normal heart sound present GI: Inspection: No distended Palpation (GI): Soft to palpation and nontender Neuro: General: patient oriented x3 and CN's II-XI intact bilaterally Cranial nerves: No Nystagmus present Extrem: General: Yes no pedal edema Objective Data Active Medications Acetaminophen (Acetaminophen 325 Mg Tablet) 975 mg PO Q6H PRN PRN Reason: Headache Last Admin: 03/15/22 03:35 Dose: 975 mg Documented By: ALFIE Albuterol Sulfate (Albuterol Sulfate 90 Mcg 18 Gm Inhaler) 2 puff INHALE QID PRN PRN Reason: Shortness Of Breath Last Admin: 03/07/22 09:00 Dose: 2 puff Documented By: VANDA Amlodipine Besylate (Amlodipine Besylate 5 Mg Tablet) 5 mg PO DAILY [facility]LOS; Protocol Last Admin: 06/24/22 07:51 Dose: 5 mg Documented By: KO Dextrose (Dextrose 50 % 25 Gm/50 Ml Syringe) 25 gm IVPUSH Q15M PRN; Protocol PRN Reason: per Hypoglycemia Standing Ord. Diphenhydramine HCl (Diphenhydramine Hcl 25 Mg Tablet) 25 mg PO BEDTIME PRN PRN Reason: sleep Last Admin: 03/14/22 22:07 Dose: 25 mg Documented By: SHARON Enoxaparin Sodium (Enoxaparin Sodium 40 Mg/0.4 Ml Syringe) 40 mg SUBCUT Q24H [facility] Last Admin: 03/10/22 10:23 Dose: 40 mg Documented By: LM Fluticasone Propionate (Fluticasone Propionate Nasal 16 Gm [place]) 2 spray NOSTRIL-B DAILY [facility] Last Admin: 03/15/22 07:53 Dose: 2 spray Documented By: KO Fluticasone/Vilanterol (Fluticasone/Vilanterol 100/25 Blst.W.Dev) 1 puff INHALE RDAILY [facility] Last Admin: 03/15/22 08:45 Dose: 1 puff Documented By: PUSHPA Folic Acid (Folic Acid 1 Mg Tablet) 1 mg PO DAILY [facility] Last Admin: 03/15/22 07:51 Dose: 1 mg Documented By: KO Glucose (Glucose Gel 15 Gm Gel..Gram.) 15 gm PO Q15M PRN; Protocol PRN Reason: per Hypoglycemia Standing Ord. Guaifenesin (Guaifenesin La 600 Mg Tab.Er.12h) 600 mg PO BID PRN PRN Reason: Congestion Piperacillin Sod/Tazobactam (Sod 3.375 gm/ Sodium Chloride) 50 mls @ 100 mls/hr IV Q6H [facility] Last Admin: 03/15/22 11:52 Dose: 100 mls/hr Documented By: KO Vancomycin HCl 1,500 mg/ (Sodium Chloride) 500 mls @ 333.333 mls/hr IV Q12H [facility] Last Infusion: 03/15/22 08:59 Dose: 0 mls/hr Documented By: KO Ibuprofen (Ibuprofen 200 Mg Tablet) 200 mg PO Q8H PRN PRN Reason: Pain, Moderate (Pain Scale 4-6 Insulin Glargine (Insulin Glargine,Hum.Rec.Anlog 100 Unit/Ml 10 Ml Vial) 10 unit SUBCUT BEDTIME [facility] Last Admin: 03/14/22 20:25 Dose: 10 unit Documented By: SHARON Insulin Human Lispro (Insulin Lispro 100 Unit/Ml 3 Ml Vial) 0 unit SUBCUT QIDACHS [facility]; Protocol Last Admin: 03/15/22 11:52 Dose: 4 unit Documented By: KO Levothyroxine Sodium (Levothyroxine Sodium 150 Mcg Tablet) 150 mcg PO DAILY@0600 [facility] Last Admin: 03/15/22 05:25 Dose: 150 mcg Documented By: ALFIE Lisinopril (Lisinopril 20 Mg Tablet) 20 mg PO DAILY [facility]; Protocol Last Admin: 03/15/22 07:52 Dose: 20 mg Documented By: KO Loratadine (Loratadine 10 Mg Tablet) 10 mg PO DAILY [facility] Last Admin: 03/15/22 07:52 Dose: 10 mg Documented By: KO Montelukast Sodium (Montelukast Sodium 10 Mg Tablet) 10 mg PO BEDTIME [facility] Last Admin: 03/14/22 20:24 Dose: 10 mg Documented By: SHARON Multivitamins/Vitamin C (Multivitamin Tablet) 1 tab PO DAILY [facility] Last Admin: 03/15/22 07:52 Dose: 1 tab Documented By: KO Omeprazole (Omeprazole 20 Mg Capsule.Dr) 20 mg PO BID@0630,1630 [facility] Last Admin: 03/15/22 05:25 Dose: 20 mg Documented By: ALFIE Ondansetron HCl (Ondansetron Hcl 4 Mg/2 Ml Vial) 4 mg IVPUSH Q8H PRN PRN Reason: Nausea and Vomiting Last Admin: 03/13/22 08:40 Dose: 4 mg Documented By: SHAGUFTA Oxycodone HCl (Oxycodone Hcl Immed Release 5 Mg Tablet) 5 mg PO Q6H PRN PRN Reason: Pain, Mild (Pain Scale 1-3) Pharmacy Consult (Consult Rx Vancomycin Dosing) 1 each MISCELLANE DAILY PRN PRN Reason: Consult order Pravastatin Sodium (Pravastatin Sodium 20 Mg Tablet) 20 mg PO BEDTIME [facility] Last Admin: 03/14/22 20:24 Dose: 20 mg Documented By: SHARON Sodium Chloride (0.9 % Sodium Chloride Flush 3 Ml Syringe) 3 ml IVFLUSH QSHIFT [facility] Last Admin: 03/15/22 07:52 Dose: 3 ml Documented By: KO Thiamine HCl (Thiamine Hcl 100 Mg Tablet) 100 mg PO DAILY [facility] Last Admin: 03/15/22 07:51 Dose: 100 mg Documented By: KO Labs CBC & Chem 7: 03/15/22 06:06 03/15/22 06:06 Labs: Laboratory Results - last 24 hr 03/14/22 03/14/22 03/14/22 16:01 18:04 18:04 MCV 91.0 MCH 30.4 MCHC 33.4 RDW 12.8 Plt Count 190 MPV 10.4 Absolute Nucleated RBC 0.000 Nucleated RBC % (auto) 0.0 Anion Gap Estim Creat Clear Calc Estimated GFR POC Glucose 212 H Random Glucose Calcium Total Bilirubin Direct Bilirubin AST ALT Alkaline Phosphatase Total Protein Albumin Random Vancomycin 5.9 L 03/14/22 03/14/22 03/15/22 18:04 19:58 06:06 MCV 90.3 MCH 30.9 MCHC 34.2 RDW 12.8 Plt Count 203 MPV 10.5 Absolute Nucleated RBC 0.000 Nucleated RBC % (auto) 0.0 Anion Gap 13 Estim Creat Clear Calc 74.1 Estimated GFR > 60 POC Glucose 223 H Random Glucose 311 H D Calcium 7.9 L D Total Bilirubin Direct Bilirubin AST ALT Alkaline Phosphatase Total Protein Albumin Random Vancomycin 03/15/22 03/15/22 03/15/22 06:06 07:36 11:21 MCV MCH MCHC RDW Plt Count MPV Absolute Nucleated RBC Nucleated RBC % (auto) Anion Gap 11 L Estim Creat Clear Calc 97.9 Estimated GFR > 60 POC Glucose 169 H 233 H Random Glucose 181 H D Calcium 8.2 L Total Bilirubin 0.5 Direct Bilirubin 0.2 AST 44 H D ALT 69 H Alkaline Phosphatase 70 D Total Protein 5.3 L Albumin 3.1 L Random Vancomycin Microbiology Microbiology Results: Microbiology 03/13/22 10:52 Blood Culture - Preliminary Blood - Venous Staphylococcus species 03/13/22 10:52 Blood Culture - Preliminary Blood - Venous Staphylococcus species 03/11/22 11:15 Gram Stain - Final Cerebrospinal Fluid CSF Examination - Final Fluid Description - Final CSF Culture - Final No growth after 3 days. Assessment and Plan (1) Dizziness: Status: Acute (2) Bacteremia due to Staphylococcus: Status: Acute Plan 61M presented with posterior headache and nausea and vomitting with differ ential diagnosis including migraine, demyelinating disease versus infection Staph Bacteremia 2/2 BCx growing staph species Workup in progress repeat Blood cultures ordered Continue IV vancomycin, will d/c zosyn SIRS Fever, tachycardia. tachycardia improved, fever intermittent RPP negative, UA, CXR negative CRP, ESR elevated Posterior headache with nausea and vomiting still with dizziness and headache but improving brain and cervical spine MRI neg Lyme neg, HIV neg seen by neuro - differential migraine vs demyelinating disease vs infection seen by ID - does not feel infectious cause for headache s/p LP 03/11 -CSF total protein 158.8 meningoencephalitis panel negative Trial with IV steroids, not much improvement after a few days therefore d/c still dizzy despite meclizine, will d/c wean narcotics Mild transaminitis follow LFTs DM 2 metformin on hold Continue Lantus SS, ADA diet htn BP controlled lisinopril, amlodipine moderate persistent asthma symbicort nebs prn Hypothyroidism Continue Synthroid hld Continue statin dvt prophylaxis - lovenox Attending Colette De Souza full code Continued hospitalization for treatment of vertigo/ dizziness and severe headaches necessitating IV pain medication and further follow-up for definitive diagnosis Quality Stroke Does the patient have a stroke diagnosis?: No VTE Prior VTE?: No VTE Risk Level:: Medical - moderate - high VTE Device Contraindication: Treatment Not Indicated VTE Drug Contraindication: Treatment Not Indicated
[2022-03-15 16:09] LABS: Glucose, Whole Blood 170 mg/dL (60-115)
[2022-03-15 19:04] LABS: Vancomycin Trough 9.7 mcg/mL (10.0-20.0)
[2022-03-15 20:31] LABS: Glucose, Whole Blood 242 mg/dL (60-115)
[2022-03-15] MEDS: Pravastatin Sodium 20 MG TABLET PO (20:46)
[2022-03-15] MEDS: Montelukast Sodium 10 MG TABLET PO (20:46)
[2022-03-15] MEDS: Insulin Glargine,Hum.rec.anlog 100 UNIT/ML 10 ML VIAL 10 UNIT SUBCUT (20:47)
[2022-03-15] MEDS: diphenhydrAMINE HCL 25 MG TABLET PO (22:13)
[2022-03-16] VITALS (7 sets, daily range): BP systolic 112–125; BP diastolic 68–77; PULSE 76–90; RESP 14–20; TEMP 36.4–37.4; O2SAT 93–97
[2022-03-16] MEDS: oxyCODONE HCl Immed Release 5 MG TABLET PO (01:46)
[2022-03-16] MEDS: vancomycin HCL 1,500 MG in 0.9 % Sodium Chloride 500 ML 333.3 MG IV ×2 (06:15→18:43)
[2022-03-16] MEDS: Omeprazole 20 MG CAPSULE.DR PO ×2 (06:15→16:50)
[2022-03-16] MEDS: Levothyroxine Sodium 150 MCG TABLET PO (06:15)
[2022-03-16 06:41] LABS: Alanine Aminotransferase 54 U/L (0-40); Albumin Level 3.2 g/dL (3.5-5.0); Alkaline Phosphatase 73 U/L (39-117); Aspartate Amino Transferase 29 U/L (5-37); Bilirubin Direct < 0.2 mg/dL (0.0-0.5); Bilirubin Total 0.2 mg/dL (0.0-1.0); Creatinine Clr Calc Pharmacy 87.4; Estimated Glomerular Filt Rate > 60; Total Protein 5.6 g/dL (6.5-8.0)
[2022-03-16 07:37] LABS: Glucose, Whole Blood 161 mg/dL (60-115)
[2022-03-16] MEDS: Insulin Lispro 100 UNIT/ML 3 ML VIAL SUBCUT ×4 (07:48→20:41)
[2022-03-16] MEDS: Loratadine 10 MG TABLET PO (07:49)
[2022-03-16] MEDS: Folic Acid 1 MG TABLET PO (07:49)
[2022-03-16] MEDS: lisinopriL 20 MG TABLET PO (07:49)
[2022-03-16] MEDS: amLODIPine Besylate 5 MG TABLET PO (07:49)
[2022-03-16] MEDS: Multivitamin TABLET 1 TAB PO (07:49)
[2022-03-16] MEDS: Thiamine HCL 100 MG TABLET PO (07:49)
[2022-03-16] MEDS: 0.9 % Sodium Chloride Flush 3 ML SYRINGE IVFLUSH ×3 (07:49→20:22)
[2022-03-16] MEDS: Fluticasone Propionate Nasal 16 GM SPRAY 2 SPRAY NOSTRIL-B (07:50)
[2022-03-16] MEDS: Fluticasone/Vilanterol 100/25 BLST.W.DEV 1 PUFF INHALE (09:13)
--- NOTE | 2022-03-16 10:25 | P.PNIM_ITS ---
Subjective Subjective Date of Service: 03/16/22 Review of Systems Seen and examined this morning Still reporting dizziness which is worse with movement, improves at rest Physical Exam Vital Signs: Vital Signs: Last Vital Signs Temp 98.3 F 03/16/22 07:31 Pulse 76 03/16/22 09:14 Resp 18 03/16/22 09:14 BP 117/73 03/16/22 07:31 Pulse Ox 96 03/16/22 07:31 O2 Del Method 03/16/22 07:31 O2 Flow Rate 6 03/06/22 12:16 BMI result Body Mass Index 26.6 Appearing in no acute distress lung sounds are clear to auscultation heart regular rate rhythm, clear S1, S2 positive bowel sounds, abdomen is soft, nontender neuro patient is alert x3, no focal deficits Objective Data Active Medications Acetaminophen (Acetaminophen 325 Mg Tablet) 975 mg PO Q6H PRN PRN Reason: Headache Last Admin: 03/15/22 03:35 Dose: 975 mg Documented By: ALFIE Albuterol Sulfate (Albuterol Sulfate 90 Mcg 18 Gm Inhaler) 2 puff INHALE QID PRN PRN Reason: Shortness Of Breath Last Admin: 03/07/22 09:00 Dose: 2 puff Documented By: VANDA Amlodipine Besylate (Amlodipine Besylate 5 Mg Tablet) 5 mg PO DAILY [facility]; Protocol Last Admin: 03/16/22 07:49 Dose: 5 mg Documented By: SIDDHARTHA Dextrose (Dextrose 50 % 25 Gm/50 Ml Syringe) 25 gm IVPUSH Q15M PRN; Protocol PRN Reason: per Hypoglycemia Standing Ord. Diphenhydramine HCl (Diphenhydramine Hcl 25 Mg Tablet) 25 mg PO BEDTIME PRN PRN Reason: sleep Last Admin: 03/15/22 22:13 Dose: 25 mg Documented By: CHAUNCEY Enoxaparin Sodium (Enoxaparin Sodium 40 Mg/0.4 Ml Syringe) 40 mg SUBCUT Q24H [facility] Last Admin: 03/10/22 10:23 Dose: 40 mg Documented By: LM Fluticasone Propionate (Fluticasone Propionate Nasal 16 Gm [place]) 2 spray NOSTRIL-B DAILY [facility] Last Admin: 03/16/22 07:50 Dose: 2 spray Documented By: SIDDHARTHA Fluticasone/Vilanterol (Fluticasone/Vilanterol 100/25 Blst.W.Dev) 1 puff INHALE RDAILY [facility] Last Admin: 03/16/22 09:13 Dose: 1 puff Documented By: ARMINDA Folic Acid (Folic Acid 1 Mg Tablet) 1 mg PO DAILY [facility] Last Admin: 03/16/22 07:49 Dose: 1 mg Documented By: SIDDHARTHA Glucose (Glucose Gel 15 Gm Gel..Gram.) 15 gm PO Q15M PRN; Protocol PRN Reason: per Hypoglycemia Standing Ord. Guaifenesin (Guaifenesin La 600 Mg Tab.Er.12h) 600 mg PO BID PRN PRN Reason: Congestion Vancomycin HCl 1,500 mg/ (Sodium Chloride) 500 mls @ 333.333 mls/hr IV Q12H [facility] Last Infusion: 03/16/22 08:01 Dose: 0 mls/hr Documented By: SIDDHARTHA Ibuprofen (Ibuprofen 200 Mg Tablet) 200 mg PO Q8H PRN PRN Reason: Pain, Moderate (Pain Scale 4-6 Insulin Glargine (Insulin Glargine,Hum.Rec.Anlog 100 Unit/Ml 10 Ml Vial) 10 unit SUBCUT BEDTIME [facility] Last Admin: 03/15/22 20:47 Dose: 10 unit Documented By: CHAUNCEY Insulin Human Lispro (Insulin Lispro 100 Unit/Ml 3 Ml Vial) 0 unit SUBCUT QIDACHS [facility]; Protocol Last Admin: 03/16/22 07:48 Dose: 2 unit Documented By: SIDDHARTHA Levothyroxine Sodium (Levothyroxine Sodium 150 Mcg Tablet) 150 mcg PO DAILY@0600 [facility] Last Admin: 03/16/22 06:15 Dose: 150 mcg Documented By: CHAUNCEY Lisinopril (Lisinopril 20 Mg Tablet) 20 mg PO DAILY [facility]; Protocol Last Admin: 03/16/22 07:49 Dose: 20 mg Documented By: SIDDHARTHA Loratadine (Loratadine 10 Mg Tablet) 10 mg PO DAILY [facility] Last Admin: 03/16/22 07:49 Dose: 10 mg Documented By: SIDDHARTHA Montelukast Sodium (Montelukast Sodium 10 Mg Tablet) 10 mg PO BEDTIME [facility] Last Admin: 03/15/22 20:46 Dose: 10 mg Documented By: CHAUNCEY Multivitamins/Vitamin C (Multivitamin Tablet) 1 tab PO DAILY [facility] Last Admin: 03/16/22 07:49 Dose: 1 tab Documented By: SIDDHARTHA Omeprazole (Omeprazole 20 Mg Capsule.Dr) 20 mg PO BID@0630,1630 [facility] Last Admin: 03/16/22 06:15 Dose: 20 mg Documented By: CHAUNCEY Ondansetron HCl (Ondansetron Hcl 4 Mg/2 Ml Vial) 4 mg IVPUSH Q8H PRN PRN Reason: Nausea and Vomiting Last Admin: 03/13/22 08:40 Dose: 4 mg Documented By: SHAGUFTA Oxycodone HCl (Oxycodone Hcl Immed Release 5 Mg Tablet) 5 mg PO Q6H PRN PRN Reason: Pain, Mild (Pain Scale 1-3) Last Admin: 03/16/22 01:46 Dose: 5 mg Documented By: CHAUNCEY Pharmacy Consult (Consult Rx Vancomycin Dosing) 1 each MISCELLANE DAILY PRN PRN Reason: Consult order Pravastatin Sodium (Pravastatin Sodium 20 Mg Tablet) 20 mg PO BEDTIME [facility] Last Admin: 03/15/22 20:46 Dose: 20 mg Documented By: CHAUNCEY Sodium Chloride (0.9 % Sodium Chloride Flush 3 Ml Syringe) 3 ml IVFLUSH QSHIFT [facility] Last Admin: 03/16/22 07:49 Dose: 3 ml Documented By: SIDDHARTHA Thiamine HCl (Thiamine Hcl 100 Mg Tablet) 100 mg PO DAILY [facility] Last Admin: 03/16/22 07:49 Dose: 100 mg Documented By: SIDDHARTHA Labs CBC & Chem 7: 03/15/22 06:06 03/16/22 05:47 Labs: Laboratory Results - last 24 hr 03/15/22 03/15/22 03/15/22 11:21 15:42 18:15 Estim Creat Clear Calc Estimated GFR POC Glucose 233 H 170 H Total Bilirubin Direct Bilirubin AST ALT Alkaline Phosphatase Total Protein Albumin Vancomycin Trough 9.7 L 03/15/22 03/16/22 03/16/22 20:19 05:47 07:29 Estim Creat Clear Calc 87.4 Estimated GFR > 60 POC Glucose 242 H 161 H Total Bilirubin 0.2 Direct Bilirubin < 0.2 AST 29 ALT 54 H Alkaline Phosphatase 73 Total Protein 5.6 L Albumin 3.2 L Vancomycin Trough Microbiology Microbiology Results: Microbiology 03/13/22 10:52 Blood Culture - Final Blood - Venous Methicillin Res Staph Aureus 03/13/22 10:52 Blood Culture - Final Blood - Venous Methicillin Res Staph Aureus Assessment and Plan (1) Dizziness: Status: Acute (2) Bacteremia due to Staphylococcus: Status: Acute Plan 61M presented with posterior headache and nausea and vomitting with differential diagnosis including migraine, demyelinating disease versus infection Staph Bacteremia 2/2 BCx growing staph species repeat Blood cultures ordered Continue IV vancomycin echo pending SIRS secondary to bacteremia Fever, tachycardia. tachycardia improved, fever intermittent RPP negative, UA, CXR negative CRP, ESR elevated Posterior headache with nausea and vomiting still with dizziness and headache but improving brain and cervical spine MRI neg Lyme neg, HIV neg seen by neuro - differential migraine vs demyelinating disease vs infection seen by ID - does not feel infectious cause for headache s/p LP 03/11 -CSF total protein 158.8 meningoencephalitis panel negative Trial with IV steroids, not much improvement after a few days therefore d/c still dizzy despite meclizine, will d/c wean narcotics Mild transaminitis follow LFTs DM 2 metformin on hold Continue Lantus SS, ADA diet htn BP controlled lisinopril, amlodipine moderate persistent asthma symbicort nebs prn Hypothyroidism Continue Synthroid hld Continue statin dvt prophylaxis - lovenox Attending Dr. Briones full code Continued hospitalization for treatment of vertigo/ dizziness and severe headaches necessitating IV pain medication and further follow-up for definitive diagnosis Quality Stroke Does the patient have a stroke diagnosis?: No VTE Prior VTE?: No VTE Risk Level:: Medical - moderate - high VTE Device Contraindication: Treatment Not Indicated VTE Drug Contraindication: Treatment Not Indicated
[2022-03-16 11:28] LABS: Glucose, Whole Blood 253 mg/dL (60-115)
[2022-03-16 16:10] LABS: Glucose, Whole Blood 276 mg/dL (60-115)
[2022-03-16 17:53] LABS: Vancomycin Trough 13.1 mcg/mL (10.0-20.0)
--- NOTE | 2022-03-16 17:59 | HE.PHANOTE ---
Vancomycin Dosing Addendum Vancomycin trough 13.1, continue with current regimen for predicted auc 499.
[2022-03-16] MEDS: Montelukast Sodium 10 MG TABLET PO (20:21)
[2022-03-16] MEDS: Pravastatin Sodium 20 MG TABLET PO (20:21)
[2022-03-16 20:36] LABS: Lyme IgG CSF Immunoblot NO BANDS DETECTED; Lyme IgM CSF Immunoblot NO BANDS DETECTED
[2022-03-16 20:39] LABS: Glucose, Whole Blood 209 mg/dL (60-115)
[2022-03-16] MEDS: Insulin Glargine,Hum.rec.anlog 100 UNIT/ML 10 ML VIAL 10 UNIT SUBCUT (20:41)
[2022-03-16] MEDS: diphenhydrAMINE HCL 25 MG TABLET PO (22:20)
--- NOTE | 2022-03-16 23:50 | PM.IDPN ---
Subjective Subjective Date of Service: 03/16/22 Critical Care Time (minutes): 15 Comment: pt with MRSA bacteremia,now cleared Objective Data Labs CBC & Chem 7: 03/15/22 06:06 03/16/22 05:47 Labs: Laboratory Results - last 24 hr 03/11/22 03/16/22 03/16/22 11:15 05:47 07:29 Creatinine 0.84 Estim Creat Clear Calc 87.4 Estimated GFR > 60 POC Glucose 161 H Total Bilirubin 0.2 Direct Bilirubin < 0.2 AST 29 ALT 54 H Alkaline Phosphatase 73 Total Protein 5.6 L Albumin 3.2 L CSF Lyme IgG (Immblot) NO BANDS DETECTED CSF Lyme IgM (Immblot) NO BANDS DETECTED Vancomycin Trough 03/16/22 03/16/22 03/16/22 11:22 16:06 17:02 Creatinine Estim Creat Clear Calc Estimated GFR POC Glucose 253 H 276 H Total Bilirubin Direct Bilirubin AST ALT Alkaline Phosphatase Total Protein Albumin CSF Lyme IgG (Immblot) CSF Lyme IgM (Immblot) Vancomycin Trough 13.1 03/16/22 20:28 Creatinine Estim Creat Clear Calc Estimated GFR POC Glucose 209 H Total Bilirubin Direct Bilirubin AST ALT Alkaline Phosphatase Total Protein Albumin CSF Lyme IgG (Immblot) CSF Lyme IgM (Immblot) Vancomycin Trough Microbiology Microbiology Results: Microbiology 03/15/22 13:18 Blood - Venous Blood Culture - Preliminary No growth after 24 hours. 03/15/22 13:18 Blood - Venous Blood Culture - Preliminary No growth after 24 hours. 03/13/22 10:52 Blood - Venous Blood Culture - Final Methicillin Res Staph Aureus 03/13/22 10:52 Blood - Venous Blood Culture - Final Methicillin Res Staph Aureus 03/11/22 11:15 Cerebrospinal Fluid Gram Stain - Final 03/11/22 11:15 Cerebrospinal Fluid CSF Examination - Final 03/11/22 11:15 Cerebrospinal Fluid Fluid Description - Final 03/11/22 11:15 Cerebrospinal Fluid CSF Culture - Final No growth after 3 days. Physical Exam Vital Signs: Vital Signs: Last Vital Signs Temp 97.5 F 03/16/22 20:00 Pulse 90 03/16/22 20:00 Resp 18 03/16/22 20:00 BP 125/77 03/16/22 20:00 Pulse Ox 97 03/16/22 20:00 O2 Del Method 03/16/22 20:00 O2 Flow Rate 6 06/15/22 12:16 BMI result Body Mass Index 26.6 Const: General: cooperative HEENT: Head: Yes normal to inspection Resp: Effort & Inspection: normal respiratory effort Cardio: Rate: regular rate Rhythm: regular rhythm GI: Inspection: Yes normal to inspection Neuro: Other: sleepy Assessment and Plan Assessment and plan (1) Bacteremia due to Staphylococcus: Problem details: MRSA skin source Status: Acute Assessment and Plan: Check echo and as long as negative 14 d IV Vancomycin (2) Basilar migraine: Status: Acute Time Spent With Patient Time: Total time spent is greater than 50% in coordination of care (as documented) at patient's floor/unit and/or counseling patient:
[2022-03-17] VITALS (9 sets, daily range): BP systolic 107–130; BP diastolic 69–79; PULSE 77–93; RESP 14–18; TEMP 35.7–37.3; O2SAT 92–97
[2022-03-17] MEDS: oxyCODONE HCl Immed Release 5 MG TABLET PO ×2 (04:07→23:02)
[2022-03-17] MEDS: Levothyroxine Sodium 150 MCG TABLET PO (05:50)
[2022-03-17] MEDS: Omeprazole 20 MG CAPSULE.DR PO ×2 (05:50→16:28)
[2022-03-17] MEDS: vancomycin HCL 1,500 MG in 0.9 % Sodium Chloride 500 ML 333.3 MG IV ×2 (06:22→20:36)
[2022-03-17 07:16] LABS: Creatinine Clr Calc Pharmacy 76.5; Estimated Glomerular Filt Rate > 60
[2022-03-17 07:43] LABS: Glucose, Whole Blood 157 mg/dL (60-115)
[2022-03-17] MEDS: Fluticasone/Vilanterol 100/25 BLST.W.DEV 1 PUFF INHALE (07:46)
[2022-03-17] MEDS: Thiamine HCL 100 MG TABLET PO (09:15)
[2022-03-17] MEDS: Multivitamin TABLET 1 TAB PO (09:15)
[2022-03-17] MEDS: Folic Acid 1 MG TABLET PO (09:15)
[2022-03-17] MEDS: Loratadine 10 MG TABLET PO (09:15)
[2022-03-17] MEDS: lisinopriL 20 MG TABLET PO (09:15)
[2022-03-17] MEDS: Insulin Lispro 100 UNIT/ML 3 ML VIAL SUBCUT ×3 (09:15→20:52)
[2022-03-17] MEDS: amLODIPine Besylate 5 MG TABLET PO (09:15)
--- NOTE | 2022-03-17 10:10 | P.PNIM_ITS ---
Subjective Subjective Date of Service: 03/17/22 Review of Systems Seen and examined this morning better today, dizziness is starting to subside denies chest pain, sob Physical Exam Vital Signs: Vital Signs: Last Vital Signs Temp 99.1 F 03/17/22 07:21 Pulse 82 03/17/22 07:46 Resp 18 03/17/22 07:46 BP 119/73 03/17/22 07:21 Pulse Ox 93 03/17/22 07:21 O2 Del Method 03/17/22 07:21 O2 Flow Rate 6 03/06/22 12:16 BMI result Body Mass Index 26.6 Appearing in no acute distress lung sounds are clear to auscultation heart regular rate rhythm, clear S1, S2 positive bowel sounds, abdomen is soft, nontender neuro patient is alert x3, no focal deficits Objective Data Active Medications Acetaminophen (Acetaminophen 325 Mg Tablet) 975 mg PO Q6H PRN PRN Reason: Headache Last Admin: 03/15/22 03:35 Dose: 975 mg Documented By: ALFIE Albuterol Sulfate (Albuterol Sulfate 90 Mcg 18 Gm Inhaler) 2 puff INHALE QID PRN PRN Reason: Shortness Of Breath Last Admin: 03/07/22 09:00 Dose: 2 puff Documented By: VANDA Amlodipine Besylate (Amlodipine Besylate 5 Mg Tablet) 5 mg PO DAILY [facility]; Protocol Last Admin: 03/17/22 09:15 Dose: 5 mg Documented By: STARLA Dextrose (Dextrose 50 % 25 Gm/50 Ml Syringe) 25 gm IVPUSH Q15M PRN; Protocol PRN Reason: per Hypoglycemia Standing Ord. Diphenhydramine HCl (Diphenhydramine Hcl 25 Mg Tablet) 25 mg PO BEDTIME PRN PRN Reason: sleep Last Admin: 03/16/22 22:20 Dose: 25 mg Documented By: ODRISM Enoxaparin Sodium (Enoxaparin Sodium 40 Mg/0.4 Ml Syringe) 40 mg SUBCUT Q24H [facility] Last Admin: 03/10/22 10:23 Dose: 40 mg Documented By: LM Fluticasone Propionate (Fluticasone Propionate Nasal 16 Gm [place]) 2 spray NOSTRIL-B DAILY [facility] Last Admin: 03/17/22 09:20 Dose: Not Given Documented By: STARLA Non-Admin Reason: refused Fluticasone/Vilanterol (Fluticasone/Vilanterol 100/25 Blst.W.Dev) 1 puff INHALE RDAILY [facility] Last Admin: 03/17/22 07:46 Dose: 1 puff Documented By: ARMINDA Folic Acid (Folic Acid 1 Mg Tablet) 1 mg PO DAILY [facility] Last Admin: 03/17/22 09:15 Dose: 1 mg Documented By: STARLA Glucose (Glucose Gel 15 Gm Gel..Gram.) 15 gm PO Q15M PRN; Protocol PRN Reason: per Hypoglycemia Standing Ord. Guaifenesin (Guaifenesin La 600 Mg Tab.Er.12h) 600 mg PO BID PRN PRN Reason: Congestion Vancomycin HCl 1,500 mg/ (Sodium Chloride) 500 mls @ 333.333 mls/hr IV Q12H [facility] Last Infusion: 03/17/22 09:19 Dose: 0 mls/hr Documented By: STARLA Ibuprofen (Ibuprofen 200 Mg Tablet) 200 mg PO Q8H PRN PRN Reason: Pain, Moderate (Pain Scale 4-6 Insulin Glargine (Insulin Glargine,Hum.Rec.Anlog 100 Unit/Ml 10 Ml Vial) 10 unit SUBCUT BEDTIME [facility] Last Admin: 03/16/22 20:41 Dose: 10 unit Documented By: CHAUNCEY Insulin Human Lispro (Insulin Lispro 100 Unit/Ml 3 Ml Vial) 0 unit SUBCUT QIDACHS [facility]; Protocol Last Admin: 03/17/22 09:15 Dose: 2 unit Documented By: STARLA Levothyroxine Sodium (Levothyroxine Sodium 150 Mcg Tablet) 150 mcg PO DAILY@0600 [facility] Last Admin: 03/17/22 05:50 Dose: 150 mcg Documented By: ODRISRosita Lisinopril (Lisinopril 20 Mg Tablet) 20 mg PO DAILY [facility]; Protocol Last Admin: 03/17/22 09:15 Dose: 20 mg Documented By: STARLA Loratadine (Loratadine 10 Mg Tablet) 10 mg PO DAILY [facility] Last Admin: 03/17/22 09:15 Dose: 10 mg Documented By: STARLA Montelukast Sodium (Montelukast Sodium 10 Mg Tablet) 10 mg PO BEDTIME [facility] Last Admin: 03/16/22 20:21 Dose: 10 mg Documented By: CHAUNCEY Multivitamins/Vitamin C (Multivitamin Tablet) 1 tab PO DAILY [facility] Last Admin: 03/17/22 09:15 Dose: 1 tab Documented By: STARLA Omeprazole (Omeprazole 20 Mg Capsule.Dr) 20 mg PO BID@0630,1630 [facility] Last Admin: 03/17/22 05:50 Dose: 20 mg Documented By: CHAUNCEY Ondansetron HCl (Ondansetron Hcl 4 Mg/2 Ml Vial) 4 mg IVPUSH Q8H PRN PRN Reason: Nausea and Vomiting Last Admin: 03/13/22 08:40 Dose: 4 mg Documented By: SHAGUFTA Oxycodone HCl (Oxycodone Hcl Immed Release 5 Mg Tablet) 5 mg PO Q6H PRN PRN Reason: Pain, Mild (Pain Scale 1-3) Last Admin: 03/17/22 04:07 Dose: 5 mg Documented By: CHAUNCEY Pharmacy Consult (Consult Rx Vancomycin Dosing) 1 each MISCELLANE DAILY PRN PRN Reason: Consult order Pravastatin Sodium (Pravastatin Sodium 20 Mg Tablet) 20 mg PO BEDTIME [facility] Last Admin: 03/16/22 20:21 Dose: 20 mg Documented By: CHAUNCEY Sodium Chloride (0.9 % Sodium Chloride Flush 3 Ml Syringe) 3 ml IVFLUSH QSHIFT [facility] Last Admin: 03/17/22 09:13 Dose: Not Given Documented By: STARLA Non-Admin Reason: assessed Thiamine HCl (Thiamine Hcl 100 Mg Tablet) 100 mg PO DAILY [facility] Last Admin: 03/17/22 09:15 Dose: 100 mg Documented By: STARLA Labs CBC & Chem 7: 03/15/22 06:06 03/17/22 06:20 Labs: Laboratory Results - last 24 hr 03/11/22 03/16/22 03/16/22 11:15 11:22 16:06 Estim Creat Clear Calc Estimated GFR POC Glucose 253 H 276 H CSF Lyme IgG (Immblot) NO BANDS DETECTED CSF Lyme IgM (Immblot) NO BANDS DETECTED Vancomycin Trough 03/16/22 03/16/22 03/17/22 17:02 20:28 06:20 Estim Creat Clear Calc 76.5 Estimated GFR > 60 POC Glucose 209 H CSF Lyme IgG (Immblot) CSF Lyme IgM (Immblot) Vancomycin Trough 13.1 03/17/22 07:21 Estim Creat Clear Calc Estimated GFR POC Glucose 157 H CSF Lyme IgG (Immblot) CSF Lyme IgM (Immblot) Vancomycin Trough Microbiology Microbiology Results: Microbiology 03/15/22 13:18 Blood Culture - Preliminary Blood - Venous No growth after 24 hours. 03/15/22 13:18 Blood Culture - Preliminary Blood - Venous No growth after 24 hours. 03/13/22 10:52 Blood Culture - Final Blood - Venous Methicillin Res Staph Aureus 03/13/22 10:52 Blood Culture - Final Blood - Venous Methicillin Res Staph Aureus Assessment and Plan (1) Dizziness: Status: Acute (2) Bacteremia due to Staphylococcus: Status: Acute Plan 61M presented with posterior headache and nausea and vomitting with differential diagnosis including migraine, demyelinating disease versus infection MRSA Bacteremia 2/2 cx unknown source repeat Blood cultures ordered Continue IV vancomycin echo pending 14 days of IV vanco as per ID will need midline SIRS. Resolved secondary to bacteremia Fever, tachycardia. RPP negative, UA, CXR negative CRP, ESR elevated Posterior headache with nausea and vomiting still with dizziness and headache but improving significantly brain and cervical spine MRI neg Lyme neg, HIV neg seen by neuro - differential migraine vs demyelinating disease vs infection seen by ID - does not feel infectious cause for headache s/p LP 03/11 -CSF total protein 158.8 meningoencephalitis panel negative Trial with IV steroids, not much improvement after a few days therefore d/c still was dizzy despite meclizine, d/c wean narcotics Mild transaminitis follow LFTs DM 2 metformin on hold Continue Lantus SS, ADA diet htn BP controlled lisinopril, amlodipine moderate persistent asthma symbicort nebs prn Hypothyroidism Continue Synthroid hld Continue statin dvt prophylaxis - lovenox Attending Dr. Briones full code Continued hospitalization for treatment of vertigo/ dizziness and severe headaches necessitating IV pain medication and further follow-up for definitive diagnosis Quality Stroke Does the patient have a stroke diagnosis?: No VTE Prior VTE?: No VTE Risk Level:: Medical - moderate - high VTE Device Contraindication: Treatment Not Indicated VTE Drug Contraindication: Treatment Not Indicated
[2022-03-17 11:15] LABS: Glucose, Whole Blood 264 mg/dL (60-115)
--- NOTE | 2022-03-17 12:05 | MHC.CM.PN ---
Addendum entered by Mildred Wellington 03/17/22 13:08: PATIENT UNDERSTANDS BARRIERS TO DC TO [place] AND ASKS IF HE CAN REMAIN AT [facility] FOR HIS IV ABX IT WAS EXPLAINED THAT HIS CARE WILL BE ABLE TO BE MANAGED AT A LOWER LEVEL OF CARE HE IS AGREEABLE TO REFERRAL IN [place] AND REFERAL SENT TO THE [facility] PATIENT IS COVID VACCINATED X 3 WITH MODERNA. Original Note: IF PLAN IS IV ABX, PATIENT STATES THAT NOT WISH TO DC HOME (PATIENT HAS NO PCP AND WILL NOT BE ABLE TO SECURE A VNA FOR HOME SERVICES) HIS FAMILY MEMBER IS [place] IS WILLING TO LET HIM STAY; HOWEVER, PATIENT HAS A [employer] WILL BE REHAB CHOICES. CASE MANAGEMENT TO CONTINUE TO FOLLOW
--- NOTE | 2022-03-17 14:37 | PC.NURSE ---
poc maintained, insulin administered as ordered. Assisted pt with sitting at edge of bed and standing with walker. pt c/o constant vertigo and is unsteady on feet while standing with a walker. Pt has to be held by both shoulders or pt's leans over to a side and will fall. pt bathed this shift. safety and fall precautions in place. call dickson within reach.
[2022-03-17 16:57] LABS: Glucose, Whole Blood 121 mg/dL (60-115)
[2022-03-17 17:30] LABS: Vancomycin Trough 14.7 mcg/mL (10.0-20.0)
--- NOTE | 2022-03-17 18:18 | HE.PHANOTE ---
Vancomycin Dosing Addendum trough 14.7... continue with current regimen. next trough 03/18/22 @1700
[2022-03-17] MEDS: 0.9 % Sodium Chloride Flush 3 ML SYRINGE IVFLUSH (20:37)
[2022-03-17] MEDS: Montelukast Sodium 10 MG TABLET PO (20:37)
[2022-03-17] MEDS: Insulin Glargine,Hum.rec.anlog 100 UNIT/ML 10 ML VIAL 10 UNIT SUBCUT (20:37)
[2022-03-17] MEDS: Pravastatin Sodium 20 MG TABLET PO (20:37)
[2022-03-17 20:54] LABS: Glucose, Whole Blood 250 mg/dL (60-115)
[2022-03-17] MEDS: Meclizine HCl 25 MG TABLET PO (21:10)
[2022-03-17] MEDS: diphenhydrAMINE HCL 25 MG TABLET PO (23:02)
[2022-03-18] VITALS (8 sets, daily range): BP systolic 120–134; BP diastolic 72–84; PULSE 81–92; RESP 15–18; TEMP 36.4–37.2; O2SAT 94–97
[2022-03-18] MEDS: 0.9 % Sodium Chloride Flush 3 ML SYRINGE IVFLUSH ×4 (00:11→21:09)
[2022-03-18] MEDS: Omeprazole 20 MG CAPSULE.DR PO ×2 (06:32→17:02)
[2022-03-18] MEDS: Levothyroxine Sodium 150 MCG TABLET PO (06:32)
--- NOTE | 2022-03-18 07:00 | CA_ITS ---
Transthoracic Echocardiogram Patient (Last, First, Middle): Duane Hernandez, Gender: Male Date of : 1960 Age: 61 Procedure Date: 03/18/2022 Procedure Type: Transthoracic Echocardiogram Location: S3E Height: 170.18 cm Weight: 77.11 kg BSA: 1.89 m2 Heart Rate: bpm BP: 121 / 72 mmHg [place]: TO/YR Referring MD: Gabriela Galaviz NP Symptoms: MRSA bacteremia Study Quality: Good ECG Rhythm: Sinus Conclusions: - The left ventricular systolic function is normal. The calculated ejection fraction is 56% by biplane method. - Moderately increased right ventricular cavity size. - There is mild mitral valve regurgitation. - There is mild tricuspid valve regurgitation. - No obvious valvular vegetations. Findings Left Ventricle Normal left ventricular cavity size. The left ventricular systolic function is normal. The calculated ejection fraction is 56% by biplane method. There is no evidence of regional wall motion abnormalities. Diastolic function is normal for age. There is mild septal asymmetric hypertrophy. Right Ventricle Moderately increased right ventricular cavity size. There is normal right ventricular systolic function. Atria Both atria are normal in size. Aortic Valve There is a normal trileaflet aortic valve. There is no aortic valve stenosis. There is no aortic valve regurgitation. Mitral Valve The mitral valve appears normal. There is mild mitral valve regurgitation. There is no mitral valve stenosis. Pulmonic Valve The pulmonic valve is likely normal. There is trace pulmonic valve regurgitation. Tricuspid Valve Normal tricuspid valve structure. There is mild tricuspid valve regurgitation. The pulmonary artery systolic pressure is normal. Great Vessels The aortic annulus, sinuses of valsalva, and asc aorta are normal in size. Venous The inferior vena cava is mildly dilated and collapses greater than 50% with inspiration. Pericardium/Pleural There is no evidence of pericardial effusion. Prior Study Comparison No prior study available for comparison. Measurements 2D Linear Measurements IVSd: 1.13 0.6-0.9/0.6-1.0 cm LVIDd: 5.25 3.9-5.3/4.2-5.9 cm LVIDd Index: 2.78 2.4-3.2/2.2-3.1 cm/m2 LVIDs: 3.89 2.0-3.6 cm LVPWd: 0.90 0.7-1.1 cm LA Diam: 4.20 2.7-3.8/3.0-4.0 cm LAIDs Index: 2.22 1.5-2.3 cm/m2 LV Mass: 250.94 67-162/88-224 g LV Mass Index: 132.77 43-95/49-115 g/m2 LVOT Diam: 2.20 3.0+(-)1.3 cm 2D Systolic Function EF 4C: 55.70 >55% EF 2C: 54.80 >55% EF BiP: 55.50 >55% Mitral Valve MV Pk E: 0.68 MV PK A: 0.66 MV Decel Time: 167.00 E/A: 1.00 E'Lateral: 11.20 E'Medial: 7.07 E/E' Med: 9.60 E/E' Lat: 6.00 PHT: 49.00 MVA PHT: 4.49 Decel [place]: 4.06 Aortic Valve AoV Pk Michael: 1.66 AoV Mn Michael: 1.06 AoV VTI: 0.31 AoV Pk Grad: 11.00 Aov Mn Grad: 5.00 DALI Cont.VTI: 2.93 LVOT LVOT Pk Michael: 0.99 LVOT Mn Michael: 0.70 LVOT VTI: 0.24 LVOT Pk Grad: 4.00 LVOT Mn Grad: 2.00 LVOT Diam: 2.20 LVOT Area: 3.80 Diastolic Function MV Pk E: 0.68 MV Pk A: 0.66 E/A: 1.00 E'Medial: 7.07 E/E' Med: 9.60 E' Laterial: 11.20 E/E' Lat: 6.00 Right Ventricle TAPSE (mm): 21.70 TVS' Michael: 10.90 Tricuspid Valve TR Pk Michael: 2.52 TR Pk Grad: 25.00 RA Press: 8.00 RVSP: 33.00 Great Vessels Aorta Sinus of Valsalva: 3.79 2.0-3.[address] [place]: 3.19 1.7-3.4 cm Ao Asc: 3.60 2.1-3.4 cm Updated in Other Vendor System with Status of Final Leroy Hoff MD electronically signed on 03/18/2022 12:01:56 PM with status of Final
[2022-03-18 07:16] LABS: Glucose, Whole Blood 125 mg/dL (60-115)
[2022-03-18 07:26] LABS: Anion Gap 14 (12-20); Blood Urea Nitrogen 9 mg/dL (9-16); Calcium 8.6 mg/dL (8.4-10.2); Carbon Dioxide 23 mmol/L (22-29); Chloride 107 mmol/L (96-108); Creatinine Clr Calc Pharmacy 69.2; Creatinine Clr Calc Pharmacy 74.9; Estimated Glomerular Filt Rate > 60; Glucose Random 140 mg/dL (60-115); Potassium 4.2 mmol/L (3.3-5.1); Sodium 140 mmol/L (135-145)
[2022-03-18] MEDS: Multivitamin TABLET 1 TAB PO (07:40)
[2022-03-18] MEDS: Loratadine 10 MG TABLET PO (07:40)
[2022-03-18] MEDS: vancomycin HCL 1,500 MG in 0.9 % Sodium Chloride 500 ML 333.33 MG IV (07:41)
[2022-03-18] MEDS: amLODIPine Besylate 5 MG TABLET PO (07:41)
[2022-03-18] MEDS: lisinopriL 20 MG TABLET PO (07:41)
[2022-03-18] MEDS: Folic Acid 1 MG TABLET PO (07:41)
[2022-03-18] MEDS: Thiamine HCL 100 MG TABLET PO (07:41)
[2022-03-18] MEDS: Fluticasone/Vilanterol 100/25 BLST.W.DEV 1 PUFF INHALE (08:07)
--- NOTE | 2022-03-18 11:19 | HO.MIDLINE ---
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 Using ultrasound guidance, CEPHALIC vein access was obtained IN SINGLE ATTEMPT BY THIS RN. A SINGLE LUMEN, NON-PASV, (20G X 8CM) MIDLINE was positioned. The procedure was performed in S-272. Ultrasound was used to document vein patency and for needle entry. A formal ultrasound picture was recorded. Vascular Field Health Officer has released the line for use and it is currently dressed with a StatLock, Tegaderm, and CHG disc. Verification has been performed for blood return and line patency. Arm Circumference: 33 CM Equipment: [employer]te POWERGLIDE PRO Catheter Type: SINGLE LUMEN, NON-PASV, (20G X 8CM) Lot #: [id number]
[2022-03-18 11:27] LABS: Glucose, Whole Blood 265 mg/dL (60-115)
[2022-03-18] MEDS: Insulin Lispro 100 UNIT/ML 3 ML VIAL SUBCUT ×2 (11:48→21:08)
--- NOTE | 2022-03-18 13:13 | HO.PM.IMPN ---
Subjective Subjective Date of Service: 03/18/22 Review of Systems Seen and examined this morning better today, dizziness is starting to subside denies chest pain, sob Physical Exam Vital Signs: Vital Signs: Last Vital Signs Temp 97.9 F 03/18/22 11:17 Pulse 90 03/18/22 11:17 Resp 18 03/18/22 11:17 BP 134/74 03/18/22 11:17 Pulse Ox 97 03/18/22 11:17 O2 Del Method 03/18/22 11:17 O2 Flow Rate 3 03/17/22 18:26 BMI result Body Mass Index 26.6 Appearing in no acute distress lung sounds are clear to auscultation heart regular rate rhythm, clear S1, S2 positive bowel sounds, abdomen is soft, nontender neuro patient is alert x3, no focal deficits Objective Data Active Medications Acetaminophen (Acetaminophen 325 Mg Tablet) 975 mg PO Q6H PRN PRN Reason: Headache Last Admin: 03/15/22 03:35 Dose: 975 mg Documented By: ALFIE Albuterol Sulfate (Albuterol Sulfate 90 Mcg 18 Gm Inhaler) 2 puff INHALE QID PRN PRN Reason: Shortness Of Breath Last Admin: 03/07/22 09:00 Dose: 2 puff Documented By: VANDA Amlodipine Besylate (Amlodipine Besylate 5 Mg Tablet) 5 mg PO DAILY [facility]; Protocol Last Admin: 03/18/22 07:41 Dose: 5 mg Documented By: ANIA Dextrose (Dextrose 50 % 25 Gm/50 Ml Syringe) 25 gm IVPUSH Q15M PRN; Protocol PRN Reason: per Hypoglycemia Standing Ord. Diphenhydramine HCl (Diphenhydramine Hcl 25 Mg Tablet) 25 mg PO BEDTIME PRN PRN Reason: sleep Last Admin: 03/17/22 23:02 Dose: 25 mg Documented By: MIKE Enoxaparin Sodium (Enoxaparin Sodium 40 Mg/0.4 Ml Syringe) 40 mg SUBCUT Q24H [facility] Last Admin: 03/10/22 10:23 Dose: 40 mg Documented By: LM Fluticasone Propionate (Fluticasone Propionate Nasal 16 Gm Archer) 2 spray NOSTRIL-B DAILY [facility] Last Admin: 03/18/22 07:32 Dose: Not Given Documented By: HO.COTEMA Non-Admin Reason: Patient Refused Fluticasone/Vilanterol (Fluticasone/Vilanterol 100/25 Blst.W.Dev) 1 puff INHALE RDAILY [facility] Last Admin: 03/18/22 08:07 Dose: 1 puff Documented By: URIEL Folic Acid (Folic Acid 1 Mg Tablet) 1 mg PO DAILY [facility] Last Admin: 03/18/22 07:41 Dose: 1 mg Documented By: ANIA Glucose (Glucose Gel 15 Gm Gel..Gram.) 15 gm PO Q15M PRN; Protocol PRN Reason: per Hypoglycemia Standing Ord. Guaifenesin (Guaifenesin La 600 Mg Tab.Er.12h) 600 mg PO BID PRN PRN Reason: Congestion Vancomycin HCl 1,500 mg/ (Sodium Chloride) 500 mls @ 333.333 mls/hr IV Q12H [facility] Last Infusion: 03/18/22 09:56 Dose: 0 mls/hr Documented By: ANIA Ibuprofen (Ibuprofen 200 Mg Tablet) 200 mg PO Q8H PRN PRN Reason: Pain, Moderate (Pain Scale 4-6 Insulin Glargine (Insulin Glargine,Hum.Rec.Anlog 100 Unit/Ml 10 Ml Vial) 10 unit SUBCUT BEDTIME [facility] Last Admin: 03/17/22 20:37 Dose: 10 unit Documented By: MIKE Insulin Human Lispro (Insulin Lispro 100 Unit/Ml 3 Ml Vial) 0 unit SUBCUT QIDACHS [facility]; Protocol Last Admin: 03/18/22 11:48 Dose: 6 unit Documented By: ANIA Levothyroxine Sodium (Levothyroxine Sodium 150 Mcg Tablet) 150 mcg PO DAILY@0600 [facility] Last Admin: 03/18/22 06:32 Dose: 150 mcg Documented By: ZEINA Lisinopril (Lisinopril 20 Mg Tablet) 20 mg PO DAILY [facility]; Protocol Last Admin: 03/18/22 07:41 Dose: 20 mg Documented By: ANIA Loratadine (Loratadine 10 Mg Tablet) 10 mg PO DAILY [facility] Last Admin: 03/18/22 07:40 Dose: 10 mg Documented By: ANIA Meclizine HCl (Meclizine Hcl 25 Mg Tablet) 25 mg PO Q8H PRN PRN Reason: dizziness Last Admin: 03/17/22 21:10 Dose: 25 mg Documented By: MIKE Montelukast Sodium (Montelukast Sodium 10 Mg Tablet) 10 mg PO BEDTIME [facility] Last Admin: 03/17/22 20:37 Dose: 10 mg Documented By: MIKE Multivitamins/Vitamin C (Multivitamin Tablet) 1 tab PO DAILY [facility] Last Admin: 03/18/22 07:40 Dose: 1 tab Documented By: ANIA Omeprazole (Omeprazole 20 Mg Capsule.Dr) 20 mg PO BID@0630,1630 [facility] Last Admin: 03/18/22 06:32 Dose: 20 mg Documented By: ZEINA Ondansetron HCl (Ondansetron Hcl 4 Mg/2 Ml Vial) 4 mg IVPUSH Q8H PRN PRN Reason: Nausea and Vomiting Last Admin: 03/13/22 08:40 Dose: 4 mg Documented By: SHAGUFTA Oxycodone HCl (Oxycodone Hcl Immed Release 5 Mg Tablet) 5 mg PO Q6H PRN PRN Reason: Pain, Mild (Pain Scale 1-3) Last Admin: 03/17/22 23:02 Dose: 5 mg Documented By: MIKE Pharmacy Consult (Consult Rx Vancomycin Dosing) 1 each MISCELLANE DAILY PRN PRN Reason: Consult order Pravastatin Sodium (Pravastatin Sodium 20 Mg Tablet) 20 mg PO BEDTIME [facility] Last Admin: 03/17/22 20:37 Dose: 20 mg Documented By: MIKE Sodium Chloride (0.9 % Sodium Chloride Flush 3 Ml Syringe) 3 ml IVFLUSH QSHIFT [facility] Last Admin: 03/18/22 07:41 Dose: 3 ml Documented By: ANIA Thiamine HCl (Thiamine Hcl 100 Mg Tablet) 100 mg PO DAILY [facility] Last Admin: 03/18/22 07:41 Dose: 100 mg Documented By: ANIA Labs CBC & Chem 7: 03/15/22 06:06 03/18/22 06:24 Labs: Laboratory Results - last 24 hr 03/11/22 03/11/22 03/17/22 11:15 11:15 16:03 Anion Gap Estim Creat Clear Calc Estimated GFR POC Glucose 121 H Random Glucose Calcium CSF Oligoclonal Bands see note CSF Lyme IgG Bands Det TNP CSF Lyme IgM Bands Det TNP Vancomycin Trough 03/17/22 03/17/22 03/18/22 16:58 20:37 06:24 Anion Gap Estim Creat Clear Calc 74.9 Estimated GFR > 60 POC Glucose 250 H Random Glucose Calcium CSF Oligoclonal Bands CSF Lyme IgG Bands Det CSF Lyme IgM Bands Det Vancomycin Trough 14.7 03/18/22 03/18/22 03/18/22 06:24 07:12 11:20 Anion Gap 14 Estim Creat Clear Calc 69.2 Estimated GFR > 60 POC Glucose 125 H 265 H Random Glucose 140 H Calcium 8.6 CSF Oligoclonal Bands CSF Lyme IgG Bands Det CSF Lyme IgM Bands Det Vancomycin Trough Microbiology Microbiology Results: Microbiology 03/15/22 13:18 Blood Culture - Preliminary Blood - Venous No growth after 48 hours. 03/15/22 13:18 Blood Culture - Preliminary Blood - Venous No growth after 48 hours. Assessment and Plan (1) Dizziness: Status: Acute (2) Bacteremia due to Staphylococcus: Status: Acute Plan 61M presented with posterior headache and nausea and vomitting with differential diagnosis including migraine, demyelinating disease versus infection MRSA Bacteremia 2/2 cx unknown source repeat Blood cultures ordered Continue IV vancomycin Normal echo with no vegetation 14 days of IV vanco as per ID, midline placed Posterior headache with nausea, vomiting and dizziness Nausea and vomiting resolved brain and cervical spine MRI neg Lyme neg, HIV neg seen by neuro - differential migraine vs demyelinating disease vs infection seen by ID - does not feel infectious cause for headache s/p LP 03/11 -CSF total protein 158.8 meningoencephalitis panel negative Trial with IV steroids, not much improvement after a few days therefore d/c still was dizzy despite meclizine, d/c diff dx include vestibular neuritis vs long haul covid dizziness needs ENT follow up outpatient SIRS. Resolved secondary to bacteremia Fever, tachycardia. RPP negative, UA, CXR negative CRP, ESR elevated Mild transaminitis follow LFTs DM 2 metformin on hold Continue Lantus SS, ADA diet htn BP controlled lisinopril, amlodipine moderate persistent asthma symbicort nebs prn Hypothyroidism Continue Synthroid hld Continue statin dvt prophylaxis - lovenox Attending Dr. Griffith full code Continued hospitalization for treatment of vertigo/ dizziness and severe headaches necessitating IV pain medication and further follow-up for definitive diagnosis Quality Stroke Does the patient have a stroke diagnosis?: No VTE Prior VTE?: No VTE Risk Level:: Medical - moderate - high VTE Device Contraindication: Treatment Not Indicated VTE Drug Contraindication: Treatment Not Indicated
--- NOTE | 2022-03-18 16:10 | MHC.CM.PN ---
pt seen by PT and is recommended Acute Rehab, referrals placed in [facility]. OT eval requested and pending.
[2022-03-18 17:11] LABS: Vancomycin Trough 19.1 mcg/mL (10.0-20.0)
[2022-03-18 17:13] LABS: Glucose, Whole Blood 133 mg/dL (60-115)
[2022-03-18] MEDS: vancomycin HCL 1,250 MG in 0.9 % Sodium Chloride 250 ML 166.67 MG IV (18:34)
--- NOTE | 2022-03-18 19:23 | HE.PHANOTE ---
trough 19.1 today up from 14.7 yesterday. Per insight, need to reduce dose to 1250 mg q12h to remain within auc 400-600. Next trough 03/19 1700
[2022-03-18 20:28] LABS: Glucose, Whole Blood 219 mg/dL (60-115)
[2022-03-18] MEDS: Pravastatin Sodium 20 MG TABLET PO (21:08)
[2022-03-18] MEDS: Montelukast Sodium 10 MG TABLET PO (21:08)
[2022-03-18] MEDS: Insulin Glargine,Hum.rec.anlog 100 UNIT/ML 10 ML VIAL 10 UNIT SUBCUT (21:09)
[2022-03-18] MEDS: oxyCODONE HCl Immed Release 5 MG TABLET PO (21:13)
[2022-03-18] MEDS: diphenhydrAMINE HCL 25 MG TABLET PO (22:08)
[2022-03-19] VITALS (9 sets, daily range): BP systolic 108–132; BP diastolic 67–84; PULSE 72–87; RESP 16–20; TEMP 36.7–37.3; O2SAT 94–96
[2022-03-19] MEDS: Omeprazole 20 MG CAPSULE.DR PO ×2 (05:29→16:40)
[2022-03-19] MEDS: Levothyroxine Sodium 150 MCG TABLET PO (05:29)
[2022-03-19] MEDS: vancomycin HCL 1,250 MG in 0.9 % Sodium Chloride 250 ML 166.67 MG IV ×2 (06:15→18:42)
[2022-03-19] MEDS: 0.9 % Sodium Chloride Flush 3 ML SYRINGE IVFLUSH ×3 (06:16→21:46)
[2022-03-19] MEDS: Thiamine HCL 100 MG TABLET PO (06:32)
[2022-03-19] MEDS: Multivitamin TABLET 1 TAB PO (06:32)
[2022-03-19] MEDS: Folic Acid 1 MG TABLET PO (06:32)
[2022-03-19] MEDS: Loratadine 10 MG TABLET PO (06:32)
[2022-03-19] MEDS: lisinopriL 20 MG TABLET PO (06:33)
[2022-03-19] MEDS: amLODIPine Besylate 5 MG TABLET PO (06:33)
[2022-03-19] MEDS: Fluticasone/Vilanterol 100/25 BLST.W.DEV 1 PUFF INHALE (06:34)
[2022-03-19] MEDS: Fluticasone Propionate Nasal 16 GM SPRAY 2 SPRAY NOSTRIL-B (06:35)
[2022-03-19 07:06] LABS: Creatinine Clr Calc Pharmacy 73.4; Estimated Glomerular Filt Rate > 60
[2022-03-19 07:43] LABS: Glucose, Whole Blood 118 mg/dL (60-115)
--- NOTE | 2022-03-19 09:01 | MHC.CM.PN ---
cm awaiting OT eval to be complete for AR's to review, cm to meet w/pt to review preferences.
--- NOTE | 2022-03-19 09:04 | P.CDIC_ITS ---
CDI Concurrent Query Documentation Clarification: PHYSICIAN'S DOCUMENTATION REQUEST Date of Query: 03/19/22904 Patient Name: Duane Hernandez Admit Date: 03/11/22 Dear Doctor, A review of the medical record indicates additional documentation may be needed. Please review below and update the documentation accordingly. Clinical Indicators: Risk Factors/Clinical Indicators/Treatments ID progress note 03/16 - MRSA bacteremia, now cleared. MRSA, skin source, acute PN 03/18 - MRSA bacteremia unknown source. Temp 102.5 RR 22 HR 102 IV Vancomycin Please clarify which of the following most accurately describes the above abnormalities: Sepsis (MRSA) due to skin source MRSA bacteremia due to skin source or other etiology * Sepsis * Systemic manifestations of infection, with 2 or more SIRS criteria which include: -Fever > 100.4F or hypothermia < 96.8 F -Leukocytosis - WBC > 12,000 or leukopenia, WBC < 4,000 or > 10% bands -Tachycardia > 90 beats/minute -Tachypnea - RR > 20 breaths/minute or PaCO2 < 32mmHg (Source: Merck Manual 2013) * Indicate the knows or suspected organism * Indicate the known or suspected underlying infection, such as UTI, pneumonia, or cellulitis * Indicate if a suspected bacteria infection of unknown source * Indicate if associated with an implanted device such as a F/C, PICC line, orthopedic hardware, etc * Indicate if there is associated organ dysfunction, such as renal or respiratory failure * Other * Unable to determine Use of terms such as suspected, likely, concern for, or probable (associated with a specific diagnosis that is being evaluated, monitored, or treated as if it exists) are acceptable and can be coded in the inpatient setting, when documented at the time of discharge. Thank you, Savita Atkinson [facility], [facility]IS Extension: [phone] Please use your independent medical judgment in providing your response. THIS QUERY IS PART OF THE PERMANENT MEDICAL RECORD Other Diagnosis: See note
--- NOTE | 2022-03-19 09:10 | P.CDIC_ITS ---
CDI Concurrent Query Documentation Clarification: PHYSICIAN'S DOCUMENTATION REQUEST Date of Query: 03/19/22 0911 Patient Name: Duane Hernandez Admit Date: 03/11/22 Dear Doctor, A review of the medical record indicates additional documentation may be needed. Please review below and update the documentation accordingly. Clinical Indicators: Risk Factors/Clinical Indicators/Treatments Diabetes mellitus type 2 Poc glucose 03/11 - 404 H Insulin Please clarify the following regarding Diabetes Mellitus (DM): Complications of DM: * Hypoglycemia * Hyperglycemia * Uncontrolled, poorly controlled etc. * No complications of DM * Other complication ? please specify * Unable to determine Use of terms such as suspected, likely, concern for, or probable (associated with a specific diagnosis that is being evaluated, monitored, or treated as if it exists) are acceptable and can be coded in the inpatient setting, when documented at the time of discharge. Thank you, Savita Atkinson [facility], [facility] Extension: [phone] Please use your independent medical judgment in providing your response. THIS QUERY IS PART OF THE PERMANENT MEDICAL RECORD Other Diagnosis: See note
[2022-03-19 11:20] LABS: Glucose, Whole Blood 251 mg/dL (60-115)
[2022-03-19] MEDS: Insulin Lispro 100 UNIT/ML 3 ML VIAL SUBCUT ×3 (11:45→21:46)
--- NOTE | 2022-03-19 13:41 | P.DS_ITS ---
DS: Providers Provider Date of admission: 03/11/22 17:31 Primary care physician: Saul Orta MD Consults: 03/08/22 09:54 Consult to Neurology Routine Consulting Provider: [facility] Reason for consultation: dizziness /vertiago/posterior headaches unlcear etiology Has provider been notified: No 03/11/22 14:25 Consult to Infectious Diseases Routine Consulting Provider: Trish Sierra Reason for consultation: possible viral encephalitis Has provider been notified: No Attending physician on discharge: Thierry Griffith Discharging clinician: Gabriela Galaviz DS: Diagnosis Discharge Diagnosis (1) Dizziness: Status: Acute (2) Bacteremia due to Staphylococcus: Status: Acute DS: Summary Hospital Course Hospital Course: HP as per admitting provider This is a 7-year-old male with past medical history of diabetes, asthma, hypothyroidism, hypertension who presents to the hospital with complaints of severe occipital headache.? Patient reports that his headache started 2 days ago, headache is constant, associated with nausea, several episodes of vomiting, intractable, not relieved with [id number] analgesics.? He reports no change in vision, he reports significant dizziness? vertigo.? And difficulty ambulating due to this vertigo.? He denies any fever or chills, no shortness of breath, no cough, no abdominal pain, no diarrhea constipation, no urinary symptoms and no lower extremity edema.?on Arrival to the ED patient hemodynamically stable no significant abnormal vitals Labs are significant for? WBC count of 10.8, hemoglobin of 14.7, labs otherwise unremarkable head CT was negative, has CTA negative for any acute intracranial pathology given the intractable headache, nausea vomiting, patient will be admitted for further evaluation. MRSA Bacteremia 2/2 cx unknown source repeat Blood cultures ordered neg after 8hrs Continue IV vancomycin Normal echo with no vegetation 14 days of IV vanco as per ID, midline placed Posterior headache with nausea, vomiting and dizziness headache, Nausea and vomiting resolved still kaushik dizziness seems like vestibular neuritis from MRSA bacteremia brain and cervical spine MRI neg Lyme neg, HIV neg seen by neuro - differential migraine vs demyelinating disease vs infection, likely infection seen by ID s/p LP 03/11 -CSF total protein 158.8 meningoencephalitis panel negative Trial with IV steroids, not much improvement after a few days therefore d/c still was dizzy despite meclizine can use as needed diff dx include vestibular neuritis vs long haul covid dizziness needs ENT follow up outpatient SIRS. Resolved? secondary to bacteremia Fever, tachycardia. RPP negative, UA, CXR negative CRP, ESR elevated Mild transaminitis follow LFTs DM 2 metformin on hold Continue Lantus SS, ADA diet htn BP controlled lisinopril, amlodipine moderate persistent asthma symbicort nebs prn Hypothyroidism Continue Synthroid hld Continue statin Time Spent with Patient Time attestation: Total time spent providing and/or coordinating discharge services: Physical Exam Vital Signs: Vital Signs: Last Vital Signs Temp 98.1 F 03/19/22 11:10 Pulse 83 03/19/22 11:10 Resp 16 03/19/22 11:10 BP 108/67 03/19/22 11:10 Pulse Ox 95 03/19/22 11:10 O2 Del Method 03/19/22 11:10 O2 Flow Rate 3 03/17/22 18:26 BMI result Body Mass Index 26.6 Appearing in no acute distress head is normocephalic atraumatic eyes pupils are PERRLA sclera is anicteric mouth throat mucous membranes are intact and moist neck is supple no lymphadenopathy, no JVD noted lung sounds are clear to auscultation heart regular rate rhythm, clear S1, S2 positive bowel sounds, abdomen is soft, nontender neuro patient is alert x3, no focal deficits DS: Data Data Completed and Pending Labs on day of discharge: Laboratory Results - last 24 hr 03/18/22 03/18/22 03/18/22 15:17 16:42 20:21 Creatinine Estim Creat Clear Calc Estimated GFR POC Glucose 133 H 219 H Vancomycin Trough 19.1 03/19/22 03/19/22 03/19/22 06:19 07:14 11:07 Creatinine 1.00 Estim Creat Clear Calc 73.4 Estimated GFR > 60 POC Glucose 118 H 251 H Vancomycin Trough Preliminary micro results at discharge 03/15/22 13:18 Blood Culture - Preliminary Blood - Venous No growth after 48 hours. 03/15/22 13:18 Blood Culture - Preliminary Blood - Venous No growth after 48 hours. Discharge Plan Discharge Patient Disposition: Xfer Inpatient Rehab Fac Discharge Diagnosis: Vestibular neuritis MRSA bacteremia Referrals: Saul Orta MD [Primary Care Provider] - 1 Week Discharge Medications: New meclizine 25 mg Tablet 25 mg PO Q8H PRN (Reason: dizziness) Qty: 15 0RF vancomycin HCl in water 100 mg/mL solution 1.25 g IV Q12H Qty: 125 0RF Continued amlodipine 5 mg tablet 1 tab PO DAILY levothyroxine [Euthyrox] 150 mcg tablet 1 tab PO DAILY@0600 levalbuterol tartrate [Xopenex HFA] 45 mcg/actuation HFA aerosol inhaler 2 puff inhalation QID PRN (Reason: Shortness Of Breath) montelukast 10 mg tablet 1 tab PO DAILY lovastatin 20 mg tablet 1 tab PO DAILY (DME) nebulizers [facility] See Rx Instructions .Route Qty: 1 0RF Rx Instructions: As directed ipratropium-albuterol 0.5 mg-3 mg(2.5 mg base)/3 mL Solution For Nebulization 3 ml inhalation Q6H 30 Days 0RF (DME) blood-glucose meter [FreeStyle Lite Meter] Kit See Rx Instructions .ROUTE .MEDSUPPLY Qty: 1 0RF Rx Instructions: As directed alcohol swabs Pads, Medicated 1 pad topical QID Qty: 200 2RF (DME) FreeStyle Lite Strips Strip See Rx Instructions .ROUTE .MEDSUPPLY Qty: 100 2RF Rx Instructions: QID (DME) lancets Mis See Rx Instructions .ROUTE .MEDSUPPLY Qty: 200 2RF Rx Instructions: 4 times daily insulin glargine 100 unit/mL (3 mL) insulin pen 10 unit subcut QPM Qty: 3 3RF insulin lispro 100 unit/mL insulin pen 1 sliding scale dose subcut QIDACHS Qty: 15 2RF Rx Instructions: = 70 but <150 Hold insulin 151 to 200 - 2 units 201 to 250 - 4 units 251 to 300 - 6 units 301 to 350 - 8 units 351 to 399 - 10 units = 400 Contact your doctor metformin 850 mg tablet 850 mg PO BIDWMEAL Qty: 60 2RF cetirizine 10 mg tablet 1 tab PO DAILY lisinopril 20 mg tablet 1 tab PO DAILY fluticasone propionate 50 mcg/actuation spray,suspension 2 spray intranasal DAILY budesonide-formoterol [Symbicort] 80-4.5 mcg/actuation HFA aerosol inhaler 2 puff inhalation BID guaifenesin [Mucinex] 600 mg tablet extended release 12hr 600 mg PO BID PRN (Reason: Congestion) multivitamin Tablet 1 tab PO DAILY albuterol sulfate 2.5 mg/0.5 mL solution for nebulization 5 mg inhalation Q4H PRN (Reason: shortness of breath or wheezing) Qty: 30 0RF Discontinued prednisone 10 mg tablet 10 mg PO DAILY Taper: Prednisone 40 mg daily for 3 Days and 0 Hour 30 mg daily for 3 Days and 0 Hour 20 mg daily for 3 Days and 0 Hour 10 mg daily for 3 Days and 0 Hour Label Comments: LAST DAY 03/07 Diet: advance to usual diet Activity on Discharge: As tolerated Stand Alone Forms: Patient Portal Discharge page Care Plan Goals: Resolution of symptoms Health Concerns: Vestibular neuritis MRSA bacteremia Plan of Treatment: Vancomycin IV 1250mg BID for total 14 days for MRSA bacteremia then remove midline catheter Follow up with ENT regarding dizziness if no resolution Assessment: See discharge summary
--- NOTE | 2022-03-19 13:48 | HO.PM.IMPN ---
Subjective Subjective Date of Service: 03/19/22 <Gabriela Galaviz NP - Last Filed: 03/19/22 13:55> 03/20/22 <Thierry Griffith MD - Last Filed: 03/20/22 08:10> Review of Systems Seen and examined this morning better today, dizziness is starting to subside denies chest pain, sob <Gabriela Galaviz NP - Last Filed: 03/19/22 13:55> Physical Exam Vital Signs: Vital Signs: Last Vital Signs Temp 98.1 F 03/19/22 11:10 Pulse 83 03/19/22 11:10 Resp 16 03/19/22 11:10 BP 108/67 03/19/22 11:10 Pulse Ox 95 03/19/22 11:10 O2 Del Method 03/19/22 11:10 O2 Flow Rate 3 03/17/22 18:26 BMI result Body Mass Index 26.6 <Gabriela Galaviz NP - Last Filed: 03/19/22 13:55> Appearing in no acute distress lung sounds are clear to auscultation heart regular rate rhythm, clear S1, S2 positive bowel sounds, abdomen is soft, nontender neuro patient is alert x3, no focal deficits <Gabriela Galaviz NP - Last Filed: 03/19/22 13:55> Objective Data Active Medications Acetaminophen (Acetaminophen 325 Mg Tablet) 975 mg PO Q6H PRN PRN Reason: Headache Last Admin: 03/15/22 03:35 Dose: 975 mg Documented By: ALFIE Albuterol Sulfate (Albuterol Sulfate 90 Mcg 18 Gm Inhaler) 2 puff INHALE QID PRN PRN Reason: Shortness Of Breath Last Admin: 03/07/22 09:00 Dose: 2 puff Documented By: VANDA Amlodipine Besylate (Amlodipine Besylate 5 Mg Tablet) 5 mg PO DAILY [facility]; Protocol Last Admin: 03/19/22 06:33 Dose: 5 mg Documented By: ERMELINDA Dextrose (Dextrose 50 % 25 Gm/50 Ml Syringe) 25 gm IVPUSH Q15M PRN; Protocol PRN Reason: per Hypoglycemia Standing Ord. Diphenhydramine HCl (Diphenhydramine Hcl 25 Mg Tablet) 25 mg PO BEDTIME PRN PRN Reason: sleep Last Admin: 03/18/22 22:08 Dose: 25 mg Documented By: ERMELINDA Enoxaparin Sodium (Enoxaparin Sodium 40 Mg/0.4 Ml Syringe) 40 mg SUBCUT Q24H [facility] Last Admin: 03/10/22 10:23 Dose: 40 mg Documented By: LM Fluticasone Propionate (Fluticasone Propionate Nasal 16 Gm [place]) 2 spray NOSTRIL-B DAILY [facility] Last Admin: 03/19/22 06:35 Dose: 2 spray Documented By: ERMELINDA Fluticasone/Vilanterol (Fluticasone/Vilanterol 100/25 Blst.W.Dev) 1 puff INHALE RDAILY [facility] Last Admin: 03/19/22 06:34 Dose: 1 puff Documented By: ERMELINDA Folic Acid (Folic Acid 1 Mg Tablet) 1 mg PO DAILY [facility] Last Admin: 03/19/22 06:32 Dose: 1 mg Documented By: ERMELINDA Glucose (Glucose Gel 15 Gm Gel..Gram.) 15 gm PO Q15M PRN; Protocol PRN Reason: per Hypoglycemia Standing Ord. Guaifenesin (Guaifenesin La 600 Mg Tab.Er.12h) 600 mg PO BID PRN PRN Reason: Congestion Vancomycin HCl 1,250 mg/ (Sodium Chloride) 250 mls @ 166.667 mls/hr IV Q12H [facility] Last Infusion: 03/19/22 08:10 Dose: 0 mls/hr Documented By: ANIA Ibuprofen (Ibuprofen 200 Mg Tablet) 200 mg PO Q8H PRN PRN Reason: Pain, Moderate (Pain Scale 4-6 Insulin Glargine (Insulin Glargine,Hum.Rec.Anlog 100 Unit/Ml 10 Ml Vial) 10 unit SUBCUT BEDTIME [facility] Last Admin: 03/18/22 21:09 Dose: 10 unit Documented By: ERMELINDA Insulin Human Lispro (Insulin Lispro 100 Unit/Ml 3 Ml Vial) 0 unit SUBCUT QIDACHS [facility]; Protocol Last Admin: 03/19/22 11:45 Dose: 6 unit Documented By: ANIA Levothyroxine Sodium (Levothyroxine Sodium 150 Mcg Tablet) 150 mcg PO DAILY@0600 [facility] Last Admin: 03/19/22 05:29 Dose: 150 mcg Documented By: ERMELINDA Lisinopril (Lisinopril 20 Mg Tablet) 20 mg PO DAILY [facility]; Protocol Last Admin: 03/19/22 06:33 Dose: 20 mg Documented By: ERMELINDA Loratadine (Loratadine 10 Mg Tablet) 10 mg PO DAILY [facility] Last Admin: 03/19/22 06:32 Dose: 10 mg Documented By: ERMELINDA Meclizine HCl (Meclizine Hcl 25 Mg Tablet) 25 mg PO Q8H PRN PRN Reason: dizziness Last Admin: 03/17/22 21:10 Dose: 25 mg Documented By: MIKE Montelukast Sodium (Montelukast Sodium 10 Mg Tablet) 10 mg PO BEDTIME [facility] Last Admin: 03/18/22 21:08 Dose: 10 mg Documented By: ERMELINDA Multivitamins/Vitamin C (Multivitamin Tablet) 1 tab PO DAILY [facility] Last Admin: 03/19/22 06:32 Dose: 1 tab Documented By: ERMELINDA Omeprazole (Omeprazole 20 Mg Capsule.Dr) 20 mg PO BID@0630,1630 [facility] Last Admin: 03/19/22 05:29 Dose: 20 mg Documented By: ERMELINDA Ondansetron HCl (Ondansetron Hcl 4 Mg/2 Ml Vial) 4 mg IVPUSH Q8H PRN PRN Reason: Nausea and Vomiting Last Admin: 03/13/22 08:40 Dose: 4 mg Documented By: SHAGUFTA Oxycodone HCl (Oxycodone Hcl Immed Release 5 Mg Tablet) 5 mg PO Q6H PRN PRN Reason: Pain, Mild (Pain Scale 1-3) Last Admin: 03/18/22 21:13 Dose: 5 mg Documented By: ERMELINDA Pharmacy Consult (Consult Rx Vancomycin Dosing) 1 each MISCELLANE DAILY PRN PRN Reason: Consult order Pravastatin Sodium (Pravastatin Sodium 20 Mg Tablet) 20 mg PO BEDTIME [facility] Last Admin: 03/18/22 21:08 Dose: 20 mg Documented By: ERMELINDA Sodium Chloride (0.9 % Sodium Chloride Flush 3 Ml Syringe) [facility] Last Admin: 03/19/22 06:16 Dose: 3 ml Documented By: ERMELINDA Thiamine HCl (Thiamine Hcl 100 Mg Tablet) 100 mg PO DAILY [facility] Last Admin: 03/19/22 06:32 Dose: 100 mg Documented By: ERMELINDA <Gabriela Galaviz NP - Last Filed: 03/19/22 13:55> Labs CBC & Chem 7: : 03/15/22 06:06 03/20/22 05:56 <Gabriela Galaviz NP - Last Filed: 03/19/22 13:55> Labs: Laboratory Results - last 24 hr 03/18/22 03/18/22 03/18/22 15:17 16:42 20:21 Estim Creat Clear Calc Estimated GFR POC Glucose 133 H 219 H Vancomycin Trough 19.1 03/19/22 03/19/22 03/19/22 06:19 07:14 11:07 Estim Creat Clear Calc 73.4 Estimated GFR > 60 POC Glucose 118 H 251 H Vancomycin Trough <Gabriela Galaviz NP - Last Filed: 03/19/22 13:55> Assessment and Plan (1) Dizziness: Status: Acute <Gabriela Galaviz NP - Last Filed: 03/19/22 13:55> (2) Bacteremia due to Staphylococcus: Status: Acute <Gabriela Galaviz NP - Last Filed: 03/19/22 13:55> Assessment and Plan: 61M presented with posterior headache and nausea and vomitting with differential diagnosis including migraine, demyelinating disease versus infection MRSA Bacteremia 2/2 cx unknown source repeat Blood cultures ordered neg Continue IV vancomycin Normal echo with no vegetation 14 days of IV vanco as per ID, midline placed Posterior headache with nausea, vomiting and dizziness-likely vestibular neuritis from MRSA bacteremia Nausea and vomiting resolved brain and cervical spine MRI neg Lyme neg, HIV neg seen by neuro - differential migraine vs demyelinating disease vs infection seen by ID - does not feel infectious cause for headache s/p LP 03/11 -CSF total protein 158.8 meningoencephalitis panel negative Trial with IV steroids, not much improvement after a few days therefore d/c still was dizzy despite meclizine, d/c diff dx include vestibular neuritis vs long haul covid dizziness needs ENT follow up outpatient SIRS. Resolved secondary to bacteremia Fever, tachycardia. RPP negative, UA, CXR negative CRP, ESR elevated Mild transaminitis follow LFTs DM 2 metformin on hold Continue Lantus SS, ADA diet htn BP controlled lisinopril, amlodipine moderate persistent asthma symbicort nebs prn Hypothyroidism Continue Synthroid hld Continue statin dvt prophylaxis - lovenox Attending Dr. Griffith full code Continued hospitalization for treatment of vertigo/ dizziness and severe headaches necessitating IV pain medication and further follow-up for definitive diagnosis <Gabriela Glaaviz NP - Last Filed: 03/19/22 13:55> Quality Stroke Does the patient have a stroke diagnosis?: No <Gabriela Galaviz NP - Last Filed: 03/19/22 13:55> VTE Prior VTE?: No <Gabriela Galaviz NP - Last Filed: 03/19/22 13:55> VTE Risk Level:: Medical - moderate - high <Gabriela Galaviz NP - Last Filed: 03/19/22 13:55> VTE Device Contraindication: Treatment Not Indicated <Gabriela Galaviz NP - Last Filed: 03/19/22 13:55> VTE Drug Contraindication: Treatment Not Indicated <Gabriela Galaviz NP - Last Filed: 03/19/22 13:55>
--- NOTE | 2022-03-19 14:18 | MHC.CM.PN ---
Addendum entered by Adelaida Mock RN 03/19/22 14:44: CM RECEIVED CALL FROM [facility] AND THEY DO NOT FEEL PT CAN TOLERATE 3HRS OF THERAPY A DAY THEREFOR UNABLE TO OFFER A BED Original Note: [facility]ILL[facility] FOLLOWING FOR BED OFFER FOR TOMORROW, [facility]ILLED DOES HAVE PT THAT CAN PROVIDE VESTIBULAR TX FOR OT, UNCLEAR AT THIS TIME WHETHER [facility] WILL OFFER BED FOR PT. CM WILL CONT TO FOLLOW D/C NEEDS
[2022-03-19 15:50] LABS: Glucose, Whole Blood 154 mg/dL (60-115)
[2022-03-19 17:07] LABS: Vancomycin Trough 15.5 mcg/mL (10.0-20.0)
[2022-03-19 20:19] LABS: Glucose, Whole Blood 180 mg/dL (60-115)
[2022-03-19] MEDS: Pravastatin Sodium 20 MG TABLET PO (21:46)
[2022-03-19] MEDS: Insulin Glargine,Hum.rec.anlog 100 UNIT/ML 10 ML VIAL 10 UNIT SUBCUT (21:46)
[2022-03-19] MEDS: Montelukast Sodium 10 MG TABLET PO (21:46)
[2022-03-19] MEDS: diphenhydrAMINE HCL 25 MG TABLET PO (21:52)
[2022-03-20] VITALS (8 sets, daily range): BP systolic 116–132; BP diastolic 75–83; PULSE 68–88; RESP 16–18; TEMP 36.1–37.6; O2SAT 95–98
[2022-03-20] MEDS: vancomycin HCL 1,250 MG in 0.9 % Sodium Chloride 250 ML 166.67 MG IV (05:48)
[2022-03-20] MEDS: Levothyroxine Sodium 150 MCG TABLET PO (05:48)
[2022-03-20] MEDS: Omeprazole 20 MG CAPSULE.DR PO ×2 (05:48→16:33)
[2022-03-20 06:45] LABS: Creatinine Clr Calc Pharmacy 74.1; Estimated Glomerular Filt Rate > 60
[2022-03-20 07:31] LABS: Glucose, Whole Blood 170 mg/dL (60-115)
[2022-03-20] MEDS: Insulin Lispro 100 UNIT/ML 3 ML VIAL SUBCUT ×4 (08:12→20:49)
[2022-03-20] MEDS: Multivitamin TABLET 1 TAB PO (08:13)
[2022-03-20] MEDS: Folic Acid 1 MG TABLET PO (08:13)
[2022-03-20] MEDS: Thiamine HCL 100 MG TABLET PO (08:13)
[2022-03-20] MEDS: amLODIPine Besylate 5 MG TABLET PO (08:13)
[2022-03-20] MEDS: 0.9 % Sodium Chloride Flush 3 ML SYRINGE IVFLUSH ×2 (08:13→16:34)
[2022-03-20] MEDS: Loratadine 10 MG TABLET PO (08:13)
[2022-03-20] MEDS: lisinopriL 20 MG TABLET PO (08:13)
[2022-03-20] MEDS: Fluticasone/Vilanterol 100/25 BLST.W.DEV 1 PUFF INHALE (08:52)
[2022-03-20] MEDS: Fluticasone Propionate Nasal 16 GM SPRAY 2 SPRAY NOSTRIL-B (10:11)
--- NOTE | 2022-03-20 10:45 | HO.PM.IMPN ---
Subjective Subjective Date of Service: 03/20/22 Review of Systems Seen and examined this morning better today, dizziness is starting to subside denies chest pain, sob Physical Exam Vital Signs: Vital Signs: Last Vital Signs Temp 97 F 03/20/22 07:22 Pulse 86 03/20/22 10:25 Resp 16 03/20/22 08:55 BP 121/79 03/20/22 07:22 Pulse Ox 97 03/20/22 07:22 O2 Del Method 03/20/22 07:22 O2 Flow Rate 3 03/17/22 18:26 BMI result Body Mass Index 26.6 Appearing in no acute distress lung sounds are clear to auscultation heart regular rate rhythm, clear S1, S2 positive bowel sounds, abdomen is soft, nontender neuro patient is alert x3, no focal deficits Objective Data Active Medications Acetaminophen (Acetaminophen 325 Mg Tablet) 975 mg PO Q6H PRN PRN Reason: Headache Last Admin: 03/15/22 03:35 Dose: 975 mg Documented By: ALFIE Albuterol Sulfate (Albuterol Sulfate 90 Mcg 18 Gm Inhaler) 2 puff INHALE QID PRN PRN Reason: Shortness Of Breath Last Admin: 03/07/22 09:00 Dose: 2 puff Documented By: VANDA Amlodipine Besylate (Amlodipine Besylate 5 Mg Tablet) 5 mg PO DAILY [facility]; Protocol Last Admin: 03/20/22 08:13 Dose: 5 mg Documented By: VANDA Dextrose (Dextrose 50 % 25 Gm/50 Ml Syringe) 25 gm IVPUSH Q15M PRN; Protocol PRN Reason: per Hypoglycemia Standing Ord. Diphenhydramine HCl (Diphenhydramine Hcl 25 Mg Tablet) 25 mg PO BEDTIME PRN PRN Reason: sleep Last Admin: 03/19/22 21:52 Dose: 25 mg Documented By: ALFIE Enoxaparin Sodium (Enoxaparin Sodium 40 Mg/0.4 Ml Syringe) 40 mg SUBCUT Q24H [facility] Last Admin: 03/10/22 10:23 Dose: 40 mg Documented By: LM Fluticasone Propionate (Fluticasone Propionate Nasal 16 Gm [place]) 2 spray NOSTRIL-B DAILY [facility] Last Admin: 03/20/22 10:11 Dose: 2 spray Documented By: VANDA Fluticasone/Vilanterol (Fluticasone/Vilanterol 100/25 Blst.W.Dev) 1 puff INHALE RDAILY [facility] Last Admin: 03/20/22 08:52 Dose: 1 puff Documented By: PUSHPA Folic Acid (Folic Acid 1 Mg Tablet) 1 mg PO DAILY [facility] Last Admin: 03/20/22 08:13 Dose: 1 mg Documented By: VANDA Glucose (Glucose Gel 15 Gm Gel..Gram.) 15 gm PO Q15M PRN; Protocol PRN Reason: per Hypoglycemia Standing Ord. Guaifenesin (Guaifenesin La 600 Mg Tab.Er.12h) 600 mg PO BID PRN PRN Reason: Congestion Vancomycin HCl 1,250 mg/ (Sodium Chloride) 250 mls @ 166.667 mls/hr IV Q12H [facility] Last Infusion: 03/20/22 08:10 Dose: 0 mls/hr Documented By: VANDA Ibuprofen (Ibuprofen 200 Mg Tablet) 200 mg PO Q8H PRN PRN Reason: Pain, Moderate (Pain Scale 4-6 Insulin Glargine (Insulin Glargine,Hum.Rec.Anlog 100 Unit/Ml 10 Ml Vial) 10 unit SUBCUT BEDTIME [facility] Last Admin: 03/19/22 21:46 Dose: 10 unit Documented By: ALFIE Insulin Human Lispro (Insulin Lispro 100 Unit/Ml 3 Ml Vial) 0 unit SUBCUT QIDACHS [facility]; Protocol Last Admin: 03/20/22 08:12 Dose: 2 unit Documented By: VANDA Levothyroxine Sodium (Levothyroxine Sodium 150 Mcg Tablet) 150 mcg PO DAILY@0600 [facility] Last Admin: 03/20/22 05:48 Dose: 150 mcg Documented By: ALFIE Lisinopril (Lisinopril 20 Mg Tablet) 20 mg PO DAILY [facility]; Protocol Last Admin: 03/20/22 08:13 Dose: 20 mg Documented By: VANDA Loratadine (Loratadine 10 Mg Tablet) 10 mg PO DAILY [facility] Last Admin: 03/20/22 08:13 Dose: 10 mg Documented By: VANDA Meclizine HCl (Meclizine Hcl 25 Mg Tablet) 25 mg PO Q8H PRN PRN Reason: dizziness Last Admin: 03/17/22 21:10 Dose: 25 mg Documented By: MIKE Montelukast Sodium (Montelukast Sodium 10 Mg Tablet) 10 mg PO BEDTIME [facility] Last Admin: 03/19/22 21:46 Dose: 10 mg Documented By: ALFIE Multivitamins/Vitamin C (Multivitamin Tablet) 1 tab PO DAILY [facility] Last Admin: 03/20/22 08:13 Dose: 1 tab Documented By: VANDA Omeprazole (Omeprazole 20 Mg Capsule.Dr) 20 mg PO BID@0630,1630 [facility] Last Admin: 03/20/22 05:48 Dose: 20 mg Documented By: ALFIE Ondansetron HCl (Ondansetron Hcl 4 Mg/2 Ml Vial) 4 mg IVPUSH Q8H PRN PRN Reason: Nausea and Vomiting Last Admin: 03/13/22 08:40 Dose: 4 mg Documented By: SHAGUFTA Oxycodone HCl (Oxycodone Hcl Immed Release 5 Mg Tablet) 5 mg PO Q6H PRN PRN Reason: Pain, Mild (Pain Scale 1-3) Last Admin: 03/18/22 21:13 Dose: 5 mg Documented By: ERMELINDA Pharmacy Consult (Consult Rx Vancomycin Dosing) 1 each MISCELLANE DAILY PRN PRN Reason: Consult order Pravastatin Sodium (Pravastatin Sodium 20 Mg Tablet) 20 mg PO BEDTIME [facility] Last Admin: 03/19/22 21:46 Dose: 20 mg Documented By: ALFIE Sodium Chloride (0.9 % Sodium Chloride Flush 3 Ml Syringe) 3 ml IVFLUSH QSHIFT [facility] Last Admin: 03/20/22 08:13 Dose: 3 ml Documented By: VANDA Thiamine HCl (Thiamine Hcl 100 Mg Tablet) 100 mg PO DAILY [facility] Last Admin: 03/20/22 08:13 Dose: 100 mg Documented By: VANDA Labs CBC & Chem 7: 03/15/22 06:06 03/20/22 05:56 Labs: Laboratory Results - last 24 hr 03/19/22 03/19/22 03/19/22 11:07 15:27 16:37 Estim Creat Clear Calc Estimated GFR POC Glucose 251 H 154 H Vancomycin Trough 15.5 06/03/20/22 03/20/22 19:44 05:56 07:26 Estim Creat Clear Calc 74.1 Estimated GFR > 60 POC Glucose 180 H 170 H Vancomycin Trough Assessment and Plan (1) Dizziness: Status: Acute (2) Bacteremia due to Staphylococcus: Status: Acute Plan 61M presented with posterior headache and nausea and vomitting with differential diagnosis including migraine, demyelinating disease versus infection MRSA Bacteremia 2/2 cx unknown source repeat Blood cultures ordered neg Continue IV vancomycin Normal echo with no vegetation 14 days of IV vanco as per ID, midline placed Posterior headache with nausea, vomiting and dizziness-likely vestibular neuritis from MRSA bacteremia Nausea and vomiting resolved brain and cervical spine MRI neg Lyme neg, HIV neg seen by neuro - differential migraine vs demyelinating disease vs infection seen by ID - does not feel infectious cause for headache s/p LP 03/11 -CSF total protein 158.8 meningoencephalitis panel negative Trial with IV steroids, not much improvement after a few days therefore d/c still was dizzy despite meclizine, d/c diff dx include vestibular neuritis vs long haul covid dizziness needs ENT follow up outpatient SIRS. Resolved secondary to bacteremia Fever, tachycardia. RPP negative, UA, CXR negative CRP, ESR elevated Mild transaminitis follow LFTs DM 2 metformin on hold Continue Lantus SS, ADA diet htn BP controlled lisinopril, amlodipine moderate persistent asthma symbicort nebs prn Hypothyroidism Continue Synthroid hld Continue statin dvt prophylaxis - lovenox Attending Dr. Griffith full code DISPO plan for acute rehab Continued hospitalization for treatment of vertigo/ dizziness and severe headaches necessitating IV pain medication and further follow-up for definitive diagnosis Quality Stroke Does the patient have a stroke diagnosis?: No VTE Prior VTE?: No VTE Risk Level:: Medical - moderate - high VTE Device Contraindication: Treatment Not Indicated VTE Drug Contraindication: Treatment Not Indicated
[2022-03-20 11:06] LABS: Glucose, Whole Blood 227 mg/dL (60-115)
[2022-03-20 15:59] LABS: Glucose, Whole Blood 221 mg/dL (60-115)
[2022-03-20 17:47] LABS: Vancomycin Random 13.5 mcg/mL (15-20)
--- NOTE | 2022-03-20 18:01 | HE.PHANOTE ---
daniel alan continue current dose, next random trough 03/21@1700
[2022-03-20] MEDS: Ibuprofen 200 MG TABLET PO (18:50)
[2022-03-20] MEDS: vancomycin HCL 1,250 MG in 0.9 % Sodium Chloride 250 ML 166.7 MG IV (18:50)
[2022-03-20 20:06] LABS: Glucose, Whole Blood 207 mg/dL (60-115)
[2022-03-20] MEDS: Insulin Glargine,Hum.rec.anlog 100 UNIT/ML 10 ML VIAL 10 UNIT SUBCUT (20:48)
[2022-03-20] MEDS: Meclizine HCl 25 MG TABLET PO (20:49)
[2022-03-20] MEDS: Montelukast Sodium 10 MG TABLET PO (20:49)
[2022-03-20] MEDS: Pravastatin Sodium 20 MG TABLET PO (20:49)
[2022-03-20] MEDS: diphenhydrAMINE HCL 25 MG TABLET PO (22:08)
[2022-03-20] MEDS: Alteplase Cath Clear 2 MG VIAL INTRACATH (22:38)
--- NOTE | 2022-03-20 23:12 | PC.NURSE ---
Clot tammyter Cathflo administered to picc line, waited 30 mins and attempted to withdraw, nothing returned, flushed with 1 cc c/o tenderness. notified.
[2022-03-21] VITALS (7 sets, daily range): BP systolic 128–145; BP diastolic 80–89; PULSE 77–92; RESP 16–18; TEMP 36.4–37.2; O2SAT 96–97
[2022-03-21] MEDS: Omeprazole 20 MG CAPSULE.DR PO ×2 (05:28→16:28)
[2022-03-21] MEDS: Levothyroxine Sodium 150 MCG TABLET PO (05:28)
[2022-03-21 06:06] LABS: Creatinine Clr Calc Pharmacy 78.1; Estimated Glomerular Filt Rate > 60
[2022-03-21] MEDS: Fluticasone/Vilanterol 100/25 BLST.W.DEV 1 PUFF INHALE (07:27)
[2022-03-21 07:45] LABS: Glucose, Whole Blood 149 mg/dL (60-115)
--- NOTE | 2022-03-21 07:49 | HE.PHANOTE ---
Vancomycin Dosing Addendum Continue current regimen. Predicted AUC 469mg/L/hr. Random level @ 1700 today.
--- NOTE | 2022-03-21 08:33 | P.PNIM_ITS ---
Subjective Subjective Date of Service: 03/21/22 Review of Systems Seen and examined this morning better today, dizziness is starting to subside denies chest pain, sob Physical Exam Vital Signs: Vital Signs: Last Vital Signs Temp 97.5 F 03/21/22 07:34 Pulse 77 03/21/22 07:34 Resp 18 03/21/22 07:34 BP 135/87 03/21/22 07:34 Pulse Ox 96 03/21/22 07:34 O2 Del Method 03/21/22 07:34 O2 Flow Rate 3 03/17/22 18:26 BMI result Body Mass Index 26.6 Appearing in no acute distress lung sounds are clear to auscultation heart regular rate rhythm, clear S1, S2 positive bowel sounds, abdomen is soft, nontender neuro patient is alert x3, no focal deficits Objective Data Active Medications Acetaminophen (Acetaminophen 325 Mg Tablet) 975 mg PO Q6H PRN PRN Reason: Headache Last Admin: 03/15/22 03:35 Dose: 975 mg Documented By: ALFIE Albuterol Sulfate (Albuterol Sulfate 90 Mcg 18 Gm Inhaler) 2 puff INHALE QID PRN PRN Reason: Shortness Of Breath Last Admin: 03/07/22 09:00 Dose: 2 puff Documented By: VANDA Amlodipine Besylate (Amlodipine Besylate 5 Mg Tablet) 5 mg PO DAILY [facility]; Protocol Last Admin: 03/20/22 08:13 Dose: 5 mg Documented By: VANDA Dextrose (Dextrose 50 % 25 Gm/50 Ml Syringe) 25 gm IVPUSH Q15M PRN; Protocol PRN Reason: per Hypoglycemia Standing Ord. Diphenhydramine HCl (Diphenhydramine Hcl 25 Mg Tablet) 25 mg PO BEDTIME PRN PRN Reason: sleep Last Admin: 03/20/22 22:08 Dose: 25 mg Documented By: MIKE Enoxaparin Sodium (Enoxaparin Sodium 40 Mg/0.4 Ml Syringe) 40 mg SUBCUT Q24H [facility] Last Admin: 03/10/22 10:23 Dose: 40 mg Documented By: LM Fluticasone Propionate (Fluticasone Propionate Nasal 16 Gm [place]) 2 spray NOSTRIL-B DAILY [facility] Last Admin: 03/20/22 10:11 Dose: 2 spray Documented By: VANDA Fluticasone/Vilanterol (Fluticasone/Vilanterol 100/25 Blst.W.Dev) 1 puff INHALE RDAILY [facility] Last Admin: 03/21/22 07:27 Dose: 1 puff Documented By: BIJAN Folic Acid (Folic Acid 1 Mg Tablet) 1 mg PO DAILY [facility] Last Admin: 03/20/22 08:13 Dose: 1 mg Documented By: VANDA Glucose (Glucose Gel 15 Gm Gel..Gram.) 15 gm PO Q15M PRN; Protocol PRN Reason: per Hypoglycemia Standing Ord. Guaifenesin (Guaifenesin La 600 Mg Tab.Er.12h) 600 mg PO BID PRN PRN Reason: Congestion Vancomycin HCl 1,250 mg/ (Sodium Chloride) 250 mls @ 166.667 mls/hr IV Q12H [facility] Last Infusion: 03/20/22 20:00 Dose: 0 mls/hr Documented By: MIKE Ibuprofen (Ibuprofen 200 Mg Tablet) 200 mg PO Q8H PRN PRN Reason: Pain, Moderate (Pain Scale 4-6 Last Admin: 03/20/22 18:50 Dose: 200 mg Documented By: MIKE Insulin Glargine (Insulin Glargine,Hum.Rec.Anlog 100 Unit/Ml 10 Ml Vial) 10 unit SUBCUT BEDTIME [facility] Last Admin: 03/20/22 20:48 Dose: 10 unit Documented By: MIKE Insulin Human Lispro (Insulin Lispro 100 Unit/Ml 3 Ml Vial) 0 unit SUBCUT QIDACHS [facility]; Protocol Last Admin: 03/21/22 07:51 Dose: Not Given Documented By: MALI Non-Admin Reason: No Insulin Coverage Levothyroxine Sodium (Levothyroxine Sodium 150 Mcg Tablet) 150 mcg PO DAILY@0600 [facility] Last Admin: 03/21/22 05:28 Dose: 150 mcg Documented By: VALENTINE Lisinopril (Lisinopril 20 Mg Tablet) 20 mg PO DAILY [facility]; Protocol Last Admin: 03/20/22 08:13 Dose: 20 mg Documented By: VANDA Loratadine (Loratadine 10 Mg Tablet) 10 mg PO DAILY [facility] Last Admin: 03/20/22 08:13 Dose: 10 mg Documented By: VANDA Meclizine HCl (Meclizine Hcl 25 Mg Tablet) 25 mg PO Q8H PRN PRN Reason: dizziness Last Admin: 03/20/22 20:49 Dose: 25 mg Documented By: MIKE Montelukast Sodium (Montelukast Sodium 10 Mg Tablet) 10 mg PO BEDTIME [facility] Last Admin: 03/20/22 20:49 Dose: 10 mg Documented By: MIKE Multivitamins/Vitamin C (Multivitamin Tablet) 1 tab PO DAILY [facility] Last Admin: 03/20/22 08:13 Dose: 1 tab Documented By: VANDA Omeprazole (Omeprazole 20 Mg Capsule.Dr) 20 mg PO BID@0630,1630 [facility] Last Admin: 03/21/22 05:28 Dose: 20 mg Documented By: VALENTINE Ondansetron HCl (Ondansetron Hcl 4 Mg/2 Ml Vial) 4 mg IVPUSH Q8H PRN PRN Reason: Nausea and Vomiting Last Admin: 03/13/22 08:40 Dose: 4 mg Documented By: SHAGUFTA Pravastatin Sodium (Pravastatin Sodium 20 Mg Tablet) 20 mg PO BEDTIME [facility] Last Admin: 03/20/22 20:49 Dose: 20 mg Documented By: MIKE Sodium Chloride (0.9 % Sodium Chloride Flush 3 Ml Syringe) 3 ml IVFLUSH QSHIFT [facility] Last Admin: 03/20/22 23:51 Dose: Not Given Documented By: VALENTINE Non-Admin Reason: not using midline at this time Thiamine HCl (Thiamine Hcl 100 Mg Tablet) 100 mg PO DAILY [facility] Last Admin: 03/20/22 08:13 Dose: 100 mg Documented By: VANDA Labs CBC & Chem 7: 03/15/22 06:06 03/21/22 05:37 Labs: Laboratory Results - last 24 hr 03/20/22 03/20/22 03/20/22 11:02 15:55 17:02 Estim Creat Clear Calc Estimated GFR POC Glucose 227 H 221 H Random Vancomycin 13.5 L 03/20/22 03/21/22 03/21/22 20:02 05:37 07:36 Estim Creat Clear Calc 78.1 Estimated GFR > 60 POC Glucose 207 H 149 H Random Vancomycin Microbiology Microbiology Results: Microbiology 03/15/22 13:18 Blood Culture - Final Blood - Venous No growth after 5 days. 03/15/22 13:18 Blood Culture - Final Blood - Venous No growth after 5 days. Assessment and Plan (1) Dizziness: Status: Acute (2) Bacteremia due to Staphylococcus: Status: Acute Plan 61M presented with posterior headache and nausea and vomitting with differential diagnosis including migraine, demyelinating disease versus in fection MRSA Bacteremia 2/2 cx unknown source repeat Blood cultures ordered neg Normal echo with no vegetation 14 days of IV vanco as per ID, midline placed Posterior headache with nausea, vomiting and dizziness-likely vestibular neuritis from MRSA bacteremia Nausea and vomiting resolved brain and cervical spine MRI neg Lyme neg, HIV neg seen by neuro - differential migraine vs demyelinating disease vs infection seen by ID - does not feel infectious cause for headache s/p LP 03/11 -CSF total protein 158.8 meningoencephalitis panel negative Trial with IV steroids, not much improvement after a few days therefore d/c still was dizzy despite meclizine, d/c diff dx include vestibular neuritis vs long haul covid dizziness Should see ENT as outpatient SIRS. Resolved secondary to bacteremia Fever, tachycardia. RPP negative, UA, CXR negative CRP, ESR elevated Mild transaminitis follow LFTs DM 2 metformin on hold Continue Lantus SS, ADA diet htn BP controlled lisinopril, amlodipine moderate persistent asthma symbicort nebs prn Hypothyroidism Continue Synthroid hld Continue statin dvt prophylaxis - lovenox Attending Dr. Griffith full code DISPO plan for acute rehab Continued hospitalization for treatment of vertigo/ dizziness and severe headaches necessitating IV pain medication and further follow-up for definitive diagnosis Quality Stroke Does the patient have a stroke diagnosis?: No VTE Prior VTE?: No VTE Risk Level:: Medical - moderate - high VTE Device Contraindication: Treatment Not Indicated VTE Drug Contraindication: Treatment Not Indicated
[2022-03-21] MEDS: Loratadine 10 MG TABLET PO (10:19)
[2022-03-21] MEDS: Thiamine HCL 100 MG TABLET PO (10:19)
[2022-03-21] MEDS: Multivitamin TABLET 1 TAB PO (10:19)
[2022-03-21] MEDS: Folic Acid 1 MG TABLET PO (10:19)
[2022-03-21] MEDS: amLODIPine Besylate 5 MG TABLET PO (10:19)
[2022-03-21] MEDS: lisinopriL 20 MG TABLET PO (10:19)
[2022-03-21] MEDS: vancomycin HCL 1,250 MG in 0.9 % Sodium Chloride 250 ML 166.7 MG IV (10:20)
[2022-03-21] MEDS: Fluticasone Propionate Nasal 16 GM SPRAY 2 SPRAY NOSTRIL-B (10:20)
[2022-03-21] MEDS: 0.9 % Sodium Chloride Flush 3 ML SYRINGE IVFLUSH ×3 (10:20→22:48)
--- NOTE | 2022-03-21 10:41 | PM.DS ---
DS: Providers Provider Date of Service: 03/21/22 <Braeden Alvarenga MD - Last Filed: 03/22/22 09:37> Date of admission: 03/11/22 17:31 <Gabriela Galaviz NP - Last Filed: 03/26/22 15:59> Primary care physician: Saul Orta MD <Gabriela Galaviz NP - Last Filed: 03/26/22 15:59> Consults: 03/08/22 09:54 Consult to Neurology Routine Consulting Provider: [facility] Reason for consultation: dizziness /vertiago/posterior headaches unlcear etiology Has provider been notified: No 03/11/22 14:25 Consult to Infectious Diseases Routine Consulting Provider: Trish Sierra Reason for consultation: possible viral encephalitis Has provider been notified: No <Gabriela Galaviz NP - Last Filed: 03/26/22 15:59> Attending physician on discharge: Thierry Griffith <Gabriela Galaviz NP - Last Filed: 03/26/22 15:59> Discharging clinician: Gabriela Galaviz <Gabriela Galaviz NP - Last Filed: 03/26/22 15:59> DS: Diagnosis Discharge Diagnosis (1) Dizziness: Status: Acute <Gabriela Galaviz NP - Last Filed: 03/26/22 15:59> (2) Bacteremia due to Staphylococcus: Status: Acute <Gabriela Galaviz NP - Last Filed: 03/26/22 15:59> DS: Summary Hospital Course Hospital Course: HP as per admitting provider This is a 7-year-old male with past medical history of diabetes, asthma, hypothyroidism, hypertension who presents to the hospital with complaints of severe occipital headache.? Patient reports that his headache started 2 days ago, headache is constant, associated with nausea, several episodes of vomiting, intractable, not relieved with [id number] analgesics.? He reports no change in vision, he reports significant dizziness? vertigo.? And difficulty ambulating due to this vertigo.? He denies any fever or chills, no shortness of breath, no cough, no abdominal pain, no diarrhea constipation, no urinary symptoms and no lower extremity edema.?on Arrival to the ED patient hemodynamically stable no significant abnormal vitals Labs are significant for? WBC count of 10.8, hemoglobin of 14.7, labs otherwise unremarkable head CT was negative, has CTA negative for any acute intracranial pathology given the intractable headache, nausea vomiting, patient will be admitted for further evaluation. MRSA Bacteremia 2/2 cx unknown source repeat Blood cultures ordered neg after 8hrs Continue IV vancomycin Normal echo with no vegetation 14 days of IV vanco as per ID, midline placed Posterior headache with nausea, vomiting and dizziness headache, Nausea and vomiting resolved still kaushik dizziness seems like vestibular neuritis from MRSA bacteremia brain and cervical spine MRI neg Lyme neg, HIV neg seen by neuro - differential migraine vs demyelinating disease vs infection, likely infection seen by ID s/p LP 03/11 -CSF total protein 158.8 meningoencephalitis panel negative Trial with IV steroids, not much improvement after a few days therefore d/c still was dizzy despite meclizine can use as needed diff dx include vestibular neuritis vs long haul covid dizziness needs ENT follow up outpatient SIRS. Resolved? secondary to bacteremia Fever, tachycardia. RPP negative, UA, CXR negative CRP, ESR elevated Mild transaminitis follow LFTs DM 2 metformin on hold Continue Lantus SS, ADA diet htn BP controlled lisinopril, amlodipine moderate persistent asthma symbicort nebs prn Hypothyroidism Continue Synthroid hld Continue statin Anticipate Less than 30 day stay patient was discharged on 03/21/22 but could not go until 03/22 due to no ambulance for transportation... There was no interim clinical change..DC date remains 03/21 <Gabriela Galaviz NP - Last Filed: 03/26/22 15:59> Time Spent with Patient Time attestation: Total time spent providing and/or coordinating discharge services: <Gabriela Galaviz NP - Last Filed: 03/26/22 15:59> Discharge coordination time: Greater than 30 minutes <Braeden Alvarenga MD - Last Filed: 03/22/22 09:37> Quality: Safe Use of Opioids Does Pt have an Active Cancer Diagnosis on the Problem List?: No <Braeden Alvarenga MD - Last Filed: 03/22/22 09:37> Quality: Stroke Does the patient have a stroke diagnosis?: No <Braeden Alvarenga MD - Last Filed: 03/22/22 09:37> Physical Exam Vital Signs: Vital Signs: Last Vital Signs Temp 97.5 F 03/21/22 07:34 Pulse 77 03/21/22 07:34 Resp 18 03/21/22 07:34 BP 135/87 03/21/22 07:34 Pulse Ox 96 03/21/22 07:34 O2 Del Method 03/21/22 07:34 O2 Flow Rate 3 03/17/22 18:26 BMI result Body Mass Index 26.6 <Gabriela Galaviz NP - Last Filed: 03/26/22 15:59> DS: Data Data Completed and Pending Labs on day of discharge: Laboratory Results - last 24 hr 03/20/22 03/20/22 03/20/22 11:02 15:55 17:02 Creatinine Estim Creat Clear Calc Estimated GFR POC Glucose 227 H 221 H Random Vancomycin 13.5 L 03/20/22 03/21/22 03/21/22 20:02 05:37 07:36 Creatinine 0.94 Estim Creat Clear Calc 78.1 Estimated GFR > 60 POC Glucose 207 H 149 H Random Vancomycin <Gabriela Galaviz NP - Last Filed: 03/26/22 15:59> Discharge Plan Discharge Anticipated Discharge Date/Time: 03/21/22 09:31 <Gabriela Galaviz NP - Last Filed: 03/26/22 15:59> Patient Disposition: Xfer Inpatient Rehab Fac <Gabriela Galaviz NP - Last Filed: 03/26/22 15:59> Discharge Diagnosis: Vestibular neuritis MRSA bacteremia <Gabriela Galaviz NP - Last Filed: 03/26/22 15:59> Vestibular neuritis MRSA bacteremia <Braeden Alvarenga MD - Last Filed: 03/22/22 09:37> Referrals: [facility] [Outside] - 1 Week Saul Orta MD [Primary Care Provider] - 1 Week <Gabriela Galaviz NP - Last Filed: 03/26/22 15:59> Discharge Medications: New meclizine 25 mg Tablet 25 mg PO Q8H PRN (Reason: dizziness) Qty: 15 0RF vancomycin HCl in water 100 mg/mL solution 1.25 g IV Q24H 7 Days Qty: 125 0RF Continued amlodipine 5 mg tablet 1 tab PO DAILY levothyroxine [Euthyrox] 150 mcg tablet 1 tab PO DAILY@0600 levalbuterol tartrate [Xopenex HFA] 45 mcg/actuation HFA aerosol inhaler 2 puff inhalation QID PRN (Reason: Shortness Of Breath) montelukast 10 mg tablet 1 tab PO DAILY lovastatin 20 mg tablet 1 tab PO DAILY (DME) nebulizers Misc See Rx Instructions .Route Qty: 1 0RF Rx Instructions: As directed ipratropium-albuterol 0.5 mg-3 mg(2.5 mg base)/3 mL Solution For Nebulization 3 ml inhalation Q6H 30 Days 0RF (DME) blood-glucose meter [FreeStyle Lite Meter] Kit See Rx Instructions .ROUTE .MEDSUPPLY Qty: 1 0RF Rx Instructions: As directed alcohol swabs Pads, Medicated 1 pad topical QID Qty: 200 2RF (DME) FreeStyle Lite Strips Strip See Rx Instructions .ROUTE .MEDSUPPLY Qty: 100 2RF Rx Instructions: QID (DME) lancets Misc See Rx Instructions .ROUTE .MEDSUPPLY Qty: 200 2RF Rx Instructions: 4 times daily insulin glargine 100 unit/mL (3 mL) insulin pen 10 unit subcut QPM Qty: 3 3RF insulin lispro 100 unit/mL insulin pen 1 sliding scale dose subcut QIDACHS Qty: 15 2RF Rx Instructions: = 70 but <150 Hold insulin 151 to 200 - 2 units 201 to 250 - 4 units 251 to 300 - 6 units 301 to 350 - 8 units 351 to 399 - 10 units = 400 Contact your doctor metformin 850 mg tablet 850 mg PO BIDWMEAL Qty: 60 2RF cetirizine 10 mg tablet 1 tab PO DAILY lisinopril 20 mg tablet 1 tab PO DAILY fluticasone propionate 50 mcg/actuation spray,suspension 2 spray intranasal DAILY budesonide-formoterol [Symbicort] 80-4.5 mcg/actuation HFA aerosol inhaler 2 puff inhalation BID guaifenesin [Mucinex] 600 mg tablet extended release 12hr 600 mg PO BID PRN (Reason: Congestion) multivitamin Tablet 1 tab PO DAILY albuterol sulfate 2.5 mg/0.5 mL solution for nebulization 5 mg inhalation Q4H PRN (Reason: shortness of breath or wheezing) Qty: 30 0RF Discontinued prednisone 10 mg tablet 10 mg PO DAILY Taper: Prednisone 40 mg daily for 3 Days and 0 Hour 30 mg daily for 3 Days and 0 Hour 20 mg daily for 3 Days and 0 Hour 10 mg daily for 3 Days and 0 Hour Label Comments: LAST DAY 03/07 <Gabriela Galaviz NP - Last Filed: 03/26/22 15:59> Discharge Orders: Discharge Order (Routine); Ordered 03/21/22 Ordered By: Thierry Griffith <Gabriela Galaviz NP - Last Filed: 03/26/22 15:59> Diet: Advance to usual diet <Gabriela Galaviz NP - Last Filed: 03/26/22 15:59> Advance to usual diet <Braeden Alvarenga MD - Last Filed: 03/22/22 09:37> Activity on Discharge: As tolerated <Gabriela Galaviz NP - Last Filed: 03/26/22 15:59> As tolerated <Braeden Alvarenga MD - Last Filed: 03/22/22 09:37> Stand Alone Forms: Patient Portal Discharge page <Gabriela Galaviz NP - Last Filed: 03/26/22 15:59> Care Plan Goals: Resolution of symptoms <Gabriela Galaviz NP - Last Filed: 03/26/22 15:59> Health Concerns: Vestibular neuritis MRSA bacteremia <Gabriela Galaviz NP - Last Filed: 03/26/22 15:59> Plan of Treatment: Vancomycin IV 1,250mg BID for total 7 days for MRSA bacteremia then remove midline catheter Follow up with ENT regarding dizziness if no resolution <Gabriela Galaviz NP - Last Filed: 03/26/22 15:59> Assessment: See discharge summary <Gabriela Galaviz NP - Last Filed: 03/26/22 15:59> Discharge Date/Time: 03/22/22 10:00 <Gabriela Galaviz NP - Last Filed: 03/26/22 15:59>
[2022-03-21 11:42] LABS: Glucose, Whole Blood 240 mg/dL (60-115)
[2022-03-21 11:57] LABS: COVID-19 Test Negative (Negative); IDNOW Serial# 16C4AD1C
[2022-03-21] MEDS: Insulin Lispro 100 UNIT/ML 3 ML VIAL SUBCUT ×3 (12:07→20:52)
--- NOTE | 2022-03-21 15:47 | MHC.CM.PN ---
PATIENT IS DISCHARGED TO [facility]. [facility] REQUEST PLACED. [address] [employer] REQUESTED. RN,PATIENT, AND UNIT AWARE.
[2022-03-21 16:17] LABS: Glucose, Whole Blood 187 mg/dL (60-115)
[2022-03-21 20:13] LABS: Glucose, Whole Blood 185 mg/dL (60-115)
[2022-03-21 20:49] LABS: Vancomycin Random 13.9 mcg/mL (15-20)
[2022-03-21] MEDS: Insulin Glargine,Hum.rec.anlog 100 UNIT/ML 10 ML VIAL 10 UNIT SUBCUT (20:53)
[2022-03-21] MEDS: Montelukast Sodium 10 MG TABLET PO (20:53)
[2022-03-21] MEDS: Pravastatin Sodium 20 MG TABLET PO (20:53)
--- NOTE | 2022-03-21 20:55 | HE.PHANOTE ---
Vancomycin Addendum Vancomycin level today was 13.9. Vanco level stable and renal function is stable. Continue current regimen of vancomycin 1250 mg Q12H. Next trough in 3 dose on 03/23 @ 0600. [place] [facility]
[2022-03-21] MEDS: vancomycin HCL 1,250 MG in 0.9 % Sodium Chloride 250 ML 166.67 MG IV (21:06)
[2022-03-21] MEDS: diphenhydrAMINE HCL 25 MG TABLET PO (22:06)
[2022-03-22] VITALS: BP 139/82; PULSE 84; RESP 18; TEMP 36.8; O2SAT 94
[2022-03-22 04:00] VITALS: BP 129/81; PULSE 78; RESP 18; TEMP 36.4; O2SAT 94
[2022-03-22] MEDS: Levothyroxine Sodium 150 MCG TABLET PO (05:25)
[2022-03-22] MEDS: Omeprazole 20 MG CAPSULE.DR PO (05:25)
[2022-03-22 07:03] LABS: Creatinine Clr Calc Pharmacy 73.4; Estimated Glomerular Filt Rate > 60
--- NOTE | 2022-03-22 07:16 | HE.PHANOTE ---
Vancomycin Dosing Addendum Patient has a trough due on 03/23/22 @0600. Continue at current regimen. Renal function is stable. Predicted AUC 498 mg/L/hr.
[2022-03-22 07:18] VITALS: BP 136/87; PULSE 76; RESP 18; TEMP 36.3; O2SAT 96
[2022-03-22 07:45] LABS: Glucose, Whole Blood 166 mg/dL (60-115)
[2022-03-22] MEDS: Fluticasone/Vilanterol 100/25 BLST.W.DEV 1 PUFF INHALE (09:14)
[2022-03-22 09:15] VITALS: PULSE 120; RESP 18; O2SAT 96
== END 2022-03-22 10:00 | DRG 54 ==
LOC: HO.ED 20:26 → HO.EDOVER 03-07 04:45 → HO.IMC 03-07 16:27 → HO.S3 03-08 03:01
PROVIDERS: Hospitalist; Internal Medicine; Physician Assistant Medical; Radiology Diagnostic Radiology; Admitting Provider Internal Medicine; Emergency Provider Emergency Medicine; PCP Internal Medicine; Responsible Provider Nurse Practitioner Acute Care; Visit Provider Internal Medicine
PROC: 009U3ZZ Drainage of Spinal Canal, Percutaneous Approach (ICD-10-PCS; CPT 62270; principal; 2022-03-11 11:30)
DX: G43.109 Migraine with aura, not intractable, without status migrainosus (principal); R78.81 Bacteremia; H81.20 Vestibular neuronitis, unspecified ear; E03.9 Hypothyroidism, unspecified; E11.9 Type 2 diabetes mellitus without complications; B95.62 Methicillin resistant Staphylococcus aureus infection as the cause of diseases classified elsewhere; E86.0 Dehydration; J45.40 Moderate persistent asthma, uncomplicated; H55.00 Unspecified nystagmus; Z20.822 Contact with and (suspected) exposure to COVID-19; Z79.4 Long term (current) use of insulin; Z87.891 Personal history of nicotine dependence; Z79.51 Long term (current) use of inhaled steroids; Z79.84 Long term (current) use of oral hypoglycemic drugs; Z79.890 Hormone replacement therapy; Z79.899 Other long term (current) drug therapy
CPT/HCPCS: 36410; 36415; 62328; 70450; 70496; 70498; 70551; 71045; 71046; 72156; 80048; 80076; 80202; 81003; 82565; 82945; 82947; 83605; 83690; 83880; 83916; 84157; 84484; 85025; 85027; 85610; 85652; 86140; 86617; 86618; 87015; 87040; 87070; 87077; 87186; 87205; 87389; 87483; 87502; 87633; 87635; 89051; 93005; 93306; 94640; 94664; 96361; 96372; 96374; 96375; 97110; 97116; 97162; 97166; 97530; 97535; 99218; 99285; A9585; J1650; J1885; J2060; J2270; J2405; J2543; J2550; J2765; J2930; J2997; J3370; Q0163; Q9967

== ENCOUNTER 2025-02-14 16:30 | Emergency (ER) | payer OTHER, SELFPAY ==
--- NOTE | ~2025-02-14 | CT_ITS ---
CLINICAL HISTORY: fall, headache CT Head Without Contrast: Comparison: MRI 03/07/2022 Findings: Cortical sulci are symmetric Basal ganglia are unremarkable No shift in midline structures No intraparenchymal bleeding or abnormal extra axial blood fluid collections Normal pituitary size There is mucosal thickening and a small amount of fluid involving ethmoid and posterior maxillary sinuses. Unremarkable orbital structures No depressed fractures Impression: Unremarkable CT of the head, no signs of acute trauma This document has been electronically signed by: Jae Young MD on 02/14/2025 19:19:25
[2025-02-14 16:42] VITALS: BP 150/91; PULSE 110; RESP 19; TEMP 36.6; O2SAT 98; BMI 30.4
--- NOTE | 2025-02-14 16:46 | ECG_ITS ---
Test Reason : WEAKNESS Blood Pressure : */* mmHG Vent. Rate : 104 BPM Atrial Rate : 104 BPM P-R Int : 164 ms QRS Dur : 90 ms QT Int : 356 ms P-R-T Axes : 48 -38 -9 degrees QTcB Int : 468 ms Sinus tachycardia Left axis deviation Nonspecific T wave abnormality Abnormal ECG When compared with ECG of 06-Mar-2022 10:27, QRS axis Shifted left Non-specific change in ST segment in Anterior leads Nonspecific T wave abnormality now evident in Inferior leads Nonspecific T wave abnormality now evident in Anterior leads Referred By: Johny More Electronically Signed By: Mani Cole
--- NOTE | 2025-02-14 16:47 | ED.GENADULT ---
HPI - General Adult General Chief complaint: Head Injury Stated complaint: head injury fall last night Time Seen by Provider: 02/14/25 19:24 History of Present Illness ED Provider: Myles SWEENEY narrative: The patient is a 64-year-old male with a history of type 2 diabetes, hypertension, hyperlipidemia, and asthma. He is also a smoker who has been trying to quit smoking recently. He was recently prescribed a nicotine patch. He says that he has had a lot of diarrhea recently since starting the nicotine patch. Yesterday the patient was at home when he realized he had forgotten something in his car. He went out to his car. He says the car door and bent over to get something and when he stood up and closed the car door he felt lightheaded and lost his balance and fell. He struck his left forehead on [place] the [place]. He did not have any loss of consciousness but it took him some time to get up. By the time he got up some family members had come outside to check on him. The family members wanted him to come to the emergency room last night but he refused. His family members kept him up for awhile and gave him some Tylenol. Ultimately the patient went to bed and slept reasonably well. This morning he has felt somewhat dizzy. He has had pain in the left forehead where he struck his head. Ultimately he decided to come to the emergency room for evaluation. He has no significant neck pain. He has no pain with moving his neck. No chest pain. No shortness of breath. No abdominal pain. No nausea or vomiting. Related Data Home Medications ?Medication ?Instructions ?Recorded ?Confirmed amlodipine 5 mg tablet 1 tab PO DAILY 02/13/22 03/06/22 levalbuterol tartrate 45 2 puff inhalation QID PRN 02/13/22 03/06/22 mcg/actuation aerosol inhaler Shortness Of Breath (Xopenex HFA) levothyroxine 150 mcg tablet 1 tab PO DAILY@0600 02/13/22 03/06/22 (Euthyrox) lovastatin 20 mg tablet 1 tab PO DAILY 02/13/22 03/06/22 montelukast 10 mg tablet 1 tab PO DAILY 02/13/22 03/06/22 budesonide-formoterol HFA 80 2 puff inhalation BID 03/06/22 03/06/22 mcg-4.5 mcg/actuation aerosol inhaler (Symbicort) cetirizine 10 mg tablet 1 tab PO DAILY 03/06/22 03/06/22 fluticasone propionate 50 2 spray intranasal DAILY 03/06/22 03/06/22 mcg/actuation nasal spray,suspension guaifenesin 600 mg tablet, 600 mg PO BID PRN Congestion 03/06/22 03/06/22 extended release 12 hr (Mucinex) lisinopril 20 mg tablet 1 tab PO DAILY 03/06/22 03/06/22 multivitamin 1 tab PO DAILY 03/06/22 03/06/22 Previous Rx's ?Medication ?Instructions ?Recorded albuterol sulfate 2.5 mg/0.5 mL 5 mg inhalation Q4H PRN shortness 09/07/21 solution for nebulization of breath or wheezing #30 ea ipratropium 0.5 mg-albuterol 3 mg 3 ml inhalation Q6H 30 days 02/21/22 (2.5 mg base)/3 mL nebulization soln nebulizers #1 ea 02/21/22 alcohol swabs 1 pad topical QID #200 ea 02/23/22 blood sugar diagnostic (FreeStyle #100 ea 02/23/22 Lite Strips) blood-glucose meter (FreeStyle #1 ea 02/23/22 Lite Meter kit) insulin glargine 100 unit/mL (3 10 unit (0.1 mL) subcut QPM #3 mL 02/23/22 mL) subcutaneous pen insulin lispro 100 unit/mL 1 sliding scale dose subcut 02/23/22 subcutaneous pen QIDACHS #15 mL lancets #200 ea 02/23/22 metformin 850 mg tablet 850 mg PO BIDWMEAL #60 tabs 02/23/22 meclizine 25 mg tablet 25 mg PO Q8H PRN dizziness #15 tabs 03/19/22 vancomycin HCl 100 mg/mL in 1.25 g IV Q24H 7 days #125 mL 03/19/22 sterile water intravenous solution acetaminophen 500 mg capsule 1,000 mg (2 x 500 mg) PO Q8H PRN 02/14/25 fever or pain #14 caps ibuprofen 400 mg tablet 400 mg PO Q6H PRN pain #14 tabs 02/14/25 ondansetron 4 mg disintegrating 4 mg PO Q6H PRN nausea and 02/14/25 tablet vomiting #10 tabs Allergies Allergy/AdvReac Type Severity Reaction Status Date / Time No Known Allergies Allergy Verified 02/14/25 16:43 Review of Systems Review of Systems: Yes all other systems are reviewed and are negative [facility] Past Medical History Medical History Asthma Bronchitis Hypertension Hypothyroidism New onset type 2 diabetes mellitus Surgical History No pertinent past surgical history Family History Family History Other No family history of coronary artery disease Social History Social History Household Members: Other Household Members Other:: nephew Housing: House Do you presently have visiting nurse or other home services: No Alcohol intake: current Alcohol intake frequency: holidays/special occasions only Patient Tobacco Use Status: Former Tobacco user Smoked in Last 30 Days: No Use of substances other than those prescribed or required for medical reasons: No Advance Directives: Yes Advance Directives on File: Yes Advance Directives Date on File: 03/26/22 Do you have a plan to hurt others: No Plan service: No Current occupational status: unemployed Physical Exam ED Vital Signs: Vital Signs - 24 hr 02/14/25 16:42 02/14/25 19:17 02/14/25 21:13 Temperature 98 F 98.1 F 98.0 F Pulse Rate 110 H 96 87 Respiratory Rate 19 11 L 12 Blood Pressure 150/91 H 140/96 H 144/92 H Pulse Oximetry 98 97 97 Oxygen Delivery Method Room Air Room Air Room Air BMI result Body Mass Index 30.4 Const Other: The patient is awake and alert. He has some obvious soft tissue swelling and abrasion to the skin of the left forehead. He does not have any other signs of injury or illness. He is pleasant and cooperative. He does not seem in obvious distress. HENMT Other: The patient has an area of soft tissue swelling and abrasion to the skin of the left forehead. No raccoon eyes. No bhagat sign. Some slight bruising to the left lower lip. No full-thickness injury. Mucous membranes are moist. Eyes Other: Pupils are round equal, extraocular movements are intact, conjunctivae are clear, no sign of ocular injury. No sign of injuries to the eyelids. Neck Other: No posterior midline C-spine tenderness. No pain with range of motion of the neck. He can put his neck through a very good range of motion easily without pain. His C-spine is clinically clear. Chest Other: No chest wall tenderness Resp Effort & Inspection: normal respiratory effort Auscultation: clear to auscultation bilaterally Cardio Rate: regular rate Rhythm: regular rhythm Heart sounds: S1 normal heart sound present and S2 normal heart sound present GI Other: Abdomen is soft and nontender Skin Other: Skin is dry and unremarkable Neuro Other: The patient is awake and alert with a normal mental status. He is oriented and appropriate. Cranial nerves 2-12 are grossly intact. There is no nystagmus. Visual garcia are intact to confrontation. Eye movements are normal. Pupils are round equal. He moves his extremities normally and appropriately. There is no pronator drift. Finger-nose is normal. Heel-stanton is normal. Sensation is intact throughout. He has a steady gait. NIHSS is zero. He seems grossly neurologically intact. Extrem Other: The patient has some slight generalized tenderness to the left knee. I do not appreciate soft tissue swelling or knee effusion. He has no abrasion to the skin of the knee. He can put the knee through a reasonably good range of motion. No peripheral edema. No calf swelling or tenderness. No calf asymmetry.. Course Course Course Narrative: RME, this is a rapid medical exam performed by Kwesi More please refer to primary provider for complete H&P- 64-year-old male presents for evaluation after a fall. He reports falling yesterday, he is unsure if he got dizzy, tripped fell. He reports headache and dizziness since last night when he fell. He denies any chest pain or shortness of breath. Plan for medical workup as this was an unwitnessed fall. CT scan of the brain. Medications Administered Discontinued Medications Generic Name Dose Route Start Last Admin Trade Name Freq PRN Reason Stop Dose Admin Al Hydroxide/Mg Hydroxide 30 ml 02/14/25 21:28 02/14/25 21:41 Magnesium Hydrox/Alum Hydrox 30 Ml Oral.Susp PO 02/14/25 21:29 30 ml ONCE ONE Administration Sodium Chloride 1,000 mls @ 999 mls/hr 02/14/25 19:45 02/14/25 21:13 Ns IV 02/14/25 20:45 Infused .Q1H1M CARLOS Infusion Sodium Chloride 1,000 mls @ 999 mls/hr 02/14/25 21:30 02/14/25 23:04 Ns IV 02/14/25 22:30 Infused .Q1H1M CARLOS Infusion Acetaminophen 1,000 mg in 100 mls @ 400 mls/hr 02/14/25 21:46 02/14/25 22:25 Ofirmev IV 02/14/25 22:00 Infused ONCE ONE Infusion Ketorolac Tromethamine 10 mg 02/14/25 21:46 02/14/25 21:53 Ketorolac Tromethamine 15 Mg/Ml Vial IVPUSH 02/14/25 21:47 10 mg ONCE ONE Administration Ondansetron HCl 4 mg 02/14/25 22:57 02/14/25 23:03 Ondansetron Hcl 4 Mg/2 Ml Vial IVPUSH 02/14/25 22:58 4 mg ONCE ONE Administration Medical Decision Making Medical Decision Making MDM Narrative: The patient presents to the emergency room after having sustained a head injury last night. He describes going outside to his car. He has been bending over to get something out of his car. He then stood up and shut the door. He then felt dizzy and lost his balance and fell, striking his forehead on the blacktop. He does not believe he had loss of consciousness. It took him awhile to get up but he was able to get up and go back into the house. His family wanted him to be seen last night but he chose to stay home. Today he is having pain in his head at the left forehead where he has a large area of soft tissue swelling. He is also complaining of feeling dizzy. he has no neck pain. His C-spine is clinically clear. He has a negative head CT. He has an intact neurological exam. He was treated with IV fluids. I think that his fall last night was probably a postural event. I suspect that he felt dizzy after straightening himself up from bending over in his car. His BUN is somewhat elevated today compared to previous and his hemoglobin is also somewhat higher than previous, although we have had no blood testing in a few years because he has been out of the area. The patient was given IV fluids. He was given acetaminophen and ketorolac for his headache. These seemed to feel somewhat better although he had ongoing complaints of dizziness. I do not find any evidence of an objective neurological deficit. I think he may be somewhat concussed. I think he may be discharged with a prescription for ondansetron. He will also be prescribed acetaminophen and ibuprofen. He should follow up with his PCP or return to the emergency room if worse. Lab Data 02/14/25 17:10 02/14/25 17:10 Labs: Lab Results 02/14/25 02/14/25 02/14/25 Range/Units 17:10 17:17 22:17 WBC 8.1 (4.8-10.8) X10*3/uL RBC 4.71 D (4.60-5.80) X10*6/uL Hgb 14.5 (14.0-18.0) g/dl Hct 40.1 L (42.0-52.0) % MCV 85.1 (80.0-98.0) fL MCH 30.8 (27.0-33.0) pg MCHC 36.2 H (31.0-36.0) g/dl RDW 13.0 (11.0-16.0) % Plt Count 273 D (160-400) X10*3/uL MPV 10.2 (9.4-12.4) fL Immature Gran % (Auto) 0.5 H (0.0-0.4) % Neut % (Auto) 64.0 (45-73) % Lymph % (Auto) 23.1 (20-40) % [place] % (Auto) 8.7 (2-11) % Eos % (Auto) 3.2 (0-4) % Baso % (Auto) 0.5 (0-2) % Lymph # (Auto) 1.9 (1.2-4.9) X10*3/uL [place] # (Auto) 0.7 (0.1-1.2) X10*3/uL Eos # (Auto) 0.3 (0.0-0.4) X10*3/uL Baso # (Auto) 0.0 (0.0-0.2) X10*3/uL Abs Immat Gran (auto) 0.04 H (0.00-0.03) X10*3/uL Absolute Neuts (auto) 5.2 (2.0-8.3) x10*3/uL Absolute Nucleated RBC 0.000 (0.0-0.012) X10*3/uL Nucleated RBC % (auto) 0.0 (0.0-0.2) /100WBC Sodium 140 (135-145) mmol/L Potassium 3.9 (3.3-5.1) mmol/L Chloride 102 (96-108) mmol/L Carbon Dioxide 24 (22-29) mmol/L Anion Gap 18 (12-20) BUN 21 H (9-16) mg/dL Creatinine 1.19 (0.5-1.4) mg/dL Estim Creat Clear Calc 67.2 Estimated GFR > 60 Random Glucose 118 H (60-115) mg/dL Calcium 10.9 H D (8.4-10.2) mg/dL Magnesium 1.5 L (1.6-2.6) mg/dL Total Bilirubin 0.5 (0.0-1.0) mg/dL AST 33 (5-37) U/L ALT 19 (0-40) U/L Alkaline Phosphatase 62 (39-117) U/L Troponin I High Sens < 2.7 < 2.7 (<3.5-35.0) ng/L Total Protein 8.1 H (6.5-8.0) g/dL Albumin 5.1 H (3.5-5.0) g/dL Lipase 50 (8-78) U/L Urine Color Dark Yellow Urine Appearance Clear Urine pH 5.5 (5.0-9.0) Ur Specific [place] >= 1.030 H (1.005-1.025) Urine Protein 100 (2+) H (Neg-Trace) mg/dL Urine Glucose (UA) Negative (Negative) mg/dL Urine Ketones 15 (Negative) mg/dL Urine Blood Negative (Negative) Urine Nitrite Negative (Negative) Ur Leukocyte Esterase Negative (Negative) Urine RBC 0-2 (0-2) /HPF Urine WBC 6-10 H (0-5) /HPF Ur Squamous Epith Cells 0-2 (0-2) /HPF Urine Bacteria None Seen (None Seen) Hyaline Casts 0-2 (0-2) /LPF Influenza Type A (PCR) NEGATIVE (Negative) Influenza Type B (PCR) NEGATIVE (Negative) RSV RNA Qual (PCR) NEGATIVE (Negative) SARS-CoV-2 RNA (RT-PCR) NEGATIVE (Negative) Independent Interpretation I performed an independent interpretation of an: EKG Interpretation: EKG at 17:00 shows sinus tachycardia at 104 beats per minute. There are nonspecific changes compared to the previous EKG. Discharge Plan Discharge Clinical Impression: Head injury, Forehead contusion Patient Disposition: Home, Self-Care Instructions: Head Injury (ED) Additional Instructions: Your testing in the emergency room today seems reassuring. I think you have some symptoms of a mild concussion. I have sent a prescription for a medication called ondansetron which you may use as needed for nausea. I have sent a prescription for ibuprofen and for acetaminophen. You medications for pain. Please contact your primary care doctor's office in the morning to arrange a prompt follow up appointment for a recheck. If you feel significantly worse please return to the emergency department for further evaluation. Prescriptions: New ibuprofen 400 mg tablet 400 mg PO Q6H PRN (Reason: pain) Qty: 14 0RF ondansetron 4 mg tablet,disintegrating 4 mg PO Q6H PRN (Reason: nausea and vomiting) Qty: 10 0RF acetaminophen 500 mg capsule 1,000 mg PO Q8H PRN (Reason: fever or pain) Qty: 14 0RF No Action amlodipine 5 mg tablet 1 tab PO DAILY levothyroxine [Euthyrox] 150 mcg tablet 1 tab PO DAILY@0600 levalbuterol tartrate [Xopenex HFA] 45 mcg/actuation HFA aerosol inhaler 2 puff inhalation QID PRN (Reason: Shortness Of Breath) montelukast 10 mg tablet 1 tab PO DAILY lovastatin 20 mg tablet 1 tab PO DAILY (DME) nebulizers Misc See Rx Instructions .Route Qty: 1 0RF Rx Instructions: As directed ipratropium-albuterol 0.5 mg-3 mg(2.5 mg base)/3 mL Solution For Nebulization 3 ml inhalation Q6H 30 Days 0RF (DME) blood-glucose meter [FreeStyle Lite Meter] Kit See Rx Instructions .ROUTE .MEDSUPPLY Qty: 1 0RF Rx Instructions: As directed alcohol swabs Pads, Medicated 1 pad topical QID Qty: 200 2RF (DME) FreeStyle Lite Strips Strip See Rx Instructions .ROUTE .MEDSUPPLY Qty: 100 2RF Rx Instructions: QID (DME) lancets Misc See Rx Instructions .ROUTE .MEDSUPPLY Qty: 200 2RF Rx Instructions: 4 times daily insulin glargine 100 unit/mL (3 mL) insulin pen 10 unit subcut QPM Qty: 3 3RF insulin lispro 100 unit/mL insulin pen 1 sliding scale dose subcut QIDACHS Qty: 15 2RF Rx Instructions: = 70 but <150 Hold insulin 151 to 200 - 2 units 201 to 250 - 4 units 251 to 300 - 6 units 301 to 350 - 8 units 351 to 399 - 10 units = 400 Contact your doctor metformin 850 mg tablet 850 mg PO BIDWMEAL Qty: 60 2RF cetirizine 10 mg tablet 1 tab PO DAILY lisinopril 20 mg tablet 1 tab PO DAILY fluticasone propionate 50 mcg/actuation spray,suspension 2 spray intranasal DAILY budesonide-formoterol [Symbicort] 80-4.5 mcg/actuation HFA aerosol inhaler 2 puff inhalation BID guaifenesin [Mucinex] 600 mg tablet extended release 12hr 600 mg PO BID PRN (Reason: Congestion) multivitamin Tablet 1 tab PO DAILY meclizine 25 mg Tablet 25 mg PO Q8H PRN (Reason: dizziness) Qty: 15 0RF vancomycin HCl in water 100 mg/mL solution 1.25 g IV Q24H 7 Days Qty: 125 0RF albuterol sulfate 2.5 mg/0.5 mL solution for nebulization 5 mg inhalation Q4H PRN (Reason: shortness of breath or wheezing) Qty: 30 0RF Referrals: Neo Patel MD [Primary Care Provider] - (head injury, concussive symptoms) Print Language: Upper Sorbian
[2025-02-14 17:15] LABS: MANUAL DIFF FLAG NO
[2025-02-14 17:17] LABS: Basophils Percent Auto 0.5 % (0-2); Eosinophils Absolute Auto 0.3 X10*3/uL (0.0-0.4); Eosinophils Percent Auto 3.2 % (0-4); Hematocrit 40.1 % (42.0-52.0); Hemoglobin 14.5 g/dl (14.0-18.0); Imm Gran Abs Auto 0.04 X10*3/uL (0.00-0.03); Imm Gran Pct Auto 0.5 % (0.0-0.4); Lymphocytes Absolute Auto 1.9 X10*3/uL (1.2-4.9); Lymphocytes Percent Auto 23.1 % (20-40); Mean Corpuscular HGB Conc 36.2 g/dl (31.0-36.0); Mean Corpuscular Hemoglobin 30.8 pg (27.0-33.0); Mean Corpuscular Volume 85.1 fL (80.0-98.0); Mean Platelet Volume 10.2 fL (9.4-12.4); Monocytes Absolute Auto 0.7 X10*3/uL (0.1-1.2); Monocytes Percent Auto 8.7 % (2-11); Neutrophils Absolute Auto 5.2 x10*3/uL (2.0-8.3); Platelet Count 273 X10*3/uL (160-400); Red Blood Count 4.71 X10*6/uL (4.60-5.80); White Blood Count 8.1 X10*3/uL (4.8-10.8)
[2025-02-14 17:25] LABS: Appearance Urine Clear; Color Urine Dark Yellow; Glucose Urine UA Negative (Negative); Leukocyte Esterase Urine Negative (Negative); Nitrite Urine Negative (Negative); PH 5.5 (5.0-9.0); Specific Gravity - Urine >= 1.030 (1.005-1.025); UMIC TRIGGER UACC YES; Urine Blood Negative (Negative); Urine Ketones 15 mg/dL (Negative); Urine Protein 100 (2+) mg/dL (Neg-Trace)
[2025-02-14 17:30] LABS: Bacteria Urine None Seen (None Seen); Hyaline Casts Urine 0-2 /LPF (0-2); RBC Urine 0-2 /HPF (0-2); Squamous Epithelial Cell Urine 0-2 /HPF (0-2); UACC Culture Trigger YES
[2025-02-14 17:32] LABS: Alanine Aminotransferase 19 U/L (0-40); Albumin Level 5.1 g/dL (3.5-5.0); Alkaline Phosphatase 62 U/L (39-117); Anion Gap 18 (12-20); Aspartate Amino Transferase 33 U/L (5-37); Bilirubin Total 0.5 mg/dL (0.0-1.0); Blood Urea Nitrogen 21 mg/dL (9-16); Calcium 10.9 mg/dL (8.4-10.2); Carbon Dioxide 24 mmol/L (22-29); Chloride 102 mmol/L (96-108); Creatinine Clr Calc Pharmacy 67.2; Estimated Glomerular Filt Rate > 60; Glucose Random 118 mg/dL (60-115); Lipase 50 U/L (8-78); Magnesium 1.5 mg/dL (1.6-2.6); Potassium 3.9 mmol/L (3.3-5.1); Sodium 140 mmol/L (135-145); Total Protein 8.1 g/dL (6.5-8.0)
[2025-02-14 17:38] LABS: Troponin-I High Sensitivity < 2.7 ng/L (<3.5-35.0)
[2025-02-14 17:52] LABS: Influenza A PCR NEGATIVE (Negative); Influenza B PCR NEGATIVE (Negative); Resp Syncy Virus RNA Qual PCR NEGATIVE (Negative); SARS COV2 PCR INHOUSE NEGATIVE (Negative)
[2025-02-14 19:17] VITALS: BP 140/96; PULSE 96; RESP 11; TEMP 36.7; O2SAT 97
[2025-02-14] MEDS: 0.9 % Sodium Chloride 1,000 ML 999 ML IV ×2 (19:49→21:41)
[2025-02-14 21:13] VITALS: BP 144/92; PULSE 87; RESP 12; TEMP 36.7; O2SAT 97
--- NOTE | 2025-02-14 21:29 | ECG_ITS ---
Test Reason : REPEAT CP Blood Pressure : */* mmHG Vent. Rate : 77 BPM Atrial Rate : 77 BPM P-R Int : 174 ms QRS Dur : 92 ms QT Int : 380 ms P-R-T Axes : 47 -32 -18 degrees QTcB Int : 430 ms Normal sinus rhythm Left axis deviation Abnormal ECG When compared with ECG of 14-Feb-2025 17:00, No significant change was found Referred By: Wenceslao Bueno Electronically Signed By: Mani Cole
[2025-02-14] MEDS: Magnesium Hydrox/Alum Hydrox 30 ML ORAL.SUSP PO (21:41)
[2025-02-14] MEDS: Acetaminophen 1,000 MG/100 ML PIGGYBACK 400 MG IV (21:52)
[2025-02-14] MEDS: Ketorolac Tromethamine 15 MG/ML VIAL 10 MG IVPUSH (21:53)
[2025-02-14 22:55] LABS: Troponin-I High Sensitivity < 2.7 ng/L (<3.5-35.0)
[2025-02-14] MEDS: ondansetron HCL 4 MG/2 ML VIAL IVPUSH (23:03)
[2025-02-14 23:52] VITALS: BP 133/76; PULSE 82; RESP 16; TEMP 36.6; O2SAT 98
== END 2025-02-14 23:56 | disposition home or self-care (01) ==
PROVIDERS: Physician Assistant; Emergency Provider Emergency Medicine; PCP Internal Medicine
DX: S09.8XXA Other specified injuries of head, initial encounter (principal); S00.83XA Contusion of other part of head, initial encounter; W18.39XA Other fall on same level, initial encounter; Y93.89 Activity, other specified; Y92.414 Local residential or business street as the place of occurrence of the external cause; Y99.9 Unspecified external cause status; R19.7 Diarrhea, unspecified; Z87.891 Personal history of nicotine dependence; R29.700 NIHSS score 0; Z03.818 Encounter for observation for suspected exposure to other biological agents ruled out
CPT/HCPCS: 0241U; 36415; 70450; 80053; 81001; 83690; 83735; 84484; 85025; 87086; 93005; 96361; 96374; 96375; 99285; J0131; J1885; J2405

== ENCOUNTER → 2025-02-14 16:46 | Outpatient (BNV) | payer OTHER, SELFPAY | PROVIDERS: Emergency Provider Emergency Medicine; PCP Internal Medicine; Visit Provider Internal Medicine Cardiovascular Disease | DX: R00.0 Tachycardia, unspecified (principal); R94.31 Abnormal electrocardiogram [ECG] [EKG]; R07.9 Chest pain, unspecified | CPT/HCPCS: 93010 ==

== ENCOUNTER → 2025-02-14 16:46 | Outpatient (BNV) | payer OTHER, SELFPAY | PROVIDERS: Emergency Provider Emergency Medicine; PCP Internal Medicine; Visit Provider Radiology Diagnostic Radiology | DX: G44.319 Acute post-traumatic headache, not intractable (principal) | CPT/HCPCS: 70450 ==

== ENCOUNTER 2025-04-02 12:55 | Emergency (ER) | payer OTHER, SELFPAY ==
--- NOTE | ~2025-04-02 | CT_ITS ---
CLINICAL HISTORY: RLQ pain after lifting. No obv hernia eliza on exam CT abdomen and pelvis with contrast Comparison: None provided Findings: No consolidation or effusion. There are small bilateral renal cysts. No hydronephrosis. No ureteral stones. Pancreas, spleen, gallbladder and liver unremarkable. No bowel obstruction, pneumoperitoneum, or pneumatosis. There are scattered colonic diverticula, however no evidence of diverticulitis. Small fat containing left inguinal hernia. No significant right inguinal hernia. No ventral hernia. Mild prostatomegaly. Normal appendix. The bones are intact. IMPRESSION: No acute findings. No right lower quadrant hernia. Normal appendix. This document has been electronically signed by: German He MD on 04/02/2025 17:47:29
[2025-04-02 12:59] VITALS: BP 135/87; PULSE 93; RESP 20; TEMP 37; O2SAT 97; BMI 28.6
--- NOTE | 2025-04-02 13:03 | ED.ABDPAIN ---
HPI - Abdominal Pain General Chief Complaint: Abdominal Pain Stated Complaint: lower abd pain Time Seen by Provider: 04/02/25 16:24 History of Present Illness ED Provider: Myles SWEENEY narrative: The patient is a 64-year-old male who says that he developed pain in his right lower abdomen after he has been lifting heavy grocery bags this morning. The pain began at around 11:00. The patient reports a history of surgery for a right-sided inguinal hernia 2 years ago in [place]. He says the pain he is currently experiencing is similar to the pain that he had prior to his hernia repair surgery. He has had no nausea or vomiting. He does not feel that he has any testicular pain. Related Data Home Medications ?Medication ?Instructions ?Recorded ?Confirmed amlodipine 5 mg tablet 1 tab PO DAILY 02/13/22 03/06/22 levalbuterol tartrate 45 2 puff inhalation QID PRN 02/13/22 03/06/22 mcg/actuation aerosol inhaler Shortness Of Breath (Xopenex HFA) levothyroxine 150 mcg tablet 1 tab PO DAILY@0600 02/13/22 03/06/22 (Euthyrox) lovastatin 20 mg tablet 1 tab PO DAILY 02/13/22 03/06/22 montelukast 10 mg tablet 1 tab PO DAILY 02/13/22 03/06/22 budesonide-formoterol HFA 80 2 puff inhalation BID 03/06/22 03/06/22 mcg-4.5 mcg/actuation aerosol inhaler (Symbicort) cetirizine 10 mg tablet 1 tab PO DAILY 03/06/22 03/06/22 fluticasone propionate 50 2 spray intranasal DAILY 03/06/22 03/06/22 mcg/actuation nasal spray,suspension guaifenesin 600 mg tablet, 600 mg PO BID PRN Congestion 03/06/22 03/06/22 extended release 12 hr (Mucinex) lisinopril 20 mg tablet 1 tab PO DAILY 03/06/22 03/06/22 multivitamin 1 tab PO DAILY 03/06/22 03/06/22 Previous Rx's ?Medication ?Instructions ?Recorded albuterol sulfate 2.5 mg/0.5 mL 5 mg inhalation Q4H PRN shortness 09/07/21 solution for nebulization of breath or wheezing #30 ea ipratropium 0.5 mg-albuterol 3 mg 3 ml inhalation Q6H 30 days 02/21/22 (2.5 mg base)/3 mL nebulization soln nebulizers #1 ea 02/21/22 alcohol swabs 1 pad topical QID #200 ea 02/23/22 blood sugar diagnostic (FreeStyle #100 ea 02/23/22 Lite Strips) blood-glucose meter (FreeStyle #1 ea 02/23/22 Lite Meter kit) insulin glargine 100 unit/mL (3 10 unit (0.1 mL) subcut QPM #3 mL 02/23/22 mL) subcutaneous pen insulin lispro 100 unit/mL 1 sliding scale dose subcut 02/23/22 subcutaneous pen QIDACHS #15 mL lancets #200 ea 02/23/22 metformin 850 mg tablet 850 mg PO BIDWMEAL #60 tabs 02/23/22 meclizine 25 mg tablet 25 mg PO Q8H PRN dizziness #15 tabs 03/19/22 vancomycin HCl 100 mg/mL in 1.25 g IV Q24H 7 days #125 mL 03/19/22 sterile water intravenous solution acetaminophen 500 mg capsule 1,000 mg (2 x 500 mg) PO Q8H PRN 02/14/25 fever or pain #14 caps ibuprofen 400 mg tablet 400 mg PO Q6H PRN pain #14 tabs 02/14/25 ondansetron 4 mg disintegrating 4 mg PO Q6H PRN nausea and 02/14/25 tablet vomiting #10 tabs acetaminophen 500 mg capsule 1,000 mg (2 x 500 mg) PO Q8H PRN 04/02/25 fever or pain #14 caps ibuprofen 400 mg tablet 400 mg PO Q6H PRN pain #14 tabs 04/02/25 Allergies Allergy/AdvReac Type Severity Reaction Status Date / Time No Known Allergies Allergy Verified 04/02/25 13:03 Review of Systems Review of Systems Yes all other systems are reviewed and are negative [facility] Past Medical History Medical History Asthma Bronchitis Hypertension Hypothyroidism New onset type 2 diabetes mellitus Surgical History No pertinent past surgical history Family History Family History Other No family history of coronary artery disease Social History Social History Household Members: Other Household Members Other:: nephew Housing: House Do you presently have visiting nurse or other home services: No Alcohol intake: current Alcohol intake frequency: holidays/special occasions only Patient Tobacco Use Status: Former Tobacco user Advance Directives Date on File: 03/26/22 service: No Current occupational status: unemployed Physical Exam ED Vital Signs: Vital Signs - 24 hr 04/02/25 12:59 04/02/25 16:38 04/02/25 18:14 Temperature 98.6 F 97.7 F 97.7 F Pulse Rate 93 84 77 Respiratory Rate 20 16 16 Blood Pressure 135/87 125/81 119/60 Pulse Oximetry 97 98 99 Oxygen Delivery Method Room Air Room Air Room Air 04/02/25 19:30 Temperature 97.7 F Pulse Rate 77 Respiratory Rate 16 Blood Pressure 119/60 Pulse Oximetry 99 Oxygen Delivery Method Room Air BMI result Body Mass Index 28.6 Const Other: The patient is a very pleasant 64-year-old man who was awake and alert. He is pleasant and cooperative. He does not appear obviously ill. Orientation/consciousness: patient oriented x3 HENMT Other: The face is symmetrical. ?Mucous membranes moist. Eyes Other: Pupils are round equal, conjunctivae are clear, extraocular movements intact Neck Neck: Yes normal visual inspection and Yes full ROM Resp Effort & Inspection: normal respiratory effort Auscultation: clear to auscultation bilaterally Cardio Rate: regular rate Rhythm: regular rhythm Heart sounds: S1 normal heart sound present and S2 normal heart sound present GI Other: The patient is tender in the right lower abdomen. Other: The patient is an uncircumcised male. External genitalia are unremarkable to inspection. There was no scrotal swelling. Testicles are unremarkable. I do not appreciate any hernia on examination of the inguinal canals. General: Yes no CVA tenderness Back/Spine/Pelvis Back: no CVA tenderness Skin Other: The skin is dry and unremarkable Neuro General: patient oriented x3, gait normal, tone normal, moves all extremities, no focal motor deficits and CN's II-XI intact bilaterally Extrem Other: There is no calf swelling or tenderness. No asymmetry. No peripheral edema. Medical Decision Making Medical Decision Making [facility] Narrative: The patient is a 64-year-old male who presents with right lower quadrant pain. This occurred after he did a lot of heavy lifting. I do not appreciate any hernia on exam. He is quite tender however. A CT scan of the abdomen and pelvis shows no acute findings. His labs are unremarkable. I think this is probably an abdominal wall muscle strain. He was reassured and discharged. Lab Data 04/02/25 13:25 04/02/25 13:25 Labs: Lab Results 04/02/25 04/02/25 Range/Units 13:25 17:14 WBC 7.2 (4.8-10.8) X10*3/uL RBC 4.32 L (4.60-5.80) X10*6/uL Hgb 13.2 L (14.0-18.0) g/dl Hct 37.9 L (42.0-52.0) % MCV 87.7 (80.0-98.0) fL MCH 30.6 (27.0-33.0) pg MCHC 34.8 (31.0-36.0) g/dl RDW 13.2 (11.0-16.0) % Plt Count 230 (160-400) X10*3/uL MPV 10.2 (9.4-12.4) fL Immature Gran % (Auto) 0.3 (0.0-0.4) % Neut % (Auto) 62.1 (45-73) % Lymph % (Auto) 22.4 (20-40) % [place] % (Auto) 10.0 (2-11) % Eos % (Auto) 4.9 H (0-4) % Baso % (Auto) 0.3 (0-2) % Lymph # (Auto) 1.6 (1.2-4.9) X10*3/uL [place] # (Auto) 0.7 (0.1-1.2) X10*3/uL Eos # (Auto) 0.4 (0.0-0.4) X10*3/uL Baso # (Auto) 0.0 (0.0-0.2) X10*3/uL Abs Immat Gran (auto) 0.02 (0.00-0.03) X10*3/uL Absolute Neuts (auto) 4.5 (2.0-8.3) x10*3/uL Absolute Nucleated RBC 0.000 (0.0-0.012) X10*3/uL Nucleated RBC % (auto) 0.0 (0.0-0.2) /100WBC Sodium 138 (135-145) mmol/L Potassium 3.9 (3.3-5.1) mmol/L Chloride 105 (96-108) mmol/L Carbon Dioxide 24 (22-29) mmol/L Anion Gap 13 (12-20) BUN 12 (9-16) mg/dL Creatinine 0.86 (0.5-1.4) mg/dL Estim Creat Clear Calc 96.5 Estimated GFR > 60 Fasting Glucose 222 H (60-99) mg/dL Calcium 9.6 D (8.4-10.2) mg/dL Total Bilirubin 0.5 (0.0-1.0) mg/dL AST 17 (5-37) U/L ALT 23 (0-40) U/L Alkaline Phosphatase 63 (39-117) U/L C-Reactive Protein 0.14 (< or = 0.50) mg/dL Total Protein 6.9 (6.5-8.0) g/dL Albumin 4.5 (3.5-5.0) g/dL Lipase 25 (8-78) U/L Urine Color Yellow Urine Appearance Clear Urine pH 6.0 (5.0-9.0) Ur Specific [place] 1.015 (1.005-1.025) Urine Protein Negative (Neg-Trace) mg/dL Urine Glucose (UA) Negative (Negative) mg/dL Urine Ketones Negative (Negative) mg/dL Urine Blood Negative (Negative) Urine Nitrite Negative (Negative) Ur Leukocyte Esterase Small (1+) H (Negative) Urine RBC 0-2 (0-2) /HPF Urine WBC 0-5 (0-5) /HPF Ur Squamous Epith Cells 0-2 (0-2) /HPF Urine Bacteria None Seen (None Seen) Hyaline Casts 0-2 (0-2) /LPF Medications Administered Discontinued Medications Generic Name Dose Route Start Last Admin Trade Name Freq PRN Reason Stop Dose Admin Sodium Chloride 1,000 mls @ 999 mls/hr 04/02/25 16:45 04/02/25 19:24 Ns IV 04/02/25 17:45 Infused .Q1H1M CARLOS Infusion Iohexol 100 ml 04/02/25 17:05 04/02/25 17:08 Iohexol 350 Mg/Ml 100 Ml Infus..Btl IV 04/02/25 17:06 85 ml ONCE ONE Administration Ketorolac Tromethamine 10 mg 04/02/25 16:32 04/02/25 17:11 Ketorolac Tromethamine 15 Mg/Ml Vial IVPUSH 04/02/25 16:33 10 mg ONCE ONE Administration Ondansetron HCl 4 mg 04/02/25 16:32 04/02/25 17:11 Ondansetron Hcl 4 Mg/2 Ml Vial IVPUSH 04/02/25 16:33 4 mg ONCE ONE Administration Discharge Plan Discharge Clinical Impression: Right lower quadrant abdominal pain Patient Disposition: Home, Self-Care Additional Instructions: Your testing in the emergency room today is very reassuring. There is no sign of a hernia problem or appendicitis on your CAT scan. Your labs are also reassuring. I suspect that you may have pulled a muscle in the abdominal wall. This may be the reason you are having the pain. Please plan on taking it easy for the next several days. Avoid any activities which exacerbate your pain. Specifically avoid lifting or straining. You may use ibuprofen and/or acetaminophen as needed for pain. Please follow up with your regular doctor if not improving. If at any point you are significantly worse, especially if you develop a fever or vomiting or worsening pain, return to the emergency room for additional evaluation. Prescriptions: New ibuprofen 400 mg tablet 400 mg PO Q6H PRN (Reason: pain) Qty: 14 0RF acetaminophen 500 mg capsule 1,000 mg PO Q8H PRN (Reason: fever or pain) Qty: 14 0RF No Action amlodipine 5 mg tablet 1 tab PO DAILY levothyroxine [Euthyrox] 150 mcg tablet 1 tab PO DAILY@0600 levalbuterol tartrate [Xopenex HFA] 45 mcg/actuation HFA aerosol inhaler 2 puff inhalation QID PRN (Reason: Shortness Of Breath) montelukast 10 mg tablet 1 tab PO DAILY lovastatin 20 mg tablet 1 tab PO DAILY (DME) nebulizers Misc See Rx Instructions .Route Qty: 1 0RF Rx Instructions: As directed ipratropium-albuterol 0.5 mg-3 mg(2.5 mg base)/3 mL Solution For Nebulization 3 ml inhalation Q6H 30 Days 0RF (DME) blood-glucose meter [FreeStyle Lite Meter] Kit See Rx Instructions .ROUTE .MEDSUPPLY Qty: 1 0RF Rx Instructions: As directed alcohol swabs Pads, Medicated 1 pad topical QID Qty: 200 2RF (DME) FreeStyle Lite Strips Strip See Rx Instructions .ROUTE .MEDSUPPLY Qty: 100 2RF Rx Instructions: QID (DME) lancets Misc See Rx Instructions .ROUTE .MEDSUPPLY Qty: 200 2RF Rx Instructions: 4 times daily insulin glargine 100 unit/mL (3 mL) insulin pen 10 unit subcut QPM Qty: 3 3RF insulin lispro 100 unit/mL insulin pen 1 sliding scale dose subcut QIDACHS Qty: 15 2RF Rx Instructions: = 70 but <150 Hold insulin 151 to 200 - 2 units 201 to 250 - 4 units 251 to 300 - 6 units 301 to 350 - 8 units 351 to 399 - 10 units = 400 Contact your doctor metformin 850 mg tablet 850 mg PO BIDWMEAL Qty: 60 2RF cetirizine 10 mg tablet 1 tab PO DAILY lisinopril 20 mg tablet 1 tab PO DAILY fluticasone propionate 50 mcg/actuation spray,suspension 2 spray intranasal DAILY budesonide-formoterol [Symbicort] 80-4.5 mcg/actuation HFA aerosol inhaler 2 puff inhalation BID guaifenesin [Mucinex] 600 mg tablet extended release 12hr 600 mg PO BID PRN (Reason: Congestion) multivitamin Tablet 1 tab PO DAILY meclizine 25 mg Tablet 25 mg PO Q8H PRN (Reason: dizziness) Qty: 15 0RF vancomycin HCl in water 100 mg/mL solution 1.25 g IV Q24H 7 Days Qty: 125 0RF albuterol sulfate 2.5 mg/0.5 mL solution for nebulization 5 mg inhalation Q4H PRN (Reason: shortness of breath or wheezing) Qty: 30 0RF ibuprofen 400 mg tablet 400 mg PO Q6H PRN (Reason: pain) Qty: 14 0RF ondansetron 4 mg tablet,disintegrating 4 mg PO Q6H PRN (Reason: nausea and vomiting) Qty: 10 0RF acetaminophen 500 mg capsule 1,000 mg PO Q8H PRN (Reason: fever or pain) Qty: 14 0RF Referrals: Neo Patel MD [Primary Care Provider, Internal Medicine] Interventions: ED Discharge Assessment Last Done: 04/02/25 19:30 Discharge Date/Time: 04/02/25 19:31 Print Language: [place]an
[2025-04-02 13:28] LABS: MANUAL DIFF FLAG NO
--- OUTSIDE RECORDS SUMMARY | 2025-04-02 13:30 | XMS_ITS | Clinical Summary ---
Author Organization [facility] [address] [place] [address] Address [address] [place] [address] Phone Care Team Providers Care Core Oven Tender Name Role Phone Neo Patel MD Primary Care Provider Allergies No known active allergies Medications pantoprazole (PROTONIX) 40 mg EC tablet Take 1 tablet (40 mg total) by mouth 1 (one) time each day. Do not crush, chew, or split. 90 each 1 02/01/20 25 Active metFORMIN (GLUCOPHAGE) 500 mg tablet Take 2 tablets (1,000 mg total) by mouth 2 (two) times a day with meals. 360 each 1 02/01/20 25 Active lisinopriL (PRINIVIL,ZESTRIL) 20 mg tablet Take 1 tablet (20 mg total) by mouth 1 (one) time each day. 90 tablet 1 02/01/20 25 Active levothyroxine (SYNTHROID, LEVOTHROID) 150 mcg tablet Take 1 tablet (150 mcg total) by mouth 1 (one) time each day before breakfast. 90 each 1 02/01/20 25 Active amLODIPine (NORVASC) 5 mg tablet Take 1 tablet (5 mg total) by mouth 1 (one) time each day. 90 each 1 02/01/20 25 Active Ventolin HFA 90 mcg/actuation inhaler Inhale 2 puffs by mouth every 6 (six) hours if needed for wheezing. 6.7 g 3 02/01/20 25 026 Active albuterol 2.5 mg /3 mL (0.083 %) nebulizer solution Take 3 mL (2.5 mg total) by nebulization 4 (four) times a day if needed for wheezing or shortness of breath. 75 mL 3 02/01/20 25 Active Lantus Solostar U-100 Insulin 100 unit/mL (3 mL) injection pen Inject 10 Units under the skin at bedtime. 15 mL 2 02/01/20 25 Active pen needle, diabetic 31 gauge x 5/16 needle Used to inject insulin into the skin daily at bedtime 100 each 3 02/01/20 25 Active Breo Ellipta 100-25 mcg/dose inhaler Inhale 1 puff by mouth 1 (one) time each day. 1 each 3 02/01/20 25 026 Active atorvastatin (LIPITOR) 40 mg tablet Take 1 tablet (40 mg total) by mouth 1 (one) time each day. 90 each 1 02/03/20 25 Active Mapap, acetaminophen, 500 mg capsule Take 1 capsule (500 mg total) by mouth every 6 (six) hours if needed. 02/16/20 Active ibuprofen (ADVIL,MOTRIN) 400 mg tablet Take 1 tablet (400 mg total) by mouth every 6 (six) hours if needed. 02/16/20 25 Active ondansetron ODT (ZOFRAN-ODT) 4 mg disintegrating tablet Dissolve 1 tablet (4 mg total) on top of the tongue every 12 (twelve) hours if needed. 02/16/20 25 Active nicotine polacrilex (COMMIT) 4 mg lozengeIndications :Tobacco dependency Dissolve 1 lozenge (4 mg total) in the mouth every 2 (two) hours if needed for smoking cessation. 30 lozenge 2 02/19/20 25 Active traZODone (DESYREL) 50 mg tablet Take 2 tablets (100 mg total) by mouth at bedtime. 180 tablet 1 02/19/20 Active Spiriva with HandiHaler 18 mcg per inhalation capsule Place 1 capsule (18 mcg total) into inhaler and inhale 1 (one) time each day. 1 each 3 03/03/20 25 026 Active Active Problems Problem Noted Date Diagnosed Date Chronic obstructive pulmonar y disease ([facility] V24, [facility] V28) 01/31/2025 Postoperative hypothyroidism 01/31/2025 Type 2 diabetes mellitus wit hout complication, with long-term current use of insulin ([facility] V24, [facility] V28) 01/31/2025 History of thyroid cancer 01/31/2025 Hypertension 01/31/2025 Hyperlipidemia 01/31/2025 Gastroesophageal reflux disease 01/31/2025 Class 1 obesity due to exces s calories with serious comorbidity and body mass index (BMI) of 31.0 to 31.9 in adult 01/31/2025 Tobacco dependency 01/31/2025 Insomnia 01/31/2025 Wheezing 05/19/2023 Allergic rhinitis 03/22/2022 Bacteremia due to methicilli n resistant Staphylococcus aureus 03/22/2022 Basilar migraine 03/22/2022 Disorder involving thrombocytopenia ([facility] V24 ) 03/22/2022 Dyslipidemia 03/22/2022 Hypothyroidism 03/22/2022 Moderate persistent asthma 03/22/2022 Unintentional weight loss 03/22/2022 Vertigo 03/22/2022 Encounters Date Type Department Care Team Description 03/14/2025 9:11 AM EDT - 03/14/2025 11:59 PM EDT Hospital Encounter [facility] CT Scan [address] [place] [id number] Encounter for screening for malignant neoplasm of respiratory organs; Nicotine dependence, cigarettes, uncomplicated Discharge Disposition: Home or Self Care 03/14/2025 9:00 AM EDT Office Visit Lung Screening Program - [place] [address] [place] [address] Sonal España, SAVANAH Encounter for screening for malignant neoplasm of lung in former smoker who quit in past 15 years with 30 pack year history or greater (Primary Dx); Encounter for screening for malignant neoplasm of lung in current smoker with 20 pack year history or greater 03/03/2025 8:30 AM EDT Office Visit Adult Medicine [address] [phone] Neo Patel MD Chronic obstructive pulmonary disease, unspecified COPD type ([facility] V24, [facility] V28) (Primary Dx); Postoperative hypothyroidism; Type 2 diabetes mellitus without complication, with long-term current use of insulin ([facility] V24, [facility] V28); Hypothyroidism, unspecified type; Hyperlipidemia, unspecified hyperlipidemia type; Need for vaccination against Streptococcus pneumoniae; Need for tetanus, diphtheria, and acellular pertussis (Tdap) vaccine; Hypertension, unspecified type; Insomnia, unspecified type 02/24/2025 12:50 PM EDT - 02/24/2025 11:59 PM EDT Hospital Encounter Radiology Department [address] [phone] Dizziness; Gait instability; Acute nonintractable headache, unspecified headache type Discharge Disposition: Home or Self Care 02/22/2025 7:01 AM EDT - 02/22/2025 11:59 PM EDT Hospital Encounter [facility] Pulmonary [address] [place] [address] Discharge Disposition: Home or Self Care 02/18/2025 10:30 AM EDT Office Visit Adult Medicine [address] [phone] Neo Patel MD Dizziness (Primary Dx); Tobacco dependency; Gait instability; Acute nonintractable headache, unspecified headache type; Type 2 diabetes mellitus without complication, with long-term current use of insulin ([facility] V24, [facility] V28); Postoperative hypothyroidism; Hypertension, unspecified type; Chronic obstructive pulmonary disease, unspecified COPD type ([facility] V24, [facility] V28); Insomnia, unspecified type 02/16/2025 Telephone Adult Medicine [address] [phone] Neo Patel MD Dizziness 02/02/2025 Telephone Adult Medicine [address] [phone] Neo Patel MD 01/31/2025 9:00 AM EDT Office Visit Adult [address] [phone] Neo Patel MD Encounter to establish care (Primary Dx); Chronic obstructive pulmonary disease, unspecified COPD type ([facility] V24, [facility] V28); Type 2 diabetes mellitus without complication, with long-term current use of insulin ([facility] V24, [facility] V28); Postoperative hypothyroidism; History of thyroid cancer; Hypertension, unspecified type; Hyperlipidemia, unspecified hyperlipidemia type; Snoring; Encounter for screening for malignant neoplasm of colon; Need for hepatitis C screening test; Need for hepatitis B screening test; Screening for prostate cancer; Encounter for screening for malignant neoplasm of lung in current smoker with 20 pack year history or greater; Tobacco dependency; Insomnia, unspecified type; Class 1 obesity due to excess calories with serious comorbidity and body mass index (BMI) of 31.0 to 31.9 in adult; Gastroesophageal reflux disease, unspecified whether esophagitis present from Last 3 Months Immunizations Name Administration Dates Next Due Influenza Quadrivalent, 0.5m l, preservative free (Fluarix; FluLaval; Fluzone) ages 6mo and older (Afluria) 3yo and older 10/18/2021 Pneumococcal conjugate 20 va lent (Prevnar 20, PCV 20) 2mo and older 03/03/2025 Tdap Tetanus diptheria acell ular pertussis (Boostrix; Adacel) 7yo and older 03/03/2025 Surgical History Surgery Date Site/Laterality Comments EYE SURGERY Bilateral cataract TOTAL THYROIDECTOMY HERNIA REPAIR Medical History Medical History Date Comments Diabetes mellitus ([facility] V24, [facility] V28) COPD (chronic obstructive pulmonary disease) ( [facility] V24, [facility] V28) Hypertension Hypercholesteremia History of thyroid cancer Family History Medical History Relation Name Comments Alzheimer's disease Father Hypertension Father Diabetes type II Mother Hypertension Mother Relation Name Status Comments Father Mother Social History Tobacco Use Types Packs/Day Years Used Date Smoking Tobacco: Former Cigarettes 0.5 46.4 1 979 - 02/02/2025 Passive Smoke Exposure: Never Smokeless Tobacco: Never Tobacco Cessation:Counseling Given: Not Answered Comments:Quit January 2025 Alcohol Use Standard Drinks/Week Comments Yes 0 (1 standard drink = 0.6 oz pur e alcohol) 1-2 drinks/week Housing Instability Answer Date Recorde d Are you worried that in the next 2 months you may not have stable housing? No 01/30/2025 Food Access & Nutrition Answer Date Rec orded Do you have access to a vari ety of food including fruits and vegetables? Yes 01/30/2025 Access to Healthcare Answer Date Record ed Within the last 3 months, ho w many times did you visit the emergency department for your medical care? 0 01/30/2025 Health Literacy Answer Date Recorded How often do you need to hav e someone help you when you read instructions, pamphlets, or other written material from your doctor or pharmacy? Sometimes 01/30/2025 Caregiver: How often do you need to have someone help you when you read instructions, pamphlets, or other written material from your doctor or pharmacy? Not on file 01/30/2025 Financial Risk Answer Date Recorded How hard is it for you to pa y for the very basics like food, housing, medical care, and air conditioning / heating? Not very hard 01/30/2025 Transportation Answer Date Recorded Has the lack of transportati on kept you from meetings, work, or from getting things needed for daily living? No Has the lack of transportati on kept you from medical appointments or from getting medications? No 01/30/2025 Social Isolation Answer Date Recorded How often do you feel lonely or isolated from those around you? Sometimes 01/30/2025 Food Risk Answer Date Recorded Within the past 12 months we worried whether our food would run out before we got money to buy more. Never true 01/30/2025 Within the past 12 months th e food we bought just didn't last and we didn't have money to get more. Never true 01/30/2025 Dependent Care Answer Date Recorded Do you need help finding or paying for care for your loved ones. For example, assistant child care teacher or elderly care for an older adult? No 01/30/2025 Education Answer Date Recorded Do you think completing more education or training, like finishing a GED, going to college, or learning a trade, would be helpful for you? No 01/30/2025 Employment and Income Answer Date Recor ded During the last four weeks, have you been actively looking for work? Yes 01/30/2025 Living Situation Answer Date Recorded What is your living situation? 0 01/30/2025 Sex and Gender Information Value Date Recorded Sex Assigned at Not on file Legal Sex Male 7:33 PM EST Gender Identity Not on file Sexual Orientation Not on file Obstetrics History Last Filed Vital Signs Vital Sign Reading Time Taken Comments Blood Pressure 101/57 03/03/2025 8:20 AM EDT Pulse 91 03/03/2025 8:20 AM EDT Temperature 36.6 C (97.9 F) 03/14/2025 9:00 AM EDT Respiratory Rate 16 03/03/2025 8:20 AM EDT Oxygen Saturation - - Inhaled Oxygen Concentration - - Weight 87.4 kg (192 lb 9.6 oz) 03/03/2025 8:20 A M EDT Height 170.2 cm (5' 7 ) 03/03/2025 8:20 AM EDT Body Mass Index 30.17 03/03/2025 8:20 AM EDT Plan of Treatment Upcoming Encounters Date Type Department Care Team (Late st Contact Info) Description 05/11/2025 12:15 PM EDT Appointment [facility] Endoscopy [address] [place] [phone] Roxana Watts MD [address] [address] 06/03/2025 9:30 AM EDT Office Visit Adult Medicine [facility] [address] [place] [phone] Neo Patel MD [address] [place] [address] Health Maintenance Due Date Last Done Comments RSV Immunization Adult Patients (1 - Risk 60-74 years 1-dose series) 2021 Colorectal Cancer Screening: Colonoscopy 02/14/2023 HIV Screening 02/14/2023 COVID-19 Vaccine (2 - 2023-2 5 season) 2024 10/18/2021 Zoster Vaccines (2 of 2) 04/12/2025 02/15/2025 Influenza Vaccine (#1) 2025 10/18/2021 Diabetes: Blood Sugar Contro l Test (HGBA1C) 08/03/2025 01/31/2025 Depression Screening 01/30/2026 01/30/2025 Social Influencers of Health Screening 01/30/2026 01/30/2025 Diabetes: Annual Urine Albumin-Creatinine Ratio (uACR) 01/31/2026 01/31/2025 Diabetes: Annual GFR (Glomerular Filtration Rate) 01/31/2026 01/31/2025, 05/19/2023 Hypertension/CHF/CAD Annual BMP Blood Test 01/31/2026 01/31/2025, 05/19/2023 Diabetes: Annual Retina Eye Exam 02/24/2026 02/24/2025 Diabetes: Annual Foot Exam 03/03/2026 03/03/2025 Lung Cancer Screening (Low Dose CT) 03/14/2026 03/14/2025 Cholesterol Screening (Lipid Panel) 01/31/2030 01/31/2025 DTaP,Tdap,and Td Vaccines (3 - Td or Tdap) 03/03/2035 03/03/2025, 02/15/2025 Hepatitis C Screening Completed 01/31/2025 Pneumococcal Vaccine: 50+ Years Completed 03/03/2025 Pneumococcal Vaccine: Pediatrics (0 to 5 Years) and At-Risk Patients (6 to 49 Years) Completed 03/03/2025 HIB Vaccines Aged Out No longer eligi ble based on patient's age to complete this topic HPV Vaccines Aged Out No longer eligi ble based on patient's age to complete this topic Hepatitis A Vaccines Aged Out No long er eligible based on patient's age to complete this topic Hepatitis B Vaccines Aged Out No long er eligible based on patient's age to complete this topic IPV Vaccines Aged Out No longer eligi ble based on patient's age to complete this topic MMR Vaccines Aged Out No longer eligi ble based on patient's age to complete this topic Meningococcal ACWY Vaccine Aged Out N o longer eligible based on patient's age to complete this topic Meningococcal B Vaccine Aged Out No l onger eligible based on patient's age to complete this topic RSV Immunization Patients Under 20 months Aged Out No longer eligible b ased on patient's age to complete this topic Varicella Vaccines Aged Out No longer eligible based on patient's age to complete this topic Procedures Procedure Name Priority Date/Time Associated Diagnosis Comments CT LUNG SCREENING Routine 03/14/2025 9:2 5 AM EDT Encounter for screening for malignant neoplasm of respiratory organs Nicotine dependence, cigarettes, uncomplicated MR BRAIN WO AND W CONTRAST Routine 02/24/2025 1:51 PM EDT Dizziness Gait instability Acute nonintractable headache, unspecified headache type HC SPIROMETRY BRONCHODILATION RESPONSIVENESS PRE/POST BRONCHODILATOR ADMINISTRATION Routine 02/22/2025 8:01 AM EDT Chronic obstructive pulmonary disease, unspecified COPD type (CMS/HCC V24, CMS/HCC V28) EXTERNAL CT REPORT 02/14/2025 TRIIODOTHYRONINE FREE Routine 01/31/2025 10:03 AM EDT Postoperative hypothyroidism FREE THYROXINE WITH REFLEX TO FREE TRIIODOTHYRONINE Routine 01/31/2025 10:03 AM EDT Postoperative hypothyroidism CBC WITH AUTO DIFFERENTIAL Routine 01/31/2025 10:03 AM EDT Type 2 diabetes mellitus without complication, with long-term current use of insulin ([facility] V24, [facility] V28) CBC AND DIFFERENTIAL Routine 01/31/2025 10:03 AM EDT Type 2 diabetes mellitus without complication, with long-term current use of insulin (CMS/HCC V24, CMS/HCC V28) THYROID STIMULATING HORMONE WITH REFLEX TO FREE T4 AND FREE T3 Routine 01/31/2025 10:03 AM EDT Postoperative hypothyroidism LIPID PANEL WITH REFLEX TO DIRECT LDL Routine 01/31/2025 10:03 AM EDT Type 2 diabetes mellitus without complication, with long-term current use of insulin (CMS/HCC V24, CMS/HCC V28) MICROALBUMIN CREATININE URINE RATIO Routine 01/31/2025 10:03 AM EDT Type 2 diabetes mellitus without complication, with long-term current use of insulin (CMS/HCC V24, CMS/HCC V28) COMPREHENSIVE METABOLIC PANEL Routine 01/31/2025 10:03 AM EDT Type 2 diabetes mellitus without complication, with long-term current use of insulin (CMS/HCC V24, CMS/HCC V28) HEMOGLOBIN A1C Routine 01/31/2025 10:03 AM EDT Type 2 diabetes mellitus without complication, with long-term current use of insulin (CMS/HCC V24, CMS/HCC V28) PROSTATE SPECIFIC ANTIGEN SCREEN Routine 01/31/2025 10:03 AM EDT Screening for prostate cancer HEPATITIS C ANTIBODY Routine 01/31/2025 10:03 AM EDT Need for hepatitis C screening test HEPATITIS B SURFACE ANTIBODY Routine 01/31/2025 10:03 AM EDT Need for hepatitis B screening test from Last 3 Months Results * CT Lung Screening (03/14/2025 9:25 AM EDT) Anatomical Region Laterality Modality Chest Computed Tomogra phy 03/15/2025 10:3 6 AM EDT Impressions 03/15/2025 10:44 AM EDT Impression: No suspicious pulmonary nodule identified. Continued annual low-dose screening is recommended. Lung-RADS Category: Lung-RADS 2: Nodule(s) with benign appearance or behavior. Continue annual screening with Low Dose Chest CT in 12 months. [employer] PANCHITO ([id number]) -------- FINAL REPORT -------- Dictated By: Bianka Rubi Dictated Date: 03/15/2025 10:36 ET Assigned Physician: Bianka Rubi Reviewed and Electronically Signed By: Bianka Rubi Signed Date: 03/15/2025 10:44 ET Workstation ID: [id number] Transcribed By: Self Edit Transcribed Date: 03/15/2025 10:36 ET Narrative 03/15/2025 10:44 AM EDT History: 64 year-old 23 pack-year current smoker, asymptomatic, for lung cancer screening. Comparison: No comparison imaging at this institution. Technique: Helical volumetric imaging of the thorax was performed, using low- dose technique, without IV contrast. DLP: 118.02 mGy/cm CTDIvol: 3.22 mGy [employer] VCT Iterative reconstruction technique Findings: Lungs and Airways: The trachea and central bronchial tree are patent. Mild centrilobular emphysema is noted. Minimal thin curvilinear opacity is present at the lung bases, consistent with subsegmental atelectasis or scar. A 2 mm solid, noncalcified nodule is seen in the right upper lobe nodule (image 66 series 3). No suspicious nodule is identified. Pleura: No pleural or pericardial effusions are seen. Base of neck, mediastinum and heart: Mild multichamber cardiomegaly is noted. There is moderate coronary artery calcification. Thyroidectomy sequela are noted. No thoracic lymphadenopathy is seen. Soft tissues: The overlying soft tissues are unremarkable. Abdomen: This study was performed without contrast and with lower than standard dose. These factors reduce the sensitivity for detection of small lesions in the upper abdomen. No significant abnormality is seen. Procedure Note Bianka Rubi MD - 03/15/2025 History: 64 year-old 23 pack-year current smoker, asymptomatic, for lungcancer screening. Comparison: No comparison imaging at this institution. Technique: Helical volumetric imaging of the thorax was performed, usinglow-dose technique, without IV contrast. DLP: 118.02 mGy/cm CTDIvol: 3.22 mGy [employer] VCT Iterative reconstruction technique Findings: Lungs and Airways: The trachea and central bronchial tree are patent. Mildcentrilobular emphysema is noted. Minimal thin curvilinear opacity ispresent at the lung bases, consistent with subsegmental atelectasis orscar. A 2 mm solid, noncalcified nodule is seen in the right upper lobe nodule(image 66 series 3). No suspicious nodule is identified. Pleura: No pleural or pericardial effusions are seen. Base of neck, mediastinum and heart: Mild multichamber cardiomegaly isnoted. There is moderate coronary artery calcification. Thyroidectomysequela are noted. No thoracic lymphadenopathy is seen. Soft tissues: The overlying soft tissues are unremarkable. Abdomen: This study was performed without contrast and with lower thanstandard dose. These factors reduce the sensitivity for detection of smalllesions in the upper abdomen. No significant abnormality is seen. IMPRESSION: Impression: No suspicious pulmonary nodule identified. Continued annual low-dosescreening is recommended. Lung-RADS Category: Lung-RADS 2: Nodule(s) with benign appearance orbehavior. Continue annual screening with Low Dose Chest CT in 12 months. [employer] [place] ([id number]) -------- FINAL REPORT -------- Dictated By: Bianka Rubi Dictated Date: 03/15/2025 10:36 ET Assigned Physician: Bianka Rubi Reviewed and Electronically Signed By: Bianka Rubi Signed Date: 03/15/2025 10:44 ET Workstation ID: [id number] Transcribed By: Self Edit Transcribed Date: 03/15/2025 10:36 ET us Emy Bella MD IMG CT PROCEDURES Final Result * MR Brain wo and w Contrast (02/24/2025 1:51 PM EDT) Anatomical Region Laterality Modality Head and Neck Magnetic Resonan ce 02/24/2025 11:2 2 PM EDT Narrative 02/24/2025 11:34 PM EDT MRI of the head without and with intravenous contrast. History dizziness. New headaches. Gait instability. Examination was performed on 1.5 Cecille magnet without intravenous contrast followed by postcontrast study after administration of 18 mL of DOTAREM. Nonenhanced head CT from 02/14/2025 was reviewed. There is no evidence of midline shift, extra or intra-axial blood fluid collections. There is no visible masses or mass effect in the brain and cerebellum. There is no focal areas of restricted diffusion, magnetic susceptibility artifact or abnormal enhancement. There are multiple nonspecific foci of abnormally increased FLAIR signal in the subcortical, deep and in the periventricular white matter of both cerebral hemispheres. No focal signal abnormalities identified in the corpus callosum or posterior fossa. They could be due to chronic small vessel ischemia. Differential diagnosis should include infectious/inflammatory processes such as Lyme disease, multiple sclerosis, vasculitis, migraine among the other etiologies. Ventricular system is symmetric and normal in size. Fourth ventricle and basal cisterns are midline and patent. Note was made of mucosal thickening in the maxillary sinuses bilaterally more prominent on the left as well as scattered areas of mucosal thickening in the ethmoid air cells. There is small amount of fluid in the right mastoid process. CONCLUSIONS: Nonspecific supratentorial white matter signal abnormalities in both cerebral hemispheres. Mild mucosal abnormalities in the paranasal sinuses. Small amount of fluid in the right mastoid process. -------- FINAL REPORT -------- Dictated By: Mary Nieto Dictated Date: 02/24/2025 23:22 ET Assigned Physician: Mary Nieto Reviewed and Electronically Signed By: Mary Nieto Signed Date: 02/24/2025 23:34 ET Workstation ID: [id number] Transcribed By: Self Edit Transcribed Date: 02/24/2025 23:22 ET Procedure Note Mary Nieto MD - 02/24/2025 MRI of the head without and with intravenous contrast. History dizziness. New headaches. Gait instability. Examination was performed on 1.5 Cecille magnet without intravenous contrastfollowed by postcontrast study after administration of 18 mL of DOTAREM.Nonenhanced head CT from 02/14/2025 was reviewed. There is no evidence of midline shift, extra or intra-axial blood fluidcollections. There is no visible masses or mass effect in the brain andcerebellum. There is no focal areas of restricted diffusion, magneticsusceptibility artifact or abnormal enhancement. There are multiple nonspecific foci of abnormally increased FLAIR signalin the subcortical, deep and in the periventricular white matter of bothcerebral hemispheres. No focal signal abnormalities identified in thecorpus callosum or posterior fossa. They could be due to chronic smallvessel ischemia. Differential diagnosis should includeinfectious/inflammatory processes such as Lyme disease, multiplesclerosis, vasculitis, migraine among the other etiologies. Ventricular system is symmetric and normal in size. Fourth ventricle andbasal cisterns are midline and patent. Note was made of mucosal thickening in the maxillary sinuses bilaterallymore prominent on the left as well as scattered areas of mucosalthickening in the ethmoid air cells. There is small amount of fluid in theright mastoid process. CONCLUSIONS: Nonspecific supratentorial white matter signal abnormalitiesin both cerebral hemispheres. Mild mucosal abnormalities in the paranasalsinuses. Small amount of fluid in the right mastoid process. -------- FINAL REPORT -------- Dictated By: Mary Nieto Dictated Date: 02/24/2025 23:22 ET Assigned Physician: Mary Nieto Reviewed and Electronically Signed By: Mary Nieto Signed Date: 02/24/2025 23:34 ET Workstation ID: [id number] Transcribed By: Self Edit Transcribed Date: 02/24/2025 23:22 ET Neo Patel MD IMG MRI PROCEDURES Fin al Result * Pulmonary function testing: Carbon Monoxide Diffusing Capacity, Nitrogen Wash Out, Spirometry with Bronchodilator (02/22/2025 8:01 AM EDT) Narrative Jennifer Santos MD - 02/22/2025 6:05 PM EDT DATE OF SERVICE: 02/22/25 SPIROMETRY: FEV1 is 63 % predicted and an FVC is 85 % predicted. The FEV1/FVC ratio is 75% of normal, no response to bronchodilators noted. LUNG VOLUMES: Total lung capacity (TLC): 74% predicted. Residual volume (RV): 78% predicted RV/TLC ratio is 107% of normal DIFFUSION CAPACITY: DLCO 82% predicted. DlCO/VA 96% of predicted COMPARISONS: INTERPRETATION: This pulmonary function test shows moderate obstructive changes with relatively preserved diffusion capacity. The findings are consistent with COPD Jennifer Santos MD Result [facility] Neo Patel MD PFT ORDERABLES Final Result * External CT Report (02/14/2025) Anatomical Region Laterality Modality Computed Tomogra phy Provider [facility] IMG CT PROCEDURES Final Result * Prostate specific antigen screen (01/31/2025 10:03 AM EDT) PSA 2.63 0.00 - 4.00 ng/mL LAB CHEMISTRY METHOD 01/31/2025 3:09 PM EDT [facility] Blood Venous blood specimen / Unknown Venipuncture / Unknown 01/31/2025 10:03 AM EDT 01/31/2025 10:03 AM EDT Narrative [facility] - 01/31/2025 3:09 PM EDT The Siemens Advia Centaur Chemiluminescent Immunoassay is used. Results obtained with different assay methods or kits cannot be used interchangeably. Results cannot be interpreted as absolute evidence of the presence or absence of malignant disease. us Neo Patel MD LAB BLOOD ORDERABLES F inal Result Performing Organization Address City/[facility]/ZIP Co de Phone Number [facility] [address] [place] [address], [place] [phone] * Hepatitis C antibody (01/31/2025 10:03 AM EDT) Pathologist [facility] Hepatitis C Antibody Negative Negative LAB CHEMISTRY METHOD 01/31/2025 3:49 PM EDT [facility] Blood Venous blood specimen / Unknown Venipuncture / Unknown 01/31/2025 10:03 AM EDT 01/31/2025 10:03 AM EDT Neo Patel MD LAB BLOOD ORDERABLES F inal Result Performing Organization Address [facility]/ZIP Co de Phone Number [facility] [address] [place] [address], [place] [phone] * (ABNORMAL) Thyroid stimulating hormone with reflex to free t4 and free t3 (01/31/2025 10:03 AM EDT) Pathologist [facility] TSH 35.71(H) 0.40 - 4.00 mcIU/mL LAB CHEMISTRY METHOD 01/31/2025 4:56 PM EDT [facility] Blood Venous blood specimen / Unknown Venipuncture / Unknown 01/31/2025 10:03 AM EDT 01/31/2025 10:03 AM EDT us Neo Patel MD LAB BLOOD ORDERABLES F inal Result Performing Organization Address City/[facility]/ZIP Co de Phone Number [facility] [address] [place] [address], [place] [phone] * Free thyroxine with reflex to free triiodothyronine (01/31/2025 10:03 AM EDT) Pathologist [facility] Free T4 1.17 0.70 - 1.80 ng/dL LAB CHEMISTRY METHOD 01/31/2025 6:04 PM EDT [facility] Blood Venous blood specimen / Unknown Venipuncture / Unknown 01/31/2025 10:03 AM EDT 01/31/2025 10:03 AM EDT us Neo Patel MD LAB BLOOD ORDERABLES F inal Result [facility] [address] [place] [address], [place] [phone] * (ABNORMAL) Lipid panel with reflex to direct LDL (01/31/2025 10:03 AM EDT) [facility] Cholesterol 278(H) 0 - 200 mg/dL LAB CHEMISTRY METHOD 01/31/2025 2:40 PM EDT [facility] Triglycerides 202(H) 0 - 150 mg/dL LAB CHEMISTRY METHOD 01/31/2025 2:40 PM EDT [facility] HDL 82 >=40 mg/dL LAB CHEMISTRY METHOD 01/31/2025 2:40 PM EDT [facility] LDL Calculated 156(H) 0 - 100 mg/dL LAB CHEMISTRY METHOD 01/31/2025 2:40 PM EDT [facility] VLDL Cholesterol Robert 40.4 mg/dL LAB CHEMISTRY METHOD 01/31/2025 2:40 PM EDT [facility] Non HDL Chol. (LDL+VLDL) 196(H) <145 mg/dL LAB CHEMISTRY METHOD 01/31/2025 2:40 PM EDT [facility] Chol/HDL Ratio 3.4 0.0 - 4.4 LAB CHEMISTRY METHOD 01/31/2025 2:40 PM EDT [facility] Blood Venous blood specimen / Unknown Venipuncture / Unknown 01/31/2025 10:03 AM EDT 01/31/2025 10:03 AM EDT us Neo Patel MD LAB BLOOD ORDERABLES F inal Result [facility] [address] [place] [address], [place] [phone] * (ABNORMAL) CBC auto differential (01/31/2025 10:03 AM EDT) WBC 9.7 4.8 - 10.8 K/mcL LAB HEMETOLOGY METHOD 01/31/2025 2:23 PM EDT [facility] RBC 5.10 4.50 - 5.50 M/mcL LAB HEMETOLOGY METHOD 01/31/2025 2:23 PM EDT [facility] Hemoglobin 15.5 13.5 - 17.5 g/dL LAB HEMETOLOGY METHOD 01/31/2025 2:23 PM EDT [facility] Hematocrit 45.9 42.0 - 54.0 % LAB HEMETOLOGY METHOD 01/31/2025 2:23 PM EDT [facility] MCV 90.0 79.0 - 98.0 FL LAB HEMETOLOGY METHOD 01/31/2025 2:23 PM EDT [facility] MCH 30.4 27.0 - 32.0 pcg LAB HEMETOLOGY METHOD 01/31/2025 2:23 PM EDT [facility] MCHC 33.8 32.0 - 37.0 g/dL LAB HEMETOLOGY METHOD 01/31/2025 2:23 PM EDT [facility] RDW 13.3 11.0 - 15.0 % LAB HEMETOLOGY METHOD 01/31/2025 2:23 PM [facility] Platelets 251 130 - 400 K/mcL LAB HEMETOLOGY METHOD 01/31/2025 2:23 PM [facility] MPV 11.5(H) 7.0 - 11.0 FL LAB HEMETOLOGY METHOD 01/31/2025 2:23 PM [facility] NRBC 0.0 <1.0 % LAB HEMETOLOGY METHOD 01/31/2025 2:23 PM [facility] NRBC Absolute 0.00 <0.10 K/mcL LAB HEMETOLOGY METHOD 01/31/2025 2:23 PM [facility] Neutrophils Relative 76.8 % LAB HEMETOLOGY METHOD 01/31/2025 2:23 PM [facility] Lymphocytes Relative 14.3 % LAB HEMETOLOGY METHOD 01/31/2025 2:23 PM [facility] Monocytes Relative 6.6 % LAB HEMETOLOGY METHOD 01/31/2025 2:23 PM [facility] Eosinophils Relative 1.2 % LAB HEMETOLOGY METHOD 01/31/2025 2:23 PM [facility] Basophils Relative 0.4 % LAB HEMETOLOGY METHOD 01/31/2025 2:23 PM [facility] Immature Granulocytes Relative 0.7 % LAB HEMETOLOGY METHOD 01/31/2025 2:23 PM [facility] Neutrophils Absolute 7.43(H) 1.50 - 7.00 K/mcL LAB HEMETOLOGY METHOD 01/31/2025 2:23 PM [facility] Lymphocytes Absolute 1.38 1.00 - 5.00 K/mcL LAB HEMETOLOGY METHOD 01/31/2025 2:23 PM [facility] Monocytes Absolute 0.64 0.20 - 1.00 K/mcL LAB HEMETOLOGY METHOD 01/31/2025 2:23 PM EDT [facility] Eosinophils Absolute 0.12 0.00 - 0.50 K/[facility] LAB HEMETOLOGY METHOD 01/31/2025 2:23 PM EDT [facility] Basophils Absolute 0.04 0.00 - 0.20 K/[facility] LAB HEMETOLOGY METHOD 01/31/2025 2:23 PM EDT [facility] Immature Granulocytes Absolute 0.07(H) 0.00 - 0.03 K/[facility] LAB HEMETOLOGY METHOD 01/31/2025 2:23 PM EDT [facility] Blood Venous blood specimen / Unknown Venipuncture / Unknown 01/31/2025 10:03 AM EDT 01/31/2025 10:03 AM EDT us Neo Patel MD LAB BLOOD ORDERABLES F inal Result [facility] [address] [place] [address], [place] [phone] * (ABNORMAL) Microalbumin creatinine urine ratio (01/31/2025 10:03 AM EDT) Creatinine, Urine 106.0 mg/dL LAB CHEMISTRY METHOD 01/31/2025 2:19 PM EDT [facility] Microalb, Ur 30.5(H) 0.0 - 29.0 mg/L LAB CHEMISTRY METHOD 01/31/2025 2:19 PM EDT [facility] Microalb/Crea t Ratio 29 <30 mg/g creat LAB CHEMISTRY METHOD 01/31/2025 2:19 PM EDT [facility] Urine Urine specimen obtained by clean catch procedure / Unknown Non-blood Collection / Unknown 01/31/2025 10:03 AM EDT 01/31/2025 10:03 AM EDT us Neo Patel MD LAB URINE ORDERABLES F inal Result Performing Organization Address [facility]/ZIP Co de Phone Number [facility] [address] [place] [address], [place] [phone] * Hepatitis B surface antibody (01/31/2025 10:03 AM EDT) Hepatitis B Surface Ab Negative Negative LAB CHEMISTRY METHOD 01/31/2025 8:27 PM EDT [facility] Hepatitis B Surface Ab Quantitative <3.1 mIU/mL LAB CHEMISTRY METHOD 01/31/2025 8:27 PM EDT [facility] Blood Venous blood specimen / Unknown Venipuncture / Unknown 01/31/2025 10:03 AM EDT 01/31/2025 10:03 AM EDT Narrative [facility] - 01/31/2025 8:27 PM EDT >=10 mIU/mL is considered to be consistent with immunity. Neo Patel MD LAB BLOOD ORDERABLES F inal Result Performing Organization Address [facility] de Phone Number [facility] [address] [place] [address], [place] [phone] * (ABNORMAL) Triiodothyronine free (01/31/2025 10:03 AM EDT) T3, Free 207(L) 230 - 420 pcg/dL LAB CHEMISTRY METHOD 01/31/2025 7:03 PM EDT [facility] Blood Venous blood specimen / Unknown Venipuncture / Unknown 01/31/2025 10:03 AM EDT 01/31/2025 10:03 AM EDT Neo Patel MD LAB BLOOD ORDERABLES F inal Result Performing Organization Address City/[facility]/ZIP Co de Phone Number [facility] [address] [place] [address], [place] [phone] * (ABNORMAL) Hemoglobin A1c (01/31/2025 10:03 AM EDT) Pathologist [facility] Hemoglobin A1C 7.3(H) <6.5 % LAB CHEMISTRY METHOD 01/31/2025 10:16 PM EDT [facility] Mean Bld Glu Estim. 163 mg/dL LAB CHEMISTRY METHOD 01/31/2025 10:16 PM T [facility] Blood Venous blood specimen / Unknown Venipuncture / Unknown 01/31/2025 10:03 AM EDT 01/31/2025 10:03 AM EDT Neo Patel MD LAB BLOOD ORDERABLES F inal Result [facility] [address] [place] [address], [place] [phone] * (ABNORMAL) Comprehensive metabolic panel (01/31/2025 10:03 AM EDT) [facility] Sodium 137 133 - 145 mmol/L LAB CHEMISTRY METHOD 01/31/2025 2:39 PM [facility] Potassium 4.0 3.5 - 5.5 mmol/L LAB CHEMISTRY METHOD 01/31/2025 2:39 PM [facility] Chloride 102 96 - 110 mmol/L LAB CHEMISTRY METHOD 01/31/2025 2:39 PM [facility] CO2 29 21 - 32 mmol/L LAB CHEMISTRY METHOD 01/31/2025 2:39 PM [facility] Anion Gap 6 3 - 11 LAB CHEMISTRY METHOD 01/31/2025 2:39 PM [facility] Glucose 169(H) 70 - 100 mg/dL LAB CHEMISTRY METHOD 01/31/2025 2:39 PM [facility] BUN 9 5 - 25 mg/dL LAB CHEMISTRY METHOD 01/31/2025 2:39 PM [facility] Creatinine 1.14 0.70 - 1.30 mg/dL LAB CHEMISTRY METHOD 01/31/2025 2:39 PM [facility] eGFR 72 >=60 mL/min/1. 73m2 LAB CHEMISTRY METHOD 01/31/2025 2:39 PM [facility] Comment:Calculation based on the Chronic Kidney Disease Epidemiology Collaboration (CKD-EPI) equation refit without adjustment for race. BUN/Creatinine Ratio 7.9 LAB CHEMISTRY METHOD 01/31/2025 2:39 PM [facility] Calcium 9.6 8.5 - 10.5 mg/dL LAB CHEMISTRY METHOD 01/31/2025 2:39 PM [facility] AST (SGOT) 13 10 - 42 unit/L LAB CHEMISTRY METHOD 01/31/2025 2:39 PM [facility] ALT (SGPT) 21 10 - 60 unit/L LAB CHEMISTRY METHOD 01/31/2025 2:39 PM [facility] Alkaline Phosphatase 76 42 - 121 unit/L LAB CHEMISTRY METHOD 01/31/2025 2:39 PM [facility] Total Protein 7.8 6.0 - 8.0 g/dL LAB CHEMISTRY METHOD 01/31/2025 2:39 PM [facility] Albumin 4.5 3.2 - 5.0 g/dL LAB CHEMISTRY METHOD 01/31/2025 2:39 PM [facility] Total Bilirubin 0.6 0.0 - 1.4 mg/dL LAB CHEMISTRY METHOD 01/31/2025 2:39 PM [facility] Blood Venous blood specimen / Unknown Venipuncture / Unknown 01/31/2025 10:03 AM EDT 01/31/2025 10:03 AM EDT us Neo Patel MD LAB BLOOD ORDERABLES F inal Result [facility] [address] [place] [address], from Last 3 Months Insurance [employer] Care Teams [employer] Relationship Specialty Start Date End Date Neo Patel MD [address] [place] [address] PCP - General Internal Medicine 01/28/25
[2025-04-02 13:32] LABS: Hematocrit 37.9 % (42.0-52.0); Hemoglobin 13.2 g/dl (14.0-18.0); Imm Gran Abs Auto 0.02 X10*3/uL (0.00-0.03); Imm Gran Pct Auto 0.3 % (0.0-0.4); Lymphocytes Absolute Auto 1.6 X10*3/uL (1.2-4.9); Mean Corpuscular HGB Conc 34.8 g/dl (31.0-36.0); Mean Corpuscular Hemoglobin 30.6 pg (27.0-33.0); Mean Corpuscular Volume 87.7 fL (80.0-98.0); NRBC Abs Auto 0.000 X10*3/uL (0.0-0.012); NRBC Pct Auto 0.0 /100WBC (0.0-0.2); Platelet Count 230 X10*3/uL (160-400); Red Blood Count 4.32 X10*6/uL (4.60-5.80); White Blood Count 7.2 X10*3/uL (4.8-10.8)
[2025-04-02 13:45] LABS: Alanine Aminotransferase 23 U/L (0-40); Albumin Level 4.5 g/dL (3.5-5.0); Alkaline Phosphatase 63 U/L (39-117); Anion Gap 13 (12-20); Aspartate Amino Transferase 17 U/L (5-37); Blood Urea Nitrogen 12 mg/dL (9-16); Calcium 9.6 mg/dL (8.4-10.2); Carbon Dioxide 24 mmol/L (22-29); Chloride 105 mmol/L (96-108); Creatinine Clr Calc Pharmacy 96.5; Estimated Glomerular Filt Rate > 60; Lipase 25 U/L (8-78); Potassium 3.9 mmol/L (3.3-5.1); Sodium 138 mmol/L (135-145); Total Protein 6.9 g/dL (6.5-8.0)
[2025-04-02 16:38] VITALS: BP 125/81; PULSE 84; RESP 16; TEMP 36.5; O2SAT 98
[2025-04-02] MEDS: iohexoL 350 MG/ML 100 ML INFUS..BTL IV (17:08)
[2025-04-02 17:21] LABS: Appearance Urine Clear; Glucose Urine UA Negative (Negative); PH 6.0 (5.0-9.0); Specific Gravity - Urine 1.015 (1.005-1.025); UMIC TRIGGER UACC YES
[2025-04-02 17:30] LABS: UACC Culture Trigger YES
[2025-04-02 18:14] VITALS: BP 119/60; PULSE 77; RESP 16; TEMP 36.5; O2SAT 99
[2025-04-02 19:30] VITALS: BP 119/60; PULSE 77; RESP 16; TEMP 36.5; O2SAT 99
== END 2025-04-02 19:31 | disposition home or self-care (01) ==
PROVIDERS: Physician Assistant Medical; Emergency Provider Emergency Medicine; PCP Internal Medicine
DX: R10.31 Right lower quadrant pain (principal)
CPT/HCPCS: 36415; 74177; 80053; 81001; 83690; 85025; 86140; 87086; 96361; 96374; 96375; 99284; J1885; J2405; Q9967

== ENCOUNTER → 2025-04-02 16:31 | Outpatient (BNV) | payer OTHER, SELFPAY | PROVIDERS: Emergency Provider Emergency Medicine; PCP Internal Medicine; Visit Provider Radiology Diagnostic Radiology | DX: R10.31 Right lower quadrant pain (principal); X50.0XXA Overexertion from strenuous movement or load, initial encounter | CPT/HCPCS: 74177 ==